=== PATIENT | female | born 1965 | race Caucasian/White ===

== ENCOUNTER 2020-03-01 20:52 | Emergency (ER) | payer MEDICAID, SELFPAY ==
[2020-03-01 21:13] VITALS: BP 167/78; PULSE 77; RESP 88; TEMP 37.2; O2SAT 99; BMI 42.0
--- NOTE | 2020-03-01 21:18 | XR_ITS ---
EXAMINATION: XR FOOT, RIGHT CLINICAL INFORMATION: Right foot and great toe pain. COMPARISON: Right foot radiographs dated 01/28/2017. TECHNIQUE: AP, lateral, and oblique views of the right foot. FINDINGS: No acute fracture or dislocation. Joint space narrowing with small marginal osteophytes at the 1st metatarsophalangeal joint and hallux sesamoids, unchanged. No osseous erosion. Small plantar and dorsal calcaneal enthesophytes, slightly increased in size when compared to the prior examination. XR/XR foot RT min 3V IMPRESSION: 1. Mild degenerative arthritis at the 1st metatarsophalangeal joint and hallux sesamoids, unchanged. 2. Small plantar and dorsal calcaneal spurs, slightly increased in size.
--- NOTE | 2020-03-01 21:19 | ED_ITS ---
HPI - Extremity Injury (Lower) General Chief Complaint: Extremity Injury, Lower Stated Complaint: toe pain Time Seen by Provider: 03/01/20 21:11 Source: patient Mode of arrival: ambulatory History of Present Illness HPI Narrative: 54-year-old female with a past medical history of diabetes, hypertension, asthma, arthritis presenting to ED complaining of right great toe pain x3 days. Denies injury/trauma. admits pain radiates up foot. Denies numbness, tingling, weakness, fever/chills MD complaint: foot injury Related Data Previous Rx's Medication Instructions Recorded acetaminophen [Tylenol Extra 500 mg PO Q6H PRN #20 tab 03/01/20 Strength] naproxen 500 mg PO BID PRN 10 Days #20 tab 03/01/20 Allergies Allergy/AdvReac Type Severity Reaction Status Date / Time No Known Allergies Allergy Verified 03/01/20 21:16 [No Known Allergies*] Review of Systems Review of Systems: Constitutional: No Weight loss, No Fever, No Chills Musculoskeletal: + joint pain, No Myalgias, No Joint Swelling Skin: No Skin Lesions, No rash Neuro: No Weakness, No Numbness, No Paresthesias [facility] Past Medical History Attestation statement: The following information was validated with the patient. Medical History (Updated 03/01/20 @ 22:10 by EBER Paula) Arthritis Asthma Diabetes HTN (hypertension) Social History Social History Advance Directives: No Advance Directives Information Provided: No Physical Exam Vital Signs: Vital Signs: Vital Signs Temp Pulse Resp BP Pulse Ox 03/01/20 21:13 98.9 F 77 88 H 167/78 H 99 Body Mass Index 42.0 Const: General: cooperative and healthy appearing Orientation/consciousness: patient oriented x3 Limitations: no limitations HENMT: Head: Yes normal to inspection Ears: hearing grossly normal bilaterally General nose exam: Normal external nose present Face and sinus: Yes normal facial exam Eyes: General: appearance normal, both eyes and all related structures EOM: EOMs intact bilaterally Neck: Neck: Yes normal visual inspection Resp: Effort & Inspection: normal respiratory effort Cardio: Rate: regular rate Peripheral pulses: dorsalis pedis present Skin: Rashes: no rashes Wounds: no wounds Neuro: General: patient oriented x3 Gait exam (Neuro): Normal gait present Extrem: General: Yes normal to inspection Right lower extremity: normal to inspection, normal capillary refill and foot Details: normal to inspection, tenderness Location: of the great toe, toes with normal ROM and motor-sensory exam Details: light-touch normal; no unusual warmth, no laceration, no ecchymosis, no crepitus and no puncture wound Course Course Course Narrative: - x-ray showing degenerative arthritis at the 1st metatarsalphalangeal joint, unchanged. Small plantar and dorsal calcaneal spurs slightly increased MDM - Extremity Injury (Lower) MDM Narrative Medical decision making narrative: Likely arthritis vs ? gout although toe not appreciably swollen and patient without history. lower concern for fracture or infection. Unlikely septic joint Discharge Plan Discharge Clinical Impression: Arthritis, Great toe pain Patient Disposition: Home, Self-Care Instructions: Arthritis (ED) Additional Instructions: your x-ray showed arthritis of your 1st toe as well as calcaneal spurs Follow up with her doctor Take Tylenol and Naproxen at home for pain. Naproxen as an anti-inflammatory / pain medication, take with food Ice and elevate her feet Rest Prescriptions: New naproxen 500 mg tablet 500 mg PO BID PRN (Reason: pain) 10 Days Qty: 20 RF: 0 acetaminophen [Tylenol Extra Strength] 500 mg tablet 500 mg PO Q6H PRN (Reason: pain or fever) Qty: 20 RF: 0 Referrals: Sonam Gardner NP [Primary Care Provider] - 5 days Print Language: Setswana
[2020-03-01] MEDS: Acetaminophen 325 MG TABLET 650 MG PO (21:46)
[2020-03-01] MEDS: Ketorolac Tromethamine 15 MG/ML VIAL IM (21:47)
== END 2020-03-01 22:51 | disposition home or self-care (01) ==
PROVIDERS: Emergency Provider Internal Medicine; PCP Nurse Practitioner Family
DX: M19.071 Primary osteoarthritis, right ankle and foot (principal); M79.674 Pain in right toe(s)
CPT/HCPCS: 73630; 96372; 99283; 99284; J1885

== ENCOUNTER 2020-08-12 19:01 | Emergency (ER) | payer MEDICAID, SELFPAY ==
--- NOTE | ~2020-08-12 | XR_ITS ---
EXAMINATION: XR SHOULDER, RIGHT CLINICAL INFORMATION: Right shoulder pain COMPARISON: Right shoulder 02/04/2016 TECHNIQUE: Three views of the right shoulder. FINDINGS: The bones and soft tissues are normal. No fracture. Glenohumeral and acromioclavicular alignment is anatomic with normal joint space. No abnormal soft tissue calcifications. XR/XR shoulder RT min 2V IMPRESSION: Normal right shoulder.
--- NOTE | ~2020-08-12 | XR_ITS ---
EXAMINATION: XR CERVICAL SPINE CLINICAL INFORMATION: Arthritis. COMPARISON: Cervical spine 07/27/2016 TECHNIQUE: 3 views of the cervical spine were obtained. FINDINGS: There is diffuse narrowing of the cervical disc heights from C3-C4 through C6-C7 disc levels. There are small endplate spurs of the vertebrae at each of these disc levels. The facet joints are normal. There is a normal atlantoaxial relationship. No prevertebral soft tissue swelling. Compared to the prior exam of 07/26/2016 there is been further progressive disc height narrowing most significant at C6-C7. XR/XR cervical spine 3V IMPRESSION: Degenerative spondylosis of cervical spine which is mildly progressed since prior study of 07/28/2016.
[2020-08-12 20:04] VITALS: BP 127/77; PULSE 85; RESP 18; TEMP 36.4; O2SAT 95; BMI 42.0
[2020-08-12 21:46] VITALS: BP 154/82; PULSE 86; RESP 14; TEMP 36.8; O2SAT 96
--- NOTE | 2020-08-12 22:16 | ED_ITS ---
HPI - Extremity Problem General Chief complaint: Extremity Injury, Upper Stated complaint: BACK PAIN Time Seen by Provider: 08/12/20 21:55 Source: patient Mode of arrival: ambulatory Limitations: no limitations History of Present Illness HPI Narrative: Patient presents to ED for right shoulder pain for the past 1 month and half that is worse on movement. Patient also stating accompanying neck pain. Patient denies hitting the head, fever, chills, neck stiffness, chest pain, shortness of breath. Patient denies any control use. Patient denies any chest pain on inspiration, control use, history of blood clots, recent surgery, or recent trauma. 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 Related Data Previous Rx's Medication Instructions Recorded acetaminophen [Tylenol Extra 500 mg PO Q6H PRN #20 tab 03/01/20 Strength] naproxen 500 mg PO BID PRN 10 Days #20 tab 03/01/20 cyclobenzaprine 10 mg PO TID PRN #15 tab 08/12/20 naproxen 500 mg PO BID PRN #20 tab 08/12/20 Allergies Allergy/AdvReac Type Severity Reaction Status Date / Time No Known Allergies Allergy Verified 08/12/20 20:04 [No Known Allergies*] Review of Systems Review of Systems: Yes all other systems are reviewed and are negative Constitutional: Constitutional: Reports as per HPI and Reports no additional constitutional complaints Eyes: Eyes: Reports as per HPI and Reports no additional eye complaints ENT: Reports system reviewed and no additional complaints, except as documented, Reports as per HPI and Reports neck pain Cardiovascular: Cardiovascular: Reports as per HPI and Reports no additional cardiovascular complaints Respiratory: Respiratory: Reports as per HPI and Reports no additional respiratory complaints Gastrointestinal: Gastrointestinal: Reports as per HPI and Reports no additional gastrointestinal complaints Genitourinary: Genitourinary: Reports no additional female genitourinary complaints and Reports as per HPI Musculoskeletal: Musculoskeletal: Reports no additional musculoskeletal complaints, Reports as per HPI and Reports neck pain Comments: Shoulder pain Neurologic: Reports system reviewed and no additional complaints, except as documented and Reports as per HPI Psychiatric: Psychiatric: Reports no additional psychiatric complaints and Reports as per HPI [facility] Past Medical History Medical History (Updated 08/12/20 @ 22:57 by EBER Bobby) Arthritis Asthma Diabetes HTN (hypertension) Social History Social History Advance Directives: No Advance Directives Information Provided: Yes Physical Exam Vital Signs: Vital Signs: Last Vital Signs Temp 98.3 F 08/12/20 21:46 Pulse 86 08/12/20 21:46 Resp 14 08/12/20 21:46 BP 154/82 H 08/12/20 21:46 Pulse Ox 96 08/12/20 21:46 Body Mass Index 42.0 Const: General: cooperative, healthy appearing, comfortable, no acute distress, well developed, alert and awake Orientation/consciousness: patient oriented x3 HENMT: Head: Yes normal to inspection, Yes No palpable skull fracture present, Yes normocephalic, Yes atraumatic and No abrasion Eyes: General: appearance normal, both eyes and all related structures Neck: Neck: Yes normal visual inspection, Yes full ROM, Yes no lymphadenopathy, Yes no meningeal signs, Yes trachea midline, Yes supple and Yes tender (Mild) Chest: Chest palpation & inspection: normal inspection of the chest and normal palpation of entire chest wall Resp: Effort & Inspection: normal respiratory effort and able to speak in complete sentences Auscultation: clear to auscultation bilaterally Cardio: Jugular venous distension: no JVD Heart sounds: S1 normal heart sound present and S2 normal heart sound present GI: Inspection: Yes normal to inspection and No abdominal wall ecchymosis Palpation (GI): Soft to palpation, not firm, nontender, no guarding and not rigid Skin: General skin exam: no rashes or lesions noted and elasticity normal Neuro: General: patient oriented x3, no meningeal signs and CN's II-XI intact bilaterally Cranial nerves: Yes CN's II-XII intact bilaterally Extrem: Other: Positive for right shoulder tenderness on palpation and movement. Right upper extremity negative for swelling, redness, bruising, bluish discolration mass, or cold sensation. Vascular/neuro exam of right upper extremities intact. Motor exam intact but with pain. General: Yes normal to inspection and Yes full ROM Psych: Appearance: grossly normal, well kempt and not disheveled Course Course Course Narrative: Patient to have shoulder x-ray and neck x-ray. Reevaluation(s) Reevaluation #1: Shoulder x-ray normal. Upper extremity negative any swelling or redness to indicate DVT. Patient has no risk factors for DVT. Vascular neuro exam is intact. Neck x-ray shows cervical radiculopathy which could contribute to neck pain radiating down shoulder radiating down to right hand. MDM - Extremity (Nontraumatic) MDM Narrative Medical decision making narrative: Cervical radiculopathy. Shoulder pain/shoulder strain Discharge Plan Discharge Clinical Impression: Cervical radiculopathy Patient Disposition: Home, Self-Care Instructions: Shoulder Sprain (ED), Cervical Radiculopathy (ED) Additional Instructions: Regrese al servicio de urgencias de inmediato si tiene dolor en el pecho, dificultad para respirar, hinchaz?n de la extremidad superior, enrojecimiento, fiebre, escalofr?os, rigidez severa del ga, dolor de stephani, par?lisis de la extremidad superior, dolor en el pecho al inspirar o cualquier otro s?ntoma preocupante. Prescriptions: New naproxen 500 mg tablet 500 mg PO BID PRN (Reason: pain) Qty: 20 RF: 0 cyclobenzaprine 10 mg tablet 10 mg PO TID PRN (Reason: pain) Qty: 15 RF: 0 No Action naproxen 500 mg tablet 500 mg PO BID PRN (Reason: pain) 10 Days Qty: 20 RF: 0 acetaminophen [Tylenol Extra Strength] 500 mg tablet 500 mg PO Q6H PRN (Reason: pain or fever) Qty: 20 RF: 0 Referrals: [facility] [Primary Care Provider] - 2 days (Cervical radiculopathy) Interventions: ED Discharge Assessment Last Done: 08/12/20 23:25 Discharge Date/Time: 08/12/20 23:30 Print Language: Portuguese
[2020-08-12] MEDS: Ketorolac Tromethamine 30 MG/ML VIAL IM (22:32)
== END 2020-08-12 23:30 | disposition home or self-care (01) ==
PROVIDERS: Emergency Provider Emergency Medicine
DX: M54.12 Radiculopathy, cervical region (principal); M25.511 Pain in right shoulder; E11.9 Type 2 diabetes mellitus without complications; I10 Essential (primary) hypertension; J45.909 Unspecified asthma, uncomplicated
CPT/HCPCS: 72040; 73030; 96372; 99283; 99284; J1885

== ENCOUNTER 2021-06-02 08:59 | Outpatient (REF) | payer MEDICAID, SELFPAY ==
--- NOTE | ~2021-06-02 | XR_ITS ---
EXAMINATION: CHEST, RIGHT SHOULDER AND BILATERAL KNEE CLINICAL INFORMATION: Moderate persistent asthma. Pain shoulder and knees. COMPARISON: Right shoulder 08/12/2020 and chest 08/09/2018. Bilateral AP knee standing and right knee 07/18/2015. TECHNIQUE: 2 views chest 4 views each knee and 4 views right shoulder. FINDINGS: Right shoulder: The glenohumeral joint space is maintained normal. The AC joint space is normal with mild superior periarticular spurring. No loose bodies, acute fracture or bony erosive changes. The soft tissues are normal. CHEST: The lungs are well-expanded and clear. The heart size and pulmonary vascularity is normal. There is mild spondylosis lower dorsal spine. No lytic process seen. Right knee: There is moderate loss of medial medial compartment and mild loss of vertebral compartment joint space with moderate superior and inferior peripatellar spurring. There is suprapatellar mild joint effusion. No loose body seen. Left knee: There is severe lateral compartment loss of joint space with moderate periarticular spurring in the patellofemoral and lateral compartments. There is moderate suprapatellar joint effusion. No loose bodies. No acute fracture. XR/XR knee LT 4V IMPRESSION: Mild degenerative arthritis right AC joint. Similar findings were seen on 08/12/2020. No acute fracture or dislocation. Unremarkable chest exam. Moderate left knee and mild right knee suprapatellar joint effusion. There are degenerative arthritic changes in the medial and peripheral compartments right knee and lateral and peripheral compartment left knee with periarticular spurring. No loose bodies or fracture seen in either knee.
--- NOTE | ~2021-06-02 | XR_ITS ---
EXAMINATION: CHEST, RIGHT SHOULDER AND BILATERAL KNEE CLINICAL INFORMATION: Moderate persistent asthma. Pain shoulder and knees. COMPARISON: Right shoulder 08/12/2020 and chest 08/09/2018. Bilateral AP knee standing and right knee 07/18/2015. TECHNIQUE: 2 views chest 4 views each knee and 4 views right shoulder. FINDINGS: Right shoulder: The glenohumeral joint space is maintained normal. The AC joint space is normal with mild superior periarticular spurring. No loose bodies, acute fracture or bony erosive changes. The soft tissues are normal. CHEST: The lungs are well-expanded and clear. The heart size and pulmonary vascularity is normal. There is mild spondylosis lower dorsal spine. No lytic process seen. Right knee: There is moderate loss of medial medial compartment and mild loss of vertebral compartment joint space with moderate superior and inferior peripatellar spurring. There is suprapatellar mild joint effusion. No loose body seen. Left knee: There is severe lateral compartment loss of joint space with moderate periarticular spurring in the patellofemoral and lateral compartments. There is moderate suprapatellar joint effusion. No loose bodies. No acute fracture. XR/XR chest 2V IMPRESSION: Mild degenerative arthritis right AC joint. Similar findings were seen on 08/12/2020. No acute fracture or dislocation. Unremarkable chest exam. Moderate left knee and mild right knee suprapatellar joint effusion. There are degenerative arthritic changes in the medial and peripheral compartments right knee and lateral and peripheral compartment left knee with periarticular spurring. No loose bodies or fracture seen in either knee.
--- NOTE | ~2021-06-02 | XR_ITS ---
EXAMINATION: CHEST, RIGHT SHOULDER AND BILATERAL KNEE CLINICAL INFORMATION: Moderate persistent asthma. Pain shoulder and knees. COMPARISON: Right shoulder 08/12/2020 and chest 08/09/2018. Bilateral AP knee standing and right knee 07/18/2015. TECHNIQUE: 2 views chest 4 views each knee and 4 views right shoulder. FINDINGS: Right shoulder: The glenohumeral joint space is maintained normal. The AC joint space is normal with mild superior periarticular spurring. No loose bodies, acute fracture or bony erosive changes. The soft tissues are normal. CHEST: The lungs are well-expanded and clear. The heart size and pulmonary vascularity is normal. There is mild spondylosis lower dorsal spine. No lytic process seen. Right knee: There is moderate loss of medial medial compartment and mild loss of vertebral compartment joint space with moderate superior and inferior peripatellar spurring. There is suprapatellar mild joint effusion. No loose body seen. Left knee: There is severe lateral compartment loss of joint space with moderate periarticular spurring in the patellofemoral and lateral compartments. There is moderate suprapatellar joint effusion. No loose bodies. No acute fracture. XR/XR shoulder RT min 2V IMPRESSION: Mild degenerative arthritis right AC joint. Similar findings were seen on 08/12/2020. No acute fracture or dislocation. Unremarkable chest exam. Moderate left knee and mild right knee suprapatellar joint effusion. There are degenerative arthritic changes in the medial and peripheral compartments right knee and lateral and peripheral compartment left knee with periarticular spurring. No loose bodies or fracture seen in either knee.
--- NOTE | ~2021-06-02 | XR_ITS ---
EXAMINATION: CHEST, RIGHT SHOULDER AND BILATERAL KNEE CLINICAL INFORMATION: Moderate persistent asthma. Pain shoulder and knees. COMPARISON: Right shoulder 08/12/2020 and chest 08/09/2018. Bilateral AP knee standing and right knee 07/18/2015. TECHNIQUE: 2 views chest 4 views each knee and 4 views right shoulder. FINDINGS: Right shoulder: The glenohumeral joint space is maintained normal. The AC joint space is normal with mild superior periarticular spurring. No loose bodies, acute fracture or bony erosive changes. The soft tissues are normal. CHEST: The lungs are well-expanded and clear. The heart size and pulmonary vascularity is normal. There is mild spondylosis lower dorsal spine. No lytic process seen. Right knee: There is moderate loss of medial medial compartment and mild loss of vertebral compartment joint space with moderate superior and inferior peripatellar spurring. There is suprapatellar mild joint effusion. No loose body seen. Left knee: There is severe lateral compartment loss of joint space with moderate periarticular spurring in the patellofemoral and lateral compartments. There is moderate suprapatellar joint effusion. No loose bodies. No acute fracture. XR/XR knee RT 4V IMPRESSION: Mild degenerative arthritis right AC joint. Similar findings were seen on 08/12/2020. No acute fracture or dislocation. Unremarkable chest exam. Moderate left knee and mild right knee suprapatellar joint effusion. There are degenerative arthritic changes in the medial and peripheral compartments right knee and lateral and peripheral compartment left knee with periarticular spurring. No loose bodies or fracture seen in either knee.
== END 2021-06-02 09:00 | disposition home or self-care (01) ==
LOC: HO.XRAY 08:59
PROVIDERS: Visit Provider Nurse Practitioner Family
DX: J45.40 Moderate persistent asthma, uncomplicated (principal); M25.511 Pain in right shoulder; M25.562 Pain in left knee; M25.561 Pain in right knee
CPT/HCPCS: 71046; 73030; 73564

== ENCOUNTER 2021-06-02 09:44 | Emergency (ER) | payer MEDICAID, SELFPAY ==
[2021-06-02 10:02] VITALS: BP 131/78; PULSE 85; RESP 18; TEMP 36.7; O2SAT 95; BMI 44.7
--- NOTE | 2021-06-02 10:51 | ED_ITS ---
HPI - Extremity Problem General Chief complaint: Extremity Problem Stated complaint: R KNEE PAIN Time Seen by Provider: 06/02/21 10:25 Source: patient Mode of arrival: ambulatory Limitations: other (Sri Lankan Speaking ) History of Present Illness HPI Narrative: 56-year-old female past medical history of osteoarthritis, asthma, diabetes and hypertension presenting to the ED with complaints of right shoulder pain and bilateral knee pain since January 2020. She reports that she had outpatient x- rays of her right shoulder, chest and bilateral knees schedule since January 2020 by her primary care provider at [facility] although she never was able to get the x-rays. Therefore today since she is having worsening pain she decided to get her x-rays and then come here to the emergency department to get pain medications. She denies any new injuries. She denies any dizziness, headaches, neck pain/stiffness, trouble swallowing or breathing, paresthesias, chest pain or shortness of breath, rashes, dyspnea exertion, orthopnea, palpitations, focal weakness, recent trauma or falls, back pain, neck pain, abdominal pain, lower extremity swelling or calf tenderness or any other symptoms complaints or concerns at this time. She reports she is taking Flexeril, Motrin and Tylenol and no symptomatic relief and she wants something stronger. MD Complaint: extremity pain Onset (ago): month(s) Pain Consistency: constant Location: left, right, upper extremity and lower extremity Severity scale (1-10): >10 Quality: aching and constant Radiation: none Relieving factors: nothing Exacerbating factors: range of motion, weight bearing, walking and palpation Associated symptoms: denies other symptoms Related Data Previous Rx's Medication Instructions Recorded acetaminophen 500 mg tablet 500 mg PO Q6H PRN #20 tab 03/01/20 (Tylenol Extra Strength) naproxen 500 mg tablet 500 mg PO BID PRN 10 Days #20 tab 03/01/20 cyclobenzaprine 10 mg tablet 10 mg PO TID PRN #15 tab 08/12/20 naproxen 500 mg tablet 500 mg PO BID PRN #20 tab 08/12/20 cyclobenzaprine 10 mg tablet 10 mg PO Q8H PRN #14 tab 06/02/21 ibuprofen 800 mg tablet 800 mg PO Q8H PRN #14 tab 06/02/21 lidocaine HCl 4 % topical cream 1 appl TOPICAL BID PRN #120 g 06/02/21 (Aspercreme (lidocaine HCl)) tramadol 50 mg tablet 50 mg PO Q8H PRN #14 tab 06/02/21 Allergies Allergy/AdvReac Type Severity Reaction Status Date / Time No Known Allergies Allergy Verified 08/12/20 20:04 [No Known Allergies*] Review of Systems Verdana 4l Review of Systems: Verdana 4d Verdana 4d Constitutional : No Weight loss, No Fever, No Chills, No Night Sweats, No Fatigue, No Malaise ENT/Mouth : No Hearing loss, No Ear Pain, No Nasal Congestion, No Sinus Pain, No Hoarseness, No sore throat, No Rhinorrhea, No Swallowing DifficultyDifficulty Eyes: No Eye Pain, No Swelling, No Redness, No Foreign Body, No Discharge, No Vision Changes Cardiovascular : No Chest Pain, No SOB, No Dyspnea on Exertion, No Orthopnea, No Edema, No Palpitations Respiratory : No Cough, No Sputum, No Wheezing, No Smoke Exposure, No Dyspnea Gastrointestinal : No Nausea, No Vomiting, No Diarrhea, No Constipation, No abdominal Pain, No Hematochezia, No Melena Genitourinary : no irregular bleeding, No Dysuria, No Urinary Frequency, No Hematuria, No Urinary Incontinence, No Urgency, No Flank Pain, No Urinary Flow Changes, No Hesitancy Musculoskeletal : + joint pain, No Myalgias, No Joint Swelling Skin : No Skin Lesions, No rash Neuro : No Weakness, No Numbness, No Paresthesias, No Loss of Consciousness, No Dizziness, No Headache Psych : No Anxiety/Panic, No Depression, No SI/HI/AH/VH, No Social Issues, Heme/Lymph: No Bruising, No Bleeding,No Lymphadenopathy Endocrine : No Polyuria, No Polydipsia, No Temperature Intolerance Yes all other systems are reviewed and are negative [facility] Past Medical History Attestation statement: The following information was validated with the patient. Medical History Arthritis Asthma Diabetes HTN (hypertension) Social History Social History Advance Directives: No Advance Directives Information Provided: No Patient : No Physical Exam Verdana 4l Vital Signs: Verdana 4d Verdana 4d Vital Signs: Verdana 4d Verdana 4Bd Last Vital Signs Verdana 4d [employer] New 4d [place] 4d Temp 98.0 F 06/02/21 10:02 4d Pulse 85 06/02/21 10:02 [employer] 4d Resp 18 06/02/21 10:02 BP 131/78 06/02/21 10:02 Pulse Ox 95 06/02/21 10:02 BMI result Body Mass Index 44.7 vital signs have been reviewed as normal and appeared to be correct. Blood pressure normal. Heart rate normal. Respiration rate normal. Temperature normal. Oxygen saturation normal. Appearance: Alert. Oriented X3. No acute distress. Head: Normal external exam. Normocephalic. Atraumatic. Eyes: PERRLA. EOMI. Conjunctiva and sclera normal. Eyelids normal. ENT: Pharynx normal. Uvula midline. Moist mucous membranes. Neck: Normal inspection. Neck supple. FROM. No adenopathy. Thyroid Normal. No meningeal signs. No neck mass noted. CVS: Normal heart rate and rhythm. Heart sound normal. Pulses normal throughout. No murmurs/rales/gallops. Respiratory: No respiratory distress. Painless inspiration. Breath sounds normal. No wheezes/rales/rhonchi noted. Chest nontender. No accessory muscle usage noted or decreased air movement noted. Back: Full range of motion noted. No rashes/lesion/induration/fluctuance or signs of infection noted. Skin: Skin warm and dry. Normal skin color. Normal skin turgor. No rashes/lesions/lacerations noted. Extremities: Patient mild tenderness palpation to bilateral knee joints. Mild joint effusion noted bilaterally. No erythema/drinking/induration/fluctuance noted to bilateral knees. No obvious ligamentous or tendon injury and patient has good range of motion. Patient mild tenderness to palpation to the right shoulder at the AC joint she does have full range of motion no obvious ligamentous or tendon injury noted. No signs of infection noted. No upper or lower extremity edema or bilateral calf tenderness noted. Otherwise all other extremities exhibit normal range of motion and nontender. Neuro: Oriented X 3. No motor deficit. No sensory deficit. Reflexes normal. Normal steady gait. No focal neuro deficits noted. Vascular: + radial pulses/+ 2 distal pedal pulses/+2 dorsalis pedis b/l. Normal cap refill. No cyanosis noted to upper extremity nails and lower extremity toes nails. Course Course Course Narrative: 56-year-old female past medical history of osteoarthritis, asthma, diabetes and hypertension presenting to the ED with complaints of right shoulder pain and bilateral knee pain since January 2020. She reports that she had outpatient x- rays of her right shoulder, chest and bilateral knees schedule since January 2020 by her primary care provider at [facility] although she never was able to get the x-rays. Therefore today since she is having worsening pain she decided to get her x-rays and then come here to the emergency department to get pain medications. She denies any new injuries. She denies any dizziness, headaches, neck pain/stiffness, trouble swallowing or breathing, paresthesias, chest pain or shortness of breath, rashes, dyspnea exertion, orthopnea, palpitations, focal weakness, recent trauma or falls, back pain, neck pain, abdominal pain, lower extremity swelling or calf tenderness or any other symptoms complaints or concerns at this time. She reports she is taking Flexeril, Motrin and Tylenol and no symptomatic relief and she wants something stronger. I was able to call radiology and they were able to read her outpatient x-rays which revealed chronic changes to the right shoulder and bilateral knees along with joint effusions to bilateral knees. Therefore I applied 2 Titus wraps or bilateral knees. I explained to her that she most likely has musculoskeletal pain to the right shoulder will not apply a sling to prevent frozen shoulder. We will also DC home with Motrin, Flexeril, Lidoderm cream and tramadol and instructions to follow-up with her primary care provider and to return if any new or worsening symptoms. Patient understands agrees with this plan. MDM - Extremity (Nontraumatic) Medical Records Attestation: I reviewed the patient's medical records. Imaging Data Chest, right shoulder and bilateral knee x-rays: Attestation: I personally reviewed and interpreted this imaging study as follows: Radiologist's impression: FINDINGS: Right shoulder: The glenohumeral joint space is maintained normal. The AC joint space is normal with mild superior periarticular spurring. No loose bodies, acute fracture or bony erosive changes. The soft tissues are normal. CHEST: The lungs are well-expanded and clear. The heart size and pulmonary vascularity is normal. There is mild spondylosis lower dorsal spine. No lytic process seen. Right knee: There is moderate loss of medial medial compartment and mild loss of vertebral compartment joint space with moderate superior and inferior peripatellar spurring. There is suprapatellar mild joint effusion. No loose body seen. Left knee: There is severe lateral compartment loss of joint space with moderate periarticular spurring in the patellofemoral and lateral compartments. There is moderate suprapatellar joint effusion. No loose bodies. No acute fracture. XR/XR chest 2V IMPRESSION: Mild degenerative arthritis right AC joint. Similar findings were seen on 08/12/2020. No acute fracture or dislocation. ? Unremarkable chest exam. ? Moderate left knee and mild right knee suprapatellar joint effusion. There are degenerative arthritic changes in the medial and peripheral compartments right knee and lateral and peripheral compartment left knee with periarticular spurring. No loose bodies or fracture seen in either knee. Discharge Plan Discharge Clinical Impression: Chronic pain in right shoulder, Osteoarthritis Joint effusion of knee Qualifiers: Laterality: bilateral Qualified Code(s): M25.461 - Effusion, right knee Patient Disposition: Home, Self-Care Instructions: Osteoarthritis (DC), Chronic Pain (ED), Swollen Knee Joint (ED) Prescriptions: New cyclobenzaprine 10 mg tablet 10 mg PO Q8H PRN (Reason: Muscle spasm) Qty: 14 0RF ibuprofen 800 mg tablet 800 mg PO Q8H PRN (Reason: pain) Qty: 14 0RF tramadol 50 mg tablet 50 mg PO Q8H PRN (Reason: pain) Qty: 14 0RF Rx Instructions: May partially fill upon patient request lidocaine HCl [Aspercreme (lidocaine HCl)] 4 % cream 1 appl topical BID PRN (Reason: pain) Qty: 120 0RF No Action naproxen 500 mg tablet 500 mg PO BID PRN (Reason: pain) Qty: 20 0RF cyclobenzaprine 10 mg tablet 10 mg PO TID PRN (Reason: pain) Qty: 15 0RF Rx Instructions: Side effect is drowsiness. Do not take at work or while driving naproxen 500 mg tablet 500 mg PO BID PRN (Reason: pain) 10 Days Qty: 20 0RF acetaminophen [Tylenol Extra Strength] 500 mg tablet 500 mg PO Q6H PRN (Reason: pain or fever) Qty: 20 0RF Referrals: Ashley,Marsha [Primary Care Provider] - 2 days Print Language: Sri Lankan
== END 2021-06-02 11:15 | disposition home or self-care (01) ==
PROVIDERS: Emergency Provider Emergency Medicine Emergency Medical Services; PCP Nurse Practitioner Family
DX: M25.462 Effusion, left knee (principal); M25.461 Effusion, right knee; G89.29 Other chronic pain; M25.511 Pain in right shoulder; M19.011 Primary osteoarthritis, right shoulder; E11.9 Type 2 diabetes mellitus without complications; I10 Essential (primary) hypertension
CPT/HCPCS: 99283

== ENCOUNTER 2022-01-09 08:21 | Emergency (ER) | payer MEDICAID, SELFPAY ==
[2022-01-09 08:24] VITALS: BP 145/85; PULSE 95; RESP 18; TEMP 36.6; O2SAT 95; BMI 44.7
--- NOTE | 2022-01-09 10:12 | ED.FEMALEGU ---
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 Patient states that her vagina has been burning and hurts when she urinates. Patient states that she knows she has arthritis but her left knee, right foot, and back all hurt. Patient denies any dizziness, lightheadedness, abdominal pain, nausea, vomiting, fever, chills, blurry vision, double vision, loss of vision, chest pain, difficulty breathing, shortness of breath, night sweats, blood in her urine or stool, syncope or a near syncopal episode, recent trauma or falls, bowel incontinence, bladder incontinence, bowel retention, bladder retention, or any other complaints at this time. MD elicited complaint: dysuria and back pain Pertinent past history: diabetes Onset (ago): day(s) Location of symptoms: external genitalia Severity: mild Female Urogenital Radiation: Non-Radiating Severity scale (1-10): 2 Quality of pain: burning Consistency: constant Vaginal discharge: none Vaginal bleeding: none Urinary symptoms: Dysuria Exacerbating factors: none Relieving factors: none Associated symptoms: back pain Related Data Previous Rx's Medication Instructions Recorded acetaminophen 500 mg tablet 500 mg PO Q6H PRN pain or fever 03/01/20 (Tylenol Extra Strength) #20 tabs naproxen 500 mg tablet 500 mg PO BID PRN pain 10 days #20 03/01/20 tabs cyclobenzaprine 10 mg tablet 10 mg PO TID PRN pain #15 tabs 08/12/20 naproxen 500 mg tablet 500 mg PO BID PRN pain #20 tabs 08/12/20 cyclobenzaprine 10 mg tablet 10 mg PO Q8H PRN Muscle spasm #14 06/02/21 tabs ibuprofen 800 mg tablet 800 mg PO Q8H PRN pain #14 tabs 06/02/21 lidocaine HCl 4 % topical cream 1 appl topical BID PRN pain #120 06/02/21 (Aspercreme (lidocaine HCl)) grams tramadol 50 mg tablet 50 mg PO Q8H PRN pain #14 tabs 06/02/21 cyclobenzaprine 5 mg tablet 5 mg PO TID PRN back pain 7 days 01/09/22 #21 tabs fluconazole 150 mg tablet 150 mg PO Q3D 2 doses #2 tabs 01/09/22 (Diflucan) Allergies Allergy/AdvReac Type Severity Reaction Status Date / Time No Known Allergies Allergy Verified 08/12/20 20:04 [No Known Allergies*] Review of Systems Constitutional: Constitutional: Reports no additional constitutional complaints, Denies chills, Denies fever(s) and Denies night sweats Eyes: Eyes: Reports no additional eye complaints, Denies blurry vision, Denies change in vision, Denies diplopia, Denies eye discharge, Denies loss of vision and Denies eye pain ENT: Denies dizziness Cardiovascular: Cardiovascular: Reports no additional cardiovascular complaints, Denies chest pain, Denies lightheadedness, Denies Loss of Consciousness and Denies dyspnea Respiratory: Respiratory: Reports no additional respiratory complaints and Denies dyspnea Gastrointestinal: Gastrointestinal: Reports no additional gastrointestinal complaints, Denies abdominal pain, Denies melena, Denies hematochezia, Denies change in bowel habits and Denies change in stool character Genitourinary: Genitourinary: Denies hematuria, Denies urinary frequency, Reports dysuria, Denies urinary incontinence, Denies urinary hesitancy and Denies urinary urgency Musculoskeletal: Musculoskeletal: Reports no additional musculoskeletal complaints, Reports back pain, Denies numbness and Denies tingling Neurologic: Denies dizziness, Denies loss of vision, Denies numbness and Denies tingling Psychiatric: Psychiatric: Reports no additional psychiatric complaints Endocrine: Endocrine: Reports no additional endocrine complaints Hematologic/Lymphatic: Hematologic/Lymphatic: Reports no additional hematologic/lymphatic complaints Allergic/Immunologic: Allergic/Immunologic: Reports no additional allergic/immunologic complaints [facility] Past Medical History Attestation statement: The following information was validated with the patient. Source: old records reviewed Medical History Arthritis Asthma Diabetes HTN (hypertension) Social History Social History Advance Directives: No Advance Directives Information Provided: Yes Physical Exam Vital Signs: Vital Signs: Last Vital Signs Temp 98 F 01/09/22 08:24 Pulse 95 01/09/22 08:24 Resp 18 01/09/22 08:24 BP 145/85 H 01/09/22 08:24 Pulse Ox 95 01/09/22 08:24 O2 Del Method 01/09/22 08:24 BMI result Body Mass Index 44.7 Const: General: cooperative, no acute distress, alert and awake Nutritional Appearance: well nourished Orientation/consciousness: patient oriented x3 Limitations: no limitations HEENT: Head: Yes normal to inspection and Yes atraumatic Ears: hearing grossly normal bilaterally and external ears normal General nose exam: Normal external nose present, no nasal discharge noted and no epistaxis Face and sinus: Yes normal facial exam, No abrasion and No laceration Mouth: Normal oral and palatal mucosa present, no drooling and no muffled voice Eyes: General: appearance normal, both eyes and all related structures Periorbital: periorbital findings normal Eyelids: Yes eyelids normal Conjunctivae: conjunctivae normal Pupils: Equal, round and reactive pupils present EOM: EOMs intact bilaterally Neck: Neck: Yes normal visual inspection, Yes full ROM and Yes no lymphadenopathy Chest: Chest palpation & inspection: normal inspection of the chest Resp: Effort & Inspection: normal respiratory effort and able to speak in complete sentences Auscultation: clear to auscultation bilaterally Cardio: Rate: regular rate Rhythm: regular rhythm GI: Inspection: Yes normal to inspection : General: Yes no CVA tenderness Back/Spine/Pelvis: Back: no CVA tenderness Cervical Spine: normal cervical lordosis and cervical ROM normal Thoracic/Lumbar Spine: thoracic and lumbar spine normal to inspection and thoraco-lumbar ROM normal Neuro: General: patient oriented x3 and moves all extremities Cranial nerves: Yes Equal, round and reactive pupils present Cognition (Neuro): normal cognition Motor exam (neuro): 5/5 motor strength present throughout Sensory Exam: Normal double simultaneous stimulation for sensation Coordination: [id number] test normal Extrem: General: Yes normal to inspection, Yes full ROM and Yes capillary refill normal Psych: Appearance: grossly normal Mental Status: mental status grossly normal Affect: normal affect Attitude: cooperative Thought process: Normal thought process present Thought content: Normal thought content present Insight: Good insight present (Psych) MDM - Female Genitourinary MDM Narrative Medical decision making narrative: Patient is a 56 year old female presenting to the emergency department today with left knee pain, right foot pain, back pain, and vaginal irritation. Patient's physical exam was unremarkable. Patient's urine showed no acute process but did show >1,000 glucose. Patient's back pain, knee pain, and foot pain are all consistent with her arthritis. Patient's vaginal irritation appears to be secondary to a yeast infection. I explained my physical exam findings as well as all test results to the patient. I answered all questions asked by the patient. Patient received PO Flexeril and IM Toradol which she stated helped her pains significantly. I stressed the importance of the patient taking her medication as prescribed. I stressed the importance of the patient following up with her primary care provider. I stressed the importance of the patient returning to the emergency department immediately if her symptoms were to worsen or if she were to develop any dizziness, shortness of breath, difficulty breathing, chest pain, blurry vision, loss of vision, nausea, vomiting, abdominal pain, fever, chills, back pain, or any other complaints. Patient verbalized agreement and understanding with this treatment plan and discharge. Medical Records Attestation: I reviewed the patient's medical records. Lab Data Attestation: I reviewed the patient's lab results. Labs: Lab Results 01/09/22 Range/Units 10:15 Urine Color Yellow Urine Appearance Clear Urine pH 5.5 (5.0-9.0) Ur Specific [place] >= 1.030 H (1.005-1.025) Urine Protein Negative (Neg-Trace) mg/dL Urine Glucose (UA) >=1000 H (Negative) mg/dL Urine Ketones Negative (Negative) mg/dL Urine Blood Negative (Negative) Urine Nitrite Negative (Negative) Ur Leukocyte Esterase Negative (Negative) Urine RBC 0-2 (0-2) /HPF Urine WBC 0-5 (0-5) /HPF Ur Squamous Epith Cells 0-2 (0-2) /HPF Urine Bacteria None Seen (None Seen) Hyaline Casts 3-5 (0-2) /LPF Discharge Plan Discharge Clinical Impression: Arthritis, Yeast infection Patient Disposition: Home, Self-Care Instructions: Osteoarthritis (ED), Yeast Infection (ED) Additional Instructions: Follow up with your primary care provider. Return to the emergency department immediately if your symptoms worsen or if you develop any dizziness, shortness of breath, difficulty breathing, chest pain, blurry vision, loss of vision, nausea, vomiting, abdominal pain, fever, chills, back pain, or any other complaints. Dieudonne un seguimiento con wilkinson proveedor de atenci?n primaria. Regrese al departamento de emergencias de inmediato si bailey s?ntomas empeoran o si presenta mareos, falta de aire, dificultad para respirar, dolor de pecho, visi?n borrosa, p?rdida de la visi?n, n?useas, v?mitos, dolor abdominal, fiebre, escalofr?os, dolor de espalda o cualquier otras quejas. Prescriptions: New fluconazole [Diflucan] 150 mg tablet 150 mg PO Q3D Qty: 2 0RF Rx Instructions: may repeat second dose 72 hrs after first dose if symptoms persist cyclobenzaprine 5 mg tablet 5 mg PO TID PRN (Reason: back pain) 7 Days Qty: 21 0RF No Action naproxen 500 mg tablet 500 mg PO BID PRN (Reason: pain) Qty: 20 0RF cyclobenzaprine 10 mg tablet 10 mg PO TID PRN (Reason: pain) Qty: 15 0RF Rx Instructions: Side effect is drowsiness. Do not take at work or while driving naproxen 500 mg tablet 500 mg PO BID PRN (Reason: pain) 10 Days Qty: 20 0RF acetaminophen [Tylenol Extra Strength] 500 mg tablet 500 mg PO Q6H PRN (Reason: pain or fever) Qty: 20 0RF cyclobenzaprine 10 mg tablet 10 mg PO Q8H PRN (Reason: Muscle spasm) Qty: 14 0RF ibuprofen 800 mg tablet 800 mg PO Q8H PRN (Reason: pain) Qty: 14 0RF tramadol 50 mg tablet 50 mg PO Q8H PRN (Reason: pain) Qty: 14 0RF Rx Instructions: May partially fill upon patient request lidocaine HCl [Aspercreme (lidocaine HCl)] 4 % cream 1 appl topical BID PRN (Reason: pain) Qty: 120 0RF Referrals: [facility] [Primary Care Provider] - Interventions: ED Discharge Assessment Last Done: 01/09/22 11:09 Discharge Date/Time: 01/09/22 11:11 Print Language: [place]an
[2022-01-09 10:30] LABS: Appearance Urine Clear; Color Urine Yellow; Glucose Urine UA >=1000 mg/dL (Negative); Leukocyte Esterase Urine Negative (Negative); Nitrite Urine Negative (Negative); PH 5.5 (5.0-9.0); Specific Gravity - Urine >= 1.030 (1.005-1.025); Urine Blood Negative (Negative); Urine Ketones Negative (Negative); Urine Protein Negative (Neg-Trace)
[2022-01-09 10:36] LABS: Bacteria Urine None Seen (None Seen); RBC Urine 0-2 /HPF (0-2); Squamous Epithelial Cell Urine 0-2 /HPF (0-2); WBC Urine 0-5 /HPF (0-5)
[2022-01-09] MEDS: Ketorolac Tromethamine 15 MG/ML VIAL IM (11:02)
== END 2022-01-09 11:11 | disposition home or self-care (01) ==
PROVIDERS: Emergency Provider Emergency Medicine
DX: B37.3 Candidiasis of vulva and vagina (principal); M17.12 Unilateral primary osteoarthritis, left knee; M19.071 Primary osteoarthritis, right ankle and foot; M47.9 Spondylosis, unspecified; E11.9 Type 2 diabetes mellitus without complications; I10 Essential (primary) hypertension
CPT/HCPCS: 81001; 96372; 99284; J1885

== ENCOUNTER 2022-02-12 13:47 | Outpatient (REF) | payer MEDICAID, SELFPAY | END 2022-02-12 13:48 | disposition home or self-care (01) | LOC: HO.LAB 13:47 | PROVIDERS: Visit Provider Surgery | DX: L02.411 Cutaneous abscess of right axilla (principal); N61.1 Abscess of the breast and nipple; L03.111 Cellulitis of right axilla; B95.62 Methicillin resistant Staphylococcus aureus infection as the cause of diseases classified elsewhere; Z79.899 Other long term (current) drug therapy | CPT/HCPCS: 10060; 10061; 87070; 87077; 87186; 87205; 99202 ==

== ENCOUNTER 2022-03-15 19:53 | Emergency (ER) | payer MEDICAID, SELFPAY ==
--- NOTE | 2022-03-15 20:24 | ED.GENADULT ---
HPI - General Adult General Chief complaint: General Medical Stated complaint: swollen tonsils/ throat issues Related Data Home Medications Medication Instructions Recorded Confirmed amlodipine 10 mg tablet 10 mg PO DAILY 02/12/22 02/12/22 clotrimazole 1 % vaginal cream 1 appful vaginal BEDTIME PRN 02/12/22 02/12/22 fluticasone propionate 230 2 puff inhalation 02/12/22 02/12/22 mcg-salmeterol 21 mcg/actuation HFA inhaler (Advair HFA) loratadine 10 mg tablet 10 mg PO DAILY 02/12/22 02/12/22 montelukast 10 mg tablet 10 mg PO BEDTIME 02/12/22 02/12/22 multivitamin 1 tab PO DAILY 02/12/22 02/12/22 omeprazole 20 mg capsule,delayed 20 mg PO QAM 02/12/22 02/12/22 release sennosides 8.6 mg tablet (senna) 8.6 - 17.2 mg PO BEDTIME 02/12/22 02/12/22 vitamin E (dl, acetate) 180 mg 180 mg PO DAILY 02/12/22 02/12/22 (400 unit) capsule Previous Rx's Medication Instructions Recorded acetaminophen 500 mg tablet 500 mg PO Q6H PRN pain or fever 03/01/20 (Tylenol Extra Strength) #20 tabs ibuprofen 800 mg tablet 800 mg PO Q8H PRN pain #14 tabs 06/02/21 lidocaine HCl 4 % topical cream 1 appl topical BID PRN pain #120 06/02/21 (Aspercreme (lidocaine HCl)) grams fluconazole 150 mg tablet 150 mg PO Q3D 2 doses #2 tabs 01/09/22 (Diflucan) chlorhexidine gluconate 4 % 1 appl topical .COMPLEX 2 doses 02/12/22 topical liquid (Hibiclens) #473 mL sulfamethoxazole 800 1 tab PO Q12H #20 tabs 02/19/22 mg-trimethoprim 160 mg tablet (Bactrim DS) Allergies Allergy/AdvReac Type Severity Reaction Status Date / Time No Known Allergies Allergy Verified 02/12/22 13:20 [No Known Allergies*] PMFSH Past Medical History Medical History Arthritis Asthma Diabetes HTN (hypertension) Surgical History History of 3 sections Family History Family History Brother Colon cancer Maternal Aunt Ovarian cancer Social History Social History Alcohol intake: never Patient Tobacco Use Status: Never used Tobacco Course Course Course Narrative: -traige OPHELIA: -c/o swollen uvula, can swallow w pain, today pt woke up -denies URI, fever -PE: normal respirations, normal heart rate, uvula erythematous and very mild swelling at the tip -pt denies taking lisinopril -Patient given po decadron, viscous lidocaine and benadryl Discharge Plan Discharge Prescriptions: No Action acetaminophen [Tylenol Extra Strength] 500 mg tablet 500 mg PO Q6H PRN (Reason: pain or fever) Qty: 20 0RF fluconazole [Diflucan] 150 mg tablet 150 mg PO Q3D Qty: 2 0RF Rx Instructions: may repeat second dose 72 hrs after first dose if symptoms persist ibuprofen 800 mg tablet 800 mg PO Q8H PRN (Reason: pain) Qty: 14 0RF lidocaine HCl [Aspercreme (lidocaine HCl)] 4 % cream 1 appl topical BID PRN (Reason: pain) Qty: 120 0RF vitamin E (dl, acetate) 180 mg (400 unit) capsule 180 mg PO DAILY Advair HFA 230-21 mcg/actuation HFA aerosol inhaler 2 puff inhalation loratadine 10 mg tablet 10 mg PO DAILY montelukast 10 mg tablet 10 mg PO BEDTIME omeprazole 20 mg capsule,delayed release(DR/EC) 20 mg PO QAM amlodipine 10 mg tablet 10 mg PO DAILY sennosides [senna] 8.6 mg tablet 8.6 - 17.2 mg PO BEDTIME multivitamin Tablet 1 tab PO DAILY clotrimazole 1 % cream 1 appful vaginal BEDTIME PRN chlorhexidine gluconate [Hibiclens] 4 % liquid 1 appl topical .COMPLEX Qty: 473 2RF Rx Instructions: 1 appl topically use in shower 3 times weekly. Lather on skin and leave on for 2 minutes, then rinse off in shower; sulfamethoxazole-trimethoprim [Bactrim DS] 800-160 mg tablet 1 tab PO Q12H Qty: 20 0RF
[2022-03-15 20:25] VITALS: BP 137/99; PULSE 90; RESP 18; TEMP 36.2; O2SAT 97; BMI 45.3
[2022-03-15] MEDS: Lidocaine HCl Viscous 2 % 15 ML SOLUTION MUCOUS MEM (20:38)
[2022-03-15] MEDS: dexAMETHasone sod phosphate 4 MG/ML VIAL 6 MG IVPUSH (20:41)
[2022-03-15] MEDS: diphenhydrAMINE HCL 25 MG CAPSULE PO (20:41)
[2022-03-15 20:46] LABS: Strep A Nucleic Acid Negative (Negative)
[2022-03-15 20:50] LABS: COVID-19 Test Negative (Negative); IDNOW Serial# 55D5AD1C
[2022-03-15] MEDS: Ibuprofen 800 MG TABLET PO (22:36)
[2022-03-15] MEDS: predniSONE 20 MG TABLET 40 MG PO (22:36)
--- NOTE | 2022-03-15 23:01 | ED.GENADULT ---
HPI - General Adult General Chief complaint: General Medical Stated complaint: swollen tonsils/ throat issues Time Seen by Provider: 03/15/22 21:37 Source: patient Mode of arrival: ambulatory Limitations: no limitations History of Present Illness HPI narrative: 56 yold female presents to the ED for sore throat for a couple of days. Patient denies any drooling, fever, chills, rash, change in voice, or inability to tolerate solid foods and liquids. patient denies sensation of throat closting. Related Data Home Medications Medication Instructions Recorded Confirmed amlodipine 10 mg tablet 10 mg PO DAILY 02/12/22 02/12/22 clotrimazole 1 % vaginal cream 1 appful vaginal BEDTIME PRN 02/12/22 02/12/22 fluticasone propionate 230 2 puff inhalation 02/12/22 02/12/22 mcg-salmeterol 21 mcg/actuation HFA inhaler (Advair HFA) loratadine 10 mg tablet 10 mg PO DAILY 02/12/22 02/12/22 montelukast 10 mg tablet 10 mg PO BEDTIME 02/12/22 02/12/22 multivitamin 1 tab PO DAILY 02/12/22 02/12/22 omeprazole 20 mg capsule,delayed 20 mg PO QAM 02/12/22 02/12/22 release sennosides 8.6 mg tablet (senna) 8.6 - 17.2 mg PO BEDTIME 02/12/22 02/12/22 vitamin E (dl, acetate) 180 mg 180 mg PO DAILY 02/12/22 02/12/22 (400 unit) capsule Previous Rx's Medication Instructions Recorded acetaminophen 500 mg tablet 500 mg PO Q6H PRN pain or fever 03/01/20 (Tylenol Extra Strength) #20 tabs ibuprofen 800 mg tablet 800 mg PO Q8H PRN pain #14 tabs 06/02/21 lidocaine HCl 4 % topical cream 1 appl topical BID PRN pain #120 06/02/21 (Aspercreme (lidocaine HCl)) grams fluconazole 150 mg tablet 150 mg PO Q3D 2 doses #2 tabs 01/09/22 (Diflucan) chlorhexidine gluconate 4 % 1 appl topical .COMPLEX 2 doses 02/12/22 topical liquid (Hibiclens) #473 mL sulfamethoxazole 800 1 tab PO Q12H #20 tabs 02/19/22 mg-trimethoprim 160 mg tablet (Bactrim DS) azithromycin 250 mg tablet See Rx Instructions PO .COMPLEX #6 03/15/22 tabs diphenhydramine HCl 25 mg capsule 25 mg PO TID PRN allergic reaction 03/15/22 (Benadryl) 7 days #21 caps famotidine 20 mg tablet (Pepcid) 20 mg PO BID 7 days #14 tabs 03/15/22 prednisone 20 mg tablet 40 mg PO DAILY 5 days #10 tabs 03/15/22 Allergies Allergy/AdvReac Type Severity Reaction Status Date / Time No Known Allergies Allergy Verified 02/12/22 13:20 [No Known Allergies*] Review of Systems Review of Systems: SOre throat Yes all other systems are reviewed and are negative [facility] Past Medical History Medical History Arthritis Asthma Diabetes HTN (hypertension) Surgical History History of 3 sections Family History Family History Brother Colon cancer Maternal Aunt Ovarian cancer Social History Social History Alcohol intake: never Patient Tobacco Use Status: Never used Tobacco Advance Directives: No Advance Directives Information Provided: No Physical Exam ED Vital Signs: Vital Signs - 24 hr 03/15/22 20:25 Temperature 97.2 F Pulse Rate 90 Respiratory Rate 18 Blood Pressure 137/99 H Pulse Oximetry 97 Oxygen Delivery Method Room Air BMI result Body Mass Index 45.3 Const General: cooperative, healthy appearing, comfortable, no acute distress, well developed, alert and awake Orientation/consciousness: oriented to time and patient oriented x3 HENMT Other: negative for lip swelling, facial swelling, or tongue swelling. Head: Yes normal to inspection, Yes No palpable skull fracture present, Yes normocephalic, Yes atraumatic and No abrasion Throat: Yes posterior oropharynx normal, Yes tonsils normal and Yes uvular edema (slight redness and slight swelling of uvula. ) Eyes General: appearance normal, both eyes and all related structures Neck Neck: Yes normal visual inspection, Yes full ROM, Yes no lymphadenopathy, Yes no meningeal signs, Yes trachea midline, Yes supple, No anterior neck swelling and No tender Chest Chest palpation & inspection: normal inspection of the chest and normal palpation of entire chest wall Resp Effort & Inspection: normal respiratory effort and able to speak in complete sentences Auscultation: clear to auscultation bilaterally Cardio Jugular venous distension: no JVD Heart sounds: S1 normal heart sound present and S2 normal heart sound present GI Inspection: Yes normal to inspection and No abdominal wall ecchymosis Palpation (GI): Soft to palpation, not firm, nontender, no guarding and not rigid General: No CVA tenderness and Yes no CVA tenderness Back/Spine/Pelvis Back: no CVA tenderness, No CVA tenderness and No back tenderness Skin General skin exam: no rashes or lesions noted and elasticity normal Neuro General: oriented to time, patient oriented x3, gait normal, tone normal and no meningeal signs Cranial nerves: Yes CN's II-XII intact bilaterally Extrem General: Yes normal to inspection and Yes full ROM Psych Appearance: grossly normal, well kempt and not disheveled Course Course Course Narrative: uvalitis Reevaluation(s) Reevaluation #1: Patient received lidocaine, dexmethasone, bendry, and prednisone. patient to discharged with prednisone, benadryl, pepcid, and zpack Medications Administered Discontinued Medications Generic Name Dose Route Start Last Admin Trade Name Stefania PRN Reason Stop Dose Admin Dexamethasone Sodium Phosphate 6 mg 03/15/22 20:31 03/15/22 20:41 Dexamethasone Sod Phosphate 4 Mg/Ml Vial IVPUSH 03/15/22 20:32 6 mg ONCE ONE Administration Diphenhydramine HCl 25 mg 03/15/22 20:31 03/15/22 20:41 Diphenhydramine Hcl 25 Mg Capsule PO 03/15/22 20:32 25 mg ONCE ONE Administration Ibuprofen 800 mg 03/15/22 22:33 03/15/22 22:36 Ibuprofen 800 Mg Tablet PO 03/15/22 22:34 800 mg ONCE ONE Administration Lidocaine HCl 15 ml 03/15/22 20:31 03/15/22 20:38 Lidocaine Hcl Viscous 2 % 15 Ml Solution MUCOUS MEM 03/15/22 20:32 15 ml ONCE ONE Administration Prednisone 40 mg 03/15/22 22:33 03/15/22 22:36 Prednisone 20 Mg Tablet PO 03/15/22 22:34 40 mg ONCE ONE Administration Medical Decision Making MDM Narrative Medical decision making narrative: uvilitis Lab Data Labs: Lab Results 03/15/22 03/15/22 Range/Units 20:32 20:32 COVID-19 (REJI) Negative (Negative) COVID-19 Clin Com See Note S. pyogenes GrpA MARCUS Negative (Negative) Discharge Plan Discharge Clinical Impression: Uvulitis Patient Disposition: Home, Self-Care Instructions: Uvulitis (ED) Additional Instructions: Tienes uvulitis. Regrese al servicio de urgencias por cualquier babeo, cambio de voz, dolor en el pecho, dificultad para respirar, hinchaz?n del ga, incapacidad para tolerar alimentos s?lidos/l?quidos, sarpullido, fiebre, escalofr?os o cualquier otro s?ntoma preocupante. Por favor, moris un seguimiento con PCP. Prescriptions: New prednisone 20 mg tablet 40 mg PO DAILY 5 Days Qty: 10 0RF diphenhydramine HCl [Benadryl] 25 mg capsule 25 mg PO TID PRN (Reason: allergic reaction) 7 Days Qty: 21 0RF famotidine [Pepcid] 20 mg tablet 20 mg PO BID 7 Days Qty: 14 0RF azithromycin 250 mg tablet See Rx Instructions .ROUTE .COMPLEX Qty: 6 0RF Rx Instructions: For 250 mg dose pack: take 500 mg today (day 1), then 250 mg for 4 days (days 2-5) No Action acetaminophen [Tylenol Extra Strength] 500 mg tablet 500 mg PO Q6H PRN (Reason: pain or fever) Qty: 20 0RF fluconazole [Diflucan] 150 mg tablet 150 mg PO Q3D Qty: 2 0RF Rx Instructions: may repeat second dose 72 hrs after first dose if symptoms persist ibuprofen 800 mg tablet 800 mg PO Q8H PRN (Reason: pain) Qty: 14 0RF lidocaine HCl [Aspercreme (lidocaine HCl)] 4 % cream 1 appl topical BID PRN (Reason: pain) Qty: 120 0RF vitamin E (dl, acetate) 180 mg (400 unit) capsule 180 mg PO DAILY Advair HFA 230-21 mcg/actuation HFA aerosol inhaler 2 puff inhalation loratadine 10 mg tablet 10 mg PO DAILY montelukast 10 mg tablet 10 mg PO BEDTIME omeprazole 20 mg capsule,delayed release(DR/EC) 20 mg PO QAM amlodipine 10 mg tablet 10 mg PO DAILY sennosides [senna] 8.6 mg tablet 8.6 - 17.2 mg PO BEDTIME multivitamin Tablet 1 tab PO DAILY clotrimazole 1 % cream 1 appful vaginal BEDTIME PRN chlorhexidine gluconate [Hibiclens] 4 % liquid 1 appl topical .COMPLEX Qty: 473 2RF Rx Instructions: 1 appl topically use in shower 3 times weekly. Lather on skin and leave on for 2 minutes, then rinse off in shower; sulfamethoxazole-trimethoprim [Bactrim DS] 800-160 mg tablet 1 tab PO Q12H Qty: 20 0RF Interventions: ED Discharge Assessment Last Done: 03/15/22 23:33 Discharge Date/Time: 03/15/22 23:34
== END 2022-03-15 23:34 | disposition home or self-care (01) ==
PROVIDERS: Emergency Medicine; Emergency Provider Internal Medicine
DX: K12.2 Cellulitis and abscess of mouth (principal); J02.9 Acute pharyngitis, unspecified; Z20.822 Contact with and (suspected) exposure to COVID-19; I10 Essential (primary) hypertension; E11.9 Type 2 diabetes mellitus without complications; Z79.899 Other long term (current) drug therapy
CPT/HCPCS: 87635; 87651; 99283; J1100

== ENCOUNTER 2022-07-19 15:22 | Emergency (ER) | payer MEDICAID, SELFPAY ==
--- NOTE | ~2022-07-19 | CT_ITS ---
EXAMINATION: CT ORBIT WITH CONTRAST CLINICAL INFORMATION: Right eye pain and swelling COMPARISON: None available. TECHNIQUE: Axial 3 mm thin and reformatted 1.5 mm thin sagittal coronal images of orbits were obtained following IV 85 mL Omnipaque 350. This CT examination was performed using dose optimization techniques as appropriate, variously including the following: *Automated exposure control *Adjustment of mA and/or kV according to patient size (this includes techniques or standardized protocols for targeted exams where dose is matched to indication/reason for exam; i.e. extremities or head) *Use of iterative reconstruction technique DLP: 194 mGy-cm FINDINGS: There is mild to moderate right orbit preseptal soft tissue swelling. No post septal soft tissue swelling seen. The optic globe, optic nerves and the intraconal an extraconal soft tissues are symmetrical and normal. No radiopaque foreign body seen in the orbits. The bony james of the orbits are normal. Visualized bilateral maxillary, ethmoid, frontal and sphenoid sinuses are clear. No bony abnormalities seen. No intracranial parenchymal opacity seen. CT/CT orbit BI w IV con IMPRESSION: Mild to moderate right preseptal soft tissue swelling. No post septal soft tissue swelling seen. Otherwise bilateral orbits are unremarkable.
[2022-07-19 15:38] VITALS: BP 152/93; PULSE 100; RESP 16; TEMP 36.9; O2SAT 97; BMI 44.9
--- NOTE | 2022-07-19 15:39 | ED.EYEPROB ---
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 Patient states that on Tuesday, she noticed some eye itchiness, crusting, pain and swelling to her right eye and eyelid. She reports that since this onset, her pain and swelling has become worse. She admits that she has eyeball pain with eye movement. Pt reports that she has had some blurry vision in her right eye. She wears reading glasses, denies contact lens use. She reports that one month ago, she had a right ear infection and sore throat which was treated at an urgent care facility with antibiotics. She reports that she has had a persistent headache and right ear pain over the last month and that the antibiotics did not help. Denies fevers or chills. <Sneha Ferrell NP - Last Filed: 07/20/22 16:55> chief complaint: eye pain <Sneha Ferrell NP - Last Filed: 07/20/22 16:55> Onset (ago): day(s) <Sneha Ferrell NP - Last Filed: 07/20/22 16:55> Onset description: gradual <Sneha Ferrell NP - Last Filed: 07/20/22 16:55> Duration: constant and progressively worsening <Sneha Ferrell NP - Last Filed: 07/20/22 16:55> Location: right eye <Sneha Ferrell NP - Last Filed: 07/20/22 16:55> Eye Symptoms: pain, itching, discharge, decreased vision and blurry vision <Sneha Ferrell NP - Last Filed: 07/20/22 16:55> Place: home <Sneha Ferrell NP - Last Filed: 07/20/22 16:55> Mechanism: none <Sneha Ferrell NP - Last Filed: 07/20/22 16:55> Severity: moderate <Sneha Ferrell NP - Last Filed: 07/20/22 16:55> If Pain, Quality: burning and aching <Sneha Ferrell NP - Last Filed: 07/20/22 16:55> Context: recent URI <Sneha Ferrell NP - Last Filed: 07/20/22 16:55> Associated symptoms: headache <Sneha Ferrell NP - Last Filed: 07/20/22 16:55> Treatments Prior to Arrival: none <Sneha Ferrell NP - Last Filed: 07/20/22 16:55> Related Data Home medications: Home Medications Medication Instructions Recorded Confirmed amlodipine 10 mg tablet 10 mg PO DAILY 02/12/22 02/12/22 clotrimazole 1 % vaginal cream 1 appful vaginal BEDTIME PRN 02/12/22 02/12/22 fluticasone propionate 230 2 puff inhalation 02/12/22 02/12/22 mcg-salmeterol 21 mcg/actuation HFA inhaler (Advair HFA) loratadine 10 mg tablet 10 mg PO DAILY 02/12/22 02/12/22 montelukast 10 mg tablet 10 mg PO BEDTIME 02/12/22 02/12/22 multivitamin 1 tab PO DAILY 02/12/22 02/12/22 omeprazole 20 mg capsule,delayed 20 mg PO QAM 02/12/22 02/12/22 release sennosides 8.6 mg tablet (senna) 8.6 - 17.2 mg PO BEDTIME 02/12/22 02/12/22 vitamin E (dl, acetate) 180 mg 180 mg PO DAILY 02/12/22 02/12/22 (400 unit) capsule Previous Rx's Medication Instructions Recorded acetaminophen 500 mg tablet 500 mg PO Q6H PRN pain or fever 03/01/20 (Tylenol Extra Strength) #20 tabs ibuprofen 800 mg tablet 800 mg PO Q8H PRN pain #14 tabs 06/02/21 lidocaine HCl 4 % topical cream 1 appl topical BID PRN pain #120 06/02/21 (Aspercreme (lidocaine HCl)) grams fluconazole 150 mg tablet 150 mg PO Q3D 2 doses #2 tabs 01/09/22 (Diflucan) chlorhexidine gluconate 4 % 1 appl topical .COMPLEX 2 doses 02/12/22 topical liquid (Hibiclens) #473 mL sulfamethoxazole 800 1 tab PO Q12H #20 tabs 02/19/22 mg-trimethoprim 160 mg tablet (Bactrim DS) azithromycin 250 mg tablet See Rx Instructions PO .COMPLEX #6 03/15/22 tabs diphenhydramine HCl 25 mg capsule 25 mg PO TID PRN allergic reaction 03/15/22 (Benadryl) 7 days #21 caps famotidine 20 mg tablet (Pepcid) 20 mg PO BID 7 days #14 tabs 03/15/22 prednisone 20 mg tablet 40 mg PO DAILY 5 days #10 tabs 03/15/22 amoxicillin 875 mg-potassium 1 tab PO BID #20 tabs 07/19/22 clavulanate 125 mg tablet <EBER Healy - Last Filed: 07/19/22 15:46> Allergies/adverse reactions: Allergies Allergy/AdvReac Type Severity Reaction Status Date / Time No Known Allergies Allergy Verified 02/12/22 13:20 [No Known Allergies*] <EBER Healy - Last Filed: 07/19/22 15:46> Review of Systems Review of Systems: Yes all other systems are reviewed and are negative <Sneha Ferrell NP - Last Filed: 07/20/22 16:55> Constitutional: Constitutional: Reports no additional constitutional complaints, Denies body ache(s), Denies chills, Denies fever(s), Reports headache(s) and Denies weakness <Sneha Ferrell WOOL PRESSER - Last Filed: 07/20/22 16:55> Eyes: Eyes: Reports change in vision, Reports eye discharge, Reports irritation, Reports itchy eyes, Reports eye pain and Denies requires corrective lenses <Sneha eFrrell WOOL PRESSER - Last Filed: 07/20/22 16:55> ENT: Reports system reviewed and no additional complaints, except as documented, Denies dizziness, Reports otalgia, Reports headache(s), Denies nasal congestion, Denies nasal discharge and Denies neck pain <Sneha Ferrell WOOL PRESSER - Last Filed: 07/20/22 16:55> Cardiovascular: Cardiovascular: Reports no additional cardiovascular complaints, Denies chest pain, Denies leg edema and Denies dyspnea <Sneha Ferrell WOOL PRESSER - Last Filed: 07/20/22 16:55> Respiratory: Respiratory: Reports no additional respiratory complaints, Denies cough and Denies dyspnea <Sneha Ferrell WOOL PRESSER - Last Filed: 07/20/22 16:55> Gastrointestinal: Gastrointestinal: Reports no additional gastrointestinal complaints, Denies abdominal pain, Denies diarrhea, Denies nausea and Denies vomiting <Sneha Ferrell WOOL PRESSER - Last Filed: 07/20/22 16:55> Genitourinary: Genitourinary: Reports no additional female genitourinary complaints and Denies urinary incontinence <Sneha Ferrell WOOL PRESSER - Last Filed: 07/20/22 16:55> Musculoskeletal: Musculoskeletal: Reports no additional musculoskeletal complaints, Denies back pain, Denies arthralgias, Denies joint swelling, Denies neck pain, Denies numbness and Denies tingling <Sneha Ferrell WOOL PRESSER - Last Filed: 07/20/22 16:55> Integumentary/Breasts: Skin/Breast: Reports system reviewed and no additional complaints, except as docu and Denies rash <Sneha Ferrell WOOL PRESSER - Last Filed: 07/20/22 16:55> Neurologic: Reports system reviewed and no additional complaints, except as documented, Denies Abnormal speech present, Denies dizziness, Reports headache(s), Denies numbness, Denies tingling and Denies weakness <Sneha Ferrell NP - Last Filed: 07/20/22 16:55> Allergic/Immunologic: Allergic/Immunologic: Reports itchy eyes <Sneha Ferrell NP - Last Filed: 07/20/22 16:55> [facility] Past Medical History Attestation statement: The following information was validated with the patient. <Sneha Ferrell NP - Last Filed: 07/20/22 16:55> Source: old records reviewed and nursing notes reviewed <Sneha Ferrell NP - Last Filed: 07/20/22 16:55> Medical History: Medical History Arthritis Asthma Diabetes HTN (hypertension) <EBER Healy - Last Filed: 07/19/22 15:46> Surgical History: Surgical History History of 3 sections <EBER Healy - Last Filed: 07/19/22 15:46> Family History Family History: Family History Brother Colon cancer Maternal Aunt Ovarian cancer <EBER Healy - Last Filed: 07/19/22 15:46> Social History Social History: Social History Alcohol intake: never Patient Tobacco Use Status: Never used Tobacco Advance Directives: No Advance Directives Information Provided: No <EBER Healy - Last Filed: 07/19/22 15:46> Physical Exam Vital Signs: Vital Signs: Last Vital Signs Temp 98.1 F 07/19/22 17:55 Pulse 87 07/19/22 17:55 Resp 16 07/19/22 17:55 BP 118/61 07/19/22 17:55 Pulse Ox 97 07/19/22 17:55 O2 Del Method 07/19/22 17:55 BMI result Body Mass Index 44.9 <EBER Healy - Last Filed: 07/19/22 15:46> Vital Signs: Last Vital Signs Temp 98.1 F 07/19/22 17:55 Pulse 87 07/19/22 17:55 Resp 16 07/19/22 17:55 BP 118/61 07/19/22 17:55 Pulse Ox 97 07/19/22 17:55 O2 Del Method 07/19/22 17:55 BMI result Body Mass Index 44.9 <Sneha Ferrell WOOL PRESSER - Last Filed: 07/20/22 16:55> Const: General: cooperative, healthy appearing, comfortable and no acute distress <Sneha Ferrell WOOL PRESSER - Last Filed: 07/20/22 16:55> Orientation/consciousness: patient oriented x3 <Sneha Ferrell WOOL PRESSER - Last Filed: 07/20/22 16:55> Limitations: no limitations <Sneha Ferrell WOOL PRESSER - Last Filed: 07/20/22 16:55> HEENT: Ears: hearing grossly normal bilaterally and TM's normal bilaterally <Sneha Ferrell WOOL PRESSER - Last Filed: 07/20/22 16:55> General nose exam: Normal external nose present <Sneha Ferrell WOOL PRESSER - Last Filed: 07/20/22 16:55> Mouth: Normal oral and palatal mucosa present <Sneha Ferrell WOOL PRESSER - Last Filed: 07/20/22 16:55> Throat: Yes posterior oropharynx normal, Yes tonsils normal and Yes uvula midline <Sneha Ferrell WOOL PRESSER - Last Filed: 07/20/22 16:55> Eyes: Other: Right upper and lower eyelid is edematous and mildly erythematous, and is TTP. Right conjunctiva is erythematous w/ injection and chemosis, pupillary reflex intact. Pain with lateral eye movement, peripheral and visual yip intact. NO opthalmoplegia. ? Left eye unremarkable. See visual acuity charted by ordnance engineering technician Right eye IOP 28 Left eye IOP 22 <Sneha Ferrell, WOOL PRESSER - Last Filed: 07/20/22 16:55> Pupils: Equal, round and reactive pupils present <Sneha Ferrell WOOL PRESSER - Last Filed: 07/20/22 16:55> EOM: EOMs intact bilaterally <Sneha Ferrell WOOL PRESSER - Last Filed: 07/20/22 16:55> Neck: Neck: Yes normal visual inspection, Yes full ROM, Yes no lymphadenopathy and Yes no meningeal signs <Sneha Ferrell WOOL PRESSER - Last Filed: 07/20/22 16:55> Chest: Chest palpation & inspection: normal inspection of the chest <Sneha Ferrell WOOL PRESSER - Last Filed: 07/20/22 16:55> Resp: Effort & Inspection: normal respiratory effort <Sneha Ferrell, WOOL PRESSER - Last Filed: 07/20/22 16:55> Auscultation: clear to auscultation bilaterally <Sneha Ferrell WOOL PRESSER - Last Filed: 07/20/22 16:55> Cardio: Rate: regular rate <Sneha Ferrell WOOL PRESSER - Last Filed: 07/20/22 16:55> Rhythm: regular rhythm <Sneha Ferrell WOOL PRESSER - Last Filed: 07/20/22 16:55> Peripheral pulses: Peripheral pulses 2+ throughout <Sneha Ferrell, WOOL PRESSER - Last Filed: 07/20/22 16:55> GI: Inspection: Yes normal to inspection <Sneha Ferrell WOOL PRESSER - Last Filed: 07/20/22 16:55> Palpation (GI): Soft to palpation and nontender <Sneha Ferrell, WOOL PRESSER - Last Filed: 07/20/22 16:55> Auscultation: normal bowel sounds <Sneha Ferrell WOOL PRESSER - Last Filed: 07/20/22 16:55> Back/Spine/Pelvis: Thoracic/Lumbar Spine: thoracic and lumbar spine normal to inspection <Sneha Ferrell WOOL PRESSER - Last Filed: 07/20/22 16:55> Skin: General skin exam: no rashes or lesions noted <Sneha Ferrell WOOL PRESSER - Last Filed: 07/20/22 16:55> Neuro: General: patient oriented x3, no meningeal signs, no focal motor deficits and normal sensation to monofilament <Sneha Ferrell WOOL PRESSER - Last Filed: 07/20/22 16:55> Cranial nerves: Yes Equal, round and reactive pupils present <Sneha MartinezZIA jauregui - Last Filed: 07/20/22 16:55> Cognition (Neuro): normal cognition <Sneha MichelleZIA jauregui - Last Filed: 07/20/22 16:55> Speech: No Abnormal speech present <Sneha MartinezZIA jauregui - Last Filed: 07/20/22 16:55> Gait exam (Neuro): Normal gait present <Sneha PercyZIA kapoor - Last Filed: 07/20/22 16:55> Motor exam (neuro): 5/5 motor strength present throughout <Sneha MartinezZIA jauregui - Last Filed: 07/20/22 16:55> Extrem: General: Yes normal to inspection <Sneha PercyZIA kapoor - Last Filed: 07/20/22 16:55> Course Course Course Narrative: This is an RME: Additional HPI, ROS, PE not included below will be deferred to primary provider. 57-year-old female history of hypertension, diabetes, asthma presenting with complaints of right-sided eye pain, swelling and painful vision for the past 3 days worsening. Patient has a history of MRSA based off chart review. Patient tells me this has been rapidly progressively worsening. Patient reports associated fevers and chills. Denies chest pain, shortness of breath, nausea, vomiting headache, vision changes, dizziness weakness. Physical exam significant for right periorbital area with erythema, warmth, patient reports painful eye movements. chemosis of right eye w/ injection Concerns for orbital cellulitis to painful eye movements CT of the orbit with IV contrast has been ordered. Basic labs. <EBER Healy - Last Filed: 07/19/22 15:46> Medications Administered Discontinued Medications Generic Name Dose Route Start Last Admin Trade Name Stefania PRN Reason Stop Dose Admin Ceftriaxone Sodium 2 gm/ 50 mls @ 100 mls/hr 07/19/22 16:44 07/19/22 18:08 Sodium Chloride IV 07/19/22 17:13 Infused ONCE ONE Infusion Iohexol 100 ml 07/19/22 17:21 07/19/22 17:21 Iohexol 350 Mg/Ml 100 Ml Infus..Btl IV 07/19/22 17:22 85 ml ONCE ONE Administration Ketorolac Tromethamine 15 mg 07/19/22 16:53 07/19/22 17:08 Ketorolac Tromethamine 15 Mg/Ml Vial IVPUSH 07/19/22 16:54 15 mg ONCE ONE Administration <EBER Healy - Last Filed: 07/19/22 15:46> Medications Administered Discontinued Medications Generic Name Dose Route Start Last Admin Trade Name Stefania PRN Reason Stop Dose Admin Ceftriaxone Sodium 2 gm/ 50 mls @ 100 mls/hr 07/19/22 16:44 07/19/22 18:08 Sodium Chloride IV 07/19/22 17:13 Infused ONCE ONE Infusion Iohexol 100 ml 07/19/22 17:21 07/19/22 17:21 Iohexol 350 Mg/Ml 100 Ml Infus..Btl IV 07/19/22 17:22 85 ml ONCE ONE Administration Ketorolac Tromethamine 15 mg 07/19/22 16:53 07/19/22 17:08 Ketorolac Tromethamine 15 Mg/Ml Vial IVPUSH 07/19/22 16:54 15 mg ONCE ONE Administration <Sneha Ferrell NP - Last Filed: 07/20/22 16:55> Medical Decision Making Medical Decision Making MDM Narrative: 1644 - 57 year old female, with a past medical history of diabetes, hypertension, asthma, and MRSA, who presents to the emergency department today with complaints of right eye and eyelid pain and swelling x 3 days. Vital signs stable. On examination, right eyelid is edematous and erythematous, and TTP. Right eye conjunctiva chemosis and erythema noted, with pain with ocular movements but no opthalmaplegia. PERRLA bilaterally. - Visual acuity testing, CT orbital w/ IV contrast, and labs ordered. Pt medicated with toradol 15mg IV for pain management, and Rocephin 2g IV for prophylactic coverage. <Sneha Ferrell NP - Last Filed: 07/20/22 16:55> Differential Diagnosis Differential Diagnoses: The differential diagnosis associated with the presentation includes <Sneha Ferrell NP - Last Filed: 07/20/22 16:55> orbital cellulitis, pre-septal cellulitis, hordeolum, chalazion <Sneha Ferrell NP - Last Filed: 07/20/22 16:55> Consult Healthcare Provider Management of the patient was discussed with: Customer Care Specialist <Sneha Ferrell NP - Last Filed: 07/20/22 16:55> I spoke to Dr Oakley at [address] of the orbits c/w with pre-septal cellulitis with clear sinuses seen on CT. PERRLA on exam with no ophthalmlplegia and visual acuity on right > left less likely orbital cellulitis IOP mildly elevated w/ recommendations from Dr Oakley to NOT give timolol and have IOP re-checked this week by eye doctor. He will see patient if she does not have one. We discussed strict return precautions which include declining vision, increasing swelling/redness, eye movement weakness. <Sneha Ferrell NP - Last Filed: 07/20/22 16:55> Lab Data MDM Lab Attestation statement: I reviewed the patient's lab results. <Sneha Ferrell NP - Last Filed: 07/20/22 16:55> Result Diagrams: 07/19/22 16:09 07/19/22 16:09 <EBER Healy - Last Filed: 07/19/22 15:46> Labs: Lab Results 07/19/22 07/19/22 07/19/22 Range/Units 16:09 16:09 16:09 WBC 12.3 H (4.8-10.8) X10*3/uL RBC 5.14 (4.20-5.50) X10*6/uL Hgb 13.8 (12.0-16.0) g/dl Hct 42.8 (37.0-47.0) % MCV 83.3 (80.0-98.0) fL MCH 26.8 L (27.0-33.0) pg MCHC 32.2 (31.0-35.0) g/dl RDW 13.7 (11.0-16.0) % Plt Count 282 (160-400) X10*3/uL MPV 10.7 (9.4-12.3) fL Immature Gran % (Auto) 0.4 (0.0-0.4) % Neut % (Auto) 64.1 (45-73) % Lymph % (Auto) 26.6 (20-40) % [place] % (Auto) 5.9 (2-11) % Eos % (Auto) 2.3 (0-4) % Baso % (Auto) 0.7 (0-2) % Lymph # (Auto) 3.3 (1.2-4.9) X10*3/uL [place] # (Auto) 0.7 (0.1-1.2) X10*3/uL Eos # (Auto) 0.3 (0.0-0.4) X10*3/uL Baso # (Auto) 0.1 (0.0-0.2) X10*3/uL Abs Immat Gran (auto) 0.05 H (0.00-0.03) X10*3/uL Absolute Neuts (auto) 7.9 (2.0-8.3) x10*3/uL Absolute Nucleated RBC 0.000 (0.0-0.012) X10*3/uL Nucleated RBC % (auto) 0.0 (0.0-0.2) /100WBC Sodium 140 (135-145) mmol/L Potassium 3.8 (3.3-5.1) mmol/L Chloride 99 (96-108) mmol/L Carbon Dioxide 30 H (22-29) mmol/L Anion Gap 15 (12-20) BUN 15 (9-16) mg/dL Creatinine 0.71 (0.5-1.4) mg/dL Estim Creat Clear Calc 100.2 Estimated GFR > 60 Random Glucose 116 H (60-115) mg/dL Lactic Acid 1.4 (0.5-2.0) mmol/L Calcium 9.9 (8.4-10.2) mg/dL Magnesium 2.0 (1.6-2.6) mg/dL Total Bilirubin 0.3 (0.0-1.0) mg/dL AST 16 (5-31) U/L ALT 16 (0-31) U/L Alkaline Phosphatase 98 (39-117) U/L Total Protein 7.4 (6.5-8.0) g/dL Albumin 4.2 (3.5-5.0) g/dL COVID-19 (REJI) (Negative) COVID-19 Clin Com 07/19/22 Range/Units 16:52 WBC (4.8-10.8) X10*3/uL RBC (4.20-5.50) X10*6/uL Hgb (12.0-16.0) g/dl Hct (37.0-47.0) % MCV (80.0-98.0) fL MCH (27.0-33.0) pg MCHC (31.0-35.0) g/dl RDW (11.0-16.0) % Plt Count (160-400) X10*3/uL MPV (9.4-12.3) fL Immature Gran % (Auto) (0.0-0.4) % Neut % (Auto) (45-73) % Lymph % (Auto) (20-40) % [place] % (Auto) (2-11) % Eos % (Auto) (0-4) % Baso % (Auto) (0-2) % Lymph # (Auto) (1.2-4.9) X10*3/uL [place] # (Auto) (0.1-1.2) X10*3/uL Eos # (Auto) (0.0-0.4) X10*3/uL Baso # (Auto) (0.0-0.2) X10*3/uL Abs Immat Gran (auto) (0.00-0.03) X10*3/uL Absolute Neuts (auto) (2.0-8.3) x10*3/uL Absolute Nucleated RBC (0.0-0.012) X10*3/uL Nucleated RBC % (auto) (0.0-0.2) /100WBC Sodium (135-145) mmol/L Potassium (3.3-5.1) mmol/L Chloride (96-108) mmol/L Carbon Dioxide (22-29) mmol/L Anion Gap (12-20) BUN (9-16) mg/dL Creatinine (0.5-1.4) mg/dL Estim Creat Clear Calc Estimated GFR Random Glucose (60-115) mg/dL Lactic Acid (0.5-2.0) mmol/L Calcium (8.4-10.2) mg/dL Magnesium (1.6-2.6) mg/dL Total Bilirubin (0.0-1.0) mg/dL AST (5-31) U/L ALT (0-31) U/L Alkaline Phosphatase (39-117) U/L Total Protein (6.5-8.0) g/dL Albumin (3.5-5.0) g/dL COVID-19 (REJI) Negative (Negative) COVID-19 Clin Com See Note <EBER Healy - Last Filed: 07/19/22 15:46> Lab Results 07/19/22 07/19/22 07/19/22 Range/Units 16:09 16:09 16:09 WBC 12.3 H (4.8-10.8) X10*3/uL RBC 5.14 (4.20-5.50) X10*6/uL Hgb 13.8 (12.0-16.0) g/dl Hct 42.8 (37.0-47.0) % MCV 83.3 (80.0-98.0) fL MCH 26.8 L (27.0-33.0) pg MCHC 32.2 (31.0-35.0) g/dl RDW 13.7 (11.0-16.0) % Plt Count 282 (160-400) X10*3/uL MPV 10.7 (9.4-12.3) fL Immature Gran % (Auto) 0.4 (0.0-0.4) % Neut % (Auto) 64.1 (45-73) % Lymph % (Auto) 26.6 (20-40) % [place] % (Auto) 5.9 (2-11) % Eos % (Auto) 2.3 (0-4) % Baso % (Auto) 0.7 (0-2) % Lymph # (Auto) 3.3 (1.2-4.9) X10*3/uL [place] # (Auto) 0.7 (0.1-1.2) X10*3/uL Eos # (Auto) 0.3 (0.0-0.4) X10*3/uL Baso # (Auto) 0.1 (0.0-0.2) X10*3/uL Abs Immat Gran (auto) 0.05 H (0.00-0.03) X10*3/uL Absolute Neuts (auto) 7.9 (2.0-8.3) x10*3/uL Absolute Nucleated RBC 0.000 (0.0-0.012) X10*3/uL Nucleated RBC % (auto) 0.0 (0.0-0.2) /100WBC Sodium 140 (135-145) mmol/L Potassium 3.8 (3.3-5.1) mmol/L Chloride 99 (96-108) mmol/L Carbon Dioxide 30 H (22-29) mmol/L Anion Gap 15 (12-20) BUN 15 (9-16) mg/dL Creatinine 0.71 (0.5-1.4) mg/dL Estim Creat Clear Calc 100.2 Estimated GFR > 60 Random Glucose 116 H (60-115) mg/dL Lactic Acid 1.4 (0.5-2.0) mmol/L Calcium 9.9 (8.4-10.2) mg/dL Magnesium 2.0 (1.6-2.6) mg/dL Total Bilirubin 0.3 (0.0-1.0) mg/dL AST 16 (5-31) U/L ALT 16 (0-31) U/L Alkaline Phosphatase 98 (39-117) U/L Total Protein 7.4 (6.5-8.0) g/dL Albumin 4.2 (3.5-5.0) g/dL COVID-19 (REJI) (Negative) COVID-19 Clin Com 07/19/22 Range/Units 16:52 WBC (4.8-10.8) X10*3/uL RBC (4.20-5.50) X10*6/uL Hgb (12.0-16.0) g/dl Hct (37.0-47.0) % MCV (80.0-98.0) fL MCH (27.0-33.0) pg MCHC (31.0-35.0) g/dl RDW (11.0-16.0) % Plt Count (160-400) X10*3/uL MPV (9.4-12.3) fL Immature Gran % (Auto) (0.0-0.4) % Neut % (Auto) (45-73) % Lymph % (Auto) (20-40) % [place] % (Auto) (2-11) % Eos % (Auto) (0-4) % Baso % (Auto) (0-2) % Lymph # (Auto) (1.2-4.9) X10*3/uL [place] # (Auto) (0.1-1.2) X10*3/uL Eos # (Auto) (0.0-0.4) X10*3/uL Baso # (Auto) (0.0-0.2) X10*3/uL Abs Immat Gran (auto) (0.00-0.03) X10*3/uL Absolute Neuts (auto) (2.0-8.3) x10*3/uL Absolute Nucleated RBC (0.0-0.012) X10*3/uL Nucleated RBC % (auto) (0.0-0.2) /100WBC Sodium (135-145) mmol/L Potassium (3.3-5.1) mmol/L Chloride (96-108) mmol/L Carbon Dioxide (22-29) mmol/L Anion Gap (12-20) BUN (9-16) mg/dL Creatinine (0.5-1.4) mg/dL Estim Creat Clear Calc Estimated GFR Random Glucose (60-115) mg/dL Lactic Acid (0.5-2.0) mmol/L Calcium (8.4-10.2) mg/dL Magnesium (1.6-2.6) mg/dL Total Bilirubin (0.0-1.0) mg/dL AST (5-31) U/L ALT (0-31) U/L Alkaline Phosphatase (39-117) U/L Total Protein (6.5-8.0) g/dL Albumin (3.5-5.0) g/dL COVID-19 (REJI) Negative (Negative) COVID-19 Clin Com See Note <Sneha Ferrell NP - Last Filed: 07/20/22 16:55> Independent Interpretation I performed an independent interpretation of an: CT Scan <ZIA Rebollar Last Filed: 07/20/22 16:55> Interpretation: I independently reviewed the CT scan and agree with the radiologist report <ZIA Rebollar Last Filed: 07/20/22 16:55> Radiology Impression Discussion of test interpretation with radiology: I have reviewed the radiologist's reading. <Sneha Ferrell NP - Last Filed: 07/20/22 16:55> Radiologist Impression: [address] [id number] [address] Scan Report Signed Patient: Milvia Feliz MR#: [id number] : 1965 Acct:[id number] Age/Sex: 57 / F ADM Date: 07/19/22 Loc: HO.ED Attending Dr: Ordering Physician: Balta Guzmán Date of Service: 07/19/22 Procedure(s): CT orbit BI w IV con Accession Number(s): [id number] cc: Balta Guzmán~ EXAMINATION: CT ORBIT WITH CONTRAST CLINICAL INFORMATION: Right eye pain and swelling? COMPARISON: None available.? ? TECHNIQUE: Axial 3 mm thin and reformatted 1.5 mm thin sagittal coronal images of orbits were obtained following IV 85 mL Omnipaque 350.? This CT examination was performed using dose optimization techniques as appropriate, variously including the following: *Automated exposure control *Adjustment of mA and/or kV according to patient size (this includes techniques or standardized protocols for targeted exams where dose is matched to indication/reason for exam; i.e. extremities or head) *Use of iterative reconstruction technique DLP: 194 mGy-cm FINDINGS: There is mild to moderate right orbit preseptal soft tissue swelling. No post septal soft tissue swelling seen. The optic globe, optic nerves and the intraconal an extraconal soft tissues are symmetrical and normal. No radiopaque foreign body seen in the orbits. The bony james of the orbits are normal. Visualized bilateral maxillary, ethmoid, frontal and sphenoid sinuses are clear. No bony abnormalities seen. No intracranial parenchymal opacity seen.? CT/CT orbit BI w IV con IMPRESSION: Mild to moderate right preseptal soft tissue swelling. No post septal soft tissue swelling seen. Otherwise bilateral orbits are unremarkable. ? <Sneha Ferrell NP - Last Filed: 07/20/22 16:55> Prescription Management I considered prescription management with: Pain Medication and Antibiotic <Sneha Ferrell NP - Last Filed: 07/20/22 16:55> Chronic Conditions Patient?s care impacted by: Diabetes and Hypertension <Sneha Ferrell NP - Last Filed: 07/20/22 16:55> Critical Care Time Critical Care Time Critical Care Time: Yes <Sneha Ferrell NP - Last Filed: 07/20/22 16:55> Total Critical Care Time: 60 <Sneha Ferrell NP - Last Filed: 07/20/22 16:55> Attestation: d/w with opthamology, re-evaluations of eye <Sneha Ferrell NP - Last Filed: 07/20/22 16:55> Discharge Plan Discharge Clinical Impression: Preseptal cellulitis of right eye <EBER Healy - Last Filed: 07/19/22 15:46> Patient Disposition: Home, Self-Care <EBER Healy Last Filed: 07/19/22 15:46> Instructions: Periorbital Cellulitis in Adults (ED) <EBER Healy Last Filed: 07/19/22 15:46> Additional Instructions: Tiene jayro infecci?n alrededor del [place] marline no en la ?rbita del az[place]. NO pique ni toque wilkinson az[place]. Compresas fr?as cuatro veces al d?a. Eleve la cabecera de wilkinson cama. Llame al oftalm?logo ma?arnoldo ya que necesita verlos esta semana. Comience wilkinson antibi?rashmi ma?arnoldo. Regresa por incapacidad para planting material remover el az[place], empeoramiento de la visi?n en el az[place] y fiebre >100,4. You have an infection surrounding your eye but not in the orbit of the eye. DO NOT itch or touch your eye. Cool compresses four times daily. Elevate the head of your bed. Call the eye doctor tomorrow as you need to see them this week. Start your antibiotic tomorrow. Return for inability to move the eye, worsening vision in the eye and fever >100.4. <EBER Healy Last Filed: 07/19/22 15:46> Prescriptions: New amoxicillin-pot clavulanate 875-125 mg tablet 1 tab PO BID Qty: 20 0RF No Action acetaminophen [Tylenol Extra Strength] 500 mg tablet 500 mg PO Q6H PRN (Reason: pain or fever) Qty: 20 0RF fluconazole [Diflucan] 150 mg tablet 150 mg PO Q3D Qty: 2 0RF Rx Instructions: may repeat second dose 72 hrs after first dose if symptoms persist ibuprofen 800 mg tablet 800 mg PO Q8H PRN (Reason: pain) Qty: 14 0RF lidocaine HCl [Aspercreme (lidocaine HCl)] 4 % cream 1 appl topical BID PRN (Reason: pain) Qty: 120 0RF prednisone 20 mg tablet 40 mg PO DAILY 5 Days Qty: 10 0RF diphenhydramine HCl [Benadryl] 25 mg capsule 25 mg PO TID PRN (Reason: allergic reaction) 7 Days Qty: 21 0RF famotidine [Pepcid] 20 mg tablet 20 mg PO BID 7 Days Qty: 14 0RF azithromycin 250 mg tablet See Rx Instructions .ROUTE .COMPLEX Qty: 6 0RF Rx Instructions: For 250 mg dose pack: take 500 mg today (day 1), then 250 mg for 4 days (days 2-5) vitamin E (dl, acetate) 180 mg (400 unit) capsule 180 mg PO DAILY Advair HFA 230-21 mcg/actuation HFA aerosol inhaler 2 puff inhalation loratadine 10 mg tablet 10 mg PO DAILY montelukast 10 mg tablet 10 mg PO BEDTIME omeprazole 20 mg capsule,delayed release(DR/EC) 20 mg PO QAM amlodipine 10 mg tablet 10 mg PO DAILY sennosides [senna] 8.6 mg tablet 8.6 - 17.2 mg PO BEDTIME multivitamin Tablet 1 tab PO DAILY clotrimazole 1 % cream 1 appful vaginal BEDTIME PRN chlorhexidine gluconate [Hibiclens] 4 % liquid 1 appl topical .COMPLEX Qty: 473 2RF Rx Instructions: 1 appl topically use in shower 3 times weekly. Lather on skin and leave on for 2 minutes, then rinse off in shower; sulfamethoxazole-trimethoprim [Bactrim DS] 800-160 mg tablet 1 tab PO Q12H Qty: 20 0RF <EBER Healy - Last Filed: 07/19/22 15:46> Referrals: Tien Rey [Physician] - 1 week <EBER Healy - Last Filed: 07/19/22 15:46> Interventions: ED Discharge Assessment Last Done: 07/19/22 19:20 <EBER Healy - Last Filed: 07/19/22 15:46> Discharge Date/Time: 07/19/22 19:21 <EBER Healy - Last Filed: 07/19/22 15:46> Print Language: Kyrgyz <EBER Healy - Last Filed: 07/19/22 15:46>
[2022-07-19 16:18] LABS: Basophils Absolute Auto 0.1 X10*3/uL (0.0-0.2); Basophils Percent Auto 0.7 % (0-2); Eosinophils Absolute Auto 0.3 X10*3/uL (0.0-0.4); Eosinophils Percent Auto 2.3 % (0-4); Hematocrit 42.8 % (37.0-47.0); Hemoglobin 13.8 g/dl (12.0-16.0); Imm Gran Abs Auto 0.05 X10*3/uL (0.00-0.03); Imm Gran Pct Auto 0.4 % (0.0-0.4); Lymphocytes Absolute Auto 3.3 X10*3/uL (1.2-4.9); Lymphocytes Percent Auto 26.6 % (20-40); MANUAL DIFF FLAG NO; Mean Corpuscular HGB Conc 32.2 g/dl (31.0-35.0); Mean Corpuscular Hemoglobin 26.8 pg (27.0-33.0); Mean Corpuscular Volume 83.3 fL (80.0-98.0); Mean Platelet Volume 10.7 fL (9.4-12.3); Monocytes Absolute Auto 0.7 X10*3/uL (0.1-1.2); Monocytes Percent Auto 5.9 % (2-11); Neutrophils Absolute Auto 7.9 x10*3/uL (2.0-8.3); Neutrophils Percent Auto 64.1 % (45-73); Platelet Count 282 X10*3/uL (160-400); Red Blood Count 5.14 X10*6/uL (4.20-5.50); Red Cell Distribution Width 13.7 % (11.0-16.0); White Blood Count 12.3 X10*3/uL (4.8-10.8)
[2022-07-19 16:35] LABS: Lactic Acid 1.4 mmol/L (0.5-2.0)
[2022-07-19 16:41] LABS: Alanine Aminotransferase 16 U/L (0-31); Albumin Level 4.2 g/dL (3.5-5.0); Alkaline Phosphatase 98 U/L (39-117); Anion Gap 15 (12-20); Aspartate Amino Transferase 16 U/L (5-31); Bilirubin Total 0.3 mg/dL (0.0-1.0); Blood Urea Nitrogen 15 mg/dL (9-16); Calcium 9.9 mg/dL (8.4-10.2); Carbon Dioxide 30 mmol/L (22-29); Chloride 99 mmol/L (96-108); Creatinine Clr Calc Pharmacy 100.2; Estimated Glomerular Filt Rate > 60; Glucose Random 116 mg/dL (60-115); Potassium 3.8 mmol/L (3.3-5.1); Sodium 140 mmol/L (135-145); Total Protein 7.4 g/dL (6.5-8.0)
[2022-07-19 16:51] VITALS: BP 146/83; PULSE 90; RESP 16; TEMP 36.6; O2SAT 98
[2022-07-19] MEDS: Ketorolac Tromethamine 15 MG/ML VIAL IVPUSH (17:08)
[2022-07-19] MEDS: cefTRIAXone sodium 2 GM in 0.9 % Sodium Chloride 50 ML IV (17:08)
[2022-07-19 17:11] LABS: IDNOW Serial# BCCEAD1C
[2022-07-19 17:12] LABS: COVID-19 Test Negative (Negative)
[2022-07-19] MEDS: iohexoL 350 MG/ML 100 ML INFUS..BTL IV (17:21)
[2022-07-19 17:55] VITALS: BP 118/61; PULSE 87; RESP 16; TEMP 36.7; O2SAT 97
== END 2022-07-19 19:21 | disposition home or self-care (01) ==
PROVIDERS: Nurse Practitioner Family; Physician Assistant; Emergency Provider Emergency Medicine
DX: H00.033 Abscess of eyelid right eye, unspecified eyelid (principal); H57.11 Ocular pain, right eye; I10 Essential (primary) hypertension; E11.9 Type 2 diabetes mellitus without complications; Z20.822 Contact with and (suspected) exposure to COVID-19
CPT/HCPCS: 36415; 70481; 80053; 83605; 83735; 85025; 87040; 87635; 96365; 96375; 99284; J0696; J1885; Q9967

== ENCOUNTER 2023-01-21 15:42 | Emergency (ER) | payer MEDICAID, SELFPAY ==
--- NOTE | ~2023-01-21 | XR_ITS ---
EXAMINATION: XR LUMBOSACRAL SPINE CLINICAL INFORMATION: Pain. COMPARISON: CT abdomen/pelvis 07/03/2018. TECHNIQUE: Three views of the lumbosacral spine. FINDINGS: Stable appearance of increased degenerative sclerosis of L5 and S1 with associated severe intervertebral disc height loss, vacuum disc phenomena, facet arthropathy and bilateral L5 pars defects leading to some degree of neural foraminal encroachment and central canal stenosis. No evidence of acute compression deformity or traumatic subluxation. Mild multilevel small anterior osteophytes. SI joints are symmetric. Right upper quadrant surgical clips. No significant paraspinal soft tissue abnormality. XR/XR lumbar spine 2-3V IMPRESSION: 1. No acute compression deformity or traumatic subluxation. 2. Stable appearance of severe degenerative changes at L5-S1 with bilateral L5 pars defects.
[2023-01-21 15:55] VITALS: BP 147/78; PULSE 90; RESP 18; TEMP 36.7; O2SAT 99; BMI 44.8
--- NOTE | 2023-01-21 15:56 | ED_ITS ---
HPI - General Adult General Chief complaint: Back Pain/Injury Stated complaint: Low Back Pain Time Seen by Provider: 01/21/23 19:25 Source: patient, RN notes reviewed, old records reviewed and diplomatic interpreter Mode of arrival: ambulatory Limitations: language barrier History of Present Illness HPI narrative: 57-year-old female presents for evaluation of back pain. Patient reports that she has had chronic low back pain but over the last 2 weeks her pain has been worse. The pain is mostly right-sided. Her pain radiates up her entire right mid back to her trapezius muscle region. She reports that she feels ?tight. ? Denies any trauma, falls. She does complain of ?burning with urination. ? Denies any fevers or chills She has no abdominal pain or chest pain Denies any numbness, tingling, weakness No bladder or bowel got it Related Data Home Medications Medication Instructions Recorded Confirmed amlodipine 10 mg tablet 10 mg PO DAILY 02/12/22 02/12/22 clotrimazole 1 % vaginal cream 1 appful vaginal BEDTIME PRN 02/12/22 02/12/22 fluticasone propionate 230 2 puff inhalation 02/12/22 02/12/22 mcg-salmeterol 21 mcg/actuation HFA inhaler (Advair HFA) loratadine 10 mg tablet 10 mg PO DAILY 02/12/22 02/12/22 montelukast 10 mg tablet 10 mg PO BEDTIME 02/12/22 02/12/22 multivitamin 1 tab PO DAILY 02/12/22 02/12/22 omeprazole 20 mg capsule,delayed 20 mg PO QAM 02/12/22 02/12/22 release sennosides 8.6 mg tablet (senna) 8.6 - 17.2 mg PO BEDTIME 02/12/22 02/12/22 vitamin E (dl, acetate) 180 mg 180 mg PO DAILY 02/12/22 02/12/22 (400 unit) capsule Previous Rx's Medication Instructions Recorded acetaminophen 500 mg tablet 500 mg PO Q6H PRN pain or fever 03/01/20 (Tylenol Extra Strength) #20 tabs ibuprofen 800 mg tablet 800 mg PO Q8H PRN pain #14 tabs 06/02/21 lidocaine HCl 4 % topical cream 1 appl topical BID PRN pain #120 02/01/22 (Aspercreme (lidocaine HCl)) grams fluconazole 150 mg tablet 150 mg PO Q3D 2 doses #2 tabs 01/09/22 (Diflucan) chlorhexidine gluconate 4 % 1 appl topical .COMPLEX 2 doses 02/12/22 topical liquid (Hibiclens) #473 mL sulfamethoxazole 800 1 tab PO Q12H #20 tabs 02/19/22 mg-trimethoprim 160 mg tablet (Bactrim DS) azithromycin 250 mg tablet See Rx Instructions PO .COMPLEX #6 03/15/22 tabs diphenhydramine HCl 25 mg capsule 25 mg PO TID PRN allergic reaction 03/15/22 (Benadryl) 7 days #21 caps famotidine 20 mg tablet (Pepcid) 20 mg PO BID 7 days #14 tabs 03/15/22 prednisone 20 mg tablet 40 mg (2 x 20 mg) PO DAILY 5 days 03/15/22 #10 tabs amoxicillin 875 mg-potassium 1 tab PO BID #20 tabs 07/19/22 clavulanate 125 mg tablet methocarbamol 500 mg tablet 500 mg PO TID PRN muscle spasm #15 01/21/23 tabs naproxen 500 mg tablet 500 mg PO BID #10 tabs 01/21/23 Allergies Allergy/AdvReac Type Severity Reaction Status Date / Time No Known Allergies Allergy Verified 02/12/22 13:20 [No Known Allergies*] Review of Systems Constitutional: Constitutional: Denies chills and Denies fever(s) Eyes: Eyes: Denies blurry vision Cardiovascular: Cardiovascular: Denies chest pain Gastrointestinal: Gastrointestinal: Denies abdominal pain, Denies nausea and Denies vomiting Genitourinary: Genitourinary: Reports difficulty voiding Musculoskeletal: Musculoskeletal: Reports back pain, Denies numbness, Reports stiffness and Denies tingling Integumentary/Breasts: Skin/Breast: Denies rash Neurologic: Denies numbness and Denies tingling PMFSH Past Medical History Medical History Arthritis Asthma Diabetes HTN (hypertension) Surgical History History of 3 sections Family History Family History Brother Colon cancer Maternal Aunt Ovarian cancer Social History Social History Alcohol intake: never Patient Tobacco Use Status: Never used Tobacco Advance Directives: No Advance Directives Information Provided: No Physical Exam ED Vital Signs: Vital Signs - 24 hr 01/21/23 15:55 Temperature 98.1 F Pulse Rate 90 Respiratory Rate 18 Blood Pressure 147/78 H Pulse Oximetry 99 Oxygen Delivery Method Room Air BMI result Body Mass Index 44.8 Const General: healthy appearing, comfortable, no acute distress, alert and awake Nutritional Appearance: well nourished Orientation/consciousness: patient oriented x3 HENMT Head: Yes normocephalic and Yes atraumatic Eyes Eyelids: Yes eyelids normal Conjunctivae: conjunctivae normal Sclerae: sclerae normal Corneas: corneas normal Pupils: Equal, round and reactive pupils present EOM: EOMs intact bilaterally Neck Neck: Yes full ROM Resp Effort & Inspection: normal respiratory effort, able to speak in complete sentences and not labored Cardio Rate: regular rate Rhythm: regular rhythm GI Inspection: No distended Palpation (GI): Soft to palpation, not firm, nontender, no guarding and not rigid Back/Spine/Pelvis Other: Patient has tenderness across the right mid to lower back. No focal vertebral tenderness. No CVA tenderness Skin General skin exam: elasticity normal Neuro General: patient oriented x3 Cranial nerves: Yes Equal, round and reactive pupils present and Yes Bilaterally intact EOM present Cognition (Neuro): normal cognition Extrem Other: Moving all extremities well without any obvious deformities Course Course Course Narrative: This is an RME: Additional HPI, ROS, PE not included below will be deferred to primary provider. 57 y o female PMH HTN, DM presenting for evaluation of b/l lower back pain x2 weeks, atraumatic with no red flag symptoms. Plan: [facility] Medications Administered Discontinued Medications Generic Name Dose Route Start Last Admin Trade Name Freq PRN Reason Stop Dose Admin Ketorolac Tromethamine 30 mg 01/21/23 19:41 01/21/23 19:50 Ketorolac Tromethamine 30 Mg/Ml Vial IM 01/21/23 19:42 30 mg ONCE ONE Administration Medical Decision Making Medical Decision Making MDM Narrative: 57-year-old female presents for evaluation of acute on chronic back pain. There was no trauma but she states that she has never had any imaging of her lower back. Will get an x-ray of the lumbar spine. She has no warning flags for cauda equina syndrome. She is able to ambulate without any difficulty. Will also get a UA as the patient reports some burning with urination. Differential Diagnosis Differential Diagnoses: The differential diagnosis associated with the presentation includes Acute on chronic back pain Sciatica Muscle strain Radiculopathy Pyelonephritis UTI Lab Data Labs: Lab Results 01/21/23 Range/Units 19:52 Urine Color Yellow Urine Appearance Clear Urine pH 5.5 (5.0-9.0) Ur Specific [place] >= 1.030 H (1.005-1.025) Urine Protein Trace (Neg-Trace) mg/dL Urine Glucose (UA) >=1000 H (Negative) mg/dL Urine Ketones Negative (Negative) mg/dL Urine Blood Negative (Negative) Urine Nitrite Negative (Negative) Ur Leukocyte Esterase Negative (Negative) Urine RBC 3-5 H (0-2) /HPF Urine WBC 0-5 (0-5) /HPF Ur Squamous Epith Cells 0-2 (0-2) /HPF Urine Bacteria None Seen (None Seen) Hyaline Casts 0-2 (0-2) /LPF Independent Interpretation I performed an independent interpretation of an: Plain X-Ray (Straightening of the lumbar spine consistent muscle spasms. No obvious fracture) Radiology Impression Discussion of test interpretation with radiology: I have reviewed the radiologist's reading. (No acute compression deformity or traumatic subluxation.) Discharge Plan Discharge Clinical Impression: Acute exacerbation of chronic low back pain Patient Disposition: Home, Self-Care Instructions: Chronic Pain (ED) Additional Instructions: Your x-ray did not show any obvious fractures It did show findings consistent with muscle spasms Your urine did not show any sign of infections Take naproxen as needed for pain. Use methocarbamol as needed for muscle spasms This may make you sleepy, did not drink alcohol or drive after taking You may also use warm compresses Prescriptions: New naproxen 500 mg tablet 500 mg PO BID Qty: 10 0RF methocarbamol 500 mg tablet 500 mg PO TID PRN (Reason: muscle spasm) Qty: 15 0RF No Action acetaminophen [Tylenol Extra Strength] 500 mg tablet 500 mg PO Q6H PRN (Reason: pain or fever) Qty: 20 0RF fluconazole [Diflucan] 150 mg tablet 150 mg PO Q3D Qty: 2 0RF Rx Instructions: may repeat second dose 72 hrs after first dose if symptoms persist amoxicillin-pot clavulanate 875-125 mg tablet 1 tab PO BID Qty: 20 0RF ibuprofen 800 mg tablet 800 mg PO Q8H PRN (Reason: pain) Qty: 14 0RF lidocaine HCl [Aspercreme (lidocaine HCl)] 4 % cream 1 appl topical BID PRN (Reason: pain) Qty: 120 0RF prednisone 20 mg tablet 40 mg PO DAILY 5 Days Qty: 10 0RF diphenhydramine HCl [Benadryl] 25 mg capsule 25 mg PO TID PRN (Reason: allergic reaction) 7 Days Qty: 21 0RF famotidine [Pepcid] 20 mg tablet 20 mg PO BID 7 Days Qty: 14 0RF azithromycin 250 mg tablet See Rx Instructions .ROUTE .COMPLEX Qty: 6 0RF Rx Instructions: For 250 mg dose pack: take 500 mg today (day 1), then 250 mg for 4 days (days 2-5) vitamin E (dl, acetate) 180 mg (400 unit) capsule 180 mg PO DAILY Advair HFA 230-21 mcg/actuation HFA aerosol inhaler 2 puff inhalation loratadine 10 mg tablet 10 mg PO DAILY montelukast 10 mg tablet 10 mg PO BEDTIME omeprazole 20 mg capsule,delayed release(DR/EC) 20 mg PO QAM amlodipine 10 mg tablet 10 mg PO DAILY sennosides [senna] 8.6 mg tablet 8.6 - 17.2 mg PO BEDTIME multivitamin Tablet 1 tab PO DAILY clotrimazole 1 % cream 1 appful vaginal BEDTIME PRN chlorhexidine gluconate [Hibiclens] 4 % liquid 1 appl topical .COMPLEX Qty: 473 2RF Rx Instructions: 1 appl topically use in shower 3 times weekly. Lather on skin and leave on for 2 minutes, then rinse off in shower; sulfamethoxazole-trimethoprim [Bactrim DS] 800-160 mg tablet 1 tab PO Q12H Qty: 20 0RF
[2023-01-21] MEDS: Ketorolac Tromethamine 30 MG/ML VIAL IM (19:50)
[2023-01-21 19:59] LABS: Appearance Urine Clear; Color Urine Yellow; Glucose Urine UA >=1000 mg/dL (Negative); Leukocyte Esterase Urine Negative (Negative); Nitrite Urine Negative (Negative); PH 5.5 (5.0-9.0); Specific Gravity - Urine >= 1.030 (1.005-1.025); UMIC TRIGGER UACC YES; Urine Blood Negative (Negative); Urine Ketones Negative (Negative); Urine Protein Trace mg/dL (Neg-Trace)
[2023-01-21 20:01] LABS: Bacteria Urine None Seen (None Seen); Hyaline Casts Urine 0-2 /LPF (0-2); Squamous Epithelial Cell Urine 0-2 /HPF (0-2); WBC Urine 0-5 /HPF (0-5)
[2023-01-21] MEDS: methocarbamoL 500 MG TABLET PO (21:15)
--- NOTE | 2023-01-21 21:19 | PC.NURSE ---
pt ambulates to and from bathroom with a steady gait
== END 2023-01-21 21:21 | disposition home or self-care (01) ==
PROVIDERS: Emergency Provider Emergency Medicine
DX: M54.50 Low back pain, unspecified (principal); R30.0 Dysuria; Z79.899 Other long term (current) drug therapy
CPT/HCPCS: 72100; 81001; 96372; 99284; J1885

== ENCOUNTER 2023-01-31 | Outpatient (REF) | payer MEDICAID, SELFPAY | END 2023-01-31 00:01 | disposition home or self-care (01) | LOC: HO.LNP | PROVIDERS: Visit Provider Emergency Medicine | DX: Z13.89 Encounter for screening for other disorder (principal) ==

== ENCOUNTER 2023-02-08 08:04 | Outpatient (AMB) | payer MEDICAID, SELFPAY ==
--- NOTE | 2023-02-08 08:23 | MHC.OFFVIS ---
Intake Vital Signs 02/08/23 08:34 Height 5 ft 1 in Weight 236 lb 2 oz BMI 44.6 BP 141/76 H Blood Pressure Location Rt brachial Position Sitting Pulse 86 Intake Visit Reasons: Abscess left inner thigh Intake Note: Patient is seen in office for evaluation and treatment of an abscess of the left inner thigh. Patient c/o:has multiple abscesses 2 in the abdomen and 2 in the inner thighs, left thigh is the worse, currently on antibiotics since Tuesday, admits to redness, discharge, itching and pain Supervisor Paper Testing Required: Yes Supervisor Paper Testing Language: Cell Room Supervisor Name: Jazmine MCKEON Information Interpreted: non-clinical & clinical Melter Helper: Melter Helper Present Accompanied by: Self / Same As Patient Allergies No Known Allergies [No Known Allergies*] Allergy (Verified 02/08/23 08:33) Medication List - Last Reconciled 02/08/23 by Charles Ching MD acetaminophen (Tylenol Extra Strength) 500 mg PO Q6H PRN amlodipine 10 mg PO DAILY chlorhexidine gluconate 4% (Hibiclens) 1 appl topically use in shower 3 times weekly. Lather on skin and leave on for 2 minutes, then rinse off in shower; 2 doses diphenhydramine HCl (Benadryl) 25 mg PO TID PRN 7 days famotidine (Pepcid) 20 mg PO BID 7 days fluticasone propion-salmeterol 230-21 mcg/actuation (Advair HFA) 2 puffs inhalation ibuprofen 800 mg PO Q8H PRN lidocaine HCl 4% (Aspercreme (lidocaine HCl)) 1 appl topical BID PRN loratadine 10 mg PO DAILY methocarbamol 500 mg PO TID PRN montelukast 10 mg PO BEDTIME multivitamin 1 tab PO DAILY mupirocin calcium 2% 1 appl topical BID naproxen 500 mg PO BID omeprazole 20 mg PO QAM sennosides (senna) 8.6 - 17.2 mg PO BEDTIME sulfamethoxazole-trimethoprim 800-160 mg (Bactrim DS) 1 tab PO Q12H vitamin E (dl, acetate) 180 mg PO DAILY HPI HPI Comments History of Present Illness Details 57-year-old female patient with a previous history of MRSA infection of the axilla now presenting with a similar infection located in her abdomen and bilateral upper inner thighs. Reports pain, swelling and bleeding from the site. The infection started on the right thigh but then extended to the left thigh because her skin was touching. She is now wearing shorts to protect the skin. She denies any fever or chills. She was started on doxycycline and Bactroban ointment but does not feel this has helped. Previous wound cultures of the axillary MRSA revealed resistance to tetracycline but sensitivity to vancomycin and Bactrim. [facility] Medical History HTN (hypertension) Diabetes Arthritis Asthma Surgical History History of 3 sections Family History Brother Colon cancer Maternal Aunt Ovarian cancer Social History Alcohol intake: never Patient Tobacco Use Status: Never used Tobacco Review of Systems Const All systems reviewed & are unremarkable except as noted in HPI and below Physical Exam Vital Signs: Last Vital Signs Pulse 86 02/08/23 08:34 BP 141/76 H 02/08/23 08:34 BMI result Body Mass Index 44.6 Const General: no acute distress Nutritional Appearance: obese Orientation/consciousness: patient oriented x3 Limitations: no limitations Resp Effort & Inspection: normal respiratory effort GI Other: Soft obese, area of erythema in the lower abdomen in the right lower quadrant measuring approximately 4-5 cm in diameter. No fluctuance is appreciated. Lesion has the typical MRSA appearance. Neuro General: patient oriented x3 Extrem Other: Bilateral upper inner thighs with typical MRSA skin infection with inflammation but no definite abscess collection. Site is tender to palpation especially the left upper inner thigh. There is an open wound which the patient is touching multiple times there bare hands. 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 No incision and drainage is recommended at this time as the findings are consistent with inflammatory changes from MRSA. I did recommend no touching of the wound and if touching the wound does occur wash her hands with soap and water. I recommended starting the Hibiclens scrub at least 3 times weekly lather ring in the shower from neck to toes and leaving the soap on the skin for at least 2 minutes prior to rinsing. As the previous MRSA was resistant to tetracycline I recommended switching to Bactrim ds for the next 4 weeks. She apparently lost her Bactroban prescription therefore I will represcribe the ointment today. I recommended she return in 2-3 weeks. Again reinforce the importance of hand hygiene as this infection will spread to other parts of the body easily. Medications: New sulfamethoxazole-trimethoprim 800-160 mg (Bactrim DS) 1 tab PO Q12H 48 tabs 0RF B95.62 - Methicillin resistant Staphylococcus aureus infection as the cause of diseases classified elsewhere, L08.9 - Local infection of the skin and subcutaneous tissue, unspecified mupirocin calcium 2% 1 appl topical BID 30 grams 0RF B95.62 - Methicillin resistant Staphylococcus aureus infection as the cause of diseases classified elsewhere, L08.9 - Local infection of the skin and subcutaneous tissue, unspecified Refilled chlorhexidine gluconate 4% (Hibiclens) 1 appl topically use in shower 3 times weekly. Lather on skin and leave on for 2 minutes, then rinse off in shower; 473 mL 2RF Coding Level of Care Code Est Pt Level 3 (25143) Diagnoses Infection of skin due to methicillin resistant Staphylococcus aureus (MRSA) L08.9; B95.62
[2023-02-08 08:34] VITALS: BP 141/76; PULSE 86; BMI 44.6
== END 2023-02-08 08:50 | disposition home or self-care (01) ==
PROVIDERS: PCP Internal Medicine Geriatric Medicine; Referring Provider Emergency Medicine; Visit Provider Surgery
DX: L08.9 Local infection of the skin and subcutaneous tissue, unspecified (principal); B95.62 Methicillin resistant Staphylococcus aureus infection as the cause of diseases classified elsewhere
CPT/HCPCS: 99214

== ENCOUNTER → 2023-02-08 08:04 | Outpatient (BNVA) | payer MEDICAID, SELFPAY | PROVIDERS: PCP Internal Medicine Geriatric Medicine; Referring Provider Emergency Medicine; Visit Provider Surgery | DX: L08.9 Local infection of the skin and subcutaneous tissue, unspecified (principal); B95.62 Methicillin resistant Staphylococcus aureus infection as the cause of diseases classified elsewhere | CPT/HCPCS: 99212 ==

== ENCOUNTER 2023-04-13 23:54 | Emergency (ER) | payer MEDICAID, SELFPAY ==
--- NOTE | 2023-04-13 | ECG_ITS ---
Test Reason : SOB Blood Pressure : / mmHG Vent. Rate : 090 BPM Atrial Rate : 090 BPM P-R Int : 172 ms QRS Dur : 084 ms QT Int : 362 ms P-R-T Axes : 020 054 066 degrees QTc Int : 442 ms Normal sinus rhythm Normal ECG When compared with ECG of 09-AUG-2018 16:26, No significant change was found Referred By: Generic ED Physician Electronically Signed By:Nick Blackmon
--- NOTE | ~2023-04-13 | XR_ITS ---
EXAMINATION: XR CHEST CLINICAL INFORMATION: Chest pain cough COMPARISON: 06/02/2021 TECHNIQUE: Frontal view of the chest was obtained. FINDINGS: No significant abnormality is noted involving the heart, lungs, mediastinum, bony thorax or soft tissues. XR/XR chest 1V IMPRESSION: Unremarkable examination.
[2023-04-13 23:58] VITALS: BP 142/64; PULSE 98; RESP 18; TEMP 36.6; O2SAT 97; BMI 45.0
[2023-04-14 00:34] LABS: MANUAL DIFF FLAG NO
[2023-04-14 00:34] LABS: IDNOW Serial# 08D9AD1C; Strep A Nucleic Acid Negative (Negative)
[2023-04-14 00:36] LABS: Basophils Absolute Auto 0.1 X10*3/uL (0.0-0.2); Basophils Percent Auto 0.7 % (0-2); Eosinophils Absolute Auto 0.1 X10*3/uL (0.0-0.4); Eosinophils Percent Auto 0.9 % (0-4); Hematocrit 41.3 % (37.0-47.0); Hemoglobin 13.5 g/dl (12.0-16.0); Imm Gran Abs Auto 0.02 X10*3/uL (0.00-0.03); Imm Gran Pct Auto 0.3 % (0.0-0.4); Lymphocytes Absolute Auto 2.2 X10*3/uL (1.2-4.9); Lymphocytes Percent Auto 31.3 % (20-40); Mean Corpuscular HGB Conc 32.7 g/dl (31.0-35.0); Mean Corpuscular Hemoglobin 27.3 pg (27.0-33.0); Mean Corpuscular Volume 83.4 fL (80.0-98.0); Mean Platelet Volume 10.6 fL (9.4-12.3); Monocytes Absolute Auto 0.7 X10*3/uL (0.1-1.2); Monocytes Percent Auto 9.5 % (2-11); Neutrophils Percent Auto 57.3 % (45-73); Platelet Count 289 X10*3/uL (160-400); Red Blood Count 4.95 X10*6/uL (4.20-5.50); Red Cell Distribution Width 13.3 % (11.0-16.0); White Blood Count 7.1 X10*3/uL (4.8-10.8)
[2023-04-14 00:51] LABS: Alanine Aminotransferase 19 U/L (0-31); Alkaline Phosphatase 89 U/L (39-117); Anion Gap 14 (12-20); Aspartate Amino Transferase 20 U/L (5-31); Bilirubin Total 0.2 mg/dL (0.0-1.0); Blood Urea Nitrogen 14 mg/dL (9-16); Calcium 9.3 mg/dL (8.4-10.2); Carbon Dioxide 27 mmol/L (22-29); Chloride 101 mmol/L (96-108); Estimated Glomerular Filt Rate > 60; Glucose Random 166 mg/dL (60-115); Potassium 3.6 mmol/L (3.3-5.1); Sodium 138 mmol/L (135-145); Total Protein 7.8 g/dL (6.5-8.0)
[2023-04-14 00:58] LABS: Troponin-I High Sensitivity < 2.7 ng/L (<3.5-17.0)
[2023-04-14 01:02] LABS: Influenza A PCR NEGATIVE (Negative); Influenza B PCR NEGATIVE (Negative); Resp Syncy Virus RNA Qual PCR NEGATIVE (Negative); SARS COV2 PCR INHOUSE POSITIVE (Negative)
--- NOTE | 2023-04-14 01:35 | ED.URI ---
HPI - URI/Sore Throat General Chief Complaint: Dyspnea Stated Complaint: SOB Time Seen by Provider: 04/14/23 01:34 Source: patient Mode of arrival: ambulatory Limitations: no limitations History of Present Illness HPI Narrative: Patient history of asthma been congested for last 3 days coughing no fever feels chest tight also complaining of pain in the right ear saturating 97% on room air on arrival no other family member sick Related Data Home Medications Medication Instructions Recorded Confirmed amlodipine 10 mg tablet 10 mg PO DAILY 02/12/22 02/08/23 fluticasone propionate 230 2 puff inhalation 02/12/22 02/08/23 mcg-salmeterol 21 mcg/actuation HFA inhaler (Advair HFA) loratadine 10 mg tablet 10 mg PO DAILY 02/12/22 02/08/23 montelukast 10 mg tablet 10 mg PO BEDTIME 02/12/22 02/08/23 multivitamin 1 tab PO DAILY 02/12/22 02/08/23 omeprazole 20 mg capsule,delayed 20 mg PO QAM 02/12/22 02/08/23 release sennosides 8.6 mg tablet (senna) 8.6 - 17.2 mg PO BEDTIME 02/12/22 02/08/23 vitamin E (dl, acetate) 180 mg 180 mg PO DAILY 02/12/22 02/08/23 (400 unit) capsule Previous Rx's Medication Instructions Recorded acetaminophen 500 mg tablet 500 mg PO Q6H PRN pain or fever 03/01/20 (Tylenol Extra Strength) #20 tabs ibuprofen 800 mg tablet 800 mg PO Q8H PRN pain #14 tabs 06/02/21 lidocaine HCl 4 % topical cream 1 appl topical BID PRN pain #120 06/02/21 (Aspercreme (lidocaine HCl)) grams diphenhydramine HCl 25 mg capsule 25 mg PO TID PRN allergic reaction 03/15/22 (Benadryl) 7 days #21 caps famotidine 20 mg tablet (Pepcid) 20 mg PO BID 7 days #14 tabs 03/15/22 methocarbamol 500 mg tablet 500 mg PO TID PRN muscle spasm #15 01/21/23 tabs naproxen 500 mg tablet 500 mg PO BID #10 tabs 01/21/23 chlorhexidine gluconate 4 % 1 appl topical .COMPLEX 2 doses 02/08/23 topical liquid (Hibiclens) #473 mL mupirocin calcium 2 % topical cream 1 appl topical BID #30 grams 02/08/23 sulfamethoxazole 800 1 tab PO Q12H #48 tabs 02/08/23 mg-trimethoprim 160 mg tablet (Bactrim DS) benzonatate 200 mg capsule 200 mg PO TID PRN cough #30 caps 04/14/23 prednisone 20 mg tablet 40 mg (2 x 20 mg) PO DAILY #10 tabs 04/14/23 Allergies Allergy/AdvReac Type Severity Reaction Status Date / Time No Known Allergies Allergy Verified 04/14/23 00:14 [No Known Allergies*] Review of Systems Review of Systems: Yes all other systems are reviewed and are negative [facility] Past Medical History Medical History HTN (hypertension) Diabetes Arthritis Asthma Surgical History History of 3 sections Family History Family History Brother Colon cancer Maternal Aunt Ovarian cancer Social History Social History Alcohol intake: never Patient Tobacco Use Status: Never used Tobacco Advance Directives: No Advance Directives Information Provided: No Physical Exam Vital Signs: Vital Signs: Last Vital Signs Temp 97.8 F 04/13/23 23:58 Pulse 98 04/13/23 23:58 Resp 18 04/13/23 23:58 BP 142/64 H 04/13/23 23:58 Pulse Ox 97 04/13/23 23:58 O2 Del Method Room Air 04/13/23 23:58 BMI result Body Mass Index 45.0 Appearance: Alert. Oriented X3. No acute distress. ENT: Pharynx normal. Oral Mucosa moist tympanic membrane intact no inflammation no fluid behind Neck: Normal inspection. Neck supple. CVS: Normal heart rate and rhythm. Pulses normal. Respiratory: No respiratory distress. Equal air entry bilateral, prolonged expiration Abdomen: Soft and nontender. Bowel sounds are present Skin: Skin warm and dry. Normal skin color. Normal skin turgor. Extremities: No lower extremity edema. No calf tenderness Neuro: Oriented X 3. Medical Decision Making Medical Decision Making [facility] Narrative: Patient uncomplicated COVID discharge patient home on prednisone as she has asthma and cough drops Lab Data [facility] Lab Attestation statement: I reviewed the patient's lab results. 04/14/23 00:27 04/14/23 00:26 Labs: Lab Results 04/14/23 04/14/23 04/14/23 Range/Units 00:16 00:26 00:27 WBC 7.1 (4.8-10.8) X10*3/uL RBC 4.95 (4.20-5.50) X10*6/uL Hgb 13.5 (12.0-16.0) g/dl Hct 41.3 (37.0-47.0) % MCV 83.4 (80.0-98.0) fL MCH 27.3 (27.0-33.0) pg MCHC 32.7 (31.0-35.0) g/dl RDW 13.3 (11.0-16.0) % Plt Count 289 (160-400) X10*3/uL MPV 10.6 (9.4-12.3) fL Immature Gran % (Auto) 0.3 (0.0-0.4) % Neut % (Auto) 57.3 (45-73) % Lymph % (Auto) 31.3 (20-40) % Meagher % (Auto) 9.5 (2-11) % Eos % (Auto) 0.9 (0-4) % Baso % (Auto) 0.7 (0-2) % Lymph # (Auto) 2.2 (1.2-4.9) X10*3/uL Meagher # (Auto) 0.7 (0.1-1.2) X10*3/uL Eos # (Auto) 0.1 (0.0-0.4) X10*3/uL Baso # (Auto) 0.1 (0.0-0.2) X10*3/uL Abs Immat Gran (auto) 0.02 (0.00-0.03) X10*3/uL Absolute Neuts (auto) 4.0 (2.0-8.3) x10*3/uL Absolute Nucleated RBC 0.000 (0.0-0.012) X10*3/uL Nucleated RBC % (auto) 0.0 (0.0-0.2) /100WBC Sodium 138 (135-145) mmol/L Potassium 3.6 (3.3-5.1) mmol/L Chloride 101 (96-108) mmol/L Carbon Dioxide 27 (22-29) mmol/L Anion Gap 14 (12-20) BUN 14 (9-16) mg/dL Creatinine 0.81 (0.5-1.4) mg/dL Estim Creat Clear Calc 88.0 Estimated GFR > 60 Random Glucose 166 H (60-115) mg/dL Calcium 9.3 D (8.4-10.2) mg/dL Total Bilirubin 0.2 (0.0-1.0) mg/dL AST 20 (5-31) U/L ALT 19 (0-31) U/L Alkaline Phosphatase 89 (39-117) U/L Troponin I High Sens < 2.7 (<3.5-17.0) ng/L Total Protein 7.8 (6.5-8.0) g/dL Albumin 4.0 (3.5-5.0) g/dL Influenza Type A (PCR) NEGATIVE (Negative) Influenza Type B (PCR) NEGATIVE (Negative) RSV RNA Qual (PCR) NEGATIVE (Negative) SARS-CoV-2 RNA (RT-PCR) POSITIVE A (Negative) S. pyogenes GrpA MARCUS Negative (Negative) Independent Interpretation I performed an independent interpretation of an: Plain X-Ray Radiology Impression Discussion of test interpretation with radiology: I have reviewed the radiologist's reading. Discharge Plan Discharge Clinical Impression: COVID-19 Patient Disposition: Home, Self-Care Instructions: COVID-19 (Coronavirus Disease 2019) (ED) Additional Instructions: Will use your inhaler/nebulizing treatment Prednisone as prescribed Cough drops as prescribed Drink plenty of fluids, social distancing is advised Prescriptions: New benzonatate 200 mg capsule 200 mg PO TID PRN (Reason: cough) Qty: 30 0RF prednisone 20 mg tablet 40 mg PO DAILY Qty: 10 0RF No Action acetaminophen [Tylenol Extra Strength] 500 mg tablet 500 mg PO Q6H PRN (Reason: pain or fever) Qty: 20 0RF ibuprofen 800 mg tablet 800 mg PO Q8H PRN (Reason: pain) Qty: 14 0RF lidocaine HCl [Aspercreme (lidocaine HCl)] 4 % cream 1 appl topical BID PRN (Reason: pain) Qty: 120 0RF diphenhydramine HCl [Benadryl] 25 mg capsule 25 mg PO TID PRN (Reason: allergic reaction) 7 Days Qty: 21 0RF famotidine [Pepcid] 20 mg tablet 20 mg PO BID 7 Days Qty: 14 0RF naproxen 500 mg tablet 500 mg PO BID Qty: 10 0RF methocarbamol 500 mg tablet 500 mg PO TID PRN (Reason: muscle spasm) Qty: 15 0RF vitamin E (dl, acetate) 180 mg (400 unit) capsule 180 mg PO DAILY Advair HFA 230-21 mcg/actuation HFA aerosol inhaler 2 puff inhalation loratadine 10 mg tablet 10 mg PO DAILY montelukast 10 mg tablet 10 mg PO BEDTIME omeprazole 20 mg capsule,delayed release(DR/EC) 20 mg PO QAM amlodipine 10 mg tablet 10 mg PO DAILY sennosides [senna] 8.6 mg tablet 8.6 - 17.2 mg PO BEDTIME multivitamin Tablet 1 tab PO DAILY sulfamethoxazole-trimethoprim [Bactrim DS] 800-160 mg tablet 1 tab PO Q12H Qty: 48 0RF mupirocin calcium 2 % cream 1 appl topical BID Qty: 30 0RF chlorhexidine gluconate [Hibiclens] 4 % liquid 1 appl topical .COMPLEX Qty: 473 2RF Rx Instructions: 1 appl topically use in shower 3 times weekly. Lather on skin and leave on for 2 minutes, then rinse off in shower;
[2023-04-14] MEDS: predniSONE 20 MG TABLET 60 MG PO (01:49)
[2023-04-14] MEDS: guaiFEN/Codeine SF 200/20/10ML 10 ML LIQUID PO (01:49)
[2023-04-14 01:57] VITALS: PULSE 88; RESP 18; O2SAT 98
== END 2023-04-14 01:57 | disposition home or self-care (01) ==
PROVIDERS: Emergency Provider Internal Medicine; PCP Student in an Organized Health Care Education/Training Program
DX: U07.1 COVID-19 (principal); R06.02 Shortness of breath; H92.01 Otalgia, right ear; R07.89 Other chest pain; Z79.899 Other long term (current) drug therapy
CPT/HCPCS: 0241U; 36415; 71045; 80053; 84484; 85025; 87651; 93005; 99283

== ENCOUNTER → 2023-04-13 | Outpatient (BNV) | payer MEDICAID, SELFPAY | PROVIDERS: Emergency Provider Internal Medicine; PCP Student in an Organized Health Care Education/Training Program; Visit Provider Internal Medicine Cardiovascular Disease | DX: R06.02 Shortness of breath (principal) | CPT/HCPCS: 93010 ==

== ENCOUNTER 2023-07-25 12:59 | Outpatient (AMB) | payer MEDICAID, SELFPAY ==
--- NOTE | 2023-07-25 13:03 | A.OFFVIS_ITS ---
Intake Vital Signs 07/25/23 13:05 Height 5 ft 1 in Weight 231 lb 7.766 oz BMI 43.7 BP 143/73 H Blood Pressure Location Lt brachial Position Sitting Pulse 92 Intake Visit Reasons: Colonoscopy screening Intake Note: Mago presents in the office as a new patient colonoscopy screening. CC: States that she has severe constipation. Last week she had a virus and had diarrhea for a day but she is back to constipation. Sourcing Coordinator Required: Yes Sourcing Coordinator Name: [id number] Jack Allergies No Known Allergies [No Known Allergies*] Allergy (Verified 07/25/23 13:07) Medication List - Last Reconciled 07/25/23 by Sonam Miller PA-C acetaminophen (Tylenol Extra Strength) 500 mg PO Q6H PRN albuterol sulfate 90 mcg/actuation (Ventolin HFA) 2 puffs inhalation Q6H PRN amlodipine 10 mg PO DAILY aspirin 81 mg PO QAM benzonatate 200 mg PO TID PRN chlorhexidine gluconate 4% (Hibiclens) 1 appl topically use in shower 3 times weekly. Lather on skin and leave on for 2 minutes, then rinse off in shower; 2 doses cholecalciferol (vitamin D3) (Vitamin D3) 50 mcg PO QAM diphenhydramine HCl (Benadryl) 25 mg PO TID PRN 7 days empagliflozin (Jardiance) 10 mg PO QAM famotidine (Pepcid) 20 mg PO BID 7 days fluticasone propion-salmeterol 230-21 mcg/actuation (Advair HFA) 2 puffs inhalation fluticasone propionate 50 mcg/actuation 1 spray intranasal QAM ibuprofen 800 mg PO Q8H PRN lidocaine HCl 4% (Aspercreme (lidocaine HCl)) 1 appl topical BID PRN loratadine 10 mg PO DAILY methocarbamol 500 mg PO TID PRN montelukast 10 mg PO BEDTIME multivitamin 1 tab PO DAILY mupirocin calcium 2% 1 appl topical BID naproxen 500 mg PO BID omeprazole 20 mg PO QAM sennosides (senna) 8.6 - 17.2 mg PO BEDTIME vitamin E (dl, acetate) 180 mg PO DAILY HPI HPI Comments History of Present Illness Details [id number]- A 58 y/o female family history of colon cancer, GAMBELL- referred for colonoscopy- She has a brother the colon cancer age is unknown, younger than her. She typically have constipation- she had diarrhea 1 day- resolved BM at least once daily- some days twice-she does have hemorrhoids that bleed once in awhile. She had taken stool softeners as well as MiraLax however not consistent Appetite is good-she has not had heartburn. She has a diabetic her sugars fluctuate-she admits she does not follow any specific diet She gets back pain-this is her biggest complaint She has no nausea, vomiting, abdominal pain, hematemesis, fever or chills [facility] Medical History (Updated 07/27/23 @ 09:43 by Sonam Miller PA-C) HTN (hypertension) Diabetes Arthritis Asthma Surgical History Hx of colonoscopy History of esophagogastroduodenoscopy (EGD) History of 3 sections Family History Brother Colon cancer Maternal Aunt Ovarian cancer Social History Alcohol intake: never Patient Tobacco Use Status: Never used Tobacco Review of Systems Const All systems reviewed & are unremarkable except as noted in HPI and below Card Denies chest pain and Denies dyspnea Resp Denies dyspnea GI Details: Hemorrhoid Reports constipation Musc Reports back pain, Reports myalgias and Reports arthralgias Psych Reports anxiety Physical Exam Vital Signs: Last Vital Signs Pulse 92 07/25/23 13:05 BP 143/73 H 07/25/23 13:05 BMI result Body Mass Index 43.7 Const General: cooperative, comfortable and no acute distress Nutritional Appearance: overweight Orientation/consciousness: patient oriented x3 Limitations: language barrier Eyes Sclerae: sclerae normal Resp Effort & Inspection: normal respiratory effort and able to speak in complete sentences Auscultation: clear to auscultation bilaterally, no rales, rhonchi and no wheezes Cardio Rate: regular rate (Jul) Rhythm: regular rhythm Heart sounds: S1 normal heart sound present and S2 normal heart sound present GI Inspection: Yes obesity Palpation (GI): Soft to palpation and nontender Auscultation: normal bowel sounds Skin General skin exam: no rashes or lesions noted Neuro General: patient oriented x3 Extrem General: Yes full ROM Psych Mental Status: mental status grossly normal Speech and movement: Clear speech present Affect: Labile affect present Attitude: cooperative Thought process: Normal thought process present Thought content: Normal thought content present Assessment & Plan Assessment & Plan (1) Chronic constipation: Code(s): K59.09 - Other constipation Plan: Consistent bowel regimen High-fiber diet (2) Hard of hearing: Comment: Multiple repetitions, Code(s): H91.90 - Unspecified hearing loss, unspecified ear (3) Family history of colon cancer: Comment: Younger brother Code(s): Z80.0 - Family history of malignant neoplasm of digestive organs Plan: Colonoscopy as Plan Colonoscopy MG prep- miralax QD x 7 days prior to procedure Jardiance- d/c x 3 days before Orders: Orders 2 Colonoscopy - GI Use Only 07/25/23 K59.09 - Other constipation, Z80.0 - Family history of malignant neoplasm of digestive organs Medications: New bisacodyl (Dulcolax (bisacodyl)) Day before procedure @ 12 noon Take 4 tablets by mouth followed by large glass of water 20 mg (4 x 5 mg) PO ONCE 1 day PRN 4 tabs 0RF colonoscopy prep Z12.11 - Encounter for screening for malignant neoplasm of colon polyethylene glycol 3350 (Miralax) Take as directed by mouth the day before your procedure. 238 grams PO ONCE 1 day PRN 238 grams 0RF laxative effect polyethylene glycol 3350 (Miralax) 17 grams PO DAILY 510 grams 6RF hydrocortisone 2.5% (Proctozone-HC) apply W[place] BID prn 1 appl W[place] BID PRN 30 grams 3RF hemorrhoids Patient Instructions: 58-year-old female family history of colon cancer due for Colonoscopy- MG prep- reviewed, literature given miralax QD x 7 days prior to procedure Jardiance- d/c x 3 days before Coding Level of Care Code New Pt Level 3 (68203) Diagnoses Chronic constipation K59.09 Hard of hearing H91.90 Family history of colon cancer Z80.0 Time Spent (min) 30 Comment Sourcing Coordinator device
[2023-07-25 13:05] VITALS: BP 143/73; PULSE 92; BMI 43.7
== END 2023-07-25 14:27 | disposition home or self-care (01) ==
PROVIDERS: PCP Student in an Organized Health Care Education/Training Program; Visit Provider Physician Assistant
DX: K59.09 Other constipation (principal); H91.90 Unspecified hearing loss, unspecified ear; Z80.0 Family history of malignant neoplasm of digestive organs
CPT/HCPCS: 99203

== ENCOUNTER → 2023-07-25 12:59 | Outpatient (BNVA) | payer MEDICAID, SELFPAY | PROVIDERS: PCP Student in an Organized Health Care Education/Training Program; Visit Provider Physician Assistant | DX: R19.7 Diarrhea, unspecified (principal); K59.09 Other constipation; Z80.0 Family history of malignant neoplasm of digestive organs | CPT/HCPCS: 99212 ==

== ENCOUNTER 2023-08-12 11:08 | Outpatient (REF) | payer MEDICAID, SELFPAY ==
[2023-08-12 12:21] LABS: Hematocrit 42.1 % (37.0-47.0); Hemoglobin 13.7 g/dl (12.0-16.0); Mean Corpuscular HGB Conc 32.5 g/dl (31.0-35.0); Mean Corpuscular Hemoglobin 26.8 pg (27.0-33.0); Mean Corpuscular Volume 82.2 fL (80.0-98.0); Mean Platelet Volume 10.7 fL (9.4-12.3); Platelet Count 296 X10*3/uL (160-400); Red Blood Count 5.12 X10*6/uL (4.20-5.50); Red Cell Distribution Width 13.7 % (11.0-16.0); White Blood Count 8.7 X10*3/uL (4.8-10.8)
[2023-08-12 13:23] LABS: Alanine Aminotransferase 24 U/L (0-31); Albumin Level 4.1 g/dL (3.5-5.0); Alkaline Phosphatase 89 U/L (39-117); Anion Gap 13 (12-20); Aspartate Amino Transferase 16 U/L (5-31); Bilirubin Total 0.3 mg/dL (0.0-1.0); Blood Urea Nitrogen 12 mg/dL (9-16); Calcium 9.8 mg/dL (8.4-10.2); Carbon Dioxide 31 mmol/L (22-29); Chloride 100 mmol/L (96-108); Cholesterol 181 mg/dL (<200); Estimated Glomerular Filt Rate > 60; Glucose Random 157 mg/dL (60-115); HDL Cholesterol 44 mg/dL (>40); LDL Cholesterol Calculated 59 mg/dL (<100); Potassium 3.3 mmol/L (3.3-5.1); Sodium 141 mmol/L (135-145); Total Protein 7.7 g/dL (6.5-8.0); Triglycerides 392 mg/dL (<150)
[2023-08-12 13:24] LABS: Folate 9.5 ng/mL (> or = 4.0); Vitamin B12 792 pg/mL (200-900)
[2023-08-12 13:25] LABS: TSH reflex Free T4 1.67 uIU/mL (0.32-4.0)
[2023-08-12 14:09] LABS: CT PCR NOT DETECTED (Not Detect.); NG PCR NOT DETECTED (Not Detect.)
[2023-08-12 14:57] LABS: Estimated Average Glucose 171 mg/dL; Hemoglobin A1c % 7.6 % (<6.0)
[2023-08-13 03:52] LABS: Syphilis Screen Nonreactive (Nonreactive)
[2023-08-13 04:25] LABS: HBS Num1 8.38 mIU/mL (0-7.99); HBc Num1 1.63 S/CO (0.00-0.79); HIV AB/AG Nonreactive (Nonreactive); HIV Num 1 0.05 S/CO (0.00-0.99); ~HepC Num1 14.74 S/CO (0.00-0.79); ~Hepatitis C Antibody Reactive (Nonreactive)
[2023-08-13 05:13] LABS: HBS Num2 8.36 mIU/mL (0-7.99); HBS Num3 8.48 mIU/mL (0-7.99); HBc Num2 1.62 S/CO; ~Hepatitis B Surface Antibody GRAYZONE (Nonreactive)
[2023-08-13 05:14] LABS: HBc Num3 1.59 S/CO; Hepatitis B Core Antibody Reactive (Nonreactive)
[2023-08-14 17:49] LABS: Hepatitis B Core Antibody IgM NON-REACTIVE (NON-REACTIVE)
[2023-08-18 14:18] LABS: HCV Log PCR <1.18 NOT DETECTED Log IU/mL (NOT DETECTED); HepC Viral Load <15 NOT DETECTED IU/mL (NOT DETECTED)
== END 2023-08-12 11:09 | disposition home or self-care (01) ==
LOC: HO.LAB 11:08
PROVIDERS: PCP Student in an Organized Health Care Education/Training Program; Visit Provider Student in an Organized Health Care Education/Training Program
DX: Z00.00 Encounter for general adult medical examination without abnormal findings (principal); Z11.4 Encounter for screening for human immunodeficiency virus [HIV]
CPT/HCPCS: 0353U; 36415; 80053; 80061; 82607; 82746; 83036; 84443; 85027; 86704; 86705; 86706; 86780; 86803; 87389; 87522

== ENCOUNTER 2023-08-29 10:57 | Outpatient (RCR) | payer MEDICAID, SELFPAY | END 2023-09-20 09:21 | disposition home or self-care (01) | LOC: HO.PT 10:57 | PROVIDERS: PCP Student in an Organized Health Care Education/Training Program; Visit Provider Student in an Organized Health Care Education/Training Program | DX: M54.50 Low back pain, unspecified (principal) | CPT/HCPCS: 97110; 97161 ==

== ENCOUNTER 2023-09-29 21:46 | Emergency (ER) | payer MEDICAID, SELFPAY ==
--- NOTE | ~2023-09-29 | CT_ITS ---
EXAMINATION: CT ABDOMEN AND PELVIS WITHOUT CONTRAST CLINICAL INFORMATION: Abdominal pain. COMPARISON: 07/03/2018 TECHNIQUE: Multidetector volumetric imaging was performed from the superior aspect of the liver through the pubic symphysis. Sagittal and coronal reformatted images were obtained on the technologist's workstation. This CT examination was performed using dose optimization techniques as appropriate, variously including the following: *Automated exposure control *Adjustment of mA and/or kV according to patient size (this includes techniques or standardized protocols for targeted exams where dose is matched to indication/reason for exam; i.e. extremities or head) *Use of iterative reconstruction technique DLP: 746 mGy-cm FINDINGS: Image quality is technically degraded by motion artifact. LUNG BASES: The visualized lung bases are unremarkable. LIVER, GALLBLADDER, AND BILIARY TREE: The noncontrast liver is decreased in attenuation. No biliary ductal dilatation is present. The gallbladder is surgically absent. PANCREAS: Unremarkable. SPLEEN: Unremarkable. ADRENAL GLANDS: Unremarkable. KIDNEYS AND URETERS: The kidneys are symmetric in size. No hydronephrosis, hydroureter, or calculi seen. No perinephric stranding. BLADDER: Unremarkable. GASTROINTESTINAL TRACT: Small and large bowel loops are of normal caliber. No small bowel obstruction. Appendix is within normal limits. ABDOMINAL WALL: No significant hernia is appreciated. LYMPH NODES: No bulky lymphadenopathy. VASCULAR: Normal caliber abdominal aorta. PELVIC VISCERA: Unremarkable. OSSEOUS STRUCTURES: L5-S1 spondylolysis and spondylolisthesis. CT/CT abdomen pelvis wo IV con IMPRESSION: No acute abnormality in the abdomen or pelvis. Hepatic steatosis.
[2023-09-29 22:23] VITALS: BP 138/80; PULSE 74; RESP 16; TEMP 36.3; O2SAT 96; BMI 44.8
[2023-09-29 22:46] LABS: Appearance Urine Clear; Color Urine Yellow; Glucose Urine UA >=1000 mg/dL (Negative); Leukocyte Esterase Urine Negative (Negative); Nitrite Urine Negative (Negative); Specific Gravity - Urine >= 1.030 (1.005-1.025); UMIC TRIGGER UACC YES; Urine Blood Negative (Negative); Urine Ketones Negative (Negative); Urine Protein Trace mg/dL (Neg-Trace)
[2023-09-29 23:01] LABS: Bacteria Urine Trace (None Seen); Hyaline Casts Urine 0-2 /LPF (0-2); RBC Urine 0-2 /HPF (0-2); Squamous Epithelial Cell Urine 0-2 /HPF (0-2); WBC Urine 0-5 /HPF (0-5)
[2023-09-30 03:59] VITALS: BP 137/76; PULSE 76; RESP 16; TEMP 36.8; O2SAT 97
[2023-09-30 05:58] VITALS: BP 135/68; PULSE 79; RESP 16; TEMP 36.1; O2SAT 97
--- NOTE | 2023-09-30 07:35 | ED_ITS ---
HPI - Female Genitourinary General Chief complaint: Urogenital-Female Stated complaint: lower back and abd pain Time Seen by Provider: 09/30/23 06:42 Source: patient Mode of arrival: ambulatory Limitations: other (poor historian ) History of Present Illness ED Provider: Gregory MATHEW HPI Narrative: 58-year-old female hx HTN, DM , asthma presents with complaints bilateral lower back pain, suprapubic discomfort, burning with urination vaginal discomfort all ongoing for the past 3 days. Patient reports back pain is worse with movement better at rest. No associated numbness, tingling, saddle anesthesias, weakness, urinary or bowel incontinence/retention. No history of kidney stones. No associated trauma. Patient does report subjective fevers and chills 3 days ago however they have resolved. No known sick contacts. Denies chest pain, shortness of breath, sore throat, cough, vaginal bleeding or discharge, diarrhea. Related Data Home Medications ?Medication ?Instructions ?Recorded ?Confirmed amlodipine 10 mg tablet 10 mg PO DAILY 02/12/22 07/25/23 fluticasone propionate 230 2 puff inhalation 02/12/22 07/25/23 mcg-salmeterol 21 mcg/actuation HFA inhaler (Advair HFA) loratadine 10 mg tablet 10 mg PO DAILY 02/12/22 07/25/23 montelukast 10 mg tablet 10 mg PO BEDTIME 02/12/22 07/25/23 multivitamin 1 tab PO DAILY 02/12/22 07/25/23 omeprazole 20 mg capsule,delayed 20 mg PO QAM 02/12/22 07/25/23 release sennosides 8.6 mg tablet (senna) 8.6 - 17.2 mg PO BEDTIME 02/12/22 07/25/23 vitamin E (dl, acetate) 180 mg 180 mg PO DAILY 02/12/22 07/25/23 (400 unit) capsule albuterol sulfate 90 mcg/actuation 2 puff inhalation Q6H PRN wheezing 07/25/23 07/25/23 aerosol inhaler (Ventolin HFA) aspirin 81 mg tablet,delayed 81 mg PO QAM 07/25/23 07/25/23 release cholecalciferol (vitamin D3) 50 50 mcg PO QAM 07/25/23 07/25/23 mcg (2,000 unit) capsule (Vitamin D3) empagliflozin 10 mg tablet 10 mg PO QAM 07/25/23 07/25/23 (Jardiance) fluticasone propionate 50 1 spray intranasal QAM 07/25/23 07/25/23 mcg/actuation nasal spray,suspension Previous Rx's ?Medication ?Instructions ?Recorded acetaminophen 500 mg tablet 500 mg PO Q6H PRN pain or fever 03/01/20 (Tylenol Extra Strength) #20 tabs ibuprofen 800 mg tablet 800 mg PO Q8H PRN pain #14 tabs 06/02/21 lidocaine HCl 4 % topical cream 1 appl topical BID PRN pain #120 06/02/21 (Aspercreme (lidocaine HCl)) grams diphenhydramine HCl 25 mg capsule 25 mg PO TID PRN allergic reaction 03/15/22 (Benadryl) 7 days #21 caps famotidine 20 mg tablet (Pepcid) 20 mg PO BID 7 days #14 tabs 03/15/22 methocarbamol 500 mg tablet 500 mg PO TID PRN muscle spasm #15 01/21/23 tabs naproxen 500 mg tablet 500 mg PO BID #10 tabs 01/21/23 chlorhexidine gluconate 4 % 1 appl topical .COMPLEX 2 doses 02/08/23 topical liquid (Hibiclens) #473 mL mupirocin calcium 2 % topical cream 1 appl topical BID #30 grams 02/08/23 benzonatate 200 mg capsule 200 mg PO TID PRN cough #30 caps 04/14/23 bisacodyl 5 mg tablet,delayed 20 mg (4 x 5 mg) PO ONCE PRN 07/25/23 release (Dulcolax (bisacodyl)) colonoscopy prep 1 day #4 tabs hydrocortisone 2.5 % topical cream 1 appl DC BID PRN hemorrhoids #30 07/25/23 with perineal applicator grams (Proctozone-HC) polyethylene glycol 3350 17 17 g PO DAILY #510 grams 07/25/23 gram/dose oral powder (Miralax) polyethylene glycol 3350 17 238 g PO ONCE PRN laxative effect 07/25/23 gram/dose oral powder (Miralax) 1 day #238 grams cefuroxime axetil 250 mg tablet 250 mg PO BID 7 days #14 tabs 09/30/23 ketorolac 10 mg tablet 10 mg PO TID PRN pain 5 days #15 09/30/23 tabs Allergies Allergy/AdvReac Type Severity Reaction Status Date / Time No Known Allergies Allergy Verified 09/29/23 22:27 [No Known Allergies*] Review of Systems 2 Review of Systems: Yes all other systems are reviewed and are negative FORMERLY [facility], [facility] Past Medical History Attestation statement: The following information was validated with the patient. Source: old records reviewed and nursing notes reviewed Medical History (Updated 09/30/23 @ 07:34 by EBER Healy) HTN (hypertension) Diabetes Arthritis Asthma Surgical History Hx of colonoscopy History of esophagogastroduodenoscopy (EGD) History of 3 sections Family History Family History Brother Colon cancer Maternal Aunt Ovarian cancer Social History Social History Alcohol intake: never Patient Tobacco Use Status: Never used Tobacco Smoked in Last 30 Days: No Use of substances other than those prescribed or required for medical reasons: No Advance Directives: No Advance Directives Information Provided: No Do you have a plan to hurt others: No Plan Physical Exam 2 Vital Signs: Vital Signs: Last Vital Signs Temp 97.0 F 09/30/23 05:58 Pulse 79 09/30/23 05:58 Resp 16 09/30/23 05:58 BP 135/68 09/30/23 05:58 Pulse Ox 97 09/30/23 05:58 O2 Del Method Room Air 09/30/23 05:58 BMI result Body Mass Index 44.8 vss Appearance: Alert.? Oriented X3.? No acute distress.? Head: Normocephalic, atraumatic, no step-offs or deformities Eyes: Pupils equal, round and reactive to light.? Neck: Normal inspection.? Neck supple.? CVS: Normal heart rate and rhythm.? Pulses normal.? Respiratory: No respiratory distress.? Breath sounds normal.? Abdomen: Soft and nontender.? Skin: Skin warm and dry.? Normal skin color.? Normal skin turgor.? Extremities: No lower extremity edema.? No calf ttp. 5/5 strength to bilateral upper and lower extremities Back: No midline tenderness, no C-spine tenderness, full range of motion, no CVA tenderness bilaterally + b/l lumbar paraspinous muscle ttp on exam. Neuro: Oriented X 3.? No motor deficit.? No sensory deficit. CN 2-12 intact Course Reevaluation(s) Reevaluation #1: UA with slightly elevated specific gravity likely secondary to poor p.o. intake, patient noted to have glucose in urine, labs obtained to further evaluate this. Patient noted to have trace bacteria and she is having urinary symptoms will treat for UTI. Labs and CT abdomen pending. Plan is for patient to be discharged home if all this is normal. Will send her on p.o. antibiotics. Time: 07:40 Reevaluation #2: CT abdomen and pelvis no acute abnormality in the abdomen or pelvic. Hepatic steatosis. Patient eating and drinking. Will have her follow-up with PCP. Educated patient on diagnosis and treatment plan, answered all question, patient verbalizes understanding. At this time patient will be discharged home, advised to return with new or worsening symptoms. Educated on worrisome signs and symptoms and when to return. At this time I feel comfortable discharge home. Time: 10:35 Medications Administered Discontinued Medications Generic Name Dose Route Start Last Admin Trade Name Stefania PRN Reason Stop Dose Admin Ketorolac Tromethamine 30 mg 09/30/23 07:32 09/30/23 07:49 Ketorolac Tromethamine 15 Mg/Ml Vial IM 09/30/23 07:33 30 mg ONCE ONE Administration Medical Decision Making Medical Decision Making [facility] Narrative: 729 58 yo f presents w/ b/l lower back pain, suprapubic discomfort and urinary sx X 3 days PE No midline tenderness, no C-spine tenderness, full range of motion, no CVA tenderness bilaterally + b/l lumbar paraspinous muscle ttp on exam. History and physical exam concerning for UTI versus cystitis versus kidney stone. Unlikely cauda equina, epidural abscess, acute abdomen, pyelonephritis, obstructing uropathy, systemic illness, electrolyte disturbances. Will rule out gonorrhea and chlamydia although less likely. Plan labs, imaging, urine Differential Diagnosis Differential Diagnoses: The differential diagnosis associated with the presentation includes History and physical exam concerning for UTI versus cystitis versus kidney stone. Unlikely cauda equina, epidural abscess, acute abdomen, pyelonephritis, obstructing uropathy, systemic illness, electrolyte disturbances. Will rule out gonorrhea and chlamydia although less likely. Admission/Observation Consideration of admission/observation: Escalation of care including admission/observation considered Unlikely Lab Data MDM Lab Attestation statement: I reviewed the patient's lab results. 09/30/23 07:48 09/30/23 07:48 Labs: Lab Results 09/29/23 09/30/23 Range/Units 22:39 07:48 WBC 7.6 (4.8-10.8) X10*3/uL RBC 4.90 (4.20-5.50) X10*6/uL Hgb 13.6 (12.0-16.0) g/dl Hct 41.1 (37.0-47.0) % MCV 83.9 (80.0-98.0) fL MCH 27.8 (27.0-33.0) pg MCHC 33.1 (31.0-35.0) g/dl RDW 13.7 (11.0-16.0) % Plt Count 264 (160-400) X10*3/uL MPV 10.9 (9.4-12.3) fL Immature Gran % (Auto) 0.1 (0.0-0.4) % Neut % (Auto) 47.7 (45-73) % Lymph % (Auto) 42.1 H (20-40) % [place] % (Auto) 7.7 (2-11) % Eos % (Auto) 1.7 (0-4) % Baso % (Auto) 0.7 (0-2) % Lymph # (Auto) 3.2 (1.2-4.9) X10*3/uL [place] # (Auto) 0.6 (0.1-1.2) X10*3/uL Eos # (Auto) 0.1 (0.0-0.4) X10*3/uL Baso # (Auto) 0.1 (0.0-0.2) X10*3/uL Abs Immat Gran (auto) 0.01 (0.00-0.03) X10*3/uL Absolute Neuts (auto) 3.6 (2.0-8.3) x10*3/uL Absolute Nucleated RBC 0.000 (0.0-0.012) X10*3/uL Nucleated RBC % (auto) 0.0 (0.0-0.2) /100WBC Sodium 140 (135-145) mmol/L Potassium 3.4 (3.3-5.1) mmol/L Chloride 101 (96-108) mmol/L Carbon Dioxide 31 H (22-29) mmol/L Anion Gap 11 L (12-20) BUN 11 (9-16) mg/dL Creatinine 0.67 (0.5-1.4) mg/dL Estim Creat Clear Calc 104.8 Estimated GFR > 60 Random Glucose 120 H (60-115) mg/dL Calcium 9.4 (8.4-10.2) mg/dL Total Bilirubin 0.3 (0.0-1.0) mg/dL AST 21 (5-31) U/L ALT 20 (0-31) U/L Alkaline Phosphatase 86 (39-117) U/L Total Protein 7.4 (6.5-8.0) g/dL Albumin 4.0 (3.5-5.0) g/dL Lipase 38 (8-78) U/L Urine Color Yellow Urine Appearance Clear Urine pH 6.0 (5.0-9.0) Ur Specific [place] >= 1.030 H (1.005-1.025) Urine Protein Trace (Neg-Trace) mg/dL Urine Glucose (UA) >=1000 H (Negative) mg/dL Urine Ketones Negative (Negative) mg/dL Urine Blood Negative (Negative) Urine Nitrite Negative (Negative) Ur Leukocyte Esterase Negative (Negative) Urine RBC 0-2 (0-2) /HPF Urine WBC 0-5 (0-5) /HPF Ur Squamous Epith Cells 0-2 (0-2) /HPF Urine Bacteria Trace (None Seen) Hyaline Casts 0-2 (0-2) /LPF Chlam trachomat DNA PCR NOT DETECTED (Not Detect.) N.gonorrhoeae DNA (PCR) NOT DETECTED (Not Detect.) Independent Interpretation I performed an independent interpretation of an: CT Scan ( CT/CT abdomen pelvis wo IV con IMPRESSION: No acute abnormality in the abdomen or pelvis. Hepatic steatosis.) Radiology Impression Discussion of test interpretation with radiology: I have reviewed the radiologist's reading. External Record Review External record reviewed: Inpatient record, Office record, Outpatient record, Prior outpatient labs, Prior outpatient radiology and Primary care record Prescription Management I considered prescription management with: Antibiotic (Ceftin ) Chronic Conditions Patient?s care impacted by: Diabetes, Hypertension and Other (obestiy, asthma ) Critical Care Time Critical Care Time Critical Care Time: Yes Total Critical Care Time: 35 Attestation: I attest to this time spent taking care of the patient, obtaining history, physical, reviewing labs, imaging, speaking to my attending, specialist or hospitalist. Discharge Plan Discharge Clinical Impression: Urinary tract infection, Lower back pain Patient Disposition: Home, Self-Care Instructions: Urinary Tract Infection in Women (ED), Back Pain (ED) Additional Instructions: Take your medications as prescribed. If you were prescribed antibiotics today, it is important that you take your medication to their entirety, do not skip any doses, do not finish them early. Follow-up with your primary care provider this week. Return to the emergency department with new or worsening symptoms. In case of emergency call 911 Toradol has been sent to your pharmacy, you tolerated this well in the department. Please take this as prescribed do not take this with ibuprofen, or other NSAIDs, do not mix this with alcohol. Side effects of this medication including increased risk for bleeding and possible kidney injury. Prescriptions: New cefuroxime axetil 250 mg tablet 250 mg PO BID 7 Days Qty: 14 0RF ketorolac 10 mg tablet 10 mg PO TID PRN (Reason: pain) 5 Days Qty: 15 0RF No Action acetaminophen [Tylenol Extra Strength] 500 mg tablet 500 mg PO Q6H PRN (Reason: pain or fever) Qty: 20 0RF ibuprofen 800 mg tablet 800 mg PO Q8H PRN (Reason: pain) Qty: 14 0RF lidocaine HCl [Aspercreme (lidocaine HCl)] 4 % cream 1 appl topical BID PRN (Reason: pain) Qty: 120 0RF diphenhydramine HCl [Benadryl] 25 mg capsule 25 mg PO TID PRN (Reason: allergic reaction) 7 Days Qty: 21 0RF famotidine [Pepcid] 20 mg tablet 20 mg PO BID 7 Days Qty: 14 0RF naproxen 500 mg tablet 500 mg PO BID Qty: 10 0RF methocarbamol 500 mg tablet 500 mg PO TID PRN (Reason: muscle spasm) Qty: 15 0RF benzonatate 200 mg capsule 200 mg PO TID PRN (Reason: cough) Qty: 30 0RF vitamin E (dl, acetate) 180 mg (400 unit) capsule 180 mg PO DAILY Advair HFA 230-21 mcg/actuation HFA aerosol inhaler 2 puff inhalation loratadine 10 mg tablet 10 mg PO DAILY montelukast 10 mg tablet 10 mg PO BEDTIME omeprazole 20 mg capsule,delayed release(DR/EC) 20 mg PO QAM amlodipine 10 mg tablet 10 mg PO DAILY sennosides [senna] 8.6 mg tablet 8.6 - 17.2 mg PO BEDTIME multivitamin Tablet 1 tab PO DAILY mupirocin calcium 2 % cream 1 appl topical BID Qty: 30 0RF chlorhexidine gluconate [Hibiclens] 4 % liquid 1 appl topical .COMPLEX Qty: 473 2RF Rx Instructions: 1 appl topically use in shower 3 times weekly. Lather on skin and leave on for 2 minutes, then rinse off in shower; albuterol sulfate [Ventolin HFA] 90 mcg/actuation HFA aerosol inhaler 2 puff inhalation Q6H PRN (Reason: wheezing) Jardiance 10 mg tablet 10 mg PO QAM fluticasone propionate 50 mcg/actuation spray,suspension 1 spray intranasal QAM cholecalciferol (vitamin D3) [Vitamin D3] 50 mcg (2,000 unit) capsule 50 mcg PO QAM aspirin 81 mg tablet,delayed release (DR/EC) 81 mg PO QAM bisacodyl [Dulcolax (bisacodyl)] 5 mg tablet,delayed release (DR/EC) 20 mg PO ONCE PRN (Reason: colonoscopy prep) 1 Days Qty: 4 0RF Rx Instructions: Day before procedure @ 12 noon Take 4 tablets by mouth followed by large glass of water polyethylene glycol 3350 [Miralax] 17 gram/dose powder 238 g PO ONCE PRN (Reason: laxative effect) 1 Days Qty: 238 0RF Rx Instructions: Take as directed by mouth the day before your procedure. polyethylene glycol 3350 [Miralax] 17 gram/dose powder 17 g PO DAILY Qty: 510 6RF hydrocortisone [Proctozone-HC] 2.5 % cream with perineal applicator 1 appl DC BID PRN (Reason: hemorrhoids) Qty: 30 3RF Rx Instructions: apply DC BID prn Referrals: Milvia Soto MD [Primary Care Provider] - 2 days Print Language: Persian
[2023-09-30] MEDS: Ketorolac Tromethamine 15 MG/ML VIAL 30 MG IM (07:49)
[2023-09-30 07:57] LABS: MANUAL DIFF FLAG NO
[2023-09-30 08:00] LABS: Basophils Absolute Auto 0.1 X10*3/uL (0.0-0.2); Basophils Percent Auto 0.7 % (0-2); Eosinophils Absolute Auto 0.1 X10*3/uL (0.0-0.4); Eosinophils Percent Auto 1.7 % (0-4); Hematocrit 41.1 % (37.0-47.0); Hemoglobin 13.6 g/dl (12.0-16.0); Imm Gran Abs Auto 0.01 X10*3/uL (0.00-0.03); Imm Gran Pct Auto 0.1 % (0.0-0.4); Lymphocytes Absolute Auto 3.2 X10*3/uL (1.2-4.9); Lymphocytes Percent Auto 42.1 % (20-40); Mean Corpuscular HGB Conc 33.1 g/dl (31.0-35.0); Mean Corpuscular Hemoglobin 27.8 pg (27.0-33.0); Mean Corpuscular Volume 83.9 fL (80.0-98.0); Mean Platelet Volume 10.9 fL (9.4-12.3); Monocytes Absolute Auto 0.6 X10*3/uL (0.1-1.2); Monocytes Percent Auto 7.7 % (2-11); Neutrophils Absolute Auto 3.6 x10*3/uL (2.0-8.3); Neutrophils Percent Auto 47.7 % (45-73); Platelet Count 264 X10*3/uL (160-400); Red Cell Distribution Width 13.7 % (11.0-16.0); White Blood Count 7.6 X10*3/uL (4.8-10.8)
[2023-09-30 08:14] LABS: Alanine Aminotransferase 20 U/L (0-31); Alkaline Phosphatase 86 U/L (39-117); Anion Gap 11 (12-20); Aspartate Amino Transferase 21 U/L (5-31); Bilirubin Total 0.3 mg/dL (0.0-1.0); Blood Urea Nitrogen 11 mg/dL (9-16); Calcium 9.4 mg/dL (8.4-10.2); Carbon Dioxide 31 mmol/L (22-29); Chloride 101 mmol/L (96-108); Creatinine Clr Calc Pharmacy 104.8; Estimated Glomerular Filt Rate > 60; Glucose Random 120 mg/dL (60-115); Lipase 38 U/L (8-78); Potassium 3.4 mmol/L (3.3-5.1); Sodium 140 mmol/L (135-145); Total Protein 7.4 g/dL (6.5-8.0)
[2023-09-30 09:29] LABS: CT PCR NOT DETECTED (Not Detect.); NG PCR NOT DETECTED (Not Detect.)
[2023-09-30 10:56] VITALS: BP 143/81; PULSE 75; RESP 18; TEMP 36.1; O2SAT 97
[2023-09-30 10:57] VITALS: BP 143/81; PULSE 75; RESP 18; TEMP 36.1; O2SAT 97
== END 2023-09-30 11:05 | disposition home or self-care (01) ==
PROVIDERS: Physician Assistant; Emergency Provider Emergency Medicine; PCP Student in an Organized Health Care Education/Training Program
DX: N39.0 Urinary tract infection, site not specified (principal); M54.50 Low back pain, unspecified; I10 Essential (primary) hypertension; E11.9 Type 2 diabetes mellitus without complications; J45.909 Unspecified asthma, uncomplicated
CPT/HCPCS: 0353U; 36415; 74176; 80053; 81001; 83690; 85025; 96372; 99284; J1885

== ENCOUNTER 2024-04-02 11:13 | Emergency (ER) | payer MEDICAID, SELFPAY ==
[2024-04-02 11:51] VITALS: BP 124/75; PULSE 84; RESP 16; TEMP 36.6; O2SAT 96; BMI 45.3
--- NOTE | 2024-04-02 11:58 | ED.FEMALEGU ---
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 endodontics dentist.) Mode of arrival: ambulatory Limitations: language barrier (all interactions with this patient were facilitated with an [facility] endodontics dentist.) History of Present Illness ED Provider: Roxanna Parra PA-C HPI Narrative: Patient is a 58 year old assigned female at with a history of HTN, chronic hepatitis C, chronic constipation, chronic pelvic pain, DM, and asthma presenting to the emergency department today with pelvic burning. Patient states that she has had a chronic burning sensation to her pelvic area for over a month. Patient states that it is present with and without urination. Patient denies any dizziness, lightheadedness, abdominal pain, nausea, vomiting, fever, chills, blurry vision, double vision, loss of vision, chest pain, difficulty breathing, shortness of breath, back pain, night sweats, increased urinary frequency, increased urinary urgency, blood in her urine or stool, syncope or a near syncopal episode, recent trauma or falls, bowel incontinence, bladder incontinence, or any other complaints at this time. Onset (ago): month(s) (1) Vaginal bleeding: none Exacerbating factors: none Relieving factors: none Associated symptoms: denies other symptoms Treatment prior to arrival: none Related Data Home Medications ?Medication ?Instructions ?Recorded ?Confirmed amlodipine 10 mg tablet 10 mg PO DAILY 02/12/22 07/25/23 fluticasone propionate 230 2 puff inhalation 02/12/22 07/25/23 mcg-salmeterol 21 mcg/actuation HFA inhaler (Advair HFA) loratadine 10 mg tablet 10 mg PO DAILY 02/12/22 07/25/23 montelukast 10 mg tablet 10 mg PO BEDTIME 02/12/22 07/25/23 multivitamin 1 tab PO DAILY 02/12/22 07/25/23 omeprazole 20 mg capsule,delayed 20 mg PO QAM 02/12/22 07/25/23 release sennosides 8.6 mg tablet (senna) 8.6 - 17.2 mg PO BEDTIME 02/12/22 07/25/23 vitamin E (dl, acetate) 180 mg 180 mg PO DAILY 02/12/22 07/25/23 (400 unit) capsule albuterol sulfate 90 mcg/actuation 2 puff inhalation Q6H PRN wheezing 07/25/23 07/25/23 aerosol inhaler (Ventolin HFA) aspirin 81 mg tablet,delayed 81 mg PO QAM 07/25/23 07/25/23 release cholecalciferol (vitamin D3) 50 50 mcg PO QAM 07/25/23 07/25/23 mcg (2,000 unit) capsule (Vitamin D3) empagliflozin 10 mg tablet 10 mg PO QAM 07/25/23 07/25/23 (Jardiance) fluticasone propionate 50 1 spray intranasal QAM 07/25/23 07/25/23 mcg/actuation nasal spray,suspension Previous Rx's ?Medication ?Instructions ?Recorded acetaminophen 500 mg tablet 500 mg PO Q6H PRN pain or fever 03/01/20 (Tylenol Extra Strength) #20 tabs ibuprofen 800 mg tablet 800 mg PO Q8H PRN pain #14 tabs 06/02/21 lidocaine HCl 4 % topical cream 1 appl topical BID PRN pain #120 06/02/21 (Aspercreme (lidocaine HCl)) grams diphenhydramine HCl 25 mg capsule 25 mg PO TID PRN allergic reaction 03/15/22 (Benadryl) 7 days #21 caps famotidine 20 mg tablet (Pepcid) 20 mg PO BID 7 days #14 tabs 03/15/22 methocarbamol 500 mg tablet 500 mg PO TID PRN muscle spasm #15 01/21/23 tabs naproxen 500 mg tablet 500 mg PO BID #10 tabs 01/21/23 chlorhexidine gluconate 4 % 1 appl topical .COMPLEX 2 doses 02/08/23 topical liquid (Hibiclens) #473 mL mupirocin calcium 2 % topical cream 1 appl topical BID #30 grams 02/08/23 benzonatate 200 mg capsule 200 mg PO TID PRN cough #30 caps 04/14/23 bisacodyl 5 mg tablet,delayed 20 mg (4 x 5 mg) PO ONCE PRN 07/25/23 release (Dulcolax (bisacodyl)) colonoscopy prep 1 day #4 tabs hydrocortisone 2.5 % topical cream 1 appl WA BID PRN hemorrhoids #30 07/25/23 with perineal applicator grams (Proctozone-HC) polyethylene glycol 3350 17 17 g PO DAILY #510 grams 07/25/23 gram/dose oral powder (Miralax) polyethylene glycol 3350 17 238 g PO ONCE PRN laxative effect 07/25/23 gram/dose oral powder (Miralax) 1 day #238 grams cefuroxime axetil 250 mg tablet 250 mg PO BID 7 days #14 tabs 09/30/23 ketorolac 10 mg tablet 10 mg PO TID PRN pain 5 days #15 09/30/23 tabs doxycycline hyclate 100 mg tablet 100 mg PO BID 7 days #14 tabs 04/02/24 fluconazole 150 mg tablet 150 mg PO Q3D 2 doses #2 tabs 04/02/24 Allergies Allergy/AdvReac Type Severity Reaction Status Date / Time No Known Allergies Allergy Verified 04/02/24 11:55 [No Known Allergies*] Review of Systems Constitutional: Constitutional: Reports no additional constitutional complaints, Denies chills, Denies fever(s) and Denies night sweats Eyes: Eyes: Reports no additional eye complaints, Denies blurry vision, Denies change in vision, Denies diplopia, Denies eye discharge, Denies loss of vision and Denies eye pain ENT: Denies dizziness Cardiovascular: Cardiovascular: Reports no additional cardiovascular complaints, Denies chest pain, Denies lightheadedness, Denies Loss of Consciousness and Denies dyspnea Respiratory: Respiratory: Reports no additional respiratory complaints and Denies dyspnea Gastrointestinal: Gastrointestinal: Reports no additional gastrointestinal complaints, Denies abdominal pain, Denies melena, Denies hematochezia, Denies change in bowel habits and Denies change in stool character Genitourinary: Genitourinary: Denies hematuria, Denies urinary frequency, Reports dysuria, Denies urinary incontinence, Denies urinary hesitancy and Denies urinary urgency Comments: burning pain in pelvis Musculoskeletal: Musculoskeletal: Reports no additional musculoskeletal complaints, Denies numbness and Denies tingling Neurologic: Denies dizziness, Denies loss of vision, Denies numbness and Denies tingling Psychiatric: Psychiatric: Reports no additional psychiatric complaints Endocrine: Endocrine: Reports no additional endocrine complaints Hematologic/Lymphatic: Hematologic/Lymphatic: Reports no additional hematologic/lymphatic complaints Allergic/Immunologic: Allergic/Immunologic: Reports no additional allergic/immunologic complaints PMFSH Past Medical History Attestation statement: The following information was validated with the patient. Source: old records reviewed and nursing notes reviewed Medical History COVID-19 Axillary abscess Family history of colon cancer Chronic hepatitis Osteoarthritis of both knees Fibroid, uterine Dysmenorrhea Chronic female pelvic pain Anxiety Anemia, iron deficiency HTN (hypertension) Diabetes Arthritis Surgical History Hx of colonoscopy History of esophagogastroduodenoscopy (EGD) History of 3 sections Family History Family History Brother Colon cancer Maternal Aunt Ovarian cancer Social History Social History Alcohol intake: never Patient Tobacco Use Status: Never used Tobacco Advance Directives: No Advance Directives Information Provided: Yes Physical Exam Vital Signs: Vital Signs: Last Vital Signs Temp 97.8 F 04/02/24 15:46 Pulse 83 04/02/24 15:46 Resp 16 04/02/24 15:46 BP 149/69 H 04/02/24 15:46 Pulse Ox 98 04/02/24 15:46 O2 Del Method Room Air 04/02/24 15:46 BMI result Body Mass Index 45.3 Const: General: cooperative, no acute distress, alert and awake Nutritional Appearance: well nourished Orientation/consciousness: patient oriented x3 Limitations: no limitations HEENT: Head: Yes normal to inspection and Yes atraumatic Ears: hearing grossly normal bilaterally and external ears normal General nose exam: Normal external nose present, no nasal discharge noted and no epistaxis Face and sinus: Yes normal facial exam, No abrasion and No laceration Mouth: Normal oral and palatal mucosa present, no drooling and no muffled voice Eyes: General: appearance normal, both eyes and all related structures Periorbital: periorbital findings normal Eyelids: Yes eyelids normal Conjunctivae: conjunctivae normal Pupils: Equal, round and reactive pupils present EOM: EOMs intact bilaterally Neck: Neck: Yes normal visual inspection, Yes full ROM and Yes no lymphadenopathy Chest: Chest palpation & inspection: normal inspection of the chest Resp: Effort & Inspection: normal respiratory effort and able to speak in complete sentences GI: Inspection: Yes normal to inspection : External Female Exam: erythema and external swelling Speculum Exam - Vagina: vagina atrophic and No vaginal bleeding OB/external & speculum: No vaginal bleeding Neuro: General: patient oriented x3 and moves all extremities Cranial nerves: Yes Equal, round and reactive pupils present Cognition (Neuro): normal cognition Extrem: General: Yes normal to inspection, Yes full ROM and Yes capillary refill normal Psych: Appearance: grossly normal Mental Status: mental status grossly normal Affect: normal affect Attitude: cooperative Thought process: Normal thought process present Thought content: Normal thought content present Insight: Good insight present (Psych) Course Course Course Narrative: RME: 58 year female presents to ED for burning on urination and lower pelvic burning for the past month. Patient denies any abdominal pain, flank pain, fever, chills, nausea, vomiting. UA ordered. Medical Decision Making Medical Decision Making [facility] Narrative: Patient is a 58 year old assigned female at with a history of HTN, chronic hepatitis C, chronic constipation, chronic pelvic pain, DM, and asthma presenting to the emergency department today with pelvic burning. Patient's physical exam was as noted in the physical exam portion of this note. Patient explicitly requested a pelvic examination be performed despite me offering the patient to perform self swabs . Patient's pelvic exam was performed with BG Warren at bedside as a physician asst. Unfortunately, the patient could not tolerate the speculum for an extended period of time so the cervix was not entirely visualized. It was evident on physical exam that the patient has a probable yeast infection and atrophic vaginal tissue which both may be attributing to her burning sensation there. Patient's urine showed no acute process. I explained my physical exam findings as well as all test results to the patient. I answered all questions asked by the patient. I stressed the importance of the patient taking her medication as directed (either prescribed or as the over the counter packaging recommends). I stressed the importance of the patient following up with her primary care provider and an OBGYN. I stressed the importance of the patient returning to the emergency department immediately if her symptoms were to worsen or if she were to develop any dizziness, shortness of breath, difficulty breathing, chest pain, blurry vision, loss of vision, nausea, vomiting, abdominal pain, fever, chills, back pain, or any other complaints. Patient verbalized agreement and understanding with this treatment plan and discharge. Differential Diagnosis Differential Diagnoses: The differential diagnosis associated with the presentation includes Atrophic vaginal tissue Vaginal yeast infection Cystitis Admission/Observation Consideration of admission/observation: Escalation of care including admission/observation considered Patient would have been admitted to the hospital had her work up had any findings where hospital admission was appropriate and her clinical presentation warranted hospital admission. Lab Data [facility] Lab Attestation statement: I reviewed the patient's lab results. My interpretation of these results are in the [facility] Rationale portion of this note. Labs: Lab Results 04/02/24 Range/Units 12:02 Urine Color Yellow Urine Appearance Clear Urine pH 5.5 (5.0-9.0) Ur Specific [place] >= 1.030 H (1.005-1.025) Urine Protein Negative (Neg-Trace) mg/dL Urine Glucose (UA) >=1000 H (Negative) mg/dL Urine Ketones Negative (Negative) mg/dL Urine Blood Negative (Negative) Urine Nitrite Negative (Negative) Ur Leukocyte Esterase Negative (Negative) Urine RBC 0-2 (0-2) /HPF Urine WBC 0-5 (0-5) /HPF Ur Squamous Epith Cells 0-2 (0-2) /HPF Urine Bacteria None Seen (None Seen) Hyaline Casts 3-5 (0-2) /LPF Prescription Management I considered prescription management with: Antibiotic (patient prescribed an antibiotic for possible cystitis) Chronic Conditions Patient?s care impacted by: Diabetes and Hypertension Discharge Plan Discharge Clinical Impression: Yeast infection, Dysuria Patient Disposition: Home, Self-Care Instructions: Yeast Infection (ED) Additional Instructions: Your symptoms and examination are consistent with a vaginal yeast infection. Given your symptoms and examination, we are also going to treat you for a bladder infection. Follow up with your primary care provider and an OBGYN. Return to the emergency department immediately if your symptoms worsen or if you develop any dizziness, shortness of breath, difficulty breathing, chest pain, blurry vision, loss of vision, nausea, vomiting, abdominal pain, fever, chills, back pain, or any other complaints. Melanie s?ntomas y wilkinson exploraci?n son compatibles con jayro infecci?n vaginal por hongos. Dados melanie s?ntomas y wilkinson exploraci?n, tambi?n vamos a tratarla por jayro infecci?n de vejiga. Dieudonne un seguimiento con wilkinson m?dico de cabecera y un ginec?logo obstetra. Vuelva inmediatamente al servicio de urgencias si melanie s?ntomas empeoran o si presenta mareos, falta de aliento, dificultad para respirar, dolor tor?cico, visi?n borrosa, p?rdida de visi?n, n?useas, v?mitos, dolor abdominal, fiebre, escalofr?os, dolor de espalda o cualquier otra molestia. Prescriptions: New fluconazole 150 mg tablet 150 mg PO Q3D Qty: 2 0RF doxycycline hyclate 100 mg tablet 100 mg PO BID 7 Days Qty: 14 0RF No Action acetaminophen [Tylenol Extra Strength] 500 mg tablet 500 mg PO Q6H PRN (Reason: pain or fever) Qty: 20 0RF ibuprofen 800 mg tablet 800 mg PO Q8H PRN (Reason: pain) Qty: 14 0RF lidocaine HCl [Aspercreme (lidocaine HCl)] 4 % cream 1 appl topical BID PRN (Reason: pain) Qty: 120 0RF diphenhydramine HCl [Benadryl] 25 mg capsule 25 mg PO TID PRN (Reason: allergic reaction) 7 Days Qty: 21 0RF famotidine [Pepcid] 20 mg tablet 20 mg PO BID 7 Days Qty: 14 0RF naproxen 500 mg tablet 500 mg PO BID Qty: 10 0RF methocarbamol 500 mg tablet 500 mg PO TID PRN (Reason: muscle spasm) Qty: 15 0RF benzonatate 200 mg capsule 200 mg PO TID PRN (Reason: cough) Qty: 30 0RF cefuroxime axetil 250 mg tablet 250 mg PO BID 7 Days Qty: 14 0RF ketorolac 10 mg tablet 10 mg PO TID PRN (Reason: pain) 5 Days Qty: 15 0RF vitamin E (dl, acetate) 180 mg (400 unit) capsule 180 mg PO DAILY Advair HFA 230-21 mcg/actuation HFA aerosol inhaler 2 puff inhalation loratadine 10 mg tablet 10 mg PO DAILY montelukast 10 mg tablet 10 mg PO BEDTIME omeprazole 20 mg capsule,delayed release(DR/EC) 20 mg PO QAM amlodipine 10 mg tablet 10 mg PO DAILY sennosides [senna] 8.6 mg tablet 8.6 - 17.2 mg PO BEDTIME multivitamin Tablet 1 tab PO DAILY mupirocin calcium 2 % cream 1 appl topical BID Qty: 30 0RF chlorhexidine gluconate [Hibiclens] 4 % liquid 1 appl topical .COMPLEX Qty: 473 2RF Rx Instructions: 1 appl topically use in shower 3 times weekly. Lather on skin and leave on for 2 minutes, then rinse off in shower; albuterol sulfate [Ventolin HFA] 90 mcg/actuation HFA aerosol inhaler 2 puff inhalation Q6H PRN (Reason: wheezing) Jardiance 10 mg tablet 10 mg PO QAM fluticasone propionate 50 mcg/actuation spray,suspension 1 spray intranasal QAM cholecalciferol (vitamin D3) [Vitamin D3] 50 mcg (2,000 unit) capsule 50 mcg PO QAM aspirin 81 mg tablet,delayed release (DR/EC) 81 mg PO QAM bisacodyl [Dulcolax (bisacodyl)] 5 mg tablet,delayed release (DR/EC) 20 mg PO ONCE PRN (Reason: colonoscopy prep) 1 Days Qty: 4 0RF Rx Instructions: Day before procedure @ 12 noon Take 4 tablets by mouth followed by large glass of water polyethylene glycol 3350 [Miralax] 17 gram/dose powder 238 g PO ONCE PRN (Reason: laxative effect) 1 Days Qty: 238 0RF Rx Instructions: Take as directed by mouth the day before your procedure. polyethylene glycol 3350 [Miralax] 17 gram/dose powder 17 g PO DAILY Qty: 510 6RF hydrocortisone [Proctozone-HC] 2.5 % cream with perineal applicator 1 appl WA BID PRN (Reason: hemorrhoids) Qty: 30 3RF Rx Instructions: apply WA BID prn Referrals: Milvia Soto MD [Primary Care Provider] - Khalif Blanco MD [Physician] - (Call to establish and follow up with an OBGYN. [place] para establecer y hacer un seguimiento con un ginec?logo obstetra. ) Print Language: Syriac
[2024-04-02 12:12] LABS: Appearance Urine Clear; Color Urine Yellow; Glucose Urine UA >=1000 mg/dL (Negative); Leukocyte Esterase Urine Negative (Negative); Nitrite Urine Negative (Negative); PH 5.5 (5.0-9.0); Specific Gravity - Urine >= 1.030 (1.005-1.025); UMIC TRIGGER UACC YES; Urine Blood Negative (Negative); Urine Ketones Negative (Negative); Urine Protein Negative (Neg-Trace)
[2024-04-02 12:17] LABS: Bacteria Urine None Seen (None Seen); RBC Urine 0-2 /HPF (0-2); Squamous Epithelial Cell Urine 0-2 /HPF (0-2); WBC Urine 0-5 /HPF (0-5)
--- OUTSIDE RECORDS SUMMARY | 2024-04-02 14:29 | XMS_ITS | Continuity of Care Document ---
Author Organization [facility] griggsBeijing [employer] Address [address] [place] [address], [address] [place] [address]- Care Team Providers Care Professor Of Finance Name Role Phone Jj HYDRO MECHANIC, Sonam Leonardo [facility] Care Physician [id number] Date(s): 05/18/22 - 06/17/22 [facility] Teresakimmy LuiBe[employer] [facility] [address], [address] [place], [place] [address] Allergies, Adverse Reactions, Alerts No Known Allergies Medications Advair Diskus 100 mcg-50 mcg inhalation powder 1 puffs, Inhalation, 2 times a day, 0 Refills, Maintenance, 10/17/14 9:02:29 Start Date: 10/17/14 Status: Ordered Albuterol sulfate 2.5 mg/3 mL (0.083%) inhale 1 Vial by Inhalation route 4 times every day. Albuterol sulfate 2.5 mg/3 mL (0.083%) inhale 1 Vial by Inhalation route 4 times every day., Refills 0, Maintenance, 06/16/16 12:06:01, Compound Start Date: 06/16/16 Status: Ordered amLODIPine 5 mg oral tablet 5 mg, 1, tablet, By Mouth, Daily, # 30 tablet, Refills 0, Maintenance, 06/16/16 12:09:37 Start Date: 06/16/16 Status: Ordered Aspirin = 81 mg, By Mouth, Daily, 0 Refills, Maintenance, 04/02/14 13:27:44 Start Date: 04/02/14 Status: Ordered Claritin Tablet 10 mg, By Mouth, Daily, Maintenance, 04/02/14 13:28:07 Start Date: 04/02/14 Status: Ordered clonazePAM 1 mg oral tablet 1 tablet = 1 mg, By Mouth, Daily, PRN Panic Attack, 0 Refills, Maintenance, 06/16/16 12:04:00 Start Date: 06/16/16 Status: Ordered Estrace Vaginal Cream 0.1 mg/g See Instructions, 1 Gm Vaginally Daily at bedtime for two weeks, then every three nights., # 42 Gm,6 Refills, Maintenance, 12/07/18 13:53:54 EDT, Please write Rx in Lithuanian if possible Start Date: 12/07/18 Status: Ordered ferrous sulfate 325 mg oral enteric coated tablet 1 tablet = 325 mg, By Mouth, Daily, # 30 tablet, 0 Refills, Maintenance, 03/01/14 6:42:11, EC Tablet Start Date: 03/01/14 Status: Ordered Multivitamin By Mouth, Daily, 0 Refills, Maintenance, 03/07/14 3:26:20 Start Date: 03/07/14 Status: Ordered Oxybutynin Chloride Oxybutynin Chloride, 10 mg, By Mouth, Daily, Refills 0, Maintenance, 06/16/16 11:41:05, Compound Start Date: 06/16/16 Status: Ordered Prilosec OTC See Instructions, unknown dose, 0 Refills, Maintenance, 03/07/14 3:27:03 Start Date: 03/07/14 Status: Ordered ProAir HFA 90 mcg/inh inhalation aerosol with adapter 2 puffs, Inhalation, 4 times a day, 0 Refills, Maintenance, 10/17/14 9:03:15 Start Date: 10/17/14 Status: Ordered Senna = 8.6 mg, By Mouth, 0 Refills, Maintenance, 03/07/14 3:28:01 Start Date: 03/07/14 Status: Ordered Singulair Tablet By Mouth, Daily before dinner, Maintenance, 04/02/14 13:27:54 Start Date: 04/02/14 Status: Ordered Vitamin E = 400 International_Units, By Mouth, Daily, 0 Refills, Maintenance, 06/16/16 12:03:20 Start Date: 06/16/16 Status: Ordered Problem List Condition Confirmation Course Effective Dates Status H ealth Status Informant Anxiety Confirmed Active Asthma Confirmed Active Chest pain Confirmed Active Chronic hepatitis C Confirmed Active Chronic female pelvic pain Confirmed Active Diabetes mellitus without complication Confirmed Active Dysmenorrhea Confirmed Active Hypertension Confirmed Active Anemia, iron deficiency Confirmed Active Obesity Confirmed Active Osteoarthritis of both knees Confirmed Active Fibroid, uterine Confirmed Active Social History Social History Type Response Smoking Status Former smoker; Tobac co user in household: No; Type: Cigarettes; Other: uit 2 years ago; entered on: 01/20/17 Sex Patient Care team information Care Team Personnel Name: Sonam Gardner NP, V Position: [facility] Outreach Member Role: PCP Address: Address: [address] [place] [address], [place] [address]- Care Team Related Persons Name: TAE RADFORD Address: [place] [address] Name: SUSAN LORENZO Address: [place] [address] Name: LUNA MARROQUIN Address: [place] [address]
--- OUTSIDE RECORDS SUMMARY | 2024-04-02 14:29 | XMS_ITS | Continuity of Care Document ---
Author Organization [facility] Teresa boswell [facility] Address [address], [address] [place] [address]- Care Team Providers Care Parts Facilitator Name Role Phone Jj LIZARRAGA, Sonam Leonardo Primary Care Physician [phone] [id number] Date(s): 12/13/19 - 01/12/20 [facility] [employer] [facility] [address] [place] [address]- [facility] Attending Physician: Lui Garza Admitting Physician: AdmtrLui Referring Physician: Admtr, [employer] Allergies, Adverse Reactions, Alerts Substance Reaction Severity Status NKA Active Medications Advair Diskus 100 mcg-50 mcg inhalation [...] 12/07/18 13:53:54 EDT, Please write Rx in Burmese if possible Start Date: 12/07/18 Status: Ordered [...] Date: 06/16/16 Status: Ordered Problem List Condition Effective Dates Status Health Status Inform ant Anxiety(Confirmed) Active Asthma(Confirmed) Active Chest pain(Confirmed) Active Chronic hepatitis C(Confirmed) Active Chronic female pelvic pain(Confirmed) Active Diabetes mellitus without complication(Confirmed) Active Dysmenorrhea(Confirmed) Active Hypertension(Confirmed) Active Anemia, iron deficiency(Confirmed) Active Obesity(Confirmed) Active Osteoarthritis of both knees(Confirmed) Active Fibroid, uterine(Confirmed) Active Social History Social History Type Response Smoking Status Former smoker; Tobac co user in household: No; Type: Cigarettes; Other: uit 2 years ago; entered on: 01/20/17 Sex
--- OUTSIDE RECORDS SUMMARY | 2024-04-02 14:29 | XMS_ITS | Continuity of Care Document ---
Author Organization [facility] Teresa griggsGreekdropkaroline [facility] Address [address] [place] [address], [address] [place] [address]- Care Team Providers Care Farm Rancher Name Role Phone Sonam Gardner NP, V Primary Care Physician [id number] Date(s): 10/17/19 - 12/12/19 [facility] [place] LuiGreek[employer] [facility] [address] [facility] [address] [facility] [place] [address]- [facility] Attending Physician: Not on Staff, Attending MD Referring Physician: Sonam Gardner NP, V Allergies, Adverse Reactions, Alerts Substance Reaction Severity [...] 12/07/18 13:53:54 EDT, Please write Rx in Welsh if possible Start Date: 12/07/18 Status: Ordered [...]
--- OUTSIDE RECORDS SUMMARY | 2024-04-02 14:29 | XMS_ITS | Continuity of Care Document ---
Author Organization [facility] Madalyn griggsCequence [facility] Address [address] [place] [address], [address] [place] [address]- Care Team Providers Care Natural Gas Trader Name Role Phone Jj LIZARRAGA, Sonam Leonardo Primary Care Physician [id number] Date(s): 02/17/22 - 06/12/22 [facility] Teresakimmy LuiCequence [facility] [address] [facility], [address] [place] [address]- Attending Physician: Naa GAYLE, Abdulkadir Vogt Referring Physician: Sonam Gardner NP, V Allergies, Adverse Reactions, Alerts No Known Allergies [...] 12/07/18 13:53:54 EDT, Please write Rx in Algerian if possible Start Date: 12/07/18 Status: Ordered [...] Personnel Name: Sonam Gardner NP, V Position: S Outreach Member Role: PCP Address: Address: [address] [place] [address] [address] [place] [address], [place] [address]- Care Team Related Persons Name: TAE RADFORD Address: [place] [address] Name: SUSAN LORENZO Address: [place] [address] Name: LUNA MARROQUIN Address: [place] [address]
--- OUTSIDE RECORDS SUMMARY | 2024-04-02 14:29 | XMS_ITS | Continuity of Care Document ---
Author Organization [facility] Teresa griggsPopskaroline [facility] Address [address] [facility], [address]t [place] [address]- Care Team Providers Care Retail Leasing Agent Name Role Phone Jj LIZARRAGA, Sonam Leonardo Primary Care Physician Encounter [facility] Date(s): 10/17/19 - 12/14/19 [facility] Iberiakimmy LuiPopss [facility] [address] [facility], [address] [place] [address]- [facility] Attending Physician: Prashanth Serna MD Referring Physician: Sonam Gardner NP, V [...] 12/07/18 13:53:54 EDT, Please write Rx in Nigerian if possible Start Date: 12/07/18 Status: Ordered [...]
--- OUTSIDE RECORDS SUMMARY | 2024-04-02 14:29 | XMS_ITS | Continuity of Care Document ---
Author Organization [facility] Address [address] [place] [address], [address] [place] [address]- Care Team Providers Care Peoplesoft Fscm Developer Name Role Phone Jj LIZARRAGA, Sonam Leonardo Primary Care Physician [phone] [facility] [id number] Date(s): 05/13/22 - 06/12/22 [facility] [employer] [address] [facility], [address]th [place], [place] [address] Attending Physician: Lui Garza Admitting Physician: Lui Garza Referring Physician: AdmLui orozco Allergies, Adverse Reactions, Alerts No Known Allergies [...] 12/07/18 13:53:54 EDT, Please write Rx in Prydeinig if possible Start Date: 12/07/18 Status: Ordered [...] 2 years ago; entered on: 01/20/17 Sex Note * Naa GAYLE , Abdulkadir Vogt: REVIEW Event Display: Non Lab Results Authored Date: Patient Care team information Care Team Personnel Name: Sonam Gardner NP, V Position: [facility] Outreach Member Role: PCP Address: Address: [address] [place], [place] [address] [address]- Care Team Related Persons Name: TAE RADFORD Address: [place] [address] Name: SUSAN LORENZO Address: [place] [address] Name: LUNA MARROQUIN Address: [place] [address]
--- OUTSIDE RECORDS SUMMARY | 2024-04-02 14:29 | XMS_ITS | Continuity of Care Document ---
Author Organization [facility] Teresa griggsLipperheykaroline [facility] Address [address] [facility], [address]t [place] [address]- Care Team Providers Care Beam Sealer Name Role Phone Jj LIZARRAGA, Sonam Leonardo Primary Care Physician [phone] [facility] [id number] Date(s): 01/31/23 - 03/02/23 [facility] Teresa LuiLipperheys [facility] [address] [facility], [address] [place], [place] [address] Attending Physician: Lui Garza Admitting Physician: Lui Garza Referring Physician: AdmtrLui Allergies, Adverse Reactions, Alerts No Known Allergies Medications acetaminophen 650 mg oral tablet, extended release 1 tablet = 650 mg, By Mouth, Every 8 hours, PRN as needed for pain, # 100 tablet, 0 Refills, Maintenance, 07/22/22 3:54:00 EDT, ER Tablet, Partial fill upon patient request if the prescription is fora schedule II opioid drug. Start Date: 07/22/22 Status: Ordered Advair HFA 230 mcg / 21 mcg 2 puffs, Inhalation, 2 times a day, # 180 each, 0 Refills, Maintenance, 07/22/22 3:54:00 EDT, Aerosol, Partial fill upon patient request if the prescription is for a schedule II opioid drug. Start Date: 07/22/22 Status: Ordered amLODIPine 10 mg oral tablet 1 tablet = 10 mg, By Mouth, Daily, # 30 tablet, 0 Refills, Maintenance, 07/22/22 3:54:00 EDT, Tablet, Partial fill upon patient request if the prescription is for a schedule II opioid drug. Start Date: 07/22/22 Status: Ordered Aspirin Low Dose 81 mg oral delayed release tablet 1 tablet = 81 mg, By Mouth, Daily, # 30 tablet, 0 Refills, Maintenance, 07/22/22 3:54:00 EDT, EC Tablet, Partial fill upon patient request if the prescription is for a schedule II opioid drug. Start Date: 07/22/22 Status: Ordered atorvastatin 10 mg oral tablet 1 tablet = 10 mg, By Mouth, Daily, # 30 tablet, 0 Refills, Maintenance, 07/22/22 3:54:00 EDT, Partial fill upon patient request if the prescription is for a schedule II opioid drug. Start Date: 07/22/22 Status: Ordered clonazePAM 1 mg oral tablet 1 tablet = 1 mg, By Mouth, Daily, PRN Anxiety, 0 Refills, Maintenance, 07/22/22 3:54:00 EDT, Partial fill upon patient request if the prescription is for a schedule II opioid drug. Start Date: 07/22/22 Status: Ordered Jardiance 10 mg oral tablet 1 tablet = 10 mg, By Mouth, Daily in AM, # 30 tablet, 0 Refills, Maintenance, 07/22/22 3:54:00 EDT,Tablet, Partial fill upon patient request if the prescription is for a schedule II opioid drug. Start Date: 07/22/22 Status: Ordered loratadine 10 mg oral tablet 10 mg, 1, tablet, By Mouth, Daily, # 30 tablet, Refills 0, Maintenance, 07/22/22 3:54:00 EDT, Partial fill upon patient request if the prescription is for a schedule II opioid drug. Start Date: 07/22/22 Status: Ordered montelukast 10 mg oral tablet 10 mg, 1, tablet, By Mouth, Daily in PM, # 30 tablet, Refills 0, Maintenance, 07/22/22 3:54:00 EDT,Partial fill upon patient request if the prescription is for a schedule II opioid drug. Start Date: 07/22/22 Status: Ordered ofloxacin 0.3% ophthalmic solution 1 drops, Eye, Right, 4 times a day, # 10 mL, 0 Refills, Maintenance, 07/24/22 12:07:00 EDT, Ophth Solution, [facility] [place] [facility], Partial fill upon patient request if the prescription is for a schedule II opioid drug., 1 drops Eye, Right 4 times a... Start Date: 07/24/22 Status: Ordered omeprazole 20 mg oral enteric coated capsule 1 capsule = 20 mg, By Mouth, Daily, # 30 capsule, 0 Refills, Maintenance, 07/22/22 3:54:00 EDT, EC Capsule, Partial fill upon patient request if the prescription is for a schedule II opioid drug. Start Date: 07/22/22 Status: Ordered Problem List Condition Confirmation Course Effective Dates Status H ealth Status Informant Anxiety Confirmed Active Asthma Confirmed Active Chest pain Confirmed Active Chronic hepatitis C Confirmed Active Chronic female pelvic pain Confirmed Active Diabetes mellitus without complication Confirmed Active Dysmenorrhea Confirmed Active Hypertension Confirmed Active Anemia, iron deficiency Confirmed Active Obesity Confirmed Active Osteoarthritis of both knees Confirmed Active Severe obesity (BMI 35.0-39.9) with comorbidity Confirmed Active Fibroid, uterine Confirmed Active Social History Social History Type Response Smoking Status Former smoker; Tobac co user in household: No; Type: Cigarettes; Other: uit 2 years ago; entered on: 01/20/17 Sex Laboratory * Naa GAYLE , Abdulkadir Vogt: REVIEW Event Display: Non Lab Results Authored Date: Patient Care team information Care Team Personnel Name: Sonam Gardner NP, V Position: [facility] Outreach Member Role: PCP Address: Address: [address] [place] [address], [address] Name: Carmen Bell RN Position: S RN Member Role: Primary Care Nurse Name: Rupa Glass RN Position: S RN Member Role: Primary Care Nurse Name: Rosalina Chan RN Position: S RN Member Role: Primary Care Nurse Name: Belen Velazquez RN Position: S RN Member Role: Primary Care Nurse Care Team Related Persons Name: TAE RADFORD Address: home PT [place], [place] Name: SUSAN LORENZO Address: home PT DOESNT KNOW [place], [place] Name: ENID MARROQUIN Name: LUNA MARROQUIN Address: home [place], [place]
--- OUTSIDE RECORDS SUMMARY | 2024-04-02 14:29 | XMS_ITS | Continuity of Care Document ---
Author Organization [facility] Teresa griggsLiberator Medical Supplykaroline [facility] Address [address] [place] [address], [address] [place] [address]- Care Team Providers Care Putty Mixer And Applier Name Role Phone Jj LIZARRAGA, Sonam Leonardo Primary Care Physician Encounter [facility] Date(s): 09/14/19 - 01/12/20 [facility] Teresakimmy LuiLiberator Medical Supplys [facility] [address] [facility], [address] [place] [address]- [facility] Attending Physician: Naa GAYLE, Abdulkadir Vogt Allergies, Adverse Reactions, Alerts Substance Reaction Severity [...] 12/07/18 13:53:54 EDT, Please write Rx in Bulgarian if possible Start Date: 12/07/18 Status: Ordered [...]
--- OUTSIDE RECORDS SUMMARY | 2024-04-02 14:29 | XMS_ITS | Continuity of Care Document ---
Author Organization [facility] ter Address [address] [place] [address]- Care Team Providers Care Sorting Livestock Worker Name Role Phone Wilian Regalado MD, Catherine Carl Primary Care Derrick crumyazan Encounter [facility] Date(s): 10/13/23 - 10/14/[address] [address]- Encounter Diagnosis Vaginal irritation(Final) - 10/14/23 Discharge Disposition: A-D/C Home Attending Physician: Ranulfo Jin MD Admitting Physician: Ranulfo Jin MD Referring Physician: Not on Staff, Referring MD Allergies, Adverse Reactions, Alerts No Known Allergies [...] opioid drug. Start Date: 07/22/22 Status: Ordered conjugated estrogens topical 0.625 mg/gm cream with applicator = 1 Gm, Vaginally, Daily before dinner, # 30 Gm, 0 Refills, Maintenance, 10/14/23 1:46:00 EDT, [facility], Partial fill upon patient request if the prescription is for a schedule II opioid drug., 1 Gm Vaginally Daily before dinner,... Start Date: 10/14/23 Status: Ordered Jardiance 10 mg oral tablet [...] Refills, Maintenance, 07/24/22 12:07:00 EDT, Ophth Solution, [facility], Partial fill upon patient request if [...] of both knees Confirmed Active Severe obesity Confirmed Active Fibroid, uterine Confirmed Active Vital Signs Most recent to oldest [Reference Range]: 1 2 Height 156 cm (10/13/23 10:38 PM) 156 cm (10/13/23 10:31 PM) Weight 108 kg (10/13/23 10:38 PM) 108 kg (10/13/23 10:31 PM) Oxygen Saturation [94-100 %] 99 % (10/13/23 10:31 PM) Pulse Rate [55-90 bpm] 80 bpm (10/13/23 10:31 PM) Body Mass Index [18.5-24.99 kg/m2] 44.38 kg/m2 *>HHI* (10/13/23 10:31 PM) Blood Pressure [90-138/55-84 mm Hg] 148/ 79mm Hg *H* (10/13/23 10:31 PM) Respiratory Rate [16-30 br/min] 18 br/mi n (10/13/23 10:31 PM) Temperature [96.8-100.4 DegF] 97.4 DegF (10/13/23 10:31 PM) Mode of Delivery (Oxygen) Room air (10/13/23 10:31 PM) Blood pressure sites Arm, left (10/13/23 10:31 PM) Temperature Route Oral (10/13/23 10:31 PM) Dry Weight 108 kg (10/13/23 10:38 PM) 108 kg (10/13/23 10:31 PM) Weight Obtained Via Standing scale (10/13/23 10:31 PM) Dry Weight Obtained Via Standing scale (10/13/23 10:31 PM) Social History Social History Type Response Smoking Status Former smoker; Tobac co user in household: No; Type: Cigarettes; Other: uit 2 years ago; entered on: 01/20/17 Sex Note * Gee Kennedy DO: PERFORM Event Display: Patient Education Leaflets Authored Date: [id number] Atrophic Vaginitis ?? [id number] Vaginitis Atr??fica?? [Vaginitis, Atrophic] La vaginitis atr??fica consiste en la p??rdida de espesor de las bhat de la vagina, y ocurre cuando el organismo produce jayro cantidad insuficiente de estr??kyle (un tipo de hormona). En la mayor??a de los casos, la menopausia, as?? moises la extirpaci??n quir??rgica de los ovarios, causan jayro reducci??n del nivel de estr??kyle. El amamantamiento tambi??n puede producir jayro reducci??n del nivel de esta hormona. Entre los s??ntomas de la vaginitis atr??fica se encuentran: resecamiento, irritaci??n, escozor o comez??n en la vagina, as?? moises secreci??n vaginal. Puede alfonzo molestias e incluso dolor marni las relaciones sexuales. Despu??s del coito, puede alfonzo sangrado de la pared vaginal. En algunos casos tambi??n puede alfonzo escozor o dolor al orinar. Tratamientos La vaginitis atr??fica se trata con yomi o m??s de los siguientes m??todos: ??? Cremas, lociones y lubricantes vaginales. Estos productos ayudan a aliviar la sequedad vaginal y pueden adquirirse sin receta en la secci??n de higiene personal de la mayor??a de las farmacias. Las cremas y lociones se usan diariamente para ayudar a mantener humedecida la vagina. Los lubricantes ayudan a reducir la sequedad y el dolor marni las relaciones sexuales. Use lubricantes acuosos. No use vaselina, aceites minerales u otros tipos de aceite, ya que aumentan la probabilidad de infecci??n. ??? Terapia hormonal. La terapia hormonal aumenta el nivel de estr??kyle en el cuerpo, lo cual puede ayudar a controlar o aliviar los s??ntomas. La terapia hormonal puede administrarse en pastillas o sam en forma de loci??n, crema, anillo en la vagina o parche en la piel. Los riesgos y ventajas de la terapia hormonal natali??an de jayro tien a otra. Consulte esto con wilkinson m??dico, ya que no todas las mujeres pueden recibir terapia hormonal. No es necesario que se abstenga de tener relaciones sexuales; de hecho, el sexo ayuda a mantener sanos los tejidos vaginales. Para evitar las molestias marni las relaciones sexuales, use lubricantes acuosos. Prevenci??n De Infecciones La vaginitis atr??fica aumenta la probabilidad de infecciones vaginales y de las v??as urinarias. Para ayudar a reducir mickey riesgo: ??? Mantenga limpia la bel genital. Al ba??arse, lave la parte exterior de la vagina con jab??n suave y agua. Limpie suavemente los pliegues de la vagina. ??? Despu??s de defecar, l??mpiese de adelante hacia atr??s. ??? No use duchas vaginales a menos que el m??dico se lo indique. ??? No use papelhigi??merlyn perfumado, esprays vaginales perfumados o tampones perfumados. ??? No use ropa demasiadoajustada en la bel genital, moises pantimedias o cualquier tipo de pantal??n ajustado. Use ropa interior de algod??n y c??mbiela todos los d??as. Dieudonne jayro VISITA DE CONTROL seg??n le indique el m??dico o el personal del centro. Obtenga Atenci??n M??dica Inmediata en cualquiera de los siguientes casos: ??? Fiebre de 100.4??F (38??C) o superior, o seg??n le indique wilkinson proveedor de atenci??n m??dica ??? Los s??ntomas no desaparecen (o empeoran) despu??s del tratamiento ??? Hinchaz??n o dolor en la bel vaginal ??? Sangrado (no menstrual) o secreci??n maloliente en la bel vaginal ??? Dolor, escozor o dificultad para orinar ??? Aparici??n de lesiones abiertasalrededor de la vagina Last Reviewed Date: 2016 ?? [id number] [employer]. Todos los derechos reservados. Esta informaci??n no pretende sustituir la atenci??n m??dica profesional. S??lo wilkinson m??dico puede diagnosticar y tratar un problema de faheem. ?? Patient Care team information Care Team Personnel Name: Ray PEDERSON, Carmen Position: [facility] RN Member Role: Primary Care Nurse Name: Wilian Regalado MD, Catherine Carl Position: [facility] Outreach Member Role: PCP Address: Address: [address] [place] [address]- Name: Rupa Glass RN Position: S RN Member Role: Primary Care Nurse Name: Rosalina Chan RN Position: S RN Member Role: Primary Care Nurse Name: Belen Velazquez RN Position: S RN Member Role: Primary Care Nurse Care Team Related Persons Name: TAE RADFORD Address: [place] [address] Name: SUSAN LORENZO Address: [place] [address] Name: ENID MARROQUIN Name: LUNA MARROQUIN Address: [place] [address]
--- OUTSIDE RECORDS SUMMARY | 2024-04-02 14:29 | XMS_ITS | Continuity of Care Document ---
Author Organization [facility] Teresa griggsCHARGED.fmkaroline [facility] Address [address] [facility], [address] [place] [address]- Care Team Providers Care Camouflage Assembler Name Role Phone Jj LIZARRAGA, Sonam Leonardo Primary Care Physician [id number] Date[facility] 11/[facility]22 - 03/02/23 [facility] Teresakimmy LuiCHARGED.fms [facility] [address] [facility], [address] [place], [place] [address] Attending Physician: Not on Staff, Attending MD Referring Physician: Not on Staff, Referring [...] Refills, Maintenance, 07/24/22 12:07:00 EDT, Ophth Solution, [facility] 3, Partial fill upon patient request if [...] Personnel Name: Sonam Gardner NP, V Position: [facility] Outreach Member Role: PCP Address: Address: [address] [place] [address], [place], [place] [address] Name: Carmen Bell RN Position: S RN Member Role: Primary Care Nurse Name: Rupa Glass RN Position: S RN Member Role: Primary Care Nurse Name: Rosalina Chan RN Position: S RN Member Role: Primary Care Nurse Name: Belen Velazquez RN Position: S RN Member Role: Primary Care Nurse Care Team Related Persons Name: TAE RADFORD Address: [place] [address] Name: SUSAN LORENZO Address: home PT [place]ES[place] KNOW [place], [place] Name: ENID MARROQUIN Name: LUNA MARROQUIN Address: home [place], [place]
--- OUTSIDE RECORDS SUMMARY | 2024-04-02 14:29 | XMS_ITS | Continuity of Care Document ---
Author Organization [facility] ter Address [address] [place] [id number] Care Team Providers Care Cleat Feeder Name Role Phone Not on Staff, PCP Primary Care Physician Unavail able [place] [facility] [place]): 07/22/22 - 07/24/[address] [id number] Discharge Disposition: A-D/C Home Attending Physician: Luis Carlos GAYLE, Kemar Kennedy Admitting Physician: Ester Robbins MD Referring Physician: Not on Staff, Referring [...] opioid drug. Start Date: 07/22/22 Status: Ordered Augmentin 875 mg-125 mg oral tablet 1 tablet, By Mouth, Every 12 hours, for 7 days, # 14 tablet, 0 Refills, Acute 07/31/22 12:08:00 EDT, 07/24/22 12:08:00 EDT, Tablet, [facility], Partial fill upon patient request if the prescription is for a schedule II opioid drug., 155,... Start Date: 07/24/22 Stop Date: 07/31/22 Status: Ordered clonazePAM 1 mg oral tablet [...] Refills, Maintenance, 07/24/22 12:07:00 EDT, Ophth Solution, [facility], Partial fill upon patient [...] opioid drug. Start Date: 07/22/22 Status: Ordered prednisolone ophthalmic acetate 1% suspension 1 drops, Eye, Right, 4 times a day, for 7 days, # 10 mL, 0 Refills, Acute 07/31/22 12:06:00 EDT, 07/24/22 12:06:00 EDT, Ophth Suspension, [facility], Partial fill upon patient request if the prescription is for a schedule II opioid drug.... Start Date: 07/24/22 Stop Date: 07/31/22 Status: Ordered sulfamethoxazole-trimethoprim 800 mg-160 mg oral tablet 1 tablet, By Mouth, 2 times a day, for 7 days, # 14 tablet, 0 Refills, Acute 07/31/22 12:06:00 EDT,07/24/22 12:06:00 EDT, Tablet, [facility], Partial fill upon patient request if the prescription is for a schedule II opioid drug., 1 tab... Start Date: 07/24/22 Stop Date: 07/31/22 Status: Ordered Problem List Condition Confirmation Course [...] comorbidity Confirmed Active Fibroid, uterine Confirmed Active Results Orders for Microbiology Reports Name Date Blood Culture 07/22/22 Blood Culture #2 07/22/22 Microbiology Reports TEST:Blood Culture STATUS:Unauthenticated BODY SITE: SOURCE:Blood COLLECTED DATE/TIME:07/22/22 2:32 AM Blood Culture SPECIMEN DESCRIPTION : BLOOD RAC SPECIAL REQUESTS : NONE CULTURE : NO GROWTH AFTER 48 HOURS REPORT STATUS : PRELIMINARY REPORT TEST:Blood Culture, Second Order STATUS:Unauthenticated BODY SITE: SOURCE:Blood COLLECTED DATE/TIME:07/22/22 1:35 AM Blood Culture, Second Order SPECIMEN DESCRIPTION : BLOOD NO SITE SPECIAL REQUESTS : NONE CULTURE : NO GROWTH AFTER 48 HOURS REPORT STATUS : PRELIMINARY REPORT Radiology Reports * Exam Date Time Procedure Performing Provider Status 07/22/22 2:[address] Orbits W/ Contrast Lisa Senior; Auth (Verified) Notes: (CT Orbits W/ Contrast) Reason For Exam: Cellulitis RESULT: CT Orbits W/ Contrast CT Orbits W/ Contrast Hx of Present Illness: Stratus used fo assessment, c o R eye pressure which started sat and has worsened in intensity. Reports she just woke up like that, no trauma to site. Site is painful, itching,burning. Also R ear pain and sore throat. +chills, cough evidenced; Reason: Cellulitis; Clinical Question(s): Orbital Cellulitis; Order Comment: COMPARISON: None. TECHNIQUE: Spiral CT with contrast formatted in 3 planes. 100 mL of Omnipaque 300 was administered intravenously. Automatic tube modulation was used to optimize exposure parameters. CTDIvol Head: 25.80 mGy, DLP Head: 372 mGy*cm. FINDINGS: Orbital soft tissues: Severe soft tissue thickening and fat stranding in the lateral aspect of the right orbit with lateral intraconal extension (series 205:27). There is edema of the lateral rectus muscle. A wall enhancing fluid collection containing air foci at the lateral aspect of the right globe measures 1.7 x 0.6 x 1.7 cm (series 202:20, series 205:19). No evidence of intraocular extension of infection or disruption of the sclera. The left orbit is normal. Orbital bones: Intact. No fractures or destructive changes. Paranasal Sinuses: Mild mucosal thickening of the anterior ethmoid air cells. Lower intracranial contents: No abnormalities are seen involving the portions of brain and extra-axial spaces included on the exam. Cranium and other bones: Intact. IMPRESSION: Findings consistent with right orbital cellulitis. A 1.7 cm abscess lateral to and abutting the right globe is noted. Results were conveyed via telephone by Dr. Breezy Clarke to Dr. Jose Enrique Amaral on 07/22/2022 at 2:33 AM. I have personally reviewed the images and I agree with this report. WSN: [id number] Ordering Physician: Mino Holm Dictated By: Breezy Clarke MD Dictated Date/Time: 07/22/22 7:14 am Reviewed By: Sky Gardner MD Signed By: Sky Gardner MD Signed Date/Time: 07/22/22 7:19 am Transcribed By: MARTELL Transcribed Date/Time: 07/22/22 2:33 am Vital Signs Most recent to oldest [Reference Range]: 1 2 3 Height 155 cm (07/24/22 3:45 PM) 155 cm (07/24/22 8:25 AM) 155 cm (07/24/22 4:24 AM) Weight 94 kg (07/22/22 1:00 PM) Oxygen Saturation [94-100 %] 100 % (07/24/22 3:45 PM) 98 % (07/24/22 11:59 AM) 97 % (07/24/22 8:25 AM) Pulse Rate [55-90 bpm] 70 bpm (07/24/22 3:45 PM) 78 bpm (07/24/22 11:59 AM) 79 bpm (07/24/22 8:25 AM) Body Mass Index [18.5-24.99 kg/m2] 39.13 kg/m2 *>HHI* (07/22/22 1:00 PM) Blood Pressure [90-138/55-84 mm Hg] 148/63mm Hg *H* (07/24/22 3:45 PM) 119/58mm Hg (07/24/22 11:59 AM) 131/80mm Hg (07/24/22 8:25 AM) Respiratory Rate [16-30 br/min] 18 br/min (07/24/22 3:45 PM) 18 br/min (07/24/22 11:59 AM) 18 br/min (07/24/22 8:25 AM) Temperature [96.8-100.4 DegF] 98.3 DegF (07/24/22 3:45 PM) 97.8 DegF (07/24/22 11:59 AM) 97.7 DegF (07/24/22 8:25 AM) Mode of Delivery (Oxygen) Room air (07/24/22 3:45 PM) Room air (07/24/22 11:59 AM) Room air (07/24/22 8:25 AM) Blood pressure sites Arm, right (07/24/22 3:45 PM) Arm, left (07/24/22 11:59 AM) Arm, left (07/24/22 8:25 AM) Temperature Route Oral (07/24/22 3:45 PM) Oral (07/24/22 11:59 AM) Oral (07/24/22 8:25 AM) Dry Weight 94 kg (07/22/22 1:00 PM) Social History Social History Type Response Smoking Status Former smoker; Tobac co user in household: No; Type: Cigarettes; Other: uit 2 years ago; entered on: 01/20/17 Sex Consult note * Erasmo GAYLE, Anuel Burkett: PERFORM Event Display: Consult Authored Date: HPI: 57 year old with R orbital cellulitis and concern for fluid collection/abscess. Much improved after single dose IV abx. PMH: unremarkable POH: unremarkable Studies Reviewed: CT head showing fluid collection RUL and orbit in proximity of lac gland Exam: Vision OD 20/30 OS 20/;30 Pupils ERRL EOM nearly full Penlight exam: normal unless described below Lids -- moderate lid edema, somewhat tender. Conjunctiva -- serous fluid collection under RUL Cornea AC iris lens Fundus: deferred Impression and Plan: ##Orbital cellulitis on R --much improved after IV abx. I think she could get another set of doses and then be discharged on PO abx covering sinus and skin bacteria. This abscess should resolve on continued antibiotics. It is possible that this represents dacryoadenitis, but is more likely related to chalazion rutptured then cellulitis. --I added topical abx and steroid. I would continue these for several days after discharge. Rickey Zimmerman MD [phone] cell Admission evaluation note * Kal GAYLE, Herbert: MODIFY, MODIFY, MODIFY, MODIFY, PERFORM Event Display: Admission Note Authored Date: [id number] Patient: ??CATHERINE MARROQUIN ? Age:??57 Years?Sex:??Female?:??1965?? History of Present Illness 57-year-old female with history of type 2 diabetes mellitus, asthma, hypertension, GERD, hyperlipidemia, anxiety presenting to the emergency department with complaints of right-sided eye pain associated with swelling and redness since past Tuesday. ?? Patient reports that she has been having progressively worsening swelling, redness and pain in the right eye since Tuesday.?? She reports that on Tuesday morning she woke up with swelling and pain in the right eye, denies any insect bite or any other trauma to the eye.?? She reports that yesterday she developed pain in her right jaw and behind the right ear which prompted her to come to the emergency department for further evaluation management.?? She reports having subjective fevers at home,denies any chills, no headaches, she does report slight blurred vision in the right eye, no chest pain or shortness of breath, no nausea or vomiting, no abdominal pain, diarrhea, constipation or dysuria ?? Per ED provider left eye vision 20 x 30, right eye vision 20 x 50, CT orbits revealed orbital cellulitis with a 1.3 cm abscess abutting the right globe?? but no actual involvement of the cornea.?? EDprovider spoke with Dr. Zimmerman of ophthalmology, ophthalmology do not recommend any emergent intervention at this time given no evidence of proptosis or tautness of the right upper eyelid, and recommended to treat underlying orbital cellulitis with IV antibiotics. ?? Patient is afebrile in the emergency department, no leukocytosis, lactate within normal limits, received ceftriaxone and vancomycin in the emergency department.?? Vitals are essentially stable. Review of Systems All systems are reviewed??and are negative except as noted above in the HPI. Objective Vital Signs?? Temperature: 98 DegF (07/22/22 04:22:00) Temperature Route: Oral (07/22/22 04:22:00) Pulse Rate:??92 bpm??High (07/22/22 04:22:00) Respiratory Rate: 18 br/min (07/22/22 04:22:00) Systolic Blood Pressure:??140 mm Hg??High (07/22/22 04:22:00) Diastolic Blood Pressure: 78 mm Hg (07/22/22 04:22:00) Blood pressure sites: Arm, right (07/22/22 04:22:00) Mean Arterial Pressure: 100 mm Hg (07/21/22 20:17:00) Pulse Pressure: 51 mm Hg (07/21/22 20:17:00) Oxygen Saturation: 98 % (07/22/22 04:22:00) Mode of Delivery (Oxygen): Room air (07/22/22 04:22:00) Early Warning Score: 0 (07/22/22 04:26:58) ? Physical Exam General: Alert and oriented x3, no acute distress HEENT: Atraumatic, normocephalic, significant erythema and swelling of the right upper eyelid, there is some pain noted with extraocular movement of the right eye, pupils are equal and reactive, extraocular movements are intact however as noted above has slight pain with right eye extraocular movement.?? Also noted to have conjunctival injection.?? Per ED right intraocular pressure is 35, left int raocular pressure is 25. Neck: Supple, trachea midline Respiratory: CTA B, no wheezes, crackles or rhonchi CVS: S1, S2.?? RRR, no MRG, no JVD Abdomen: Soft, nontender, nondistended, positive bowel sounds Neuro: Alert and oriented x3, cranial nerves II to XII intact, no facial asymmetry Psych: Appropriate mood and affect, cooperative Assessment/Plan ?? 57-year-old female with history of type 2 diabetes mellitus, asthma, hypertension, GERD, hyperlipidemia, anxiety presenting to the emergency department with complaints of right-sided eye pain associated with swelling and redness since past Tuesday. ?? Right orbital cellulitis with 1.3 cm abscess abutting the right globe: ?? -Vitals are stable with no signs of infection, no leukocytosis, no fevers.?? No reported insect bite or trauma to the right eye.?? CT orbit revealed orbital cellulitis with a 1.3 cm abscess abutting the right globe, but with no actual involvement of the cornea -ED has consulted ophthalmology already -Per ophthalmology (Dr. Zimmerman), do not recommend any emergent intervention at this time given no evidence of proptosis or tautness of the right upper eyelid, recommend to treat underlying orbital cellulitis with IV antibiotics -Patient has been started on vancomycin and ceftriaxone which we will continue for now -Continue to monitor hemodynamics closely, serial eye exams -Please follow-up with ophthalmology in a.m., will keep the patient n.p.o. for now for any possibleintervention pending ophthalmology eval. ?? CAD: Continue with atorvastatin, holding aspirin for now in case patient undergoes surgical intervention ?? T2DM: pt is npo for now, c/w SSI q6h, Gluc POC q6hr ?? Hypertension: Continue with amlodipine ?? Anxiety: Continue with clonazepam as needed ?? Asthma: Continue with montelukast, albuterol inhaler as needed, Breo Ellipta ?? GERD: Continue with PPI ?? DVT prophylaxis: Pneumatic compression boots ?? CODE STATUS: Full code. Histories Allergies Allergies ?(Active and Proposed Allergies Only) NKA? (Severity: Unknown severity, Onset: Unknown) ? Past Medical History/Problem List ?? Anemia, iron deficiency Anxiety Asthma Chest pain Chronic female pelvic pain Chronic hepatitis C Diabetes mellitus without complication Dysmenorrhea Fibroid, uterine Hypertension Obesity Osteoarthritis of both knees ? Past Surgical History section x3 Laparoscopic cholecystectomy Hysteroscopy with endometrial ablation ? Social History Alcohol Details:??Use: Past. Substance Abuse Details:??Use: Past. ??Type: Cocaine. ??Other: quit 2 years ago. Tobacco Details:??Former smoker, Tobacco user in household: No. ??Other: uit 2 years ago. ??Type: Cigarettes. ? Family History No??hx of??CAD ?? Medications Home Medications Acetaminophen (acetaminophen 650 mg oral tablet, extended release)?1?tab(s)?650?Milligram?By Mouth?Every 8 hours?as needed?as needed for pain Amlodipine (amLODIPine 10 mg oral tablet)?1?tab(s)?10?Milligram?By Mouth?Daily Amoxicillin-Clavulanate (Augmentin 875 mg-125 mg oral tablet)?1?tab(s)?By Mouth?Every 12 hours?for 10?Days Aspirin (Aspirin Low Dose 81 mg oral delayed release tablet)?1?tab(s)?81?Milligram?By Mouth?Daily Atorvastatin (atorvastatin 10 mg oral tablet)?1?tab(s)?10?Milligram?By Mouth?Daily Clonazepam (clonazePAM 1 mg oral tablet)?1?tab(s)?1?Milligram?By Mouth?Daily?as needed?Anxiety empagliflozin (Jardiance 10 mg oral tablet)?1?tab(s)?10?Milligram?By Mouth?Daily in AM Fluticasone-Salmeterol (Advair HFA 230 mcg / 21 mcg)?2?puff(s)?Inhalation?2 times a day Loratadine (loratadine 10 mg oral tablet)?10?Milligram?1?tablet?By Mouth?Daily Montelukast (montelukast 10 mg oral tablet)?10?Milligram?1?tablet?By Mouth?Daily in PM Omeprazole (omeprazole 20 mg oral enteric coated capsule)?1?capsule?20?Milligram?By Mouth?Daily ? Results Recent Labs BLOOD COUNT & DIFF WBC 9.9 k/mm3 ()?? 07/22/2022 01:39 RBC 4.91 m/mm3 ()?? 07/22/2022 01:39 Hgb 13.1 Gm/dL ()?? 07/22/2022 01:39 Hct 41.1 % ()?? 07/22/2022 01:39 MCV 83.7 femtoliters ()?? 07/22/2022 01:39 MCH 26.7 pg (Low)?? 07/22/2022 01:39 MCHC 31.9 g/dL (Low)?? 07/22/2022 01:39 Platelet Count 285 k/mm3 ()?? 07/22/2022 01:39 RDW-SD 42.0 femtoliters ()?? 07/22/2022 01:39 MPV 10.7 femtoliters ()?? 07/22/2022 01:39 Nucleated RBC (Automated) 0.0 #/100 WBC'S ()?? 07/22/2022 01:39 Abs. NRBC 0.0 k/mm3 ()?? 07/22/2022 01:39 Abs. Neut 5.9 k/mm3 ()?? 07/22/2022 01:39 Abs. Lymph 3.0 k/mm3 ()?? 07/22/2022 01:39 Abs. Delta 0.7 k/mm3 ()?? 07/22/2022 01:39 Abs. Eo 0.2 k/mm3 ()?? 07/22/2022 01:39 Abs. Baso 0.1 k/mm3 ()?? 07/22/2022 01:39 Neut % 59.6 % ()?? 07/22/2022 01:39 Lymph % 30.5 % ()?? 07/22/2022 01:39 Delta % 6.9 % ()?? 07/22/2022 01:39 Eos % 2.1 % ()?? 07/22/2022 01:39 Baso % 0.5 % ()?? 07/22/2022 01:39 Imm Gran 0.4 % ()?? 07/22/2022 01:39 Abs. Imm Gran 0.0 k/mm3 ()?? 07/22/2022 01:39 ?? CHEM GENERAL Sodium 139 mmol/L ()?? 07/22/2022 01:33 Potassium 3.7 mmol/L ()?? 07/22/2022 01:33 Chloride 100 mmol/L ()?? 07/22/2022 01:33 Bicarbonate Level 33 mmol/L (High)?? 07/22/2022 01:33 Anion Gap 6 ()?? 07/22/2022 01:33 Glucose Level 115 mg/dL (High)?? 07/22/2022 01:33 BUN 13 mg/dL ()?? 07/22/2022 01:33 Creatinine-Blood 0.5 mg/dL ()?? 07/22/2022 01:33 Estimated GFR Creatinine 109 ML/MIN/1.73 M2 ()?? 07/22/2022 01:33 Calcium 9.9 mg/dL ()?? 07/22/2022 01:33 Lactate 0.9 mmol/L ()?? 07/22/2022 01:33 ?? VIROLOGY COVID-19 POC Result NEGATIVE ()?? 07/21/2022 20:39 ? Hospital Progress note * Carmen Bell RN: SIGN, PERFORM, MODIFY, MODIFY, VERIFY, SIGN, MODIFY Event Display: Progress Note Hospital Authored Date: [id number] Patient: CATHERINE MARROQUIN Age: 57 years Sex: Female : 1965 Associated Diagnoses: None Author: Carmen Bell RN Findings Problem Related to Alteration in Integumentary : Alteration in Integumentary/new 07/24/2022 5:00 EDT Alteration in Integumentary Related to Cellulitis Goals & Outcomes, Integumentary Nutritional intake is adequate for metabolic needs, Pt will maintain adequate fluid & nutritional balance Interventions, Integumentary Encourage & assist pt to change position frequently, Encourage & assist with range of motion exercises, Increase turning frequency if red or blanched areas appear, Keep skin clean & dry, Record extent of impaired skin integrity, Teach Pt/caregiver s/s of infection BH Goals/Interventions, Integumentary Yes Integumentary, Problem Start 07/23/2022 0:00 Reviewed plan with, Integumentary Patient Patient Progression, Integumentary Pt progressing according to plan . Nursing Data Cardiac Data. : Cardiac Data. 07/23/2022 19:00 EDT Cardiovascular Symptoms None Nail Bed Color, Fingers Altheimer Skin Temperature Upper Extremities Warm Skin Temperature Lower Extremities Warm Heart Sounds S1, S2 Heart Rhythm Regular Cardiovascular Comment pt offers no c/o chest pain, +cms and pps to all extremities Capillary Refill < 3 seconds Dorsalis Pedis Pulse, Left Normal Dorsalis Pedis Pulse, Right Normal Edema None Cardiovascular WNL except . Evaluation P: per nursing care plan I: r/t nursing care plan E: Assumed care of patient at 1830, pt resting in bed, a/ox4, following commands appropriately, denies pain, afebrile, VS wnl. No acute events overnight to this am. All meds admin per order. Right eye reddened and periorbital area edema noted, reddness improving, all eye gtt admin per order. Pt ambulating with steady gait to BR, denies dysuria. Educated patient on plan of care and call lawson use, fall risk precautions in place, call lawson within reach, hourly rounding maintained. See CIS for fullassessment data and flow sheets, will continue monitoring as needed. . . * Ray PEDERSON, Carmen: PERFORM Event Display: Progress Note Hospital Authored Date: Report given to on-coming RN, nursing to continue monitoring as needed. * Mert GAYLE, Cummings: PERFORM Event Display: Progress Note Hospital Authored Date: [id number] Patient: ??CATHERINE MARROQUIN ? Age:??57 Years?Sex:??Female?:??1965?? Subjective CC: right-sided eye pain associated with swelling and redness ?? Still left eye redness and pain Swelling on the right side of the face Patient told me that her symptom has improved ?? Review of Systems Denies chest pain, fever, chills,??orthopnea, palpitations, shortness of breath, cough, nausea, vomiting. ??No numbness or tingling Objective Vital Signs?? Temperature: 98.2 DegF (07/23/22 11:19:00) Temperature Route: Oral (07/23/22 11:19:00) Pulse Rate: 89 bpm (07/23/22 11:19:00) Respiratory Rate: 18 br/min (07/23/22 11:19:00) Systolic Blood Pressure: 121 mm Hg (07/23/22 11:19:00) Diastolic Blood Pressure: 66 mm Hg (07/23/22 11:19:00) Blood pressure sites: Arm, left (07/23/22 11:19:00) Mean Arterial Pressure: 85 mm Hg (07/23/22 03:52:00) Pulse Pressure: 53 mm Hg (07/23/22 03:52:00) Oxygen Saturation: 97 % (07/23/22 11:19:00) Mode of Delivery (Oxygen): Room air (07/23/22 11:19:00) Early Warning Score: 0 (07/23/22 12:29:49) ? Physical Exam STATISTICAL CLERK: AA0 3, no focal motor or sensory deficit, cranial nerves II to XII intact CVS: RRR, S1, S2, No gallop, murmur or rub Resp: b/l good air entry, no wheezing or rhales, CTA b/l GI: Soft, NT, ND, BS +ve EXT: no pedal edema Skin: no rash Neck: supple, Eyes: Swelling and erythema??of??right eyelid, pupils are equal and reactive.?? Mild??pain??on extraocular movement Head: atraumatic, normocephalic ENMT: moist mucus membranes, nares patent with no discharge Musculoskeletal: no joint tenderness, swelling or limitation of movement ?? _ Inpatient Medications Medications (17) Active SCHEDULED: (13) Amlodipine 10 mg Tablet (amLODIPine 10 mg oral tablet) ??10 mg, By Mouth, Daily Amoxicillin 875 mg/Clavulanate 125 mg Tablet (Augmentin 875 Tablet) ??1 tablet, By Mouth, 2 times aday Aspirin 81 mg Chew Tablet (aspirin 81 mg oral tablet, chewable) ??81 mg, By Mouth, Daily Atorvastatin 10 mg Tablet (atorvastatin 10 mg oral tablet) ??10 mg, By Mouth, Daily Breo Ellipta 100 mcg / 25 mcg Inhaler (Breo Ellipta 100 mcg-25 mcg Inhaler) ??1 puffs, Inhalation, Daily Insulin Lispro 100 units/mL Inj (3mL) (Insulin LISPRO Sliding Scale) ??2-10 units, Subcutaneous Injection, 3 times a day before meals and bedtime Loratadine 10 mg Tablet (loratadine 10 mg oral tablet) ??10 mg, By Mouth, Daily Montelukast 10 mg Tablet (montelukast 10 mg oral tablet) ??10 mg, By Mouth, Daily at bedtime NaCl 0.9% Flush 3ml (NaCL 0.9% Flush) ??3 mL, IV Push, Every 8 hours Ofloxacin 0.3% Ophthalmic Solution (Ofloxacin 0.3% Ophth) ??1 drops, Eye, Right, 4 times a day Pantoprazole 20 mg EC Tablet (pantoprazole 20 mg oral delayed release tablet) ??20 mg, By Mouth, Daily PrednisoLONE Acetate 1% Ophthalmic Suspension (Pred Forte 1% Ophth (Pred Acetate)) ??1 drops, Eye, Right, 4 times a day Sulfamethoxazole 800 mg/Trimethoprim 160 mg Tablet (Bactrim DS Tablet) ??1 tablet, By Mouth, 2 times a day CONTINUOUS: (0) PRN: (4) Acetaminophen 325 mg Tablet (acetaminophen 325 mg oral tablet) ??650 mg, By Mouth, Every 6 hours Albuterol 90mcg/Inhalation Inhaler HFA (albuterol CFC free 90 mcg/inh inhalation aerosol) ??180 mcg2 puffs, Inhalation, Every 4 hours Clonazepam 1 mg Tablet (clonazePAM 1 mg oral tablet) ??1 mg, By Mouth, Daily Ibuprofen 400 mg Tablet (Motrin Tablet) ??400 mg, By Mouth, 3 times a day ? Results Recent Labs BLOOD COUNT & DIFF WBC 9.5 k/mm3 ()?? 07/22/2022 06:13 RBC 4.70 m/mm3 ()?? 07/22/2022 06:13 Hgb 12.5 Gm/dL ()?? 07/22/2022 06:13 Hct 40.0 % ()?? 07/22/2022 06:13 MCV 85.1 femtoliters ()?? 07/22/2022 06:13 MCH 26.6 pg (Low)?? 07/22/2022 06:13 MCHC 31.3 g/dL (Low)?? 07/22/2022 06:13 Platelet Count 259 k/mm3 ()?? 07/22/2022 06:13 RDW-SD 43.3 femtoliters ()?? 07/22/2022 06:13 MPV 10.7 femtoliters ()?? 07/22/2022 06:13 Nucleated RBC (Automated) 0.0 #/100 WBC'S ()?? 07/22/2022 06:13 Abs. NRBC 0.0 k/mm3 ()?? 07/22/2022 06:13 Abs. Neut 5.9 k/mm3 ()?? 07/22/2022 06:13 Abs. Lymph 2.6 k/mm3 ()?? 07/22/2022 06:13 Abs. Delta 0.7 k/mm3 ()?? 07/22/2022 06:13 Abs. Eo 0.2 k/mm3 ()?? 07/22/2022 06:13 Abs. Baso 0.1 k/mm3 ()?? 07/22/2022 06:13 Neut % 62.5 % ()?? 07/22/2022 06:13 Lymph % 26.8 % ()?? 07/22/2022 06:13 Delta % 7.8 % ()?? 07/22/2022 06:13 Eos % 2.0 % ()?? 07/22/2022 06:13 Baso % 0.5 % ()?? 07/22/2022 06:13 Imm Gran 0.4 % ()?? 07/22/2022 06:13 Abs. Imm Gran 0.0 k/mm3 ()?? 07/22/2022 06:13 ?? CHEM GENERAL Sodium 140 mmol/L ()?? 07/22/2022 06:13 Potassium 3.8 mmol/L ()?? 07/22/2022 06:13 Chloride 102 mmol/L ()?? 07/22/2022 06:13 Bicarbonate Level 26 mmol/L ()?? 07/22/2022 06:13 Anion Gap 12 ()?? 07/22/2022 06:13 Glucose Level 199 mg/dL (High)?? 07/22/2022 06:13 Glucose, POC 152 mg/dL (High)?? 07/23/2022 12:21 BUN 11 mg/dL ()?? 07/22/2022 06:13 Creatinine-Blood 0.6 mg/dL ()?? 07/22/2022 06:13 Estimated GFR Creatinine 105 ML/MIN/1.73 M2 ()?? 07/22/2022 06:13 Calcium 9.3 mg/dL ()?? 07/22/2022 06:13 Calcium, Ionized pH Corrected ACTUAL MEASURED IONIZED CALCIUM IS 1.07 MMOL/L mmol/L ()?? 07/22/2022 06:13 Lactate 0.9 mmol/L ()?? 07/22/2022 01:33 ?? COAG APTT 26.6 seconds ()?? 07/22/2022 06:13 ?? VIROLOGY Influenza A PCR NEGATIVE ()?? 07/22/2022 03:36 Influenza B PCR NEGATIVE ()?? 07/22/2022 03:36 RSV PCR NEGATIVE ()?? 07/22/2022 03:36 COVID-19 PCR Specimen Source NASAL ()?? 07/22/2022 03:36 COVID-19 PCR Result NEGATIVE ()?? 07/22/2022 03:36 ? Assessment/Plan ??57-year-old female with history of type 2 diabetes mellitus, asthma, hypertension, GERD, hyperlipidemia, anxiety presenting to the emergency department with complaints of right-sided eye pain associated with swelling and redness since past Tuesday. ?? Right orbital cellulitis with 1.3 cm abscess abutting the right globe: Came with right pain and swelling/redness CT as below Findings consistent with right orbital cellulitis. ??A 1.7 cm abscess lateral to and abutting the right globe is noted. ?? Ophthalmology consulted--recommended to change??IV antibiotics??after giving 1 more dose (yesterday)??to p.o. antibiotics Changing to Bactrim and Augmentin Monitor closely We will contact ophthalmology??if no improvement Follow blood culture ?? CAD: Continue with atorvastatin??and aspirin ? T2DM:??c/w SSI q6h, Gluc POC q6hr ?? Hypertension: Continue with amlodipine ?? Anxiety: Continue with clonazepam as needed ?? Asthma: Continue with montelukast, albuterol inhaler as needed, Breo Ellipta ?? GERD: Continue with PPI ?? DVT prophylaxis: Pneumatic compression boots. SQ hepairn ? CODE STATUS: Full code. * Ray PEDERSON, Carmen: PERFORM, MODIFY, MODIFY, MODIFY, MODIFY, MODIFY, MODIFY, SIGN, VERIFY Event Display: Progress Note Hospital Authored Date: Patient: CATHERINE MARROQUIN Age: 57 years Sex: Female : 1965 Associated Diagnoses: None Author: Carmen Bell RN Findings Problem Related to Alteration in Integumentary : Alteration in Integumentary/new 07/23/2022 0:00 EDT Alteration in Integumentary Related to Cellulitis Goals & Outcomes, Integumentary Nutritional intake is adequate for metabolic needs, Pt will maintain adequate fluid & nutritional balance Interventions, Integumentary Increase turning frequency if red or blanched areas appear, Interdisciplinary consults as appropriate, Keep skin clean & dry, Minimize friction, shear and moisture, Relieve pressure off bony areas, Use pressure dispersing devices as appropriate BH Goals/Interventions, Integumentary Yes Integumentary, Problem Start 07/23/2022 0:00 Reviewed plan with, Integumentary Patient Patient Progression, Integumentary Plan Initiation . Nursing Data Cardiac Data. : Cardiac Data. 07/22/2022 21:00 EDT Cardiovascular Symptoms None Nail Bed Color, Fingers Altheimer Skin Temperature Upper Extremities Warm Skin Temperature Lower Extremities Warm Heart Sounds S1, S2 Heart Rhythm Regular Capillary Refill < 3 seconds Dorsalis Pedis Pulse, Left Normal Dorsalis Pedis Pulse, Right Normal Cardiovascular WNL except . Integumentary Data. : Integumentary Data. 07/22/2022 21:00 EDT Integumentary Comment right eye reddness and inflammation noted, admitted fro orbital cellulitits, eye gtt admin per order. Skin Color Normal for ethnicity Skin Description Dry Skin Temperature Warm Skin Integrity Intact Skin Turgor Elastic Activity Walks occasionally Mobility Slightly limited . Respiratory/Pulmonary Data. : Respiratory/Pulmonary Data. 07/22/2022 21:00 EDT Respiratory Symptoms None Respiratory effort Unlabored Respiratory Assessment Comment denies sob Cough No cough Respiratory pattern Regular Left Upper Lobe Breath Sounds Clear Right Upper Lobe Breath Sounds Clear Right Middle Lobe Breath Sounds Diminished Left Lower Lobe Breath Sounds Diminished Right Lower Lobe Breath Sounds Diminished Respiratory Treatment(s) Cough and deep breathe Respiratory WNL except . Vital Signs : VITAL SIGNS SECTION 07/23/2022 3:52 EDT Temperature 97.6 DegF Temperature Route Oral Pulse Rate 90 bpm Respiratory Rate 18 br/min Systolic Blood Pressure 120 mm Hg Diastolic Blood Pressure 67 mm Hg Blood pressure sites Arm, left Mean Arterial Pressure 85 mm Hg Pulse Pressure 53 mm Hg Oxygen Saturation 98 % Mode of Delivery (Oxygen) Room air 07/23/2022 2:08 EDT Early Warning Score 2.00 07/22/2022 23:13 EDT Early Warning Score 2.00 07/22/2022 23:13 EDT Temperature 97.7 DegF Temperature Route Oral Pulse Rate 78 bpm Respiratory Rate 18 br/min Systolic Blood Pressure 139 mm Hg H Diastolic Blood Pressure 82 mm Hg Blood pressure sites Arm, right Mean Arterial Pressure 101 mm Hg Pulse Pressure 57 mm Hg Oxygen Saturation 97 % Mode of Delivery (Oxygen) Room air 07/22/2022 22:00 EDT Respiratory Rate 16 br/min 07/22/2022 21:24 EDT Early Warning Score 0.00 07/22/2022 19:17 EDT Early Warning Score 0.00 07/22/2022 19:16 EDT Temperature 98.4 DegF Temperature Route Oral Pulse Rate 82 bpm Respiratory Rate 18 br/min Systolic Blood Pressure 131 mm Hg Diastolic Blood Pressure 77 mm Hg Blood pressure sites Arm, right Mean Arterial Pressure 95 mm Hg Pulse Pressure 54 mm Hg Oxygen Saturation 96 % Mode of Delivery (Oxygen) Room air . Evaluation P: per nursing care plan I: r/t nursing care plan E: Assumed care of patient at 1830, pt resting in bed, a/ox4, following commands appropriately, denies pain, afebrile, VS wnl. No acute events overnight to this am. All meds admin per order. Right eye reddened and periorbital area edema noted, eye gtt admin per order. Pt ambulating with steady gaitto BR, denies dysuria. Educated patient on plan of care and call lawson use, fall risk precautions inplace, call lawson within reach, hourly rounding maintained. See CIS for full assessment data and flow sheets, will continue monitoring as needed. . Note * Quan PEDERSON, Rupa: PERFORM Event Display: Discharge/Transfer Note Hospital Authored Date: [id number] Nursing Discharge Note Entered On: 07/24/2022 15:30 EDT Performed On: 07/24/2022 15:30 EDT by Rupa Glass RN Nursing Discharge Note 2 Discharge Time : 07/24/2022 15:30 EDT Discharge Level of Care at Discharge : Home/Detention/Foster Care Patient Left Unit Via : Wheelchair Patient Accompanied Off Unit with : Responsible adult DC Instructions Provided & Signed by Pt : Yes Patient Understands D/C Instructions : Yes Patient Instructions Discharge Signed : Yes Did Pt have Specialty Bed or Wound Vac : No Rupa Glass RN - 07/24/2022 15:30 EDT * Luis Carlos GAYLE, Kemar Kennedy: PERFORM Event Display: Discharge/Transfer Note Hospital Authored Date: Patient: ??CATHERINE MARROQUIN ? Age:??57 Years?Sex:??Female?:??1965?? Patient Information Discharge Location: [facility] Primary Care Physician: Not on Staff, PCP Admit Date/Time: 07/22/22 03:48 Discharge Disposition Discharge Disposition: ?? Discharge Diagnosis ??Right orbital celluitis ?? _ Discharge Medications Acetaminophen (acetaminophen 650 mg oral tablet, extended release)?1?tab(s)?650?Milligram?By Mouth?Every 8 hours?as needed?as needed for pain Amlodipine (amLODIPine 10 mg oral tablet)?1?tab(s)?10?Milligram?By Mouth?Daily Amoxicillin-Clavulanate (Augmentin 875 mg-125 mg oral tablet)?1?tab(s)?By Mouth?Every 12 hours?for 7?Days Aspirin (Aspirin Low Dose 81 mg oral delayed release tablet)?1?tab(s)?81?Milligram?By Mouth?Daily Atorvastatin (atorvastatin 10 mg oral tablet)?1?tab(s)?10?Milligram?By Mouth?Daily Clonazepam (clonazePAM 1 mg oral tablet)?1?tab(s)?1?Milligram?By Mouth?Daily?as needed?Anxiety empagliflozin (Jardiance 10 mg oral tablet)?1?tab(s)?10?Milligram?By Mouth?Daily in AM Fluticasone-Salmeterol (Advair HFA 230 mcg / 21 mcg)?2?puff(s)?Inhalation?2 times a day Loratadine (loratadine 10 mg oral tablet)?10?Milligram?1?tablet?By Mouth?Daily Montelukast (montelukast 10 mg oral tablet)?10?Milligram?1?tablet?By Mouth?Daily in PM Ofloxacin Ophthalmic (ofloxacin 0.3% ophthalmic solution)?1?Drops?Eye, Right?4 times a day Omeprazole (omeprazole 20 mg oral enteric coated capsule)?1?capsule?20?Milligram?By Mouth?Daily PrednisoLONE Ophthalmic (prednisolone ophthalmic acetate 1% suspension)?1?Drops?Eye, Right?4 times a day?for 7?Days Sulfamethoxazole/Trimethoprim (sulfamethoxazole-trimethoprim 800 mg-160 mg oral tablet)?1?tab(s)?By Mouth?2 times a day?for 7?Days ? Medications Started Bactrim, augmentin, ofloxacin eye drops, prednisone eye drops ?? Allergies Allergies ?(Active and Proposed Allergies Only) NKA? (Severity: Unknown severity, Onset: Unknown) ? Hospital Course 57 y/o??female with history of type 2 diabetes mellitus, asthma, hypertension, GERD, hyperlipidemia, anxiety presenting to the emergency department with complaints of right-sided eye pain associated with swelling and redness since past Tuesday. ?? Right orbital cellulitis with 1.3 cm abscess abutting the right globe: ??Came with right pain and swelling/redness ??CT as below Findings consistent with right orbital cellulitis. ?A 1.7 cm abscess lateral to and abutting the right globe is noted. ?? Ophthalmology consulted--recommended to change IV antibiotics after giving 1 more dose (yesterday) to p.o. antibiotics Now she is on po antibiotic Improved significantly ?? She is being discharged home??in stable and improved condition ?? Plan: Will continue??Bactrim and Augmentin Will continue prednisone and ofloxacin eye drops f/up with ophthalmology ?CAD: Continue with atorvastatin and aspirin ?T2DM: c/w SSI q6h, Gluc POC q6hr ?? Hypertension: Continue with amlodipine ?? Anxiety: Continue with clonazepam as needed ?? Asthma: Continue with montelukast, albuterol inhaler as needed, Breo Ellipta ?? GERD: Continue with PPI ?CODE STATUS: Full code. ?? Objective Assessment and Plan Discharge Planning:? Vital Signs?? Temperature: 97.8 DegF (07/24/22 11:59:00) Temperature Route: Oral (07/24/22 11:59:00) Pulse Rate: 78 bpm (07/24/22 11:59:00) Respiratory Rate: 18 br/min (07/24/22 11:59:00) Systolic Blood Pressure: 119 mm Hg (07/24/22 11:59:00) Diastolic Blood Pressure: 58 mm Hg (07/24/22 11:59:00) Blood pressure sites: Arm, left (07/24/22 11:59:00) Mean Arterial Pressure: 97 mm Hg (07/24/22 08:25:00) Pulse Pressure: 51 mm Hg (07/24/22 08:25:00) Oxygen Saturation: 98 % (07/24/22 11:59:00) Mode of Delivery (Oxygen): Room air (07/24/22 11:59:00) Early Warning Score: 2 (07/24/22 11:59:59) ? . Physical Exam Awake, alert, oriented Eyes: Eyes: Swelling and erythema??of??right eyelid improved, pupils are equal and reactive.?? Mild??pain??on extraocular movement Lungs: Clear to auscultation bilateral, no wheezing no rales Heart: Regular rate and rhythm, no murmur, no rub or gallop Abdomen: Soft, nontender, nondistended; Bowel sounds present Extremity: No edema cyanosis clubbing Neurological: No focal deficit Psychiatric: Normal mood and affect Pending Results Basic Metabolic Panel ordered on 07/22/2022 Blood Culture ordered on 07/22/2022 Blood Culture #2 ordered on 07/22/2022 CBC w/ Differential ordered on 07/22/2022 Hold Lavender Tube (BB) ordered on 07/22/2022 Follow-Up Appointments Added Follow Up ?Time Frame ?Comments Erasmo GAYLE, Anuel Burkett?1 week Home Health Face to Face ^HomeHealth[facility] Results Discharge Labs BLOOD COUNT & DIFF WBC 7.6 k/mm3 ()?? 07/24/2022 02:18 RBC 4.70 m/mm3 ()?? 07/24/2022 02:18 Hgb 12.6 Gm/dL ()?? 07/24/2022 02:18 Hct 39.5 % ()?? 07/24/2022 02:18 MCV 84.0 femtoliters ()?? 07/24/2022 02:18 MCH 26.8 pg (Low)?? 07/24/2022 02:18 MCHC 31.9 g/dL (Low)?? 07/24/2022 02:18 Platelet Count 291 k/mm3 ()?? 07/24/2022 02:18 RDW-SD 41.3 femtoliters ()?? 07/24/2022 02:18 MPV 10.6 femtoliters ()?? 07/24/2022 02:18 Nucleated RBC (Automated) 0.0 #/100 WBC'S ()?? 07/24/2022 02:18 Abs. NRBC 0.0 k/mm3 ()?? 07/24/2022 02:18 Abs. Neut 4.2 k/mm3 ()?? 07/24/2022 02:18 Abs. Lymph 2.6 k/mm3 ()?? 07/24/2022 02:18 Abs. Delta 0.5 k/mm3 ()?? 07/24/2022 02:18 Abs. Eo 0.3 k/mm3 ()?? 07/24/2022 02:18 Abs. Baso 0.1 k/mm3 ()?? 07/24/2022 02:18 Neut % 54.8 % ()?? 07/24/2022 02:18 Lymph % 33.6 % ()?? 07/24/2022 02:18 Delta % 7.1 % ()?? 07/24/2022 02:18 Eos % 3.4 % ()?? 07/24/2022 02:18 Baso % 0.7 % ()?? 07/24/2022 02:18 Imm Gran 0.4 % ()?? 07/24/2022 02:18 Abs. Imm Gran 0.0 k/mm3 ()?? 07/24/2022 02:18 ?? CHEM GENERAL Sodium 140 mmol/L ()?? 07/24/2022 02:19 Potassium 3.9 mmol/L ()?? 07/24/2022 02:19 Chloride 103 mmol/L ()?? 07/24/2022 02:19 Bicarbonate Level 29 mmol/L ()?? 07/24/2022 02:19 Anion Gap 8 ()?? 07/24/2022 02:19 Glucose Level 130 mg/dL (High)?? 07/24/2022 02:19 Glucose, POC 146 mg/dL (High)?? 07/24/2022 09:18 BUN 11 mg/dL ()?? 07/24/2022 02:19 Creatinine-Blood 0.5 mg/dL ()?? 07/24/2022 02:19 Estimated GFR Creatinine 109 ML/MIN/1.73 M2 ()?? 07/24/2022 02:19 Calcium 9.3 mg/dL ()?? 07/24/2022 02:19 Calcium, Ionized pH Corrected ACTUAL MEASURED IONIZED CALCIUM IS 1.07 MMOL/L mmol/L ()?? 07/22/2022 06:13 Lactate 0.9 mmol/L ()?? 07/22/2022 01:33 ? COAG APTT 26.6 seconds ()?? 07/22/2022 06:13 ? VIROLOGY Influenza A PCR NEGATIVE ()?? 07/22/2022 03:36 Influenza B PCR NEGATIVE ()?? 07/22/2022 03:36 RSV PCR NEGATIVE ()?? 07/22/2022 03:36 COVID-19 PCR Specimen Source NASAL ()?? 07/22/2022 03:36 COVID-19 PCR Result NEGATIVE ()?? 07/22/2022 03:36 COVID-19 POC Result NEGATIVE ()?? 07/21/2022 20:39 ? Microbiology ?? COVID-19, RSV, and Flu A/B, Rapid PCR?? Completed?? Source: Nasal Body Site: Nose Collected Dt/Tm: 07/22/2022 01:44 Last Updated Dt/Tm: 07/22/2022 05:10 ? 35 minutes spent on discharge * Candice Dickson RN: PERFORM Event Display: Patient Education/Instruction Authored Date: [id number] Inpatient Adult Discharge Instructions [address] [id number] Name: CATHERINE MARROQUIN : 1965 Visit: 07/22/2022 03:48:00 Current Date: 07/24/2022 12:34 Account: [id number] Inpatient Adult Discharge Instructions We would like to thank you for allowing us to assist you with your healthcare needs. The following includes patient education materials and information regarding your injury/illness. Our entire staffstrives to provide an excellent experience for our patients and their families. PLEASE ENSURE YOU FOLLOW-UP PER THE INSTRUCTIONS BELOW! ?? YOUR OPINION IS IMPORTANT TO US! Please complete the survey you may receive by mail or email. Your feedback will be used to make improvements to the healthcare experiences of our patients and their families. Surveys are administered by [employer] ?? If further treatment with your primary care physician or another doctor is recommended, it is important for you to keep the appointment. Call your primary care physician or return to the Emergency Department immediately if your condition worsens, fails to improve, or new symptoms develop. If you need to find a doctor, you can call [facility] [employer] for a referral at [phone] or toll free at [phone]) or log in to [email or web address].. ?? You can view and manage your care through the patient portal or by using a health care walker of your choosing. [employer] is a website that allows you to securely view your medical information including your hospital discharge summary, office visit summaries, medications and follow-up visits. You can also request appointments, renew medications, and request access to your medical information using a health care walker of your choosing, or just ask a question. You can enroll at [email or web address] or register during your next office visit. You have been discharged from [facility], Patient Care Unit: D3B. If you have any questions regarding these instructions after you leave, please call us and we will be happy to assist you. [facility] Your Care Team Attending Physician Luis Carlos GAYLE, Kemar Kennedy Consulting Providers Anuel Zimmerman MD Discharging Providers Luis Carlos GAYLE, Kemar Kennedy Reason for Admission Eye pain, General medical Your Diagnosis orbital cellulitis Tests Performed Below is a partial list of the tests performed during your hospitalization. You may have had other tests and procedures not included in this list. Please discuss all test results with your provider. Basic Metabolic Panel Calcium Ionized CBC w/ Differential COVID-19 RNA POC COVID-19, RSV, and Flu A/B, Rapid PCR GLUCOSE POC Lactic Acid Level PTT CT Orbits W/ IV Contrast Primary Care Provider Not on Staff, PCP Advance Directive Health Care Proxy on File No Patient refuses to discuss Discharge Vitals Temperature: 97.8 DegF Height: 155 cm Pulse Rate: 78 bpm Weight: 94 kg Respiratory Rate: 18 br/min Body Mass Index:??39.13 kg/m2??Critical Systolic Blood Pressure: 119 mm Hg Body surface area: 2.01 Diastolic Blood Pressure: 58 mm Hg ?? Oxygen Saturation: 98 % ?? Studies Pending All tests and labs ordered during this hospital stay have been completed unless listed below. Please discuss all pending results with your provider listed above in these instructions. ?? Basic Metabolic Panel Blood Culture Blood Culture #2 CBC w/ Differential Hold Lavender Tube (BB) What to do next Instructions From Your Doctor Discharge Orders You Need to Schedule the Following Appointments Follow Up with??Erasmo GAYLE, Anuel Burkett When??Within 1 week Where: Discharge Medications CATHERINE MARROQUIN :1965 Visit Date:07/22/2022 Medications: Please continue your medications until treatment is completed or stopped by your provider. Medications not listed below should be discontinued. Discuss any questions related to medications with your provider. What How Much When Instructions Next Dose New Ofloxacin Ophthalmic (ofloxacin 0.3% ophthalmic solution) 1 Drops Right eye 4 times a day Pickup at [place] [address] Take as directed New PrednisoLONE Ophthalmic (prednisolone ophthalmic acetate 1% suspension) 1 Drops Right eye 4 times a day Duration: 7 Days Pickup at [place] [address] take as directed New Sulfamethoxazole/ Trimethoprim (sulfamethoxazole-trimethoprim 800 mg-160 mg oral tablet) 1 tab(s) Oral Twice a day Duration: 7 Days Pickup at [place] [address] Take on tonight Changed Amlodipine (amLODIPine 10 mg oral tablet) 1 tab(s) Oral Daily Take on tomorrow Changed Amoxicillin-Clavulanate (Augmentin 875 mg-125 mg oral tablet) 1 tab(s) Oral Every 12 hours Duration: 7 Days Pickup at [place] [address] Take as directed Changed Aspirin (Aspirin Low Dose 81 mg oral delayed release tablet) 1 tab(s) Oral Daily Take on tomorrow Changed Clonazepam (clonazePAM 1 mg oral tablet) 1 tab(s) Oral Daily as needed for Anxiety Take as directed Changed Fluticasone-Salmeterol (Advair HFA 230 mcg / 21 mcg) 2 puff(s) Inhalation Twice a day Take on tonight Changed Loratadine (loratadine 10 mg oral tablet) 1 tab(s) Oral Daily Take on tomorrow Changed Montelukast (montelukast 10 mg oral tablet) 1 tab(s) Oral Daily in PM Take on tonight Changed Omeprazole (omeprazole 20 mg oral enteric coated capsule) 1 capsule Oral Daily Take on tomorrow Unchanged Acetaminophen (acetaminophen 650 mg oral tablet, extended release) 1 tab(s) Oral Every 8 hours as needed for as needed for pain Take as directed Unchanged Atorvastatin (atorvastatin 10 mg oral tablet) 1 tab(s) Oral Daily Take on tomorrow Unchanged empagliflozin (Jardiance 10 mg oral tablet) 1 tab(s) Oral Daily in the morning Take on tomorrow Pharm[facility] Information [facility]: [address], [place] [id number] [phone] ?? What How Much When Comments Stop Taking Albuterol (ProAir HFA 90 mcg/ inh inhalation aerosol with adapter) 2 puff(s) Inhalation 4 times a day Stop Taking Estradiol Topical (Estrace Vaginal Cream 0.1 mg/ g) See instructions 1 Gm Vaginally Daily at bedtime for two weeks, then every three nights. ?? Stop Taking Ferrous Sulfate (ferrous sulfate 325 mg oral enteric coated tablet) 1 tab(s) Oral Daily Stop Taking Miscellaneous Rx (Albuterol sulfate 2.5 mg/ 3 mL (0.083%) inhale 1 Vial by Inhalation route 4 times every day.) Stop Taking Miscellaneous Rx (Oxybutynin Chloride) 10 Milligram Oral Daily Stop Taking Multivitamin Oral Daily Stop Taking Senna 8.6 Milligram Oral Stop Taking Senna (Senna 8.6 mg oral tablet) 2 tab(s) Oral Daily at Bedtime as needed for for constipation Stop Taking Vitamin E 400 International Unit Oral Daily Test Results Below is a partial list of the most recent Laboratory test results done prior to this discharge. You may have had other tests and procedures not included in this list. Please discuss all test resultswith your provider. Basic Metabolic Panel (07/24/2022) ???Sodium - 140 mmol/L???Potassium - 3.9 mmol/L???Chloride - 103 mmol/L???Bicarbonate Level - 29 mmol/L???Anion Gap - 8???Glucose Level - 130 mg/dL???BUN - 11 mg/dL???Creatinine-Blood - 0.5 mg/dL???Estimated GFR Creatinine - 109 ML/MIN/1.73 M2???Calcium - 9.3 mg/dL Calcium Ionized (07/22/2022) ???Calcium, Ionized pH Corrected - ACTUAL MEASURED IONIZED CALCIUM IS 1.07 MMOL/L CBC w/ Differential (07/24/2022) ???WBC - 7.6 k/mm3???RBC - 4.70 m/mm3???Hgb - 12.6 Gm/dL???Hct - 39.5 %???MCV - 84.0 femtoliters???MCH - 26.8 pg???MCHC - 31.9 g/dL???Platelet Count - 291 k/mm3???RDW-SD - 41.3 femtoliters???MPV - 10.6 femtoliters???Nucleated RBC (Automated) - 0.0 #/100 WBC'S???Abs. NRBC - 0.0 k/mm3???Abs. Neut - 4.2 k/mm3???Abs. Lymph - 2.6 k/mm3???Abs. Delta - 0.5 k/mm3???Abs. Eo - 0.3 k/mm3???Abs. Baso - 0.1 k/mm3???Neut % - 54.8 %???Lymph % - 33.6 %???Delta % - 7.1 %???Eos % - 3.4 %???Baso % - 0.7 %???Imm Gran - 0.4 %???Abs. Imm Gran - 0.0 k/mm3 COVID-19 RNA POC (07/21/2022) ???COVID-19 POC Result - NEGATIVE COVID-19, RSV, and Flu A/B, Rapid PCR (07/22/2022) ???Influenza A PCR - NEGATIVE???Influenza B PCR - NEGATIVE???RSV PCR - NEGATIVE???COVID-19 PCR Specimen Source - NASAL???COVID-19 PCR Result - NEGATIVE GLUCOSE POC (07/24/2022) ???Glucose, POC - 146 mg/dL Lactic Acid Level (07/22/2022) ???Lactate - 0.9 mmol/L PTT (07/22/2022) ???APTT - 26.6 seconds Allergies (NKA means No Known Allergies) NKA Problems Active Problems??(13) Anemia, iron deficiency?? Anxiety?? Asthma?? Chest pain?? Chronic female pelvic pain?? Chronic hepatitis C?? Diabetes mellitus without complication?? Dysmenorrhea?? Fibroid, uterine?? Hypertension?? Obesity?? Osteoarthritis of both knees?? Severe obesity (BMI 35.0-39.9) with comorbidity?? Education Materials Below is the list of Educational Leaflet Providered with your Discharge Instructions. Valuables and Belongings I fully understand and agree that [facility] accepts no responsibility for all my personal property including clothing, toilet articles, radios, jewelry, dentures, hearing aids, rings, money, or any other property that is in my possession or is brought to me after admission. I understand certain valuables may be placed in a hospital safe for a short period of time. I understand that the hospital is not liable for loss or damage due to accident, fire, or other natural occurrence while said property is in the safe. I accept full responsibility for any personal property that I keep with me, and will not hold the hospital responsible in case of loss or disappearance. I acknowledge that i have been encouraged to send valuables and belongings home. ?? No Valuables/Belongings: No valuables/belongings present Review of Valuable and Belonging List: With patient Date for Pt to Sign Valuables/Belongings: 07/22/22 04:21:00 ?? Other Discharge Information ? Pulmonary Rehab Status?? Pulmonary Rehab Discharge Status?? Respiratory Rate: 18 br/min ? Common Emergency Awareness Tips IS IT A STROKE? Act FAST and Check for these signs: FACE Does the face look uneven? ARM Does one arm drift down? SPEECH Does their speech sound strange? TIME Call at any sign of stroke ?? Heart Attack Signs Chest discomfort: Most heart attacks involve discomfort in the center of the chest and lasts more than a few minutes, or goes away and comes back. It can feel like uncomfortable pressure, squeezing, fullness or pain. Discomfort in upper body: Symptoms can include pain or discomfort in one or both arms, back, neck, jaw or stomach. Shortness of breath: With or without discomfort. Other signs: Breaking out in a cold sweat, nausea, or lightheaded. Remember, MINUTES DO MATTER. If you experience any of these heart attack warning signs, call to get immediate medical attention! ?? Smoking can increase your chances of developing chronic health problems and can cause harmful effects to other family members in your house. If you smoke, you are strongly encouraged to quit. Please call [facility] [employer] at [phone] or [phone] or log in to [email or web address] for referrals to smoking cessation programs. ?? The National Suicide Prevention Hotline is available 22/11 if you or someone you know needs to find a reason to keep living. By calling 9-165-804-TagMii (4380) you'll be connected to a skilled, trained counselor at a crisis center in your area. INPATIENT DISCHARGE INSTRUCTIONS SIGNATURE CATHERINE DURANT Location:[facility] Registration Date and Time:07/22/2022 03:48 EDT Primary Care Physician: Not on Staff, PCP CATHERINE MARVIN, have received the above patient education materials/instructions and have verbalized understanding. If ambulance or transport services are being used I further acknowledge being given a choice of service. ?? If you need to contact me, please call me at this number: . Patient/Unhairing Inspector Name: Patient/Unhairing Inspector Signature: Relationship to Patient: Witness Name/Signature: Date: CT Orbit W contrast IV * BH[facility]erscribe , CIS S: TRANSCRIBE Sky Gardner MD B: VERIFY Vince GAYLE, Breezy: SIGN Event Display: Result: Authored Date: [id number] CT Orbits W/ Contrast Hx of Present Illness: Stratus used fo assessment, c o R eye pressure which started sat and has worsened in intensity. Reports she just woke up like that, no trauma to site. Site is painful, itching,burning. Also R ear pain and sore throat. +chills, cough evidenced; Reason: Cellulitis; Clinical Question(s): Orbital Cellulitis; Order Comment: COMPARISON: None. TECHNIQUE: Spiral CT with contrast formatted in 3 planes. 100 mL of Omnipaque 300 was administered intravenously. Automatic tube modulation was used to optimize exposure parameters. CTDIvol Head: 25.80 mGy, DLP Head: 372 mGy*cm. FINDINGS: Orbital soft tissues: Severe soft tissue thickening and fat stranding in the lateral aspect of the right orbit with lateral intraconal extension (series 205:27). There is edema of the lateral rectus muscle. A wall enhancing fluid collection containing air foci at the lateral aspect of the right globe measures 1.7 x 0.6 x 1.7 cm (series 202:20, series 205:19). No evidence of intraocular extension of infection or disruption of the sclera. The left orbit is normal. Orbital bones: Intact. No fractures or destructive changes. Paranasal Sinuses: Mild mucosal thickening of the anterior ethmoid air cells. Lower intracranial contents: No abnormalities are seen involving the portions of brain and extra-axial spaces included on the exam. Cranium and other bones: Intact. IMPRESSION: Findings consistent with right orbital cellulitis. A 1.7 cm abscess lateral to and abutting the right globe is noted. Results were conveyed via telephone by Dr. Breezy Clarke to Dr. Jose Enrique Amaral on 07/22/2022 at 2:33 AM. I have personally reviewed the images and I agree with this report. WSN: [id number] Ordering Physician: Mino Holm Dictated By: Breezy Clarke MD Dictated Date/Time: 07/22/22 7:14 am Reviewed By: Sky Gardner MD Signed By: Sky Gardner MD Signed Date/Time: 07/22/22 7:19 am Transcribed By: MARTELL Transcribed Date/Time: 07/22/22 2:33 am Patient Care team information Care Team Personnel Name: Not on Staff, PCP Position: [facility] Physician (General Medicine) Member Role: PCP Name: Carmen Bell RN Position: [facility] RN Member Role: Primary Care Nurse Name: Rupa Glass RN Position: [facility] RN Member Role: Primary Care Nurse Name: Rosalina Chan RN Position: [facility] RN Member Role: Primary Care Nurse Name: Belen Velazquez RN Position: [facility] RN Member Role: Primary Care Nurse Name: Umesh FAGAN Attending Position: [facility] ED Medicine Name: Swetha Arguello Position: [facility] ED TA [facility] Member Role: Patient Care Provider Name: Delphien Araiza Position: [facility] ED RN W/OE and Tasks Member Role: Patient Care Provider Care Team Related Persons Name: TAE RADFORD Address: [place] [address] Name: SUSAN LORENZO Address: [place] [address] Name: LUNA MARROQUIN Address: [place], [place]
[2024-04-02 15:46] VITALS: BP 149/69; PULSE 83; RESP 16; TEMP 36.6; O2SAT 98
[2024-04-02 16:19] VITALS: BP 149/69; PULSE 83; RESP 16; TEMP 36.6; O2SAT 98
[2024-04-02 17:46] LABS: Bacterial Vaginosis PCR NEGATIVE (Negative); Candida Group PCR NOT DETECTED (Not Detect); Candida glab krusei PCR DETECTED (Not Detect); Trichomonas vaginalis PCR NOT DETECTED (Not Detect)
[2024-04-03 05:38] LABS: CT PCR NOT DETECTED (Not Detect.); NG PCR NOT DETECTED (Not Detect.)
== END 2024-04-02 16:20 | disposition home or self-care (01) ==
PROVIDERS: Physician Assistant Medical; Emergency Provider Emergency Medicine; PCP Student in an Organized Health Care Education/Training Program
DX: B37.49 Other urogenital candidiasis (principal); R30.0 Dysuria; R10.2 Pelvic and perineal pain; E11.9 Type 2 diabetes mellitus without complications; I10 Essential (primary) hypertension; J45.909 Unspecified asthma, uncomplicated; Z79.82 Long term (current) use of aspirin; Z79.899 Other long term (current) drug therapy
CPT/HCPCS: 0352U; 81001; 87491; 87591; 99283

== ENCOUNTER 2024-11-08 11:56 | Outpatient (REF) | payer MEDICAID, SELFPAY ==
--- OUTSIDE RECORDS SUMMARY | 2024-11-08 12:25 | XMS_ITS | Encounter Summary ---
Author Organization [employer] Address [address] [place] [address] Care Team Providers Care Social Media Manager Name Role Phone Milvia Soto MD Primary Care Pro vider Ryan Romo RN Unavailable [phone] Fawn Ceron Unavailable Reason for Visit * Reason Onset Date Comments rs missed visit 06/08/2024 Encounter Details Date Type Department Care Team (Late st Contact Info) Description 06/08/2024 Telephone [facility] [address] [place], [place] [phone] Preet Salazar DDS [address] [place], [place] [phone] rs missed visit Social History Tobacco Use Types Packs/Day Years Used Date Smoking Tobacco: Never Passive Smoke Exposure: Never Smokeless Tobacco: Never Comments:Started smoking tob acco 16 y of age and stopped 46 y of age ,smoked 3 cig a day for 30 years ---stopped 11 years ago , PQT year calc 4.5 Alcohol Use Standard Drinks/Week Comments Never 0 (1 standard drink = 0.6 oz pure alcohol) hx of alcohol use not using for years Depression Answer Date Recorded Patient Health Questionnaire-9 Score 5 03/16/2023 Patient Health Questionnaire-9 Score 5 03/16/2023 Last PHQ-9: Questionnaire Data Not on file 1 05/16/2022 Housing Stability Answer Date Recorded What is your housing situation today? I have clarke lozoya 02/08/[address] you li ve. Do you have problems with any of the following? Pests such as bugs, ants, or mice 02/08/2023 Food Insecurity Answer Date Recorded Within the past 12 months, y ou worried that your food would run out before you got money to buy more: Never True 02/18/2023 Within the past 12 months,th e food you bought just didn't last and you didn't have enough money to get more: Never True Transportation Answer Date Recorded In the past 12 months, has l ack of transportation kept you from medical appts, meetings, work or from getting things needed for daily living? Yes, it has kept me from medical appointments or getting medications. 02/08/2023 Utilities Answer Date Recorded In the past 12 months, has t he electric, gas, oil or water company threatened to shut off services in your home? No 02/18/2023 Depression Answer Date Recorded Patient Health Questionnaire-2 Score 1 03/16/2023 Comments Unknown Sex and Gender Information Value Date Recorded Sex Assigned at Female 03/01/2022 10:14 AM EDT Legal Sex Female 10:14 AM EDT Gender Identity Female 03/01/2022 10:14 AM EDT Sexual Orientation Straight 03/01/2022 10 :14 AM EDT documented as of this encounter Miscellaneous Notes * Telephone Encounter - Eula Ray - 06/08/2024 8:53 AM EST Patient called in half hour prior to appt. Considered no show. Patient informed there is a waiting period prior to rs a no show appt and office will reach out when it is her turn to come in again documented in this encounter Plan of Treatment Upcoming Encounters Date Type Department Care Team (Late st Contact Info) Description 11/15/2024 2:00 PM EDT Office Visit [facility] [address] [place] [address] Erna Lan OD [address] [place] [address] 11/23/2024 1:30 PM EDT Office Visit [facility] [address] [place] [address] Milvia Soto MD [address] [place] [address] documented as of this encounter Visit Diagnoses Not on filedocumented in this encounter Additional Health Concerns Assessment Noted Time PHQ-9 Depression Total Score: 5 03/16/20 2:41 PM EST documented as of this encounter Care Teams Social Media Manager Relationship Specialty Start Date End Date Milvia Soto MD [address] [place] [address] PCP - General Internal Medicine 03/17/23 Ryan Romo RN [address] [place] [address] Registered Nurse Family Medicine 10/02/24 Fawn Ceron 10/02/24 documented as of this encounter
--- OUTSIDE RECORDS SUMMARY | 2024-11-08 12:25 | XMS_ITS | Clinical Summary ---
Author Organization [facility] Address [address] [place] [address] Phone Care Team Providers Care Manager Leasing Name Role Phone Physician, Pcp Unknown Primary Care Provider Dilia vailable Social History Tobacco Use Types Packs/Day Years Used Date Smoking Tobacco: Never Assessed Comments Unknown Sex and Gender Information Value Date Recorded Sex Assigned at Not on file Legal Sex Female 9:03 AM EDT Gender Identity Not on file Sexual Orientation Not on file Plan of Treatment Upcoming Encounters Date Type Department Care Team ([facility] Contact Info) Description 12/26/2024 1:45 PM EDT Consult Orthopedic Surgery - [place] [address] [phone] Jayro Reyes, DPM [address] [address] Health Maintenance Due Date Last Done Comments Breast Cancer Screening 1966 Diabetes: Annual GFR (Glomer ular Filtration Rate) 1966 Diabetes: Annual Foot Exam 1976 Diabetes: Annual Retina Eye Exam 1976 DTaP,Tdap,and Td Vaccines (1 - Tdap) 1985 Hepatitis B Vaccines (1 of 3 - 19+ 3-dose series) 1985 Pneumococcal Vaccine: 50+ Ye ars (1 of 2 - PCV) 1985 Cervical Cancer Screening: P ap Smear 1987 Zoster Vaccines (1 of 2) 2016 COVID-19 Vaccine ( - 2023-2 5 season) 2024 Cholesterol Screening (Lipid Panel) 09/28/2024 Colorectal Cancer Screening: Colonoscopy 09/28/2024 Depression Screening 09/28/2024 Diabetes: Annual Urine Albumin-Creatinine Ratio (uACR) 09/28/2024 Diabetes: Blood Sugar Contro l Test (HGBA1C) 09/28/2024 HIV Screening 09/28/2024 Hepatitis C Screening 09/28/2024 Social Influencers of Health Screening 09/28/2024 Influenza Vaccine (#1) 2024 HIB Vaccines Aged Out No longer eligi ble based on patient's age to complete this topic HPV Vaccines Aged Out No longer eligi ble based on patient's age to complete this topic Hepatitis A Vaccines Aged Out No long er eligible based on patient's age to complete this topic IPV Vaccines Aged Out No longer eligi ble based on patient's age to complete this topic MMR Vaccines Aged Out No longer eligi ble based on patient's age to complete this topic Meningococcal ACWY Vaccine Aged Out N o longer eligible based on patient's age to complete this topic Meningococcal B Vaccine Aged Out No l onger eligible based on patient's age to complete this topic RSV Immunization Patients Un compa 20 months Aged Out No longer eligible b ased on patient's age to complete this topic Varicella Vaccines Aged Out No longer eligible based on patient's age to complete this topic Insurance [address] [place] [id number] MEDICAID - [place] Care Teams Manager Leasing Relationship Specialty Start Date End Date Physician, Pcp Unknown PCP - General 09/28/24
== END 2024-11-08 11:57 | disposition home or self-care (01) ==
LOC: HO.MAMMO 11:56
PROVIDERS: PCP Student in an Organized Health Care Education/Training Program; Visit Provider Student in an Organized Health Care Education/Training Program
DX: Z13.89 Encounter for screening for other disorder (principal)

== ENCOUNTER 2025-02-19 12:57 | Outpatient (REF) | payer MEDICAID, SELFPAY ==
--- NOTE | ~2025-02-19 | MM_ITS ---
EXAMINATION(S): MM DIAGNOSTIC DIGITAL BREAST TOMOSYNTHESIS, BILATERAL CLINICAL INFORMATION: -Requisition describes bilateral pain. However, the patient says that she is not feeling any pain today. -Last left diagnostic mammogram on November 21, 2018 described and asymmetry in the medial breast posterior depth, for which a 6 month follow-up was recommended. COMPARISON: Comparison made to multiple prior, most recent left diagnostic mammogram on November 21, 2018, and most remote April 15, 2015. TECHNIQUE: Digital breast tomosynthesis is performed in both the mediolateral oblique and craniocaudal views along with computer-aided detection (CAD). Synthesized 2D images are generated from the tomosynthesis. FINDINGS: BREAST COMPOSITION: There are scattered areas of fibroglandular density. RIGHT BREAST: No significant masses, suspicious calcifications or other abnormalities are seen. LEFT BREAST: No significant masses, suspicious calcifications or other abnormalities are seen. In particular, no suspicious mammographic findings at the location of the asymmetry in the medial breast posterior depth described in 2019. MM/MM tomosynthesis diagnostic BI IMPRESSION: BILATERAL BREASTS: Negative, no mammographic evidence of malignancy. Normal interval follow-up is recommended in 12 months. ASSESSMENT: BI-RADS: Category 1: Negative RECOMMENDATION: 1 year F/U Results were provided to the patient at time of visit by the technologist. This patient's information was entered into a reminder system with a target due date for their next mammogram. Electronically signed by: Shant Chua MD 02/19/2025 04:09 PM EDT
--- OUTSIDE RECORDS SUMMARY | 2025-02-19 16:34 | XMS_ITS | Encounter Summary ---
Author Organization [employer] Address [address] [facility] 7t [place] [address] Care Team Providers Care Ornamental Iron Worker Helper Name Role Phone Milvia Soto MD Primary Care Pro vider Ryan Romo RN Unavailable [phone] Fawn Ceron Unavailable Reason for Visit * Reason Onset Date Comments rs missed visit 06/08/2024 Encounter Details Date Type Department Care Team (Late st Contact Info) Description 06/08/2024 Telephone [facility] [address] [place], [place] [phone] Preet Salazar DDS [address] [place], [place] [phone] rs missed visit Social History Tobacco Use [...] is her turn to come in again DR documented in this encounter Plan of Treatment Upcoming Encounters Date Type Department Care Team (Late st Contact Info) Description 04/18/2025 10:00 AM EST Office Visit [facility] [address] [place] [address] Erna Lan OD [address] [place] [address] documented as of this encounter Visit Diagnoses Not on filedocumented in this encounter Additional Health Concerns Assessment Noted Time PHQ-9 Depression Total Score: 5 03/16/20 23 2:41 PM EST documented as of this encounter Care Teams Ornamental Iron Worker Helper Relationship Specialty Start Date End Date Milvia Soto MD [address] [place] [address] PCP - General Internal Medicine 03/17/23 Ryan Romo RN [address] [place] [address] Registered Nurse Family Medicine 10/02/24 Fawn Ceron 10/02/24 documented as of this encounter
--- OUTSIDE RECORDS SUMMARY | 2025-02-19 16:34 | XMS_ITS | Encounter Summary ---
Author Organization [employer] Address [address] [facility] 7t [place] [address] Care Team Providers Care Canal Structure Operator Name Role Phone Milvia Soto MD Primary Care Pro vider Ryan Romo RN Unavailable [phone] Fawn Ceron Unavailable Reason for Visit * Reason Onset Date Comments Appointment Request 01/11/2023 Needs new PC P Encounter Details Date Type Department Care Team (Late st Contact Info) Description 01/11/2023 Telephone [facility] [address] [place], [place] [phone] Heike Delarosa FNP Appointment Request (Needs new PCP ) Social History Tobacco Use Types Packs/Day Years Used Date Smoking Tobacco: Never Smokeless Tobacco: Never Alcohol Use Standard Drinks/Week Comments Never 0 (1 standard drink = 0.6 oz pur e alcohol) Depression Answer Date Recorded Patient Health Questionnaire-9 Score 8 08/20/2022 Depression Answer Date Recorded Patient Health Questionnaire-2 Score 3 08/20/2022 Comments Unknown Sex and Gender Information Value Date Recorded Sex Assigned at Female 03/01/2022 10:14 AM EDT Legal Sex Female 10:14 AM EDT Gender Identity Female 03/01/2022 10:14 AM EDT Sexual Orientation Straight 03/01/2022 10 :14 AM EDT documented as of this encounter Miscellaneous Notes * Telephone Encounter - Ursula Joyce - 01/11/2023 3:14 PM EDT Tc from patient requesting a appt. Patient was last seen on 09/15/[address] Paez and has Dr. Delarosa assigned on [employer] but no one on [employer]. documented in this encounter Plan of Treatment Upcoming Encounters Date Type Department Care Team (Late st Contact Info) Description 04/18/2025 10:00 AM EST Office Visit [facility] [address] [place], [place] [phone] Erna Lan, OD [address] [place] [address] documented as of this encounter Visit Diagnoses Not on filedocumented in this encounter Additional Health Concerns Assessment Noted Time PHQ-9 Depression Total Score: 8 08/21/19 11:05 AM EDT documented as of this encounter Care Teams Canal Structure Operator Relationship Specialty Start Date End Date Milvia Soto MD [address] [place] [address] PCP - General Internal Medicine 03/17/23 Ryan Romo, BG [address] [place] [address] Registered Nurse Family Medicine 10/02/24 Fawn Ceron 10/02/24 documented as of this encounter
--- OUTSIDE RECORDS SUMMARY | 2025-02-19 16:34 | XMS_ITS ---
Author Organization [employer] Address [address] [facility] 7t [place] [address] Care Team Providers Care Vegetable Preparer Name Role Phone Milvia Soto MD Primary Care Pro vider Ryan Romo RN Unavailable [phone] Fawn Ceron Unavailable CM Complex Status:Outreach In Progress (Enrolling) Start date:10/02/2024 Enrollment reason:Referred by provider Overview Provider Referral- pt with issues w memory neds help w apts Case Team Name Relationship Phone Ryan Romo RN(Responsible Staff) Registered Nurse [phone] Continued Care and Services Coordination
--- OUTSIDE RECORDS SUMMARY | 2025-02-19 16:34 | XMS_ITS | Encounter Summary ---
Author Organization [employer] Address [address] [facility] 7t [place] [address] Care Team Providers Care Director Informatics Name Role Phone Heike Delarosa [address] Primary Care Provider Dilia Milvia Davis MD Primary Care Pro vider Ryan Romo RN Unavailable [phone] Fawn Ceron Unavailable Encounter Details Date Type Department Care Team ([facility] Contact Info) Description 07/30/2022 Orders Only [facility] [address] [place], [place] [phone] Mariposa Albarado LPN Social History Tobacco Use Types Packs/Day Years Used Date Smoking Tobacco: Never Assessed Comments Unknown Sex and Gender Information Value Date Recorded Sex Assigned at Female 03/01/2022 10:14 AM EDT Legal Sex Female 10:14 AM EDT Gender Identity Female 03/01/2022 10:14 AM EDT Sexual Orientation Straight 03/01/2022 10 :14 AM EDT COVID-19 Exposure Response Date Recorded In the last 10 days, have yo u been in contact with someone who was confirmed or suspected to have Coronavirus/COVID-19? No / Unsure 07/19/2022 1:39 PM EDT documented as of this encounter Plan of Treatment Upcoming Encounters Date Type Department Care Team ([facility] Contact Info) Description 04/18/2025 10:00 AM EST Office Visit [facility] [address] [place], [place] [phone] Erna Lan, OD [address] [place] [address] documented as of this encounter Visit Diagnoses Not on filedocumented in this encounter Care Teams Director Informatics Relationship Specialty Start Date End Date Heike Delarosa FNP PCP - General Family Medicine 12/28/21 10/21/22 Milvia Soto MD [address] [place] [address] PCP - General Internal Medicine 03/17/23 Ryan Romo RN [address] [place] [address] Registered Nurse Family Medicine 10/02/24 Fawn Ceron 10/02/24 documented as of this encounter
--- OUTSIDE RECORDS SUMMARY | 2025-02-19 16:34 | XMS_ITS | Encounter Summary ---
Author Organization [employer] Address [address] [facility] 7t [place] [address] Care Team Providers Care Tax Accounting Manager Name Role Phone Milvia Soto MD Primary Care Pro vider Ryan Romo RN Unavailable [phone] Fawn Ceron Unavailable Reason for Visit * Reason Comments Med Refill Encounter Details Date Type Department Care Team (Late st Contact Info) Description 07/21/2023 Refill [facility] MED[facility] [address] [place], [place] [phone] Mlivia Soto MD [address] [place], [place] [phone] Social History Tobacco Use Types Packs/Day Years Used Date Smoking Tobacco: Never Smokeless Tobacco: Never Comments:Started smoking tob [...] AM EDT documented as of this encounter Plan of Treatment Upcoming Encounters Date Type Department Care Team (Late st Contact Info) Description 04/18/2025 10:00 AM EST Office Visit [facility] OPTOM[facility] [address] [place] [address] Erna Lan OD [address] [place] [address] documented as of this encounter Visit Diagnoses Not on filedocumented in this encounter Additional Health Concerns Assessment Noted Time PHQ-9 Depression Total Score: 5 03/16/20 23 2:41 PM EST documented as of this encounter Care Teams Tax Accounting Manager Relationship Specialty Start Date End Date Milvia Soto MD [address] [place] [address] PCP - General Internal Medicine 03/17/23 Ryan Romo, BG [address] [place] [address] Registered Nurse Family Medicine 10/02/24 Fawn Ceron 10/02/24 documented as of this encounter
--- OUTSIDE RECORDS SUMMARY | 2025-02-19 16:34 | XMS_ITS | Clinical Summary ---
Author Organization [employer] Address [address] [facility] [address] [place] [address] Care Team Providers Care Packing And Shipping Clerk Name Role Phone Milvia Soto MD Primary Care Pro vider Ryan Romo RN Unavailable [phone] Fawn Ceron Unavailable Allergies No known active allergies Medications prednisoLONE acetate (Pred-Forte) 1 % ophthalmic suspension INSTILL 1 DROP IN RIGHT EYE FOUR TIMES A DAY FOR 7 DAYS 07/25/19 23 Active senna (Senokot) 8.6 MG tablet TAKE 1 OR 2 TABLETS BY MOUTH AT BEDTIME 180 tablet 3 09/04/19 25 Active montelukast (Singulair) 10 MG tablet Take 1 tablet (10 mg) by mouth at bedtime. 90 tablet 1 09/27/19 25 Active albuterol 108 (90 Base) MCG/ACT inhaler Inhale 2 puffs every 6 (six) hours if needed for wheezing. 18 g 11 09/27/19 25 026 Active Advair HFA 230-21 MCG/ACT inhaler INHALE 2 PUFFS BY MOUTH TWICE DAILY IN THE MORNING AND IN THE EVENING. ADMINISTER WITH SPACER. RINSE MOUTH AFTER USING. 12 g 2 09/27/19 25 Active amLODIPine (Norvasc) 10 MG tabletIndication s:Primary hypertension Take 1 tablet (10 mg) by mouth Once per day. 90 tablet 1 09/27/19 25 Active Aspirin Low Dose 81 MG EC tablet Take 1 tablet (81 mg) by mouth in the morning. 90 tablet 1 09/27/19 25 Active Alcohol Swabs (Alcohol Pads) 70 % pads Use as directed on skin check twice a day 100 each 09/27/19 25 Active Blood Glucose Monitoring Suppl (FreeStyle [place] Lite) w/Device kit check twice a day 1 kit 09/27/19 25 Active FreeStyle lancets 1 each by Other route at noon and 1 each in the evening. Use bid, dx type 2 diabetes. 60 each 11 09/27/19 25 Active glucose blood (FREESTYLE LITE) test strip check twice a day 60 each 11 09/27/19 25 Active metFORMIN (Glucophage) 500 MG tablet Take 1 tablet (500 mg) by mouth with breakfast and with evening meal. 60 tablet 2 10/09/19 25 026 Active Dulaglutide (Trulicity) 0.75 MG/0.5ML solution auto-injector Inject 0.75 mg under the skin 1 (one) time per week. 0.5 mL 2 10/09/19 25 Active Multiple Vitamin (Multivitamin) tablet TAKE 1 TABLET BY MOUTH EVERY DAY 90 tablet 3 10/31/19 25 Active vitamin E 180 MG (400 UNIT) capsule TAKE 1 CAPSULE BY MOUTH EVERY MORNING 90 capsule 3 10/31/19 25 Active Jardiance 25 MG TAKE 1 TABLET BY MOUTH EVERY DAY IN THE MORNING 30 tablet 2 12/27/19 25 Active albuterol (2.5 MG/3ML) 0.083% nebulizer solution INHALE 1 AMPULE USING A NEBULIZER FOUR TIMES DAILY NEEDED 90 mL 1 01/05/20 25 Active atorvastatin (Lipitor) 10 MG tablet TAKE 1 TABLET BY MOUTH EVERY DAY AT BEDTIME 90 tablet 01/19/20 25 Active loratadine (Claritin) 10 MG tablet TAKE 1 TABLET BY MOUTH EVERY DAY IN THE MORNING 90 tablet 01/19/20 25 Active omeprazole (PriLOSEC) [address] capsuleInddayna ns:Gastroesophag eal reflux disease without esophagitis TAKE 1 CAPSULE BY MOUTH EVERY DAY BEFORE BREAKFAST 90 capsule 01/19/20 25 Active D3 Super Strength 50 MCG (2000 UT) capsule TAKE 1 CAPSULE BY MOUTH EVERY DAY IN THE MORNING 90 capsule 1 01/23/20 25 Active D3 Super Strength 50 MCG (2000 UT) capsule TAKE 1 CAPSULE BY MOUTH EVERY DAY IN THE MORNING 90 capsule 1 05/22/19 25 025 Discontinued Active Problems Problem Noted Date Diagnosed Date Health care maintenance 03/17/2023 Hx of hepatitis C 03/17/2023 Morbid obesity (CMS/HCC) 03/17/2023 Anxiety 03/17/2023 GERD (gastroesophageal reflux disease) History of tobacco use 03/17/2023 Neck pain 03/17/2023 Poor memory 03/17/2023 Tinnitus of right ear 03/17/2023 Hidradenitis suppurativa 03/17/2023 Hyperlipidemia 09/15/2020 Hepatitis B core antibody positive 10/04/2018 Overactive bladder 06/06/2015 Moderate asthma 03/13/2015 Bilateral hearing loss 03/13/2015 Type 2 diabetes mellitus 03/13/2015 Assessment & Plan (08/20/2022 11:53 AM EDT): Controled, A1C is at goal. No change in medications today and needs to fu with new PCP I will send information to schedule an appointment Hypertension 03/13/2015 Low back pain without sciatica 03/13/2015 Primary osteoarthritis of both knees 03/13/2015 Assessment & Plan (08/20/2022 11:54 AM EDT): Declines to use the cane or be referred to PT at this time counseled regarding weight reduction take tylenol prn and FU with PCP Resolved Problems Problem Noted Date Diagnosed Date Resolved Date Toe laceration 06/29/2023 09/26/2024 Encounters Date Type Department Care Team Description 02/07/2025 Telephone [facility] [address] [place] [address] Milvia Soto MD No Show 02/06/2025 Telephone [facility] [address] [place] [address] Milvia Soto MD chart prep 01/28/2025 Telephone [facility] [address] [place] [address] Milvia Soto MD Lab Orders 01/21/2025 Refill [facility] [address] [place] [address] Connie Murray MD 01/17/2025 Refill [facility] [address] [place] [address] Milvia Soto MD Gastroesophageal reflux disease without esophagitis 01/17/2025 Refill [facility] [address] [place] [address] Milvia Soto MD Gastroesophageal reflux disease without esophagitis 01/04/2025 Refill [facility] [address] [place] [address] Connie Murray MD 12/26/2024 Refill [facility] [address] [place] [address] Milvia Soto MD 12/07/2024 Orders Only [facility] [address] [place] [address] Milvia Soto MD Mastalgia (Primary Dx) 12/06/2024 Telephone [facility] [address] [place] [address] Milvia Soto MD 11/22/2024 Telephone [facility] [address] [place] [address] Milvia Soto MD chartprep from Last 3 Months Immunizations Immunization Administration Dates Next Due Influenza Injectable Quadriv alant Preservative Free IIV4 MDCK 02/21/2020 Influenza injectable quadriv alent IIV4 with preservative 01/27/2017,02/11/2015 Influenza injectable quadriv alent preservative free 02/26/2021,02/27/2019,04/03/2018,02/23 Influenza, IIV3, injectable 04/04/2014, 1,02/28/2007 Influenza, Split (incl. kelsea fied surface antigen) 01/19/2013,01/17/2012 Pneumococcal Conjugate PCV 20 08/20/2022 Pneumococcal Polysaccharide PPSV23 03/02/2010 TD (adult), 2 Lf tetanus tox oid, preservative free, adsorbed 04/12/2004,06/30/1989 Tdap 03/16/2023,01/19/2013 Zoster, Recombinant 09/06/2022 Family History Medical History Relation Name Comments Colon cancer Brother Heart attack Father Stroke Mother Uterine cancer Mother's Sister Relation Name Status Comments Brother Father Mother Mother's Sister Social History Tobacco Use Types Packs/Day Years Used Date Smoking Tobacco: Never Passive Smoke Exposure: Never Smokeless Tobacco: Never Tobacco Cessation:Counseling Given: Not Answered Comments:Started smoking tobacco 16 y of age and stopped 46 y of age ,smoked 3 cig a day for 30 years ---stopped 12 years ago , PQT year calc 4.5 [...] housing situation today? I have clarke lozoya 09/26/[address] you li ve. Do you have problems with any of the following? None of the above 09/26/2024 Food Insecurity Answer Date Recorded Within the past 12 months, y ou worried that your food would run out before you got money to buy more: Never True 09/26/2024 Within the past 12 months,th e food you bought just didn't last and you didn't have enough money to get more: Never True Transportation Answer Date Recorded In the past 12 months, has l ack of transportation kept you from medical appts, meetings, work or from getting things needed for daily living? No 09/26/2024 Utilities Answer Date Recorded In the past 12 months, has t he electric, gas, oil or water company threatened to shut off services in your home? No 09/26/2024 Depression Answer Date Recorded Patient Health Questionnaire-2 Score 1 03/16/2023 Internet Access Answer Date Recorded Internet Access Q1 Yes 09/26/2024 Internet Access Q2 Not on file 09/26/2024 Comments Unknown Sex and Gender Information Value Date Recorded Sex Assigned at Female 03/01/2022 10:14 AM EDT Legal Sex Female 10:14 AM EDT Gender Identity Female 03/01/2022 10:14 AM EDT Sexual Orientation Straight 03/01/2022 10 :14 AM EDT Last Filed Vital Signs Vital Sign Reading Time Taken Comments Blood Pressure 108/76 09/26/2024 2:22 PM EDT Pulse 98 09/26/2024 2:22 PM EDT Temperature 36.2 C (97.1 F) 09/26/2024 2:22 PM EDT Respiratory Rate 16 09/26/2024 2:22 PM EDT Oxygen Saturation 97% 01/13/2024 2:27 PM EDT Inhaled Oxygen Concentration - - Weight 110 kg (241 lb 9.6 oz) 09/26/2024 2:22 PM EDT Height 154.9 cm (5' 1 ) 09/26/2024 2:22 PM EDT Body Mass Index 45.65 09/26/2024 2:22 PM EDT Plan of Treatment Upcoming Encounters Date Type Department Care Team (Late st Contact Info) Description 04/18/2025 10:00 AM EST Office Visit [facility] [address] [place], [place] [phone] Erna Lan, OD [address] [place] [address] Health Maintenance Due Date Last Done Comments CT Colonography 1965 Colonoscopy 1965 Colorectal Cancer Screening 1965 FIT DNA/Cologuard 1966 FIT 1966 FOBT 1965 Sigmoidoscopy 1966 Diabetes: Foot Exam 1976 Hepatitis A Vaccines (1 of 2 - Risk 2-dose series) 1985 Hepatitis B Vaccines (1 of 3 - 19+ 3-dose series) 1985 Dental Prophylaxis 11/21/2019 05/22/2019, 0 11/16/2018, 2018, Additional history exists Diabetes: Urine Protein Screening 09/12/2021 09/12/2020 Zoster Vaccines (2 of 2) 11/01/2022 09/06/2022 Depression Screening 03/16/2024 03/16/2023, 03/16/20 23 Lipid Panel 08/11/2024 08/12/2023, 01/31, 09/12/2020 Eye Exam 08/12/2024 08/12/2022, 07/31, 08/12/2022, Additional history exists Dental Oral Exam 08/15/2024 02/14/2024, , 09/28/2017, Additional history exists Diabetes: Hemoglobin A1C 12/27/2024 025, 01/13/2024, 08/12/2023, Additional history exists COVID-19 Vaccine ( season) 2024 10/21/2020 Influenza Vaccine (#1) 2024 , 02/21/2020, 02/27/2019, Additional history exists Pap Smear 01/26/2025 01/26/2022 Dental X-Ray: Bitewings 02/14/2025 02/14/20 24, 11/16/2018, 09/28/2017, Additional history exists Alcohol/Substance Use Screening 09/26/2025 09/26/2024 Disability Screening 09/26/2025 09/26/2024 SDOH Screening 09/26/2025 09/26/2024 Tobacco Screening 09/26/2025 09/26/2024 Cervical Cancer Screening 01/26/2027 HPV/Cotest 01/26/2027 01/26/2022 Dental X-Ray: Full Mouth 02/14/2027 02/14/2024 Mammogram 02/19/2027 02/19/2025, 10/31, 05/17/2018, Additional history exists DTaP/Tdap/Td Vaccines (3 - Td or Tdap) 03/16/2033 03/16/2023, 01/19/2013, 04/12/2004, Additional history exists RSV Patients and Patients Aged 60 years or older (1 - 1-dose 75+ series) 2041 Pneumococcal Vaccine: 50+ Years Completed 08/20/2022, 03/02/2010 HIV Screening Completed 08/12/2023 HIB Vaccines Aged Out No longer eligi [...] patient's age to complete this topic Meningococcal Vaccine Aged Out No weston keara eligible based on patient's age to complete this topic RSV under 20 months Aged Out No longe r eligible based on patient's age to complete this topic Rotavirus Vaccines Aged Out No longer eligible based on patient's age to complete this topic Procedures Procedure Name Priority Date/Time Associated Diagnosis Comments BI MAMMOGRAM DIAGNOSTIC TOMOSYNTHESIS BILATERAL Routine 02/19/2025 1:47 PM EDT POCT GLYCOSYLATED HEMOGLOBIN (HGB A1C) Routine 09/26/2024 2:22 PM EDT Type 2 diabetes mellitus with other specified complication, unspecified whether terminal system operator insulin use ([facility]) INTRAORAL - COMPLETE SERIES OF RADIOGRAPHIC IMAGES Routine 02/14/2024 1:30 PM EDT Encounter for dental examination Dental caries Bruxism Teeth missing PERIODIC ORAL EVALUATION - ESTABLISHED PATIENT Routine 02/14/2024 1:30 PM EDT Encounter for dental examination Dental caries Bruxism Teeth missing HIV 1/2 ANTIGEN/ANTIBODY, FOURTH GENERATION W/RFL Routine 08/12/2023 11:23 AM EDT Physical exam, annual LIPID PANEL, STANDARD Routine 08/12/2023 11:23 AM EDT Physical exam, annual THINPREP IMAGING PAP AND HPV MRNA E6/E7, WITH CT/NG, TRICHOMONAS Routine 01/26/2022 7:48 PM EDT ALBUMIN, RANDOM URINE W/CREATININE Routine 09/12/2020 3:35 PM EDT PROPHYLAXIS - ADULT Routine 05/22/2019 1 2:00 AM EST from Last 3 Months or Most Recently Relevant to Health Maintenance Results * BI Mammogram Diagnostic Tomosynthesis Bilateral (02/19/2025 1:47 PM EDT) Anatomical Region Laterality Modality Breast Bilateral Mammography 02/19/2025 1:47 PM EDT Narrative 02/19/2025 4:12 PM EDT [facility] [address] [place] [address] Mammography Report Signed Patient: Milvia Feliz MR#: [id number] 07 : 1965 Acct:[id number] Age/Sex: 59 / F ADM Date: 02/19/25 Loc: [facility] Attending Dr: Milvia Regalado MD Ordering Physician: Milvia Soto MD Re sults: 1Negative Date of Service: 02/19/25 Follow Up: 1 Year From Orig inal Mammogram Procedure(s): MM tomosynthesis diagnostic BI Accession Number(s): [id number] cc: Milvia Soto MD Reason For Exam: bilateral mastalgia EXAMINATION(S): MM DIAGNOSTIC DIGITAL BREAST TOMOSYNTHESIS, BILATERAL CLINICAL INFORMATION: -Requisition describes bilateral pain. However, the patient says that she is not feeling any pain today. -Last left diagnostic mammogram on November 21, 2018 described and asymmetry in the medial breast posterior depth, for which a 6 month follow-up was recommended. COMPARISON: Comparison made to multiple prior, most recent left diagnostic mammogram on November 21, 2018, and most remote April 15, 2015. TECHNIQUE: Digital breast tomosynthesis is performed in both the mediolateral oblique and craniocaudal views along with computer-aided detection (CAD). Synthesized 2D images are generated from the tomosynthesis. FINDINGS: BREAST COMPOSITION: There are scattered areas of fibroglandular density. RIGHT BREAST: No significant masses, suspicious calcifications or other abnormalities are seen. LEFT BREAST: No significant masses, suspicious calcifications or other abnormalities are seen. In particular, no suspicious mammographic findings at the location of the asymmetry in the medial breast posterior depth described in 2019. MM/MM tomosynthesis diagnostic BI IMPRESSION: BILATERAL BREASTS: Negative, no mammographic evidence of malignancy. Normal interval follow-up is recommended in 12 months. ASSESSMENT: BI-RADS: Category 1: Negative RECOMMENDATION: 1 year F/U Results were provided to the patient at time of visit by the technologist. This patient's information was entered into a reminder system with a target due date for their next mammogram. Electronically signed by: Shant Chua MD 02/19/2025 04:09 PM EDT Dictated By: Shant Chua MD Signed By: <Electronically signed by Shant Chua MD in OV> 02/19/25 1600 DD/ 1347 TD/TT: 02/19/25 1350 Credit Negotiator: Procedure Note Donotuseinterpreter, Image - 02/19/[address] [facility] [address] [place] [place] [address] Mammography Report Signed Patient: Milvia Feliz CMR#: [id number] 07 : 1965Acct:[id number] Age/Sex: 59 / FADM Date: 02/19/25 Loc: HO.MAMMO Attending Dr: Milvia Regalado MD Ordering Physician: Milvia Soto sults: 1Negative Date of Service: 02/19/25Follow Up: 1 Year From Orig inal Mammogram Procedure(s): MM tomosynthesis diagnostic BI Accession Number(s): [id number] cc: Milvia Soto MD Reason For Exam: bilateral mastalgia EXAMINATION(S): MM DIAGNOSTIC DIGITAL BREAST TOMOSYNTHESIS, BILATERAL CLINICAL INFORMATION: -Requisition describes bilateral pain. However, the patient says that she is not feeling any pain today. -Last left diagnostic mammogram on November 21, 2018 described and asymmetry in the medial breast posterior depth, for which a 6 month follow-up was recommended. COMPARISON: Comparison made to multiple prior, most recent left diagnostic mammogram on November 21, 2018, and most remote April 15, 2015. TECHNIQUE: Digital breast tomosynthesis is performed in both the mediolateral oblique and craniocaudal views along with computer-aided detection (CAD). Synthesized 2D images are generated from the tomosynthesis. FINDINGS: BREAST COMPOSITION: There are scattered areas of fibroglandular density. RIGHT BREAST: No significant masses, suspicious calcifications or other abnormalities are seen. LEFT BREAST: No significant masses, suspicious calcifications or other abnormalities are seen. In particular, no suspicious mammographic findings at the location of the asymmetry in the medial breast posterior depth described in 2019. MM/MM tomosynthesis diagnostic BI IMPRESSION: BILATERAL BREASTS: Negative, no mammographic evidence of malignancy. Normal interval follow-up is recommended in 12 months. ASSESSMENT: BI-RADS: Category 1: Negative RECOMMENDATION: 1 year F/U Results were provided to the patient at time of visit by the technologist. This patient's information was entered into a reminder system with a target due date for their next mammogram. Electronically signed by: Shant Chua MD 02/19/2025 04:09 PM EDT RP Dictated By: Shant Chua MD Signed By: <Electronically signed by Shant Chua MD in OV> 02/19/25 1609 DD/ 1347 TD/TT: 02/19/25 1350 Credit Negotiator: Milvia Regalado MD IMG BI PROCEDURES Final Result * (ABNORMAL) POCT glycosylated hemoglobin (Hgb A1c) (09/26/2024 2:22 PM EDT) Hemoglobin A1C 9.3(A) 4.0 - 6.0 % QC Media Lot # [id number] Lot# Expiration Date [id number] Blood Capillary blood specimen / Unknown 09/26/2024 2:22 PM EDT Milvia Regalado MD POINT OF CARE MIGUEL T ENTER/EDIT ORDERABLES Final Result * HIV-1/2 Antigen and Antibodies, Fourth Generation, with Reflexes (08/12/2023 11:23 AM EDT) Pathologist [facility] HIV AB/AG Nonreactive Nonreactive [facility] Comment:HIV-1 p24 Ag and/or HIV-1/HIV-2 Ab not detected.A test result that is nonreactive does not exclude thepossibility of exposure to or infection with HIV-1 and/orHIV-2. Nonreactive results in this assay for individualswith prior exposure to HIV-1 and/or HIV-2 may be due toantigen and antibody levels that are below the limit ofdetection of this assay.The [facility] HIV Ag/Ab Combo assay result andsupplemental assay results should be interpreted inconjunction with the patient's clinical presentation,history and other laboratory results. If the results areinconsistent with clinical evidence, additional testing issuggested to confirm the result. Blood Venous blood specimen / Unknown 08/12/2023 11:23 AM EDT 08/12/2023 11:31 AM EDT us Milvia Regalado MD LAB BLOOD ORDERAB LES Final Result Performing Organization Address [facility]/ZIP Co de Phone Number [facility] [address] [place] [phone] * (ABNORMAL) Lipid Panel, Standard (08/12/2023 11:23 AM EDT) Triglycerides 392(H) <150 mg/dL [facility] Comment:Desirable Triglyceri de: less than 150 mg/dLBorderline High Triglyceride 150-199 mg/dLHigh Triglyceride: 200-499 mg/dLVery High Triglyceride: greater than or equal to 5OO mg/dL Cholesterol 181 <200 mg/dL [facility] Comment:Desirable Cholestero l: less than 200 mg/dLBorderline High Cholesterol: 200-239 mg/dLHigh Cholesterol: greater than 239 mg/dL LDL Cholesterol Calculated 59 <100 mg/dL [facility] Comment:Desirable LDL: less than 100 mg/dLNear Optimal/Above Optimal LDL: 110- 129 mg/dLBorderline High LDL: 130-159 mg/dLHigh LDL: 160-189 mg/dLVery High LDL: greater than or equal to 190 mg/dL HDL Cholesterol 44 >40 mg/dL [facility] Comment:Desirable HDL: great er than 40 mg/dL Note: This HDL assay may give artificially low results in patients with liver disease. Blood Venous blood specimen / Unknown 08/12/2023 11:23 AM EDT 08/12/2023 11:31 AM EDT us Milvia Regalado MD LAB BLOOD ORDERAB LES Final Result Performing Organization Address [facility]/ZIP Co de Phone Number [facility] [address] [place] [phone] * THINPREP TIS PAP AND HPV mRNA E6/E7, CT/NG, TRICH (01/26/2022 7:48 PM EDT) Chlamydia trachomatis RNA, TMA, Urogenital NOT DETECTED NOT DETECTED [facility] Clinical Information: None given [facility] COMMENT SEE COMMENT CONVERTE D [facility] Comment: The analytical performance characteristics of this assay, when used to test SurePath(TM) specimens have been determined by [employer]. The modifications have not been cleared or approved by the FDA. This assay has been validated pursuant to the CLIA regulations and is used for clinical purposes. For additional information, please refer to [email or web address]/faq/VCK079 (This link is being provided for information/ educational purposes only.) COMMENT SEE COMMENT [facility] Comment: EXPLANATORY NOTE: The Pap is a screening test for cervical cancer. It is not a diagnostic test and is subject to false negative and false positive results. It is most reliable when a satisfactory sample, regularly obtained, is submitted with relevant clinical findings and history, and when the Pap result is evaluated along with historic and current clinical information. COMMENT: This Pap test has been evaluated with computer assisted technology. CONVERTED [employer] Etcher: SEE COMMENT [facility] Comment: ED, CT(ASCP) CT screening location: [place] [address] HPV nRNA E6/E7 Not Detected Not Detected CONVERT[facility] [employer] Comment: Methodology: Manager Garden-Mediated Amplification This assay detects E6/E7 viral messenger RNA (mRNA) from 14 high-risk HPV types (16,18,31,33,35,39,45,51,52,56,58,59,66,68). Cervical sources are required for HPV testing. If a vaginal source from a patient who has had a total hysterectomy with removal of cervix was submitted, please contact the testing laboratory for alternative testing options. For additional information, please refer to [email or web address]/faq/WFC230n8 (This link if provided for information/ educational purposes only.) Interpretation/Re sult: Negative for intraepithelial lesion or malignancy. [facility] LMP: NONE GIVEN [facility] Neisseria gonorrhoeae RNA, TMA, Urogenital NOT DETECTED NOT DETECTED [facility] Prev. BX: NONE GIVEN [facility] Prev. PAP: NONE GIVEN [facility] SOURCE: None given [facility] Statement Of Adequacy: SEE COMMENT [facility] Comment: Satisfactory for evaluation. Endocervical/transformation zone component absent. Age and/or menstrual status not provided Trichomonas vaginalis, QL, TMA, PAP Vial NOT DETECTED NOT DETECTED [facility] Comment: The analytical performance characteristics of this assay have been determined by [employer]. The modifications have not been cleared or approved by the FDA. This assay has been validated pursuant to the CLIA regulations and is used for clinical purposes. For additional information, please refer to [email or web address]/ faq/Trichomonastma (This link is being provided for information/ educational purposes only.) 01/26/2022 7:48 PM EDT Connie Murray MD LAB PATHOLOGY ORDERABLES F inal Result Performing Organization Address [facility] de Phone Number [facility] * (ABNORMAL) ALBUMIN, RANDOM URINE W/CREATININE (09/12/2020 3:35 PM EDT) Microalbumin Urine 24.8 See Note: mg/dL [facility] Comment: Reference Range: Reference Range Not established Microalb/Creat Ratio 66(H) <30 mcg/mg creat [facility] Comment: The ADA defines abnormalities in albumin excretion as follows: Category Result (mcg/mg creatinine) Normal <30 Microalbuminuria 30-299 Clinical albuminuria > OR = 300 The ADA recommends that at least two of three specimens collected within a 3-6 month period be abnormal before considering a patient to be within a diagnostic category. Creatinine, Urine 376(H) 20 - 275 mg/dL [facility] Comment: Verified by repeat analysis. 09/12/2020 3:35 PM EDT Marsha BRIAN LAB URINE ORDERABLES Final Res ult Performing Organization Address [facility] Co de Phone Number [facility] [phone] from Last 3 Months or Most Recently Relevant to Health Maintenance Insurance Care Teams Packing And Shipping Clerk Relationship Specialty Start Date End Date Milvia Soto MD [address] [place] [id number] PCP - General Internal Medicine 03/17/23 Ryan Romo RN [address] [place] [address] Registered Nurse Family Medicine 10/02/24 Fawn Ceron 10/02/24
--- OUTSIDE RECORDS SUMMARY | 2025-02-19 16:34 | XMS_ITS ---
Author Organization [employer] Address 75 [facility] 7t [place] [address] Care Team Providers Care Die Operator Name Role Phone Milvia Soto MD Primary Care Pro vider Ryan Romo RN Unavailable [phone] Fawn Ceron Unavailable CHW Complex Status:Outreach In Progress (Enrolling) Start date:10/02/2024 Enrollment reason:ADT Feed Overview Provider Referral- pt with issues w memory neds help w apts Please outreach for enrollment. Case Team Name Relationship Phone Fawn Ceron(Responsible Staff) [phone] Continued Care and Services Coordination
--- OUTSIDE RECORDS SUMMARY | 2025-02-19 16:34 | XMS_ITS | Encounter Summary ---
Author Organization [employer] Address 75 [facility] 7t [place] [address] Care Team Providers Care Sales Management Trainee Name Role Phone Milvia Soto MD Primary Care Pro vider Ryan Romo RN Unavailable [phone] Fawn Ceron Unavailable Reason for Visit * Reason Onset Date Comments Appointment Request 06/06/2023 Encounter Details Date Type Department Care Team ([facility] st Contact Info) Description 06/06/2023 Telephone [facility] MEDICINE [address] [place], [place] [phone] Milvia Soto MD [address] [place], [place] [phone] Appointment Request Social History Tobacco Use Types Packs/Day Years [...] encounter Miscellaneous Notes * Telephone Encounter - Thomas Adamson - 06/06/2023 2:32 PM EST Tc from patient calling to reschedule appt for 06/02 however there is no availability at the moment documented in this encounter Plan of Treatment Upcoming Encounters Date Type Department Care Team (Late st Contact Info) Description 04/18/2025 10:00 AM EST Office Visit [facility] OPTOMETRY [address] [place], [place] [phone] Erna Lan OD [address] [place], [place] [phone] documented as of this encounter Visit Diagnoses Not on filedocumented in this encounter Additional Health Concerns Assessment Noted Time PHQ-9 Depression Total Score: 5 03/16/20 23 2:41 PM EST documented as of this encounter Care Teams Sales Management Trainee Relationship Specialty Start Date End Date Milvia Soto MD [address] [place], [place] [phone] PCP - General Internal Medicine 03/17/23 Ryan Romo, BG [address] [place] [address] [place] [address] Registered Nurse Family Medicine 10/02/24 Fawn Ceron 10/02/24 documented as of this encounter
--- OUTSIDE RECORDS SUMMARY | 2025-02-19 16:34 | XMS_ITS | Encounter Summary ---
Author Organization [facility] [employer] Address 75 [facility] 7t [place] [address] Care Team Providers Care Terminal Press Operator Name Role Phone Milvia Soto MD Primary Care Pro vider Ryan Romo RN Unavailable [phone] Fawn Ceron Unavailable Encounter Details Date Type Department Care Team ([facility] st Contact Info) Description 12/06/2024 Telephone [facility] MEDICINE [address] [place], [place] [phone] Milvia Soto MD [address] [place], [place] [phone] Social History Tobacco Use Types Packs/Day Years [...] encounter Miscellaneous Notes * Telephone Encounter - Promise Bowen RN - 12/07/2024 1:42 PM EDT Telephone call returned to patient in regards to below message. Patient stated needs new order because she is in pain. Patient verbalized understanding and denied having any further questions or concerns at this time. Patient to follow up as needed. Telephone call to [facility]. Spoke with mammogram tech, who stated patient would need a new order. Patient would need Diagnostic mammogram with diagnosis of pain (patient stated she had pain on both breasts all over). And order a bilateral limited ultrasound with it. * Telephone Encounter - Tamara Gustafson - 12/06/2024 3:14 PM EDT Tc from pt requesting a new order for mammogram. Pt stated she was advised to request a different one that would address her concerns not just a routine mammogram. Contact pt at [phone] (liberian) documented in this encounter Plan of Treatment Upcoming Encounters Date Type Department Care Team (Late st Contact Info) Description 04/18/2025 10:00 AM EST Office Visit [facility] OPTOMETRY [address] [place] [address] Erna Lan, OD [address] [place] [address] documented as of this encounter Visit Diagnoses Not on filedocumented in this encounter Additional Health Concerns Assessment Noted Time PHQ-9 Depression Total Score: 5 03/16/20 23 2:41 PM EST documented as of this encounter Care Teams Terminal Press Operator Relationship Specialty Start Date End Date Milvia Soto MD [address] [place] [address] PCP - General Internal Medicine 03/17/23 Ryan Romo RN [address] [place] [address] Registered Nurse Family Medicine 10/02/24 Fawn Ceron 10/02/24 documented as of this encounter
--- OUTSIDE RECORDS SUMMARY | 2025-02-19 16:34 | XMS_ITS | Encounter Summary ---
Author Organization [employer] Address [address] [place] [address] 7t [place] [address] Care Team Providers Care Blender / Cook Name Role Phone Heike Delarosa FIRST OFFICER Primary Care Provider Dilia Milvia Davis MD Primary Care Pro vider Ryan Romo RN Unavailable [phone] Fawn Ceron Unavailable Encounter Details Date Type Department Care Team (Latest Contact Info) Description 2018 Abstract [facility] CONVERSIONS Dental, Provider, DDS Social History Tobacco Use Types Packs/Day Years [...] 04/18/2025 10:00 AM EST Office Visit [facility] OPTOMETRY [address] [place], [place] [phone] Erna Lan OD [address] [place], [place] [phone] documented as of this encounter Visit Diagnoses Not on filedocumented in this encounter Care Teams Blender / Cook Relationship Specialty Start Date End Date Heike Delarosa FNP PCP - General Family Medicine 12/28/21 10/21/22 Milvia Soto MD [address] [place], [place] [phone] PCP - General Internal Medicine 03/17/23 Ryan Romo RN [address] [place] [address] [place] [address] Registered Nurse Family Medicine 10/02/24 Fawn Ceron 10/02/24 documented as of this encounter
== END 2025-02-19 12:58 | disposition home or self-care (01) ==
LOC: HO.MAMMO 12:57
PROVIDERS: PCP Student in an Organized Health Care Education/Training Program; Visit Provider Student in an Organized Health Care Education/Training Program
DX: N64.4 Mastodynia (principal)
CPT/HCPCS: 77062; 77066

== ENCOUNTER → 2025-02-19 13:02 | Outpatient (BNV) | payer MEDICAID, SELFPAY | PROVIDERS: PCP Student in an Organized Health Care Education/Training Program; Visit Provider Radiology Body Imaging | DX: N64.4 Mastodynia (principal) | CPT/HCPCS: 77062; 77066 ==

== ENCOUNTER 2025-02-22 10:13 | Outpatient (AMB) | payer MEDICAID, SELFPAY ==
[2025-02-22 10:17] VITALS: BP 132/61; PULSE 84; BMI 45.0
--- NOTE | 2025-02-22 10:17 | MHC.OFFVIS ---
Vital Signs 02/22/25 10:17 Height 5 ft 1 in Weight 238 lb 1.588 oz BMI 45.0 BP 132/61 Blood Pressure Location Lt brachial Position Sitting Pulse 84 Intake Visit Reasons: JM pt GERD/pre colonsocopy Intake Note: Patien Allergies No Known Allergies (No Known Allergies*) Allergy (Verified 02/22/25 10:30) HPI HPI JM pt GERD/pre colonsocopy: Details: Patient is a 59-year-old Turkish-speaking female with PMH of anxiety, asthma, diabetes, hypertension, history of hepatitis-C. Referred by PCP for further evaluation of GERD. She reports a long-standing history of constipation with bowel movements typically twice daily and intermittent episodes of hard stools, sometimes requiring use of senna. She experiences rare episodes of diarrhea. Management includes senna, which she takes at night, and it reliably improves constipation. She sometimes doubles her dose if unsure of prior intake. She describes symptoms of abdominal tightness and the sensation of a blockage while defecating, but denies regular abdominal pain. She reports symptomatic hemorrhoids, intermittently flaring, with a remote episode of rectal bleeding attributed to this. She improvises with homemade aloe suppositories for symptomatic management. She also has history of episodic burning upper abdominal sensation and nausea, particularly in the morning after breakfast and following senna use; omeprazole provides some relief. She denies typical heartburn or regurgitation, but notes burning and nausea instead. No significant weight fluctuation recently, but has gained weight relative to historical baseline. Relevant non-GI comorbidities include type 2 DM (managed with Jardiance, unsure about Trulicity dosing) and a history of hepatitis C, reportedly resolved. Prior colonoscopies were unremarkable except for a remote history of non-cancerous polyp. No prior upper endoscopy. Patient denies: fever/chills, n/v, appetite changes, pyrosis, regurgitation,dysphasia, unintentional wt loss, ab pain. Social hx: -denies ETOH use -Remote cocaine use, none current, denies curennt recreational drug use -former social smoker, denies nicotine dependence - family hx as below -denies personal hx of CA -denies significant cardiopulmonary history -tolerated anesthesia in the past without difficulty. [facility] Medical History (Updated 02/22/25 @ 11:42 by Marietta Avalos CNP) Hemorrhoids Acid reflux Colon cancer screening COVID-19 Axillary abscess Family history of colon cancer Chronic hepatitis Osteoarthritis of both knees Fibroid, uterine Dysmenorrhea Chronic female pelvic pain Anxiety Anemia, iron deficiency HTN (hypertension) Diabetes Arthritis Surgical History (Updated 02/22/25 @ 11:41 by Marietta Avalos CNP) History of cholecystectomy Hx of colonoscopy History of esophagogastroduodenoscopy (EGD) History of 3 sections Family History Brother Colon cancer Maternal Aunt Ovarian cancer Social History Alcohol intake: never Patient Tobacco Use Status: Never used Tobacco Review of Systems Const Reports as per HPI ENT Reports as per HPI Card Reports as per HPI Resp Reports as per HPI GI Reports as per HPI Reports as per HPI Physical Exam Vital Signs: Last Vital Signs Pulse 84 02/22/25 10:17 BP 132/61 02/22/25 10:17 BMI result Body Mass Index 45.0 Const General: healthy appearing, no acute distress and well developed Nutritional Appearance: obese Orientation/consciousness: patient oriented x3 HEENT Head: Yes normal to inspection, Yes normocephalic and Yes atraumatic Face and sinus: Yes normal facial exam Eyes General: appearance normal, both eyes and all related structures Neck Neck: Yes normal visual inspection Resp Effort & Inspection: normal respiratory effort, able to speak in complete sentences, no tracheal deviation and symmetric chest movement Cardio Jugular venous distension: no JVD GI Inspection: Yes normal to inspection, No distended and Yes obesity Palpation (GI): not firm, nontender and No hepatosplenomegaly present Auscultation: normal bowel sounds Neuro General: patient oriented x3 Gait exam (Neuro): Normal gait present Psych Appearance: grossly normal Mental Status: mental status grossly normal Speech and movement: Normal speech and movement present Affect: normal affect Attitude: cooperative Thought process: Normal thought process present Thought content: Normal thought content present Insight: Good insight present (Psych) Judgement: Good judgement present (Psych) Assessment & Plan Assessment & Plan (1) Colon cancer screening: Comment: 02/01/2017 colonoscopy ( Dr. Rboerts) complete with adequate prep-normal findings. Recommendations for repeat in 5 years. Code(s): Z12.11 - Encounter for screening for malignant neoplasm of colon Category: Medical Plan: Due for surveillance. Family hx of colon CA and large polyps Medications: -prescriptions for laxative tablets and MiraLax sent to pharmacy; instructions for Gatorade purchase and clear liquid diet given. Understands diabetes medications will need to be held days prior to procedure. Nurse to review med holds per protocol. Patient educated on scheduling process, procedure preparation, including avoiding certain foods and ensuring clear liquid intake Advised on necessity for ride post-procedure due to sedation. (2) Acid reflux: Code(s): K21.9 - Gastro-esophageal reflux disease without esophagitis Category: Medical Qualifiers: Esophagitis presence: esophagitis presence not specified Qualified Code(s): K21.9 - Gastro-esophageal reflux disease without esophagitis Plan: Episodic burning, nausea tied to meals/laxative use, omeprazole for years, risk factors include chronicity, age, obesity. s/p cholecystectomy Additional Testing: - EGD (scheduled during colonoscopy) to evaluate for esophagitis, Canales?s, peptic ulcer, or other pathology. Medication Management: - Continue omeprazole until EGD; reassess after result. Lifestyle Recommendations: - Continue to avoid known triggers/spicy food. - Small, frequent meals if tolerated. Follow-Up: - Review EGD findings; adjust PPI, as needed. (3) Chronic constipation: Code(s): K59.09 - Other constipation Category: Medical Plan: Long-standing symptoms, requires regular stimulant laxative, stool consistency and frequency fluctuate. Additional Testing: - None prior to colonoscopy; colonoscopy to rule out secondary causes. Medication Management: - Continue senna as prescribed, reinforce regular, not excessive use. Lifestyle Recommendations: - Increase dietary fiber (fruits, vegetables, beans, nuts, seeds) and hydration. - Clear liquid diet per colonoscopy protocol. Follow-Up: - Post-procedure to reassess constipation and review findings. (4) Hemorrhoids: Code(s): K64.9 - Unspecified hemorrhoids Category: Medical Qualifiers: Hemorrhoid type: unspecified Qualified Code(s): K64.9 - Unspecified hemorrhoids Plan: Episodic discomfort, rare rectal bleeding; history of hemorrhoids, self-management with aloe. Additional Testing: - Direct visualization during colonoscopy. Medication Management: - Continue topical management as tolerated. - No aluminum products inserted rectally. Lifestyle Recommendations: - High-fiber diet. - Adequate water intake. - Avoid straining. Follow-Up: - As needed per symptom recurrence or new findings at colonoscop (5) Diabetes: Code(s): E11.9 - Type 2 diabetes mellitus without complications Category: Medical Qualifiers: Diabetes mellitus type: type 2 Diabetes mellitus nursing home insulin use: without buttermaker helper use Diabetes mellitus complication status: with hyperglycemia Qualified Code(s): E11.65 - Type 2 diabetes mellitus with hyperglycemia Plan: Ongoing DM managed by PCP or endocrinology; on appropriate medications but needs education on Trulicity usage. Additional Testing: - Pending labs for diabetes (CBC, chem panel, A1c as per PCP) Medication Management: - Continue Jardiance. - Instruct patient to review Trulicity dosing with prescribing provider/pharmacy (Turkish instructions preferred). Lifestyle Recommendations: - Monitor glucose closely, sabra. around prep/clear liquids; adjust DM meds per instructions prior to procedure. Follow-Up: - Coordinate DM med adjustments with pre-op nurse/PCP prior to procedure. Plan Follow-up after endoscopy or sooner as needed Time: I spent a total of 45 minutes on the date of encounter which includes: Preparing to see the patient (reviewed previous documentation, test results and medical history) Performing a medically appropriate exam and/or evaluation Ordering medications, tests, and procedures Documenting clinical information in the health record Orders: Referrals GI Procedure Notification K21.9 - Gastro-esophageal reflux disease without esophagitis, Z12.11 - Encounter for screening for malignant neoplasm of colon, Z80.0 - Family history of malignant neoplasm of digestive organs Medications: New polyethylene glycol 3350 (Miralax) per colonoscopy prep instructions 238 grams PO ONCE 238 grams 0RF bisacodyl Take per colonoscopy instructions 20 mg (4 x 5 mg) PO ONCE 4 tabs 0RF Coding Level of Care Code New Pt New Pt Level 4 (29173) Patient Type New Diagnoses Colon cancer screening Z12.11 Gastroesophageal reflux disease, unspecified whether esophagitis present K21.9 Esophagitis presence: esophagitis presence not specified Chronic constipation K59.09 Hemorrhoids, unspecified hemorrhoid type K64.9 Hemorrhoid type: unspecified Type 2 diabetes mellitus with hyperglycemia, without long-term current use of insulin E11.65 Diabetes mellitus type: type 2 Diabetes mellitus nursing home insulin use: without nursing home use Diabetes mellitus complication status: with hyperglycemia
--- OUTSIDE RECORDS SUMMARY | 2025-02-22 11:41 | XMS_ITS ---
Author Organization [employer] Address 75 [facility] 7t [place] [address] Care Team Providers Care Sales And Events Coordinator Name Role Phone Milvia Soto MD Primary Care Pro vider Ryan Romo RN Unavailable [phone] Fawn Ceron Unavailable CM Complex Status:Outreach In Progress (Enrolling) Start date:10/02/2024 Enrollment reason:Referred by provider Overview Provider Referral- pt with issues w memory neds help w apts Case Team Name Relationship Phone Ryan Romo RN(Responsible Staff) Registered Nurse [phone] Continued Care and Services Coordination
--- OUTSIDE RECORDS SUMMARY | 2025-02-22 11:41 | XMS_ITS | Encounter Summary ---
Author Organization [employer] Address 75 [facility] 7t [place] [address] Care Team Providers Care Dinkey Skinner Name Role Phone Milvia Soto MD Primary Care Pro vider Ryan Romo RN Unavailable [phone] Fawn Ceron Unavailable Reason for Visit * Reason Onset Date Comments rs missed visit 06/08/2024 Encounter Details Date Type Department Care Team (Late st Contact Info) Description 06/08/2024 Telephone [facility] ADULT DENTAL [address] [place], [place] [phone] Preet Salazar DDS [address] [place], [place] [phone] rs missed visit Social History Tobacco Use [...] Description 04/18/2025 10:00 AM EST Office Visit [facility] OPTOMETRY [address] [place] [address] Erna Lan OD [address] [place] [address] documented as of this encounter Visit Diagnoses Not on filedocumented in this encounter Additional Health Concerns Assessment Noted Time PHQ-9 Depression Total Score: 5 03/16/20 23 2:41 PM EST documented as of this encounter Care Teams Dinkey Skinner Relationship Specialty Start Date End Date Milvia Soto MD [address] [place] [address] PCP - General Internal Medicine 03/17/23 Ryan Romo RN [address] [place] [address] Registered Nurse Family Medicine 10/02/24 Fawn Ceron 10/02/24 documented as of this encounter
--- OUTSIDE RECORDS SUMMARY | 2025-02-22 11:41 | XMS_ITS | Encounter Summary ---
Author Organization [employer] Address 75 [facility] 7t [place] [address] Care Team Providers Care Cable Dispatcher Name Role Phone Milvia Soto MD Primary Care Pro vider Ryan Romo RN Unavailable Fawn Ceron Unavailable Reason for Visit * Reason Onset Date Comments Appointment Request 01/11/2023 Needs new PC P Encounter Details Date Type Department Care Team (Late st Contact Info) Description 01/11/2023 Telephone [facility] MEDICINE [address] [place], [place] [phone] Heike Delarosa FNP Appointment Request (Needs new [...] Paez and has Dr. Delarosa assigned on Drive but no one on [employer]. documented in this encounter Plan of Treatment Upcoming Encounters Date Type Department Care Team (Late st Contact Info) Description 04/18/2025 10:00 AM EST Office Visit [facility] OPTOMETRY [address] [place], [place] [phone] Erna Lan, OD [address] [place] [address] documented as of this encounter Visit Diagnoses Not on filedocumented in this encounter Additional Health Concerns Assessment Noted Time PHQ-9 Depression Total Score: 8 08/21/19 11:05 AM EDT documented as of this encounter Care Teams Cable Dispatcher Relationship Specialty Start Date End Date Milvia Soto MD [address] [place] [address] PCP - General Internal Medicine 03/17/23 Ryan Romo, BG [address] [place] [address] Registered Nurse Family Medicine 10/02/24 Fawn Ceron 10/02/24 documented as of this encounter
--- OUTSIDE RECORDS SUMMARY | 2025-02-22 11:41 | XMS_ITS ---
Author Organization [employer] Address 75 [facility] 7t [place] [address] Care Team Providers Care Environmental Engineering Professor Name Role Phone Milvia Soto MD Primary Care Pro vider Ryan Romo RN Unavailable [phone] Fawn Ceron Unavailable CHW Complex Status:Outreach In Progress (Enrolling) Start date:10/02/2024 Enrollment reason:ADT Feed Overview Provider Referral- pt with issues w memory neds help w apts Please outreach for enrollment. Case Team Name Relationship Phone Fawn Ceron(Responsible Staff) [phone] Continued Care and Services Coordination
--- OUTSIDE RECORDS SUMMARY | 2025-02-22 11:41 | XMS_ITS | Encounter Summary ---
Author Organization [employer] Address 75 [facility] 7t [place] [address] Care Team Providers Care Supervisor [employer] Name Role Phone Heike Delarosa ANIMAL SKINNER Primary Care Provider Dilia Milvia Davis MD Primary Care Pro vider Ryan Romo RN Unavailable Fawn Ceron Unavailable Encounter Details Date Type Department Care Team ([facility] Contact Info) Description 07/30/2022 Orders Only [facility] MED & PEDS [address] [place], [place] [phone] Mariposa Albarado LPN Social History Tobacco Use [...] Upcoming Encounters Date Type Department Care Team ([facility] Contact Info) Description 04/18/2025 10:00 AM EST Office Visit [facility] OPTOMETRY [address] [place], [place] [phone] Erna Lan, OD [address] [place] [address] documented as of this encounter Visit Diagnoses Not on filedocumented in this encounter Care Teams Supervisor Water Treatment [employer] Relationship Specialty Start Date End Date Heike Delarosa FNP PCP - General Family Medicine 12/28/21 10/21/22 Milvia Soto MD [address] [place] [address] PCP - General Internal Medicine 03/17/23 Ryan Romo RN [address] [place] [address] Registered Nurse Family Medicine 10/02/24 Fawn Ceron 10/02/24 documented as of this encounter
--- OUTSIDE RECORDS SUMMARY | 2025-02-22 11:41 | XMS_ITS | Encounter Summary ---
Author Organization [employer] Address 75 [facility] 7t [place] [address] Care Team Providers Care Sulfur Burner Name Role Phone Milvia Soto MD Primary Care Pro vider Ryan Romo RN Unavailable [phone] Fawn Ceron Unavailable Reason for Visit * Reason Onset Date Comments Appointment Request 06/06/2023 Encounter Details Date Type Department Care Team ([facility] st Contact Info) Description 06/06/[address] [facility] MEDICINE [address] [place], [place] [phone] Milvia Soto MD [address] [place], [place] [phone] Appointment Request Social History Tobacco Use Types [...] Description 04/18/2025 10:00 AM EST Office Visit [facility] OPTOMETRY [address] [place], [place] [phone] Erna Lan OD [address] [place], [place] [phone] documented as of this encounter Visit Diagnoses Not on filedocumented in this encounter Additional Health Concerns Assessment Noted Time PHQ-9 Depression Total Score: 5 03/16/20 23 2:41 PM EST documented as of this encounter Care Teams Sulfur Burner Relationship Specialty Start Date End Date Milvia Soto MD [address] [place], [place] [phone] PCP - General Internal Medicine 03/17/23 Ryan Romo, BG [address] [place] [address] [place] [address] Registered Nurse Family Medicine 10/02/24 Fawn Ceron 10/02/24 documented as of this encounter
--- OUTSIDE RECORDS SUMMARY | 2025-02-22 11:41 | XMS_ITS | Encounter Summary ---
Author Organization [employer] Address 75 [facility] 7t [place] [address] Care Team Providers Care Quality Assurance Technician Name Role Phone Milvia Soto MD Primary Care Pro vider Ryan Romo RN Unavailable [phone] Fawn Ceron Unavailable Encounter Details Date Type Department Care Team (Latest Contact Info) Description 02/20/2025 Results Follow-Up [facility] MEDICINE [address] [place] [address] Milvia Soto MD [address] [place], [place] [phone] BI Mammogram Diagnostic Tomosynthesis Bilateral Social History Tobacco Use Types Packs/Day Years [...] as of this encounter Miscellaneous Notes * Result Encounter Note - Milvia Regalaod MD - 02/20/2025 9:35 PM EDT Please inform pt of normal mammogram report Thanks documented in this encounter Plan of Treatment Upcoming Encounters Date Type Department Care Team (Late st Contact Info) Description 04/18/2025 10:00 AM EST Office Visit [facility] OPTOMETRY [address] [place] [address] Erna Lan, OD [address] [place] [address] documented as of this encounter Visit Diagnoses Not on filedocumented in this encounter Additional Health Concerns Assessment Noted Time PHQ-9 Depression Total Score: 5 03/16/20 23 2:41 PM EST documented as of this encounter Care Teams Quality Assurance Technician Relationship Specialty Start Date End Date Milvia Soto MD [address] [place] [address] PCP - General Internal Medicine 03/17/23 Ryan Romo RN [address] [place] [phone] Registered Nurse Family Medicine 10/02/24 Fawn Ceron 10/02/24 documented as of this encounter
--- OUTSIDE RECORDS SUMMARY | 2025-02-22 11:41 | XMS_ITS | Clinical Summary ---
Author Organization [employer] Address 75 [facility] 7t [place] [address] Care Team Providers Care Restaurant Hospitality Manager Name Role Phone Milvia Soto MD Primary Care Pro vider Ryan Romo RN Unavailable [phone] Fawn Ceron Unavailable Allergies No known active allergies Medications prednisoLONE acetate (Pred-Forte) 1 % ophthalmic suspension INSTILL 1 DROP IN RIGHT EYE FOUR TIMES A DAY FOR 7 DAYS 3 Active senna (Senokot) 8.6 MG tablet TAKE 1 OR 2 TABLETS BY MOUTH AT BEDTIME 180 tablet 3 5 Active montelukast (Singulair) 10 MG tablet Take 1 tablet (10 mg) by mouth at bedtime. 90 tablet 1 5 Active albuterol 108 (90 Base) MCG/ACT inhaler Inhale 2 puffs every 6 (six) hours if needed for wheezing. 18 g 11 5 09/27/19 26 Active Advair HFA 230-21 MCG/ACT inhaler INHALE 2 PUFFS BY MOUTH TWICE DAILY IN THE MORNING AND IN THE EVENING. ADMINISTER WITH SPACER. RINSE MOUTH AFTER USING. 12 g 2 5 Active amLODIPine (Norvasc) 10 MG tabletIndications :Primary hypertension Take 1 tablet (10 mg) by mouth Once per day. 90 tablet 1 5 Active Aspirin Low Dose 81 MG EC tablet Take 1 tablet (81 mg) by mouth in the morning. 90 tablet 1 5 Active Alcohol Swabs (Alcohol Pads) 70 % pads Use as directed on skin check twice a day 100 each 5 Active Blood Glucose Monitoring Suppl (FreeStyle Aulander Lite) w/Device kit check twice a day 1 kit 5 Active FreeStyle lancets 1 each by Other route at noon and 1 each in the evening. Use bid, dx type 2 diabetes. 60 each 11 5 Active glucose blood (FREESTYLE LITE) test strip check twice a day 60 each 11 5 Active metFORMIN (Glucophage) 500 MG tablet Take 1 tablet (500 mg) by mouth with breakfast and with evening meal. 60 tablet 2 5 10/09/19 26 Active Dulaglutide (Trulicity) 0.75 MG/0.5ML solution auto-injector Inject 0.75 mg under the skin 1 (one) time per week. 0.5 mL 2 5 Active Multiple Vitamin (Multivitamin) tablet TAKE 1 TABLET BY MOUTH EVERY DAY 90 tablet 3 5 Active vitamin E 180 MG (400 UNIT) capsule TAKE 1 CAPSULE BY MOUTH EVERY MORNING 90 capsule 3 5 Active Jardiance 25 MG TAKE 1 TABLET BY MOUTH EVERY DAY IN THE MORNING 30 tablet 2 5 Active albuterol (2.5 MG/3ML) 0.083% nebulizer solution INHALE 1 AMPULE USING A NEBULIZER FOUR TIMES DAILY NEEDED 90 mL 1 5 Active atorvastatin (Lipitor) 10 MG tablet TAKE 1 TABLET BY MOUTH EVERY DAY AT BEDTIME 90 tablet 5 Active loratadine (Claritin) 10 MG tablet TAKE 1 TABLET BY MOUTH EVERY DAY IN THE MORNING 90 tablet 5 Active omeprazole (PriLOSEC) [address] capsuleIndication s:Gastroesophagea l reflux disease without esophagitis TAKE 1 CAPSULE BY MOUTH EVERY DAY BEFORE BREAKFAST 90 capsule 5 Active D3 Super Strength 50 MCG (2000 UT) capsule TAKE 1 CAPSULE BY MOUTH EVERY DAY IN THE MORNING 90 capsule 1 5 Active Active Problems Problem Noted Date Diagnosed Date Health care maintenance 03/17/2023 Hx of hepatitis C 03/17/2023 Morbid obesity (CMS/HCC) 03/17/2023 Anxiety 03/17/2023 GERD (gastroesophageal reflux disease) 3 History of tobacco use 03/17/2023 Neck pain [...] Encounters Date Type Department Care Team Description 02/20/2025 Results Follow-Up [facility] MEDICINE [address] [place] [address] Milvia Soto MD BI Mammogram Diagnostic Tomosynthesis Bilateral 02/07/2025 Telephone [facility] MEDICINE [address] [place] [address] Milvia Soto MD No Show 02/06/2025 Telephone [facility] MEDICINE [address] [place] [address] Milvia Soto MD chart prep 01/28/2025 Telephone [facility] MEDICINE [address] [place] [address] Milvia Soto MD Lab Orders 01/21/2025 Refill [facility] CHC MED & PEDS [address] [place] [address] Conine Murray MD 01/17/2025 Refill [facility] MEDICINE [address] [place] [address] Milvia Soto MD Gastroesophageal reflux disease without esophagitis 01/17/2025 Refill [facility] MEDICINE [address] [place] [address] Milvia Soto MD Gastroesophageal reflux disease without esophagitis 01/04/2025 Refill [facility] PEDS [address] [place] [address] Connie Murray MD 12/26/2024 Refill [facility] MEDICINE [address] [place] [address] Milvia Soto MD 12/07/2024 Orders Only [facility] MEDICINE [address] [place] [address] Milvia Soto MD Mastalgia (Primary Dx) 12/06/2024 Telephone [facility] MEDICINE [address] [place] [address] Milvia Soto MD 11/22/2024 Telephone [facility] MEDICINE [address] [place] [address] Milvia Soto MD chartprep from Last 3 [...] Description 04/18/2025 10:00 AM EST Office Visit [facility] OPTOMETRY [address] [place], [place] [phone] Erna Lan, OD [address] [place] [address] Health Maintenance Due Date Last Done Comments [...] 08/12/2023, 01/31, 09/12/2020 Eye Exam 08/12/2024 08/12/2022, 0406/2022, 08/12/2022, Additional history exists Dental Oral Exam [...] mellitus with other specified complication, unspecified whether joint terminal attack controller insulin use ([facility]) INTRAORAL - COMPLETE SERIES OF RADIOGRAPHIC IMAGES [...] Narrative 02/19/2025 4:12 PM EDT [facility] [address] [place], [place] [address] Mammography Report Signed Patient: Milvia Feliz MR#: [id number] 07 : 1965 Acct:[id number] Age/Sex: 59 / F ADM Date: 02/19/25 Loc: HO.MAMMO Attending Dr: Milvia Regalado MD Ordering Physician: Milvia Soto MD Re sults: 1Negative Date of Service: 02/19/25 Follow Up: 1 Year From Orig inal Mammogram Procedure(s): MM tomosynthesis diagnostic BI Accession Number(s): [id number] cc: Milvia Soto MD Reason For Exam: [...] 02/19/25 1600 DD/ 1347 TD/TT: 02/19/25 1350 Cooling Room Attendant: Procedure Note Donotuseinterpreter, Image - 02/19/2025 [facility] [address] [place] [address] Mammography Report Signed Patient: Milvia Feliz CMR#: [id number] 07 : 1965Acct:[id number] Age/Sex: 59 / FADM Date: 02/19/25 Loc: HO.MAMMO Attending Dr: Milvia Regalado MD Ordering Physician: Milvia Soto sults: 1Negative Date of Service: 02/19/25Follow Up: 1 Year From Orig inal Mammogram Procedure(s): MM tomosynthesis diagnostic BI Accession Number(s): [id number] cc: Milvia Soto MD Reason For Exam: [...] 02/19/25 1609 DD/ 1347 TD/TT: 02/19/25 1350 Cooling Room Attendant: Milvia Regalado MD IMG BI PROCEDURES Final Result * (ABNORMAL) POCT glycosylated hemoglobin (Hgb A1c) (09/26/2024 2:22 PM EDT) Pathologist [facility] Hemoglobin A1C 9.3(A) 4.0 - 6.0 % QC Media Lot # [id number] Lot# Expiration Date [id number] Blood Capillary blood specimen / Unknown 09/26/2024 2:22 PM EDT Milvia Regalado MD POINT OF CARE MIGUEL T ENTER/EDIT ORDERABLES Final Result * HIV-1/2 Antigen and Antibodies, Fourth Generation, with Reflexes (08/12/2023 11:23 AM EDT) Pathologist [facility] HIV AB/AG Nonreactive Nonreactive [facility] Comment:HIV-1 p24 Ag and/or HIV-1/HIV-2 Ab not detected.A test result that is nonreactive does not exclude thepossibility of exposure to or infection with HIV-1 and/orHIV-2. Nonreactive results in this assay for individualswith prior exposure to HIV-1 and/or HIV-2 may be due toantigen and antibody levels that are below the limit ofdetection of this assay.The [employer] HIV Ag/Ab Combo assay result andsupplemental assay results should be interpreted inconjunction with the patient's clinical presentation,history and other laboratory results. If the results areinconsistent with clinical evidence, additional testing issuggested to confirm the result. Blood Venous blood specimen / Unknown 08/12/2023 11:23 AM EDT 08/12/2023 11:31 AM EDT us Milvia Regalado MD LAB BLOOD ORDERAB LES Final Result Performing Organization Address [facility] Co de Phone Number [facility] [address] [place] [address] [phone] * (ABNORMAL) Lipid Panel, Standard (08/12/2023 11:23 AM EDT) Triglycerides 392(H) <150 mg/dL [facility] Comment:Desirable Triglyceri de: less than 150 mg/dLBorderline High Triglyceride 150-199 mg/dLHigh Triglyceride: 200-499 mg/dLVery High Triglyceride: greater than or equal to 5OO mg/dL Cholesterol 181 <200 mg/dL [facility] Comment:Desirable Cholestero l: less than 200 mg/dLBorderline High Cholesterol: 200-239 mg/dLHigh Cholesterol: greater than 239 mg/dL LDL Cholesterol Calculated 59 <100 mg/dL [facility] Comment:Desirable LDL: less than 100 mg/dLNear Optimal/Above Optimal LDL: 110- 129 mg/dLBorderline High LDL: 130-159 mg/dLHigh LDL: 160-189 mg/dLVery High LDL: greater than or equal to 190 mg/dL HDL Cholesterol 44 >40 mg/dL [facility] Comment:Desirable HDL: great er than 40 mg/dL Note: This HDL assay may give artificially low results in patients with liver disease. Blood Venous blood specimen / Unknown 08/12/2023 11:23 AM EDT 08/12/2023 11:31 AM EDT us Milvia Regalado MD LAB BLOOD ORDERAB LES Final Result Performing Organization Address City/[facility]/ZIP Co de Phone Number [facility] [address] [place] [address] [phone] * THINPREP TIS PAP AND HPV mRNA E6/E7, CT/NG, TRICH (01/26/2022 7:48 PM EDT) Chlamydia trachomatis RNA, TMA, Urogenital NOT DETECTED NOT DETECTED [facility] Clinical Information: None given [facility] COMMENT SEE COMMENT [facility] Comment: The analytical performance characteristics of this assay, when used to test SurePath(TM) specimens have been determined by [facility]. The modifications have not been cleared or approved by the FDA. This assay has been validated pursuant to the CLIA regulations and is used for clinical purposes. For additional information, please refer to https://education.[employer]/faq/WGG482 (This link is being provided for information/ educational purposes only.) COMMENT SEE COMMENT [facility] Comment: EXPLANATORY NOTE: The Pap is a [...] been evaluated with computer assisted technology. [facility]ED [facility] Concrete Mixing Plant Superintendent: SEE COMMENT [facility] Comment: ED, CT(ASCP) CT screening location: [place] [address] HPV nRNA E6/E7 Not Detected Not Detected CONVERTED [facility] Comment: Methodology: Histology Manager-Mediated Amplification This assay detects E6/E7 viral messenger RNA (mRNA) from 14 high-risk HPV types (16,18,31,33,35,39,45,51,52,56,58,59,66,68). Cervical sources are required for HPV testing. If a vaginal source from a patient who has had a total hysterectomy with removal of cervix was submitted, please contact the testing laboratory for alternative testing options. For additional information, please refer to http://[employer]/faq/FZI633h5 (This link if provided for information/ educational [...] of this assay have been determined by [facility]. The modifications have not been cleared or approved by the FDA. This assay has been validated pursuant to the CLIA regulations and is used for clinical purposes. For additional information, please refer to http://education.[employer]/ faq/Trichomonastma (This link is being provided for information/ educational purposes only.) 01/26/2022 7:48 PM EDT Connie Murray MD LAB PATHOLOGY ORDERABLES F inal Result Performing Organization Address [facility] de Phone Number [facility] [...] ORDERABLES Final Res ult Performing Organization Address [facility] Co de Phone Number [facility] [address] [place] [address], from Last 3 Months or Most Recently Relevant to Health Maintenance Insurance [employer] [address] [place] [id number] Care Teams Restaurant Hospitality Manager Relationship Specialty Start Date End Date Milvia Soto MD [address] [place] [address] PCP - General Internal Medicine 03/17/23 Ryan Romo, RN [address] [place] [address] [place] [address] Registered Nurse Family Medicine 10/02/24 Fawn Ceron 10/02/24
--- OUTSIDE RECORDS SUMMARY | 2025-02-22 11:41 | XMS_ITS | Encounter Summary ---
Author Organization [employer] Address 75 [facility] 7t [place] [address] Care Team Providers Care Hardware Manager Name Role Phone Milvia Soto MD Primary Care Pro vider Ryan Romo RN Unavailable [phone] Fawn Ceron Unavailable Encounter Details Date Type Department Care Team ([facility] st Contact Info) Description 12/06/2024 Telephone [facility] MEDICINE [address] [place], [place] [phone] Milvia Soto MD [address] [place], [place] [phone] Social History Tobacco Use Types Packs/Day Years [...] follow up as needed. Telephone call to [facility]. Spoke with mammogram tech, who [...] just a routine mammogram. Contact pt at [phone] (latvian) documented in this encounter Plan of Treatment Upcoming Encounters Date Type Department Care Team (Late st Contact Info) Description 04/18/2025 10:00 AM EST Office Visit [facility] OPTOMETRY [address] [place] [address] Erna Lan, OD [address] [place] [address] documented as of this encounter Visit Diagnoses Not on filedocumented in this encounter Additional Health Concerns Assessment Noted Time PHQ-9 Depression Total Score: 5 03/16/20 23 2:41 PM EST documented as of this encounter Care Teams Hardware Manager Relationship Specialty Start Date End Date Milvia Soto MD [address] [place] [address] PCP - General Internal Medicine 03/17/23 Ryan Romo RN [address] [place] [address] Registered Nurse Family Medicine 10/02/24 Fawn Ceron 10/02/24 documented as of this encounter
--- OUTSIDE RECORDS SUMMARY | 2025-02-22 11:41 | XMS_ITS | Encounter Summary ---
Author Organization [employer] Address [address] [place] [address] 7t [place] [address] Care Team Providers Care Plug Cutter Name Role Phone Heike Delarosa SAMPLE TESTER GRINDER Primary Care Provider Dilia Milvia Davis MD Primary Care Pro vider Ryan Romo RN Unavailable [phone] Fawn Ceron Unavailable Encounter Details Date Type Department Care Team (Latest Contact Info) Description 2018 Abstract [facility] CONVERSIONS Dental, Provider, DDS Social History Tobacco [...] Description 04/18/2025 10:00 AM EST Office Visit [facility] OPTOMETRY [address] [place], [place] [phone] Erna Lan OD [address] [place], [place] [phone] documented as of this encounter Visit Diagnoses Not on filedocumented in this encounter Care Teams Plug Cutter Relationship Specialty Start Date End Date Heike Delarosa FNP PCP - General Family Medicine 12/28/21 10/21/22 Milvia Soto MD [address] [place], [place] [phone] PCP - General Internal Medicine 03/17/23 Ryan Romo RN [address] [place] [address] [place] [address] Registered Nurse Family Medicine 10/02/24 Fawn Ceron 10/02/24 documented as of this encounter
--- OUTSIDE RECORDS SUMMARY | 2025-02-22 11:41 | XMS_ITS | Encounter Summary ---
Author Organization [employer] Address 75 [facility] 7t [place] [address] Care Team Providers Care Ballistics Laboratory Gunsmith Name Role Phone Milvia Soto MD Primary Care Pro vider Ryan Romo RN Unavailable [phone] Fawn Ceron Unavailable Reason for Visit * Reason Comments Med Refill Encounter Details Date Type Department Care Team (Late st Contact Info) Description 07/21/2023 Refill [facility] MEDICINE [address] [place], [place] [phone] Milvia Soto MD [address] [place], [place] [phone] Social History Tobacco Use Types Packs/Day Years [...] Description 04/18/2025 10:00 AM EST Office Visit [facility] OPTOMETRY [address] [place] [address] Erna Lan OD [address] [place] [address] documented as of this encounter Visit Diagnoses Not on filedocumented in this encounter Additional Health Concerns Assessment Noted Time PHQ-9 Depression Total Score: 5 03/16/20 23 2:41 PM EST documented as of this encounter Care Teams Ballistics Laboratory Gunsmith Relationship Specialty Start Date End Date Milvia Soto MD [address] [place] [address] PCP - General Internal Medicine 03/17/23 Ryan Romo, BG [address] [place] [address] Registered Nurse Family Medicine 10/02/24 Fawn Ceron 10/02/24 documented as of this encounter
== END 2025-02-22 11:29 | disposition home or self-care (01) ==
LOC: HO.HGI 10:14
PROVIDERS: PCP Student in an Organized Health Care Education/Training Program; Visit Provider Nurse Practitioner Family
DX: Z01.818 Encounter for other preprocedural examination (principal); Z12.11 Encounter for screening for malignant neoplasm of colon; K21.9 Gastro-esophageal reflux disease without esophagitis; K59.09 Other constipation; K64.9 Unspecified hemorrhoids; E11.65 Type 2 diabetes mellitus with hyperglycemia
CPT/HCPCS: 99204

== ENCOUNTER → 2025-02-22 10:13 | Outpatient (BNVA) | payer MEDICAID, SELFPAY | PROVIDERS: PCP Student in an Organized Health Care Education/Training Program; Visit Provider Nurse Practitioner Family | DX: Z01.818 Encounter for other preprocedural examination (principal); K21.9 Gastro-esophageal reflux disease without esophagitis; K59.09 Other constipation; K64.9 Unspecified hemorrhoids; E11.65 Type 2 diabetes mellitus with hyperglycemia; Z80.0 Family history of malignant neoplasm of digestive organs | CPT/HCPCS: 99212 ==

== ENCOUNTER 2025-04-04 10:58 | Outpatient (REF) | payer MEDICAID, SELFPAY ==
--- NOTE | ~2025-04-04 | XR_ITS ---
EXAMINATION: XR LUMBOSACRAL SPINE CLINICAL INFORMATION: pt with ongoing lower back pain acurte on chronic COMPARISON: January 21, 2023. TECHNIQUE: AP and lateral views. FINDINGS: Multilevel marginal osteophyte formation and endplate sclerosis throughout the axial skeleton pronounced at L5-S1. Decreased intervertebral disc height at L5-S1. Facet joint hypertrophy at L5-S1. No lytic or blastic lesions. Grade 1 anterolisthesis at L5-S1 secondary to spondylolysis pars interarticularis. XR/XR lumbar spine 2-3V IMPRESSION: Multilevel thoracolumbar spondylosis pronounced at L5-S1. 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 Electronically signed by: Dean Chin MD 04/04/2025 11:43 AM [facility]
[2025-04-04 11:26] LABS: Hematocrit 41.0 % (37.0-47.0); Hemoglobin 13.6 g/dl (12.0-16.0); Mean Corpuscular HGB Conc 33.2 g/dl (31.0-35.0); Mean Corpuscular Hemoglobin 27.7 pg (27.0-33.0); Mean Corpuscular Volume 83.5 fL (80.0-98.0); NRBC Abs Auto 0.000 X10*3/uL (0.0-0.012); NRBC Pct Auto 0.0 /100WBC (0.0-0.2); Platelet Count 246 X10*3/uL (160-400); Red Blood Count 4.91 X10*6/uL (4.20-5.50); White Blood Count 8.7 X10*3/uL (4.8-10.8)
[2025-04-04 12:18] LABS: Alanine Aminotransferase 19 U/L (0-31); Albumin Level 4.3 g/dL (3.5-5.0); Alkaline Phosphatase 83 U/L (39-117); Anion Gap 12 (12-20); Aspartate Amino Transferase 23 U/L (5-31); Blood Urea Nitrogen 11 mg/dL (9-16); Calcium 9.6 mg/dL (8.4-10.2); Carbon Dioxide 28 mmol/L (22-29); Chloride 104 mmol/L (96-108); Cholesterol 130 mg/dL (<200); Estimated Glomerular Filt Rate > 60; HDL Cholesterol 41 mg/dL (>40); Potassium 3.3 mmol/L (3.3-5.1); Sodium 141 mmol/L (135-145); Total Protein 7.3 g/dL (6.5-8.0); Triglycerides 183 mg/dL (<150)
[2025-04-04 12:20] LABS: Microalbum/Creatinine Ratio Ur 64.0 ug/mg cr (<30)
[2025-04-04 12:44] LABS: Folate 10.5 ng/mL (> or = 4.0); Vitamin B12 697 pg/mL (200-900)
[2025-04-05 05:04] LABS: HBS Num1 6.50 mIU/mL (0-7.99); HBc Num1 1.83 S/CO (0.00-0.79); HBsAGNum1 0.31 S/CO (0.00-0.99); HIV Num 1 0.07 S/CO (0.00-0.99); Hepatitis B Surface Antigen Negative (Negative); ~HepC Num1 15.10 S/CO (0.00-0.79); ~Hepatitis B Surface Antibody NONREACTIVE (Nonreactive); ~Hepatitis C Antibody Reactive (Nonreactive)
[2025-04-05 06:00] LABS: Syphilis Screen Nonreactive (Nonreactive)
[2025-04-05 06:02] LABS: HBc Num2 1.80 S/CO
[2025-04-05 06:03] LABS: HBc Num3 1.84 S/CO
[2025-04-06 07:04] LABS: Hepatitis B Core Antibody IgM NON-REACTIVE (NON-REACTIVE)
[2025-04-10 19:54] LABS: HCV Log PCR <1.18 NOT DETECTED Log IU/mL (NOT DETECTED); HepC Viral Load <15 NOT DETECTED IU/mL (NOT DETECTED)
== END 2025-04-04 10:59 | disposition home or self-care (01) ==
LOC: HO.XRAY 10:58
PROVIDERS: PCP Student in an Organized Health Care Education/Training Program; Visit Provider Student in an Organized Health Care Education/Training Program
DX: Z00.00 Encounter for general adult medical examination without abnormal findings (principal); M54.50 Low back pain, unspecified; G89.29 Other chronic pain; Z11.4 Encounter for screening for human immunodeficiency virus [HIV]; Z11.59 Encounter for screening for other viral diseases
CPT/HCPCS: 36415; 72100; 80053; 80061; 82043; 82306; 82570; 82607; 82746; 83036; 84443; 85027; 86704; 86705; 86706; 86780; 86803; 87340; 87389; 87522

== ENCOUNTER → 2025-04-04 11:21 | Outpatient (BNV) | payer MEDICAID, SELFPAY | PROVIDERS: PCP Student in an Organized Health Care Education/Training Program; Visit Provider Radiology Diagnostic Radiology | DX: M47.815 Spondylosis without myelopathy or radiculopathy, thoracolumbar region (principal) | CPT/HCPCS: 72100 ==

== ENCOUNTER 2025-04-18 18:16 | Outpatient (REF) | payer MEDICAID, SELFPAY ==
--- OUTSIDE RECORDS SUMMARY | 2025-04-18 10:00 | XMS_ITS | Encounter Summary ---
Author Organization [employer] Address [address] [facility] 7[address] [place] [address] Care Team Providers Care C.O.D. 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 female. Chief Complaint Diabetic Eye Exam HPI 59 yo female presents for diabetic eye exam with complaint of blurred vision since breaking her spectacles. She has Type 2 diabetes with last A1c 8.1 on 04/04/2025. At her last exam here in 2022 she had preseptal cellulitis in the right eye and was referred to the ER and then to [facility] for treatment and management. All symptoms have resolved with treatment. She denies all other ocular complaints. Last edited by Erna Lan, OD on 04/18/2025 10:40 AM. Current Medications[1] Medical History[2] Surgical History[3] Family History[4] Social History Socioeconomic History Marital status: Unknown Spouse name: Not on file Number of children: Not on file Years of education: Not on file Highest education level: Not on file Occupational History Not on file Tobacco Use Smoking status: Never Passive exposure: Never Smokeless tobacco: Never Tobacco comments: Started smoking tobacco 16 y of age and stopped 46 y of age ,smoked 3 cig a day for 30 years ---stopped 12 years ago , PQT year calc 4.5 Substance and Sexual Activity Alcohol use: Never Comment: hx of alcohol use not using for years Drug use: Yes Types: Cocaine, Marijuana Comment: stopped drugs 12 y ago Sexual activity: Not Currently Other Topics Concern Not on file Social History Narrative Not on file Social Drivers of Health Food Insecurity: Low Risk (09/26/2024) Food Insecurity Within the past 12 months, you worried that your food would run out before you got money to buy more:: Never True Within the past 12 months,the food you bought just didn't last and you didn't have enough money to get more: : Never True Transportation Needs: Low Risk (09/26/2024) Transportation In the past 12 months, has lack of transportation kept you from medical appts, meetings, work or from getting things needed for daily living? : No Intimate Partner Violence: Not on file Housing Stability: Low Risk (09/26/2024) Housing Stability What is your housing situation today?: I have housing Think about the place you live. Do you have problems with any of the following? : None of the above Allergies[5] ROS Positive for: Endocrine (Type 2 diabetes), Cardiovascular (hypertension, hyperlipidemia), Respiratory (asthma) Negative for: Constitutional, Gastrointestinal, Neurological, Skin, Genitourinary, Musculoskeletal,HENT, Eyes, Psychiatric, Allergic/Imm, Heme/Lymph Last edited by Erna Lan OD on 04/18/2025 10:37 AM. Base Eye Exam Visual Acuity (Snellen - Linear) Right Left Dist cc 20/25 +1 20/20 -1 Tonometry (iCare , 10:32 AM) Right Left Pressure 17 17 Pupils Pupils APD Right PERRL None Left PERRL None Visual Patel (Counting fingers) Left Right Full Full Extraocular Movement Right Left Full, Ortho Full, Ortho Neuro/Psych Oriented x3: Yes Mood/Affect: Normal Dilation Both eyes: 1.0% Mydriacyl @ 10:32 AM Slit Lamp and Fundus Exam External Exam Right Left External Normal Normal Slit Lamp Exam Right Left Lids/Lashes Normal Normal Conjunctiva/Sclera 1+ Injection 1+ Injection Cornea Clear Clear Anterior Chamber Deep and quiet Deep and quiet Iris No NVI No NVI Lens Clear peripheral posteror cortical changes Fundus Exam Right Left Vitreous Normal Normal Disc No NVD No NVD C/D Ratio Vertical 0.55 0.6 C/D Ratio Horizontal 0.55 0.6 Macula No CSME No CSME Vessels No NVE No NVE Periphery No holes, breaks, tears 360 No holes, breaks, tears 360 Refraction Wearing Rx Sphere Cylinder Valentines Add Right +1.25 -0.75 170 +2.25 Left +1.25 -0.75 010 +2.25 Type: DVO/NVO Manifest Refraction Sphere Cylinder Valentines Dist VA Add Near VA Right +1.25 -0.75 170 20/25+ +2.25 20/20 Left +1.25 -0.75 010 20/20- +2.25 20/20 Final Rx Sphere Cylinder Valentines Dist VA Add Near VA Right +1.25 -0.75 170 20/25+ +2.25 20/20 Left +1.25 -0.75 010 20/20- +2.25 20/20 Expiration Date: 04/18/2026 Assessment/plan: Diagnoses and all orders for this visit: Type 2 diabetes mellitus without ophthalmic manifestations (HCC) Type 2 diabetes without diabetic retinopathy or diabetic macular edema. Patient education regardingimportance of annual eye exam as well as maintaining good control of blood glucose and other co-morbidities. Recommend follow up with PCP as indicated. Monitor at annual eye examination or sooner if any changes in vision occur. 2. Hyperopia of both eyes with astigmatism and presbyopia Hyperopia with astigmatism and Presbyopia in a patient with complaint of blurred vision. Patient education regarding stable refraction and visual status. Copy of updated spectacle Rx given, monitor at annual exam or sooner if any changes in vision occur. Erna Lan, OD 04/18/2025, 10:53 AM Waste Elimination Source: ___ None __x_ Bilingual Staff ___ Qualified Staff Analyst Programmer ___ Telephone Waste Elimination; ID# ___ Waste Elimination brought by patient (family member, friend, BEVERAGE STEWARD, etc) ___ In person furniture sales consultant ___ Ipad Waste Elimination; ID#: Language Spoken During Exam: spanish [1] Current Outpatient Medications Medication Sig Dispense Refill Advair HFA 230-21 MCG/ACT inhaler INHALE 2 PUFFS BY MOUTH TWICE DAILY IN THE MORNING AND IN THE EVENING. ADMINISTER WITH SPACER. RINSE MOUTH AFTER USING. 12 g 2 albuterol (2.5 MG/3ML) 0.083% nebulizer solution INHALE 1 AMPULE USING A NEBULIZER FOUR TIMES DAILYAS NEEDED 90 mL 1 albuterol 108 (90 Base) MCG/ACT inhaler Inhale 2 puffs every 6 (six) hours if needed for wheezing. 18 g 11 Alcohol Swabs (Alcohol Pads) 70 % pads Use as directed on skin check twice a day 100 each 11 amLODIPine (Norvasc) 10 MG tablet Take 1 tablet (10 mg) by mouth Once per day. 90 tablet 1 Aspirin Low Dose 81 MG EC tablet Take 1 tablet (81 mg) by mouth in the morning. 90 tablet 1 atorvastatin (Lipitor) 10 MG tablet TAKE 1 TABLET BY MOUTH EVERY DAY AT BEDTIME 90 tablet 0 Blood Glucose Monitoring Suppl (FreeStyle Dougherty Lite) w/Device kit check twice a day 1 kit 0 D3 Super Strength 50 MCG (2000 UT) capsule TAKE 1 CAPSULE BY MOUTH EVERY DAY IN THE MORNING 90 capsule 1 Dulaglutide (Trulicity) 0.75 MG/0.5ML solution auto-injector Inject 0.75 mg under the skin 1 (one) time per week. 0.5 mL 2 FreeStyle lancets 1 each by Other route at noon and 1 each in the evening. Use bid, dx type 2 diabetes. 60 each 11 glucose blood (FREESTYLE LITE) test strip check twice a day 60 each 11 Jardiance 25 MG TAKE 1 TABLET BY MOUTH EVERY DAY IN THE MORNING 30 tablet 2 loratadine (Claritin) 10 MG tablet TAKE 1 TABLET BY MOUTH EVERY DAY IN THE MORNING 90 tablet 0 metFORMIN (Glucophage) 500 MG tablet Take 1 tablet (500 mg) by mouth with breakfast and with evening meal. 60 tablet 2 montelukast (Singulair) 10 MG tablet Take 1 tablet (10 mg) by mouth at bedtime. 90 tablet 1 Multiple Vitamin (Multivitamin) tablet TAKE 1 TABLET BY MOUTH EVERY DAY 90 tablet 3 omeprazole (PriLOSEC) [address] capsule TAKE 1 CAPSULE BY MOUTH EVERY DAY BEFORE BREAKFAST 90 capsule 0 prednisoLONE acetate (Pred-Forte) 1 % ophthalmic suspension INSTILL 1 DROP IN RIGHT EYE FOUR TIMES A DAY FOR 7 DAYS senna (Senokot) 8.6 MG tablet TAKE 1 OR 2 TABLETS BY MOUTH AT BEDTIME 180 tablet 3 vitamin E 180 MG (400 UNIT) capsule TAKE 1 CAPSULE BY MOUTH EVERY MORNING 90 capsule 3 No current facility-administered medications for this visit. [2] Past Medical History: Diagnosis Date Anxiety 03/17/2023 GERD (gastroesophageal reflux disease) 03/17/2023 Hidradenitis suppurativa 03/17/2023 Hyperlipidemia 09/15/2020 Hypertension 03/13/2015 Preseptal cellulitis of right eye Type 2 diabetes mellitus (HCC) 03/13/2015 [3] Past Surgical History: Procedure Laterality Date SECTION, UNSPECIFIED x3 CHOLECYSTECTOMY [4] Family History Problem Relation Name Age of Onset Stroke Mother Heart attack Father Colon cancer Brother Uterine cancer Mother's Sister [5] No Known Allergies documented in this encounter Plan of Treatment Upcoming Encounters Date Type Department Care Team (Late st Contact Info) Description 04/22/2025 1:30 PM EST Clinical Support [address] [address] 06/07/2025 1:30 PM EST Office Visit [facility] ADULT DENTAL [address] [place] [phone] Preet Salazar DDS [address] [place] [id number] 07/19/2025 9:45 AM EDT Office Visit [facility] MEDICINE [address] [place] [id number] Milvia Soto MD [address] [place] [address] 07/31/2025 1:30 PM EDT Office Visit [facility] ADULT DENTAL [address] [place] [phone] Tamara Sevilla [address] [place] [address] documented as of this encounter Goals Goal Patient Goal Type Associated Problems Recent Progress Patient-Stated? Author Help patients manage their type 2 diabetes Care Plan Help patients manage their type 2 diabetes No Milvia Soto MD Weekly blood pressure task Care Plan Weekly blood pressure task No Milvia Soto MD Help patients manage their type 2 diabetes Care Plan Help patients manage their type 2 diabetes No Milvia Soto MD Patient has chronic kidney disease Care Plan Patient has chronic kidney disease No Milvia Soto MD Weekly blood pressure task Care Plan Weekly blood pressure task No Milvia Soto MD Patient has chronic kidney disease Care Plan Patient has chronic kidney disease No Milvia Soto MD Weekly blood pressure task Care Plan Weekly blood pressure task No Monique Mukherjee MA Weekly blood pressure task Care Plan Weekly blood pressure task No AustellMonique bearden MA Patient has chronic kidney disease Care Plan Patient has chronic kidney disease No Monique Mukherjee MA Patient has chronic kidney disease Care Plan Patient has chronic kidney disease No Monique Mukherjee MA Weekly blood pressure task Care Plan Weekly blood pressure task No Fawn Ceron Weekly blood pressure task Care Plan Weekly blood pressure task No Fawn Ceron Patient has chronic kidney disease Care Plan Patient has chronic kidney disease No Fawn Ceron Patient has chronic kidney disease Care Plan Patient has chronic kidney disease No Fawn Ceron Weekly blood pressure task Care Plan Weekly blood pressure task No Reshma Ceron Weekly blood pressure task Care Plan Weekly blood pressure task No Reshma Ceron Patient has chronic kidney disease Care Plan Patient has chronic kidney disease No Reshma Ceron Patient has chronic kidney disease Care Plan Patient has chronic kidney disease No Reshma Ceron Weekly blood pressure task Care Plan Weekly blood pressure task No Erna Lan OD Weekly blood pressure task Care Plan Weekly blood pressure task No Erna Lan OD Patient has chronic kidney disease Care Plan Patient has chronic kidney disease No Erna Lan OD Patient has chronic kidney disease Care Plan Patient has chronic kidney disease No Erna Lan OD Weekly blood pressure task Care Plan Weekly blood pressure task No Alyson Crockett CNM Weekly blood pressure task Care Plan Weekly blood pressure task No Alyson Crockett CNM Patient has chronic kidney disease Care Plan Patient has chronic kidney disease No Alyson Crockett CNM Patient has chronic kidney disease Care Plan Patient has chronic kidney disease No Alyson Crockett, CNM documented as of this encounter Visit Diagnoses Diagnosis Type 2 diabetes mellitus without ophthalmic manifestations (HCC)- Primary Hyperopia of both eyes with astigmatism and presbyopia documented in this encounter Additional Health Concerns Active Problems Noted Date Diagnosed Date Help patients manage their type 2 diabetes 04/04 Weekly blood pressure task 04/04/2025 Help patients manage their type 2 diabetes 04/04 Patient has chronic kidney disease 04/04/2025 Weekly blood pressure task 04/04/2025 Patient has chronic kidney disease 04/04/2025 Weekly blood pressure task 04/04/2025 Weekly blood pressure task 04/04/2025 Patient has chronic kidney disease 04/04/2025 Patient has chronic kidney disease 04/04/2025 Weekly blood pressure task 04/08/2025 Weekly blood pressure task 04/08/2025 Patient has chronic kidney disease 04/08/2025 Patient has chronic kidney disease 04/08/2025 Weekly blood pressure task 04/09/2025 Weekly blood pressure task 04/09/2025 Patient has chronic kidney disease 04/09/2025 Patient has chronic kidney disease 04/09/2025 Weekly blood pressure task 04/18/2025 Weekly blood pressure task 04/18/2025 Patient has chronic kidney disease 04/18/2025 Patient has chronic kidney disease 04/18/2025 Weekly blood pressure task 04/18/2025 Weekly blood pressure task 04/18/2025 Patient has chronic kidney disease 04/18/2025 Patient has chronic kidney disease 04/18/2025 Assessment Noted Time PHQ-9 Depression Total Score: 5 03/16/20 23 2:41 PM EST documented as of this encounter Care Teams C.O.D. Clerk Relationship Specialty Start Date End Date Milvia Soto MD [address] [place] [id number] PCP - General Internal Medicine 03/17/23 documented as of this encounter
--- OUTSIDE RECORDS SUMMARY | 2025-04-18 13:15 | XMS_ITS | Encounter Summary ---
Author Organization [employer] Address [address] [facility] [address] [place] [address] Care Team Providers Care Television Agent Name Role Phone Milvia Soto MD Primary Care Pro vider Reason for Visit * Reason Comments uti symtoms Encounter Details Date Type Department Care Team ([facility] Contact Info) Description 04/18/2025 1:15 PM EST Office Visit [facility] MEDICINE [address] [place] [address] Alyson Crockett CN [address] [place] [address] Urinary symptom or sign (Primary Dx); Vanessa vaginitis Social History Tobacco Use Types Packs/Day Years [...] AM EDT documented as of this encounter Last Filed Vital Signs Vital Sign Reading Time Taken Comments Blood Pressure 150/80 04/18/2025 1:39 PM EST Pulse 90 04/18/2025 1:39 PM EST Temperature 37.1 C (98.7 F) 04/18/2025 1:39 PM EST Respiratory Rate 16 04/18/2025 1:39 PM EST Oxygen Saturation 95% 04/18/2025 1:39 PM EST Inhaled Oxygen Concentration - - Weight 107 kg (235 lb 12.8 oz) 04/18/2025 1:39 P M EST Height - - Body Mass Index 44.55 09/26/2024 2:22 PM EDT documented in this encounter Progress Notes * Alyson Crockett CNM - 04/18/2025 1:15 PM EST Subjective Patient ID: Milvia Feliz is a 59 y.o. female who presents for UTI symptoms Notes suprapubic discomfort, burning with urination for past month. Denies discharge, but maybe some vaginal irritation. Postmenopausal, no bleeding. Not sexually active in years. Would like provider collected vaginal swabs. Reports that she needs refills on all her meds. Reviewed that request is in process and she will becontacted when medication available. Review of Systems Constitutional: Negative for chills and fever. Genitourinary: Positive for dysuria, pelvic pain and urgency. Negative for vaginal bleeding, vaginal discharge and vaginal pain. Objective BP (!) 150/80 (BP Location: Left arm, Patient Position: Sitting, BP Cuff Size: Adult long) Pulse 90 Temp 98.7 ??F (37.1 ??C) (Oral) Resp 16 Wt 235 lb 12.8 oz (107 kg) SpO2 95% BMI 44.55 kg/m?? Physical Exam Constitutional: Appearance: Normal appearance. Abdominal: Tenderness: There is no right CVA tenderness or left CVA tenderness. Genitourinary: General: Normal vulva. Labia: Right: No rash, tenderness, lesion or injury. Left: No rash, tenderness, lesion or injury. Comments: Left labia minora larger than right Blind swab collection Neurological: Mental Status: She is alert. Psychiatric: Mood and Affect: Mood normal. Behavior: Behavior normal. Assessment/Plan Diagnoses and all orders for this visit: Urinary symptom or sign - POCT urinalysis dipstick manually resulted (CPT 96738) - Culture, Urine, Routine UA not consistent with UTI, but pos glucose. Urged good glucose control, stay hydrated. Will send C&S and treat positive results. Vanessa vaginitis - Bacterial Vaginosis Panel - POCT fern test, vaginal fluid manually resulted For terconazole as prescribed. Avoid irritants. Urged good glucose control. Report worsening or persistent symptoms. Other orders - terconazole (Terazol 7) 0.4 % vaginal cream; Insert 1 applicator into the vagina at bedtime for 7days. If symptoms persist after treatment, and all testing negative, consider trial of vaginal estrogen. documented in this encounter Plan of Treatment Upcoming Encounters Date Type Department Care Team (Late st Contact Info) Description 04/22/2025 1:30 PM EST Clinical Support [facility] MEDICINE [address] [place] [address] 06/07/2025 1:30 PM EST Office Visit [facility] ADULT DENTAL [address] [place] [address] Preet Salazar DDS [address] [place] [address] 07/19/2025 9:45 AM EDT Office Visit [facility] MEDICINE [address] [place] [address] Milvia Soto MD [address] [place] [address] 07/31/2025 1:30 PM EDT Office Visit [facility] ADULT DENTAL [address] [place] [address] Roel Tamara [address] [place] [address] Scheduled Orders Name Type Priority Associated Diagnoses Orde r Schedule Culture, Urine, Routine Microbiology Routine Urinary symptom or sign Ordered: 04/18/2025 Bacterial Vaginosis Panel Microbiology Routine Vanessa vaginitis Ordered: 04/18/2025 documented as of this encounter Goals Goal [...] blood pressure task No Monique Mukherjee MA Patient has chronic [...] Care Plan Weekly blood pressure task No Osmany Salinasnasima Weekly blood pressure task Care Plan Weekly blood pressure task No Osmany Salinasnasima Patient has chronic kidney disease Care Plan Patient has chronic kidney disease No Osmany Salinasnasima Patient has chronic kidney disease Care Plan Patient has chronic kidney disease No Reshma Ceron Weekly blood pressure task Care Plan Weekly blood pressure task No Tolls Erna, OD Weekly blood pressure task Care Plan Weekly blood pressure task No Tolls Erna, OD Patient has chronic kidney disease Care Plan Patient has chronic kidney disease No Tolls Erna, OD Patient has chronic kidney disease Care Plan Patient has chronic kidney disease No Edyta Erna, OD Weekly blood pressure task Care Plan Weekly blood pressure task No Alyson Crockett CNM Weekly blood pressure task Care Plan Weekly blood pressure task No Alyson Crockett CNM Patient has chronic kidney disease Care Plan Patient has chronic kidney disease No Alyson Crockett CNM Patient has chronic kidney disease Care Plan Patient has chronic kidney disease No Alyson Crockett CNM documented as of this encounter Procedures Procedure Name Priority Date/Time Associated Diagnosis Comments POCT WET MOUNT/NELLY Routine 04/18/2025 2: 37 PM EST Vanessa vaginitis POCT URINALYSIS DIPSTICK Routine 04/18/2025 1:49 PM EST Urinary symptom or sign documented in this encounter Results * POCT fern test, vaginal fluid manually resulted (04/18/2025 2:37 PM EST) NELLY Prep Positive Comment:pH 4.5, neg whiff, n eg clue, neg trich, pos yeast, neg wbc Vaginal Fluid Vaginal structure / Unknown 04/18/2025 2:37 PM EST Alyson Crockett CNM POINT OF CARE TEST ENTER/ EDIT ORDERABLES Final Result * POCT urinalysis dipstick manually resulted (CPT 55400) (04/18/2025 1:49 PM EST) Color, UA Yellow Clarity, UA Clear Glucose, UA 3+ 500+++ Bilirubin, UA Negative Ketones, UA Negative Spec Grav, UA 1.010 Blood, UA Negative Negative, None Detected pH, UA 5.5 Protein, UA Negative Urobilinogen, UA 0.2 Leukocytes, UA Negative Negative, Rare, Trace, 1+ (17), 2+ (35), 3+ (70), Trace (15) Nitrite, UA Negative Negative, None Detected Appearance, UA clear QC Media Lot # [id number] Lot# Expiration Date [id number] Urine (Urine, Random) 04/18/2025 1:49 PM EST Alyson Crockett CNM POINT OF CARE TEST ENTER/ EDIT ORDERABLES Final Result documented in this encounter Visit Diagnoses Diagnosis Urinary symptom or sign- Primary Vanessa vaginitis Candidiasis of vulva and vagina documented in this encounter Additional Health Concerns [...] documented as of this encounter Care Teams Television Agent Relationship Specialty Start Date End Date Milvia Soto MD [address] [place] [id number] PCP - General Internal Medicine 03/17/23 documented as of this encounter
--- OUTSIDE RECORDS SUMMARY | 2025-04-18 19:56 | XMS_ITS | Encounter Summary ---
Author Organization [employer] Address [address] [facility] [address] [place] [address] Care Team Providers Care Html Web Developer Name Role Phone Milvia Soto MD Primary Care Pro vider Ryan Romo RN Unavailable [phone] Fawn Ceron Unavailable Encounter Details Date Type Department Care Team ([facility] st Contact Info) Description 12/06/2024 Telephone [facility] MEDICINE [address] [place], [place] [phone] Milvia Soto MD [address] [place], [place] [phone] Social History Tobacco Use Types Packs/Day Years [...] follow up as needed. Telephone call to [facility]. Spoke with mammogram tech, [...] just a routine mammogram. Contact pt at [phone] (belarusian) documented in this encounter Plan of Treatment Upcoming Encounters Date Type Department Care Team (Late st Contact Info) Description 04/22/2025 1:30 PM EST Clinical Support [facility] MEDICINE [address] [place] [address] 06/07/2025 1:30 PM EST Office Visit [facility] ADULT DENTAL [address] [place] [address] Preet Salazar DDS [address] [place] [address] 07/19/2025 9:45 AM EDT Office Visit [facility] MEDICINE [address] [place] [address] Milvia Soto MD [address] [place] [address] 07/31/2025 1:30 PM EDT Office Visit [facility] ADULT DENTAL [address] [place] [address] Tamara Sevilla [address] [place] [address] documented as of this encounter Visit Diagnoses Not on filedocumented in this encounter Additional Health Concerns Assessment Noted Time PHQ-9 Depression Total Score: 5 03/16/20 23 2:41 PM EST documented as of this encounter Care Teams Html Web Developer Relationship Specialty Start Date End Date Milvia Soto MD [address] [place] [address] PCP - General Internal Medicine 03/17/23 Ryan Romo RN [address] [place] [address] [place] [address] Registered Nurse Family Medicine 10/02/24 04/08/25 Fawn Ceron 10/02/24 04/08/25 documented as of this encounter
--- OUTSIDE RECORDS SUMMARY | 2025-04-18 19:56 | XMS_ITS | Encounter Summary ---
Author Organization [employer] Address [address] [facility] 7t [place] [address] Care Team Providers Care Sawing And Assembly Supervisor Name Role Phone Milvia Soto MD Primary Care Pro vider Ryan Romo RN Unavailable [phone] Fawn Ceron Unavailable Reason for Visit * Reason Onset Date Comments Appointment Request 06/06/2023 Encounter Details Date Type Department Care Team ([facility] st Contact Info) Description 06/06/2023 Telephone [facility] MEDICINE [address] [place], [place] [phone] Milvia Soto MD [address] [place], [place] [phone] Appointment Request Social History Tobacco Use Types [...] Description 04/22/2025 1:30 PM EST Clinical Support [address] [address] 06/07/2025 1:30 PM EST Office Visit [facility] ADULT DENTAL [address] [place] [address] Preet Salazar DDS [address] [place] [phone] 07/19/2025 9:45 AM EDT Office Visit [address] [address] Milvia Soto MD [address] [place] [address] 07/31/2025 1:30 PM EDT Office Visit [facility] ADULT DENTAL [address] [place], [place] [phone] Tamara Sevilla [address] [place] [address] documented as of this encounter Visit Diagnoses Not on filedocumented in this encounter Additional Health Concerns Assessment Noted Time PHQ-9 Depression Total Score: 5 03/16/20 23 2:41 PM EST documented as of this encounter Care Teams Sawing And Assembly Supervisor Relationship Specialty Start Date End Date Milvia Soto MD [address] [place], [place] [phone] PCP - General Internal Medicine 03/17/23 Ryan Romo RN [address] [place] [address] Registered Nurse Family Medicine 10/02/24 04/08/25 Fawn Ceron 10/02/24 04/08/25 documented as of this encounter
--- OUTSIDE RECORDS SUMMARY | 2025-04-18 19:56 | XMS_ITS | Encounter Summary ---
Author Organization [employer] Address 75 [facility] 7t [place] [address] Care Team Providers Care Earth Science Teacher Name Role Phone Heike Delarosa GROUNDHAND Primary Care Provider Dilia Milvia Davis MD Primary Care Pro vider Ryan Romo RN Unavailable [phone] Fawn Ceron Unavailable Encounter Details Date Type Department Care Team (Late Contact Info) Description 07/30/2022 Orders Only [facility] MED [facility] PEDS [address] [place] [address] Mariposa Albarado LPN Social History Tobacco Use [...] Encounters Date Type Department Care Team (Late Contact Info) Description 04/22/2025 1:30 PM EST Clinical Support [facility] MEDICINE [address] [place], [place] [phone] 06/07/2025 1:30 PM EST Office Visit [facility] ADULT DENTAL [address] [place], [place] [phone] Preet Salazar DDS [address] [place] [address] 07/19/2025 9:45 AM EDT Office Visit [facility] MEDICINE [address] [place] [address] Milvia Soto MD [address] [place] [address] 07/31/2025 1:30 PM EDT Office Visit [facility] ADULT DENTAL [address] [place] [address] Roel, Tamara [address] [place] [address] documented as of this encounter Visit Diagnoses Not on filedocumented in this encounter Care Teams Earth Science Teacher Relationship Specialty Start Date End Date Heike Delarosa FNP PCP - General Family Medicine 12/28/21 10/21/22 Milvia Soto MD [address] [place] [address] PCP - General Internal Medicine 03/17/23 Ryan Romo, BG [address] [place] [address] Registered Nurse Family Medicine 10/02/24 04/08/25 Fawn Ceron 10/02/24 04/08/25 documented as of this encounter
--- OUTSIDE RECORDS SUMMARY | 2025-04-18 19:56 | XMS_ITS | Encounter Summary ---
Author Organization [employer] Address 75 [facility] 7t [place] [address] Care Team Providers Care Hospice Community Liaison Name Role Phone Milvia Soto MD Primary Care Pro vider Reason for Visit * Reason Comments Med Refill Encounter Details Date Type Department Care Team ([facility] st Contact Info) Description 04/18/2025 Refill [facility] MEDICINE [address] [place], [place] [phone] Milvia Soto MD [address] [place] [address] Primary hypertension; Gastroesophageal reflux disease without esophagitis Social History Tobacco Use Types Packs/Day Years [...] Description 04/22/2025 1:30 PM EST Clinical Support [address] [address] 06/07/2025 1:30 PM EST Office Visit [facility] ADULT DENTAL [address] [place] [address] Preet Salazar DDS [address] [place] [address] 07/19/2025 9:45 AM EDT Office Visit [facility] MEDICINE [address] [place] [address] Milvia Soto MD [address] [place] [address] 07/31/2025 1:30 PM EDT Office Visit [facility] ADULT DENTAL [address] [place] [address] Tamara Sevilla [address] [place] [address] documented as of this encounter Goals Goal [...] Care Plan Patient has chronic kidney disease Alyson Palacios CNM documented as of this encounter Visit Diagnoses Diagnosis Primary hypertension Unspecified essential hypertension Gastroesophageal reflux disease without esophagitis Esophageal reflux documented in this encounter Additional Health Concerns [...] documented as of this encounter Care Teams Hospice Community Liaison Relationship Specialty Start Date End Date Milvia Soto MD [address] [place] [phone] PCP - General Internal Medicine 03/17/23 documented as of this encounter
--- OUTSIDE RECORDS SUMMARY | 2025-04-18 19:56 | XMS_ITS | Encounter Summary ---
Author Organization [employer] Address 75 [facility] 7t [place] [address] Care Team Providers Care Capacity Planner Name Role Phone Milvia Soto MD Primary Care Pro vider Ryan Romo RN Unavailable [phone] Fawn Ceron Unavailable Reason for Visit * Reason Comments Med Refill Encounter Details Date Type Department Care Team (Late st Contact Info) Description 07/21/2023 Refill [facility] MEDICINE [address] [place], [place] [phone] Milvia Soto MD [address] [place], [place] [phone] Social History Tobacco Use Types Packs/Day Years [...] the past 12 months, has t he [employer], gas, oil or water company threatened to [...] Description 04/22/2025 1:30 PM EST Clinical Support [address] [address] 06/07/2025 1:30 PM EST Office Visit [facility] ADULT DENTAL [address] [place] [address] Preet Salazar DDS [address] [place] [address] 07/19/2025 9:45 AM EDT Office Visit [facility] MEDICINE [address] [place] [address] Milvia Soto MD [address] [place] [address] 07/31/2025 1:30 PM EDT Office Visit [facility] ADULT DENTAL [address] [place] [address] Tamara Sevilla [address] [place] [address] documented as of this encounter Visit Diagnoses Not on filedocumented in this encounter Additional Health Concerns Assessment Noted Time PHQ-9 Depression Total Score: 5 03/16/20 2:41 PM EST documented as of this encounter Care Teams Capacity Planner Relationship Specialty Start Date End Date Milvia Soto MD [address] [place] [phone] PCP - General Internal Medicine 03/17/23 Ryan Romo RN [address] [place] [address] Registered Nurse Family Medicine 10/02/24 04/08/25 Fawn Ceron 10/02/24 04/08/25 documented as of this encounter
--- OUTSIDE RECORDS SUMMARY | 2025-04-18 19:56 | XMS_ITS | Encounter Summary ---
Author Organization [employer] Address [address] [facility] 7t [place] [address] Care Team Providers Care Agricultural Economics Teacher Name Role Phone Milvia Soto MD Primary Care Pro vider Encounter Details Date Type Department Care Team (Latest Contact Info) Description 04/18/2025 Travel Social History Tobacco Use Types Packs/Day Years [...] your housing situation today? I have clarke devora 09/26/[address] you li [...] Description 04/22/2025 1:30 PM EST Clinical Support [address] [address] 06/07/2025 1:30 PM EST Office Visit [facility] ADULT DENTAL [address] [place] [address] Preet Salazar DDS [address] [place] [address] 07/19/2025 9:45 AM EDT Office Visit [facility] MED[facility] [address] [place] [address] Milvia Soto MD [address] [place] [address] 07/31/2025 1:30 PM EDT Office Visit [facility] ADULT DENT[facility] [address] [place] [address] Tamara Sevilla [address] [place] [address] documented as of this encounter Goals Goal Patient Goal Type Associated Problems Recent Progress Patient-Stated? Author Help patients manage their type 2 diabetes Care Plan Help patients manage their type 2 diabetes Milvia Whitehead MD Weekly blood pressure task Care Plan Weekly blood pressure task No Milvia Soto MD Help patients manage their type 2 diabetes Care Plan Help patients manage their type 2 diabetes Milvia Whitehead MD Patient has chronic kidney disease Care [...] Crockett CNM documented as of this encounter Visit Diagnoses Not on filedocumented in this encounter Additional Health Concerns Active [...] documented as of this encounter Care Teams Agricultural Economics Teacher Relationship Specialty Start Date End Date Milvia Soto MD [address] [place] [address] PCP - General Internal Medicine 03/17/23 documented as of this encounter
--- OUTSIDE RECORDS SUMMARY | 2025-04-18 19:56 | XMS_ITS | Clinical Summary ---
Author Organization [employer] Address [address] [facility] [address] [place] [address] Care Team Providers Care Head Of It Name Role Phone Milvia Soto MD Primary Care Pro vider Allergies No known active allergies Medications prednisoLONE [...] check twice a day 100 each 11 5 Active Blood Glucose Monitoring Suppl (FreeStyle [place] Lite) w/Device kit check twice a day 1 kit 5 Active FreeStyle lancets 1 each by Other route at noon and 1 each in the evening. Use bid, dx type 2 diabetes. 60 each 5 Active glucose blood (FREESTYLE LITE) test strip check twice a day 60 each 5 Active metFORMIN (Glucophage) 500 MG tablet [...] DAY IN THE MORNING 30 tablet 2 03/20/2025 8:50 AM EST 5 Active albuterol (2.5 MG/3ML) 0.083% nebulizer [...] THE MORNING 90 capsule 1 5 Active terconazole (Terazol 7) 0.4 % vaginal cream Insert 1 applicator into the vagina at bedtime for 7 days. 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); Hyperopia of both eyes with astigmatism and presbyopia 04/18/2025 Refill [facility] [address] [place], [place] [phone] Milvia Soto MD Primary hypertension; Gastroesophageal reflux disease without esophagitis 04/18/2025 Travel 04/09/2025 Telephone [facility] [address] [place], [place] [phone] Milvia Soto MD Results 04/08/2025 Patient Outreach [facility] [address] [facility] [place] [address] Milvia Soto MD Care Coordination (CM/CHW outreach) 04/04/2025 Orders Only [facility] [address] [facility] [place] [address] Milvia Soto MD 04/04/2025 Telephone [facility] [address] [place] [address] Milvia Soto MD Follow up 04/04/2025 Results Follow-Up [facility] [address] [facility] [place] [address] Milvia Soto MD Albumin, Random Urine W/Creatinine, CBC, Comprehensive Metabolic Panel, Additional followed-up results: 6 02/20/2025 Results Follow-Up [address] [address] Milvia Soto MD BI Mammogram Diagnostic Tomosynthesis Bilateral 02/07/2025 Telephone [facility] [address] [facility] [place] [address] Milvia Soto MD No Show 02/06/2025 Telephone [facility] [address] [place] [address] Milvia Soto MD chart prep 01/28/[address] [address] Milvia Soto MD Lab Orders 01/21/2025 Refill [facility] [address] [place] [address] Connie Murray MD 01/17/2025 Refill [facility] [address] [place] [address] Milvia Soto MD Gastroesophageal reflux disease without esophagitis 01/17/2025 Refill [facility] [address] [place] [address] Milvia Soto MD Gastroesophageal reflux disease without esophagitis from Last 3 Months Immunizations Immunization Administration [...] oz) 04/18/2025 1:39 P M EST Height 154.9 cm (5' 1 ) 09/26/2024 2:22 PM EDT Body Mass Index 44.55 09/26/2024 2:22 PM EDT Plan of Treatment Upcoming Encounters Date Type Department Care Team (Late st Contact Info) Description 04/22/2025 1:30 PM EST Clinical Support [facility] [address] [place] [address] 06/07/2025 1:30 PM EST Office Visit [facility] [address] [place] [address] Preet Salazar DDS [address] [place] [address] 07/19/2025 9:45 AM EDT Office Visit [facility] [address] [place] [address] [place] [address] Milvia Soto MD [address] [place], [place] [phone] 07/31/2025 1:30 PM EDT Office Visit [facility] [address] [place], [place] [phone] Tamara Sevilla [address] [place] [address] Health Maintenance Due Date Last Done Comments CT Colonography 1966 Colonoscopy 1966 Colorectal Cancer Screening 1966 FIT DNA/Cologuard 1966 FIT 1966 FOBT 1966 Sigmoidoscopy 1966 Diabetes: Foot Exam 1976 Hepatitis A Vaccines (1 of 2 - Risk 2-dose series) 1985 Hepatitis B Vaccines (1 of 3 - 19+ 3-dose series) 1985 RSV Patients and Patients Aged 60 years or older (1 - Risk 50-74 years 1-dose series) 2016 Dental Prophylaxis 11/21/2019 05/22/2019, 0 11/16/2018, 2018, Additional history exists Zoster Vaccines (2 of 2) 11/01/2022 09/06/2022 Depression Screening 03/16/2024 03/16/2023, 03/16/20 23 Dental Oral Exam 08/15/2024 02/14/2024, , 09/28/2017, Additional history exists COVID-19 Vaccine (2 - season) 2024 10/21/2020 Influenza Vaccine (#1) 2024 , 02/21/2020, 02/27/2019, Additional history exists Dental X-Ray: Bitewings 02/14/2025 02/14/20 24, 11/16/2018, 09/28/2017, Additional history exists Diabetes: Hemoglobin A1C 07/03/2025 12/2 025, 09/26/2024, 01/13/2024, Additional history exists Alcohol/Substance Use Screening 09/26/2025 09/26/2024 Disability Screening 09/26/2025 09/26/2024 SDOH Screening 09/26/2025 09/26/2024 Diabetes: Urine Protein Screening 04/04/2026 04/04/2025, 09/12/2020, 09/12/2020 Lipid Panel 04/04/2026 04/04/2025, 07/31, 02/26/2021, Additional history exists Tobacco Screening 04/18/2026 04/18/2025 Cervical Cancer Screening 01/26/2027 HPV/Cotest 01/26/2027 01/26/2022 Pap Smear 01/26/2027 01/26/2022 Dental X-Ray: Full Mouth 02/14/2027 02/14/2024 Mammogram 02/19/2027 02/19/2025, 01/31, 11/21/2018, Additional history exists Eye Exam 04/18/2027 04/18/2025, 04/01, 04/18/2025, Additional history exists DTaP/Tdap/Td Vaccines (3 - Td or Tdap) 03/16/2033 03/16/2023, 01/19/2013, 04/12/2004, Additional history exists Pneumococcal Vaccine: 50+ Years Completed 08/20/2022, 03/02/2010 HIV Screening Completed 04/04/2025, 08/12/2023 HIB Vaccines Aged Out No longer [...] on patient's age to complete this topic Goals Goal Patient Goal Type Associated Problems [...] chronic kidney disease No Alyson Crockett CNM Procedures Procedure Name Priority Date/Time Associated Diagnosis Comments POCT WET MOUNT/NELLY Routine 04/18/2025 2: 37 PM EST Vanessa vaginitis POCT URINALYSIS DIPSTICK Routine 04/18/2025 1:49 PM EST Urinary symptom or sign XR LUMBAR SPINE 2-3 VIEWS Routine 04/04/2025 11:27 AM EST Chronic low back pain, unspecified back pain laterality, unspecified whether sciatica present HEPATITIS C VIRAL RNA, QUANTITATIVE, REAL-TIME PCR Routine 04/04/2025 11:13 AM EST HEPATITIS B CORE ANTIBODY (IGM) Routine 04/04/2025 11:13 AM EST VITAMIN D,25-OH,TOTAL,IA Routine 04/04/2025 11:13 AM EST Annual physical exam VITAMIN B12/FOLATE, SERUM PANEL Routine 04/04/2025 11:13 AM EST Annual physical exam TSH W/REFLEX TO FT4 Routine 04/04/2025 1 1:13 AM EST Annual physical exam SYPHILIS SCREEN Routine 04/04/2025 11:13 AM EST Annual physical exam LIPID PANEL, STANDARD Routine 04/04/2025 11:13 AM EST Annual physical exam HIV 1/2 ANTIGEN/ANTIBODY, FOURTH GENERATION W/RFL Routine 04/04/2025 11:13 AM EST Annual physical exam HEPATITIS C AB W/REFL TO HCV RNA, QN, PCR Routine 04/04/2025 11:13 AM EST Annual physical exam HEPATITIS B SURFACE ANTIGEN, EIA Routine 04/04/2025 11:13 AM EST Annual physical exam HEPATITIS B SURFACE ANTIBODY, QUALITATIVE Routine 04/04/2025 11:13 AM EST Annual physical exam HEPATITIS B CORE AB TOTAL Routine 04/04/2025 11:13 AM EST Annual physical exam HEMOGLOBIN A1C Routine 04/04/2025 11:13 AM EST Annual physical exam COMPREHENSIVE METABOLIC PANEL Routine 04/04/2025 11:13 AM EST Annual physical exam CBC Routine 04/04/2025 11:13 AM EST Annual physical exam ALBUMIN, RANDOM URINE W/CREATININE Routine 04/04/2025 11:06 AM EST Annual physical exam BI MAMMOGRAM DIAGNOSTIC TOMOSYNTHESIS BILATERAL Routine 02/19/2025 1:47 PM EDT INTRAORAL - COMPLETE SERIES OF RADIOGRAPHIC IMAGES Routine 02/14/2024 1:30 PM EDT Encounter for dental examination Dental caries Bruxism Teeth missing PERIODIC ORAL EVALUATION - ESTABLISHED PATIENT Routine 02/14/2024 1:30 PM EDT Encounter for dental examination Dental caries Bruxism Teeth missing THINPREP IMAGING PAP AND HPV MRNA E6/E7, WITH CT/NG, TRICHOMONAS Routine 01/26/2022 7:48 PM EDT PROPHYLAXIS - ADULT Routine 05/22/2019 1 2:00 AM EST from Last 3 Months or Most Recently Relevant to Health Maintenance Results * POCT fern test, vaginal fluid manually resulted (04/18/2025 2:37 PM EST) NELLY Prep Positive Comment:pH 4.5, neg whiff, n eg clue, neg trich, pos yeast, neg wbc Vaginal Fluid Vaginal structure / Unknown 04/18/2025 2:37 PM EST Alyson Crockett CNM POINT OF CARE TEST ENTER/ EDIT ORDERABLES Final Result * POCT urinalysis dipstick manually resulted (CPT 72705) (04/18/2025 1:49 PM EST) Color, UA Yellow [...] Media Lot # [id number] Lot# Expiration Date ,026 Urine (Urine, Random) 04/18/2025 1:49 PM EST Alyson Sebassilva CHRISTIANA POINT OF CARE TEST ENTER/ EDIT ORDERABLES Final Result * XR Lumbar Spine 2-3 Views (04/04/2025 11:27 AM EST) Anatomical Region Laterality Modality Spine, L-spine Radiographic Heydi ging 04/04/2025 11:2 7 AM EST Narrative 04/04/2025 11:46 AM EST [place] [address] XRay Report Signed Patient: Milvia Feliz MR#: [id number] 07 : 1965 Acct:[id number] Age/Sex: 59 / F ADM Date: 04/04/25 Loc: OPAL Attending Dr: Milvia Regalado MD Ordering Physician: Milvia Soto MD Date of Service: 04/04/25 Procedure(s): XR lumbar spine 2-3V Accession Number(s): [id number] cc: Milvia Soto MD Reason for Exam: pt with ongoing lower back pain acurte on chronic EXAMINATION: XR LUMBOSACRAL SPINE CLINICAL INFORMATION: pt with ongoing lower back pain acurte on chronic COMPARISON: January 21, 2023. TECHNIQUE: AP and lateral views. FINDINGS: Multilevel marginal osteophyte formation and endplate sclerosis throughout the axial skeleton pronounced at L5-S1. Decreased intervertebral disc height at L5-S1. Facet joint hypertrophy at L5-S1. No lytic or blastic lesions. Grade 1 anterolisthesis at L5-S1 secondary to spondylolysis pars interarticularis. XR/XR lumbar spine 2-3V IMPRESSION: Multilevel thoracolumbar spondylosis pronounced at L5-S1. 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 Electronically signed by: Dean Chin MD 04/04/2025 11:43 AM EST RP Dictated By: Dean Nolan MD Signed By: <Electronically signed by Dean Jung MD in OV> 04/04/25 1143 DD/ 1127 TD/TT: 04/04/25 1131 Nurse Practitioner Manager: Procedure Note Donotuseinterpreter, Image - 04/04/2025 [place] [address] XRay Report Signed Patient: Milvia Feliz CMR#: [id number] 07 : 1965Acct:[id number] Age/Sex: 59 / FADM Date: 04/04/25 Loc: HO.KATTY Attending Dr: Mlivia Regalado MD Ordering Physician: Milvia Soto MD Date of Service: 04/04/25 Procedure(s): XR lumbar spine 2-3V Accession Number(s): [id number] cc: Milvia Soto MD Reason for Exam: pt with ongoing lower back pain acurte on chronic EXAMINATION: XR LUMBOSACRAL SPINE CLINICAL INFORMATION: pt with ongoing lower back pain acurte on chronic COMPARISON: January 21, 2023. TECHNIQUE: AP and lateral views. FINDINGS: Multilevel marginal osteophyte formation and endplate sclerosis throughout the axial skeleton pronounced at L5-S1. Decreased intervertebral disc height at L5-S1. Facet joint hypertrophy at L5-S1. No lytic or blastic lesions. Grade 1 anterolisthesis at L5-S1 secondary to spondylolysis pars interarticularis. XR/XR lumbar spine 2-3V IMPRESSION: Multilevel thoracolumbar spondylosis pronounced at L5-S1. 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 Electronically signed by: Dean Chin MD 04/04/2025 11:43 AM EST RP Dictated By: Dean Nolan MD Signed By: <Electronically signed by Dean Jung MDin OV> 04/04/25 1143 DD/ 1127 TD/TT: 04/04/25 1131 Nurse Practitioner Manager: us Milvia Regalado MD IMG XR PROCEDURES Edited Result - Final * Syphilis Screen (04/04/2025 11:13 AM EST) Syphilis Screen Nonreactive Nonreactive [facility] Blood 04/04/2025 11:1 3 AM EST 04/04/2025 11:13 AM EST us Milvia Regalado MD LAB BLOOD ORDERAB LES Final Result [facility] [address] [place] [phone] * (ABNORMAL) Vitamin D, 25-Hydroxy, Total, Immunoassay (04/04/2025 11:13 AM EST) Vitamin D 25-OH Total 29.5(L) >30 ng/mL [facility] Comment: Health Based Reference Values*< 20 ng/mL Lsciffvwv48-99 ng/mL Insufficient> 30 ng/mL Sufficient*Gaston JACOB. N Engl J Med. 2007;357:266-280There is no well-established upper level of normal vitamin Dlevels. Some laboratories use 50 ng/mL as an upper limit ofnormal. However, toxicity is patient-dependent and may occurat any level. Careful correlation with the patient'spresentation is necessary and, if there is concern forvitamin D toxicity, treatment should be consideredirrespective of the serum level.Care must be taken in interpreting Vitamin D results fromdifferent laboratories and methodologies. Published datademonstrated that results from patients undergoinghemodialysis may show a negative bias when tested withvarious automated 25-OH vitamin D assays when compared toLC-MS/MS.When testing samples from patients whose predominant form ofVitamin D is Vitamin D2, such as patients receiving VitaminD2 supplementation, results that are subtherapeutic shouldbe confirmed with another method such as LC-MS/MS. Blood Venous blood specimen / Unknown 04/04/2025 11:13 AM EST 04/04/2025 11:13 AM EST us Milvia Regalado MD LAB BLOOD ORDERAB LES Final Result Performing Organization Address City/[facility]/ZIP Co de Phone Number [facility] [address] [place] [phone] * Vitamin B12 (Cobalamin) and Folate Panel, Serum (04/04/2025 11:13 AM EST) Vitamin B12 697 200 - 900 pg/mL [facility] Comment:NORMAL 200-900 PG/ML INDETERMINATE 160-199 PG/ML DEFICIENT < 160 PG/ML Folate 10.5 > or = 4.0 ng/mL [facility] Comment:Reference Values:> o r = 4.0 ng/mL< 4.0 ng/mL suggests folate deficiency Methotrexate, aminopterin and folinic acid(leucovorin) are chemotherapeutic agents whose molecularstructures are similar to folate; therefore, the Architectfolate assay cannot be used for patients using these drugs. Blood 04/04/2025 11:1 3 AM EST 04/04/2025 11:13 AM EST us Milvia Regalado MD LAB BLOOD ORDERAB LES Final Result Performing Organization Address City/[facility]/ZIP Co de Phone Number [facility] [address] [place] [phone] * TSH with Reflex to Free T4 (04/04/2025 11:13 AM EST) TSH reflex Free T4 1.79 0.32 - 4.0 uIU/mL [facility] Blood 04/04/2025 11:1 3 AM EST 04/04/2025 11:13 AM EST us Milvia Regalado MD LAB BLOOD ORDERAB LES Final Result Performing Organization Address [facility]/ZIP Co de Phone Number [facility] [address] [place] [phone] * Hepatitis C Viral RNA, Quantitative, Real-Time PCR (04/04/2025 11:13 AM EST) Pathologist [facility] Hepatitis C Viral Load <15 NOT DETECTED NOT DETECTED IU/mL [facility] HCV Log PCR <1.18 NOT DETECTED NOT DETECTED Log IU/mL [facility] Comment:For additional infor mation, please refer tohttp://education.[employer]/faq/RVU08a3(This link is being provided for informational/educational purposes only.)THIS TEST WAS PERFORMED AT:[facility] [place] [phone] RANDALL MD 04/04/2025 11:1 3 AM EST 04/05/2025 7:43 AM EST us Milvia Regalado MD LAB BLOOD ORDERAB LES Final Result Performing Organization Address [facility] Co de Phone Number [facility] [address] [place] [phone] * (ABNORMAL) Hepatitis C Antibody with Reflex to HCV, RNA, Quantitative, Real- Time PCR (04/04/2025 11:13 AM EST) [facility] Hepatitis C Antibody Reactive( A) Nonreactive [facility] Comment:Presumptive evidence of antibodies to HCV. Blood Venous blood specimen / Unknown 04/04/2025 11:13 AM EST 04/04/2025 11:13 AM EST us Milvia Regalado MD LAB BLOOD ORDERAB LES Final Result Performing Organization Address [facility] Co de Phone Number [facility] [address] [place] [phone] * Hepatitis B Core??Antibody (IgM) (04/04/2025 11:13 AM EST) Hepatitis B Core Antibody IgM NON-REACTI VE NON-REACTI VE [facility] Comment:For additional infor jamar, please refer tohttp://education.[employer]/faq/UDN065(This link is being provided for informational/educational purposes only.)THIS TEST WAS PERFORMED AT:[employer] [address] [phone] RANDALL MD 04/04/2025 11:1 3 AM EST 04/04/2025 11:13 AM EST Milvia Regalado MD LAB BLOOD ORDERAB LES Final Result Performing Organization Address [facility] Co de Phone Number [facility] [address] [place] [phone] * Hepatitis B surface antigen, EIA (04/04/2025 11:13 AM EST) Hepatitis B Surface Ag Negative Negative [facility] Blood Venous blood specimen / Unknown 04/04/2025 11:13 AM EST 04/04/2025 11:13 AM EST Milvia Regalado MD LAB BLOOD ORDERAB LES Final Result Performing Organization Address [facility] Co de Phone Number [facility] [address] [place] [phone] * Hepatitis B Core Antibody, Total (04/04/2025 11:13 AM EST) Hepatitis B Core Antibody Reactive Nonreactive [facility] Comment:Presumptive evidence of anti-HBc. Blood Venous blood specimen / Unknown 04/04/2025 11:13 AM EST 04/04/2025 11:13 AM EST Milvia Regalado MD LAB BLOOD ORDERAB LES Final Result Performing Organization Address City/[facility]/ZIP Co de Phone Number [facility] [address] [place] [phone] * HIV-1/2 Antigen and Antibodies, Fourth Generation, with Reflexes (04/04/2025 11:13 AM EST) HIV AB/AG Nonreactive Nonreactive [facility] Comment:HIV-1 p24 Ag and/or HIV-1/HIV-2 Ab not detected.A test result that is nonreactive does not exclude thepossibility of exposure to or infection with HIV-1 and/orHIV-2. Nonreactive results in this assay for individualswith prior exposure to HIV-1 and/or HIV-2 may be due toantigen and antibody levels that are below the limit ofdetection of this assay.The [employer] HIV Ag/Ab Combo assay result andsupplemental assay results should be interpreted inconjunction with the patient's clinical presentation,history and other laboratory results. If the results areinconsistent with clinical evidence, additional testing issuggested to confirm the result. Blood Venous blood specimen / Unknown 04/04/2025 11:13 AM EST 04/04/2025 11:13 AM EST us Milvia Regalado MD LAB BLOOD ORDERAB LES Final Result Performing Organization Address [facility]/ZIP Co de Phone Number [facility] [address] [place] [phone] * Hepatitis B Surface Antibody, Qualitative (04/04/2025 11:13 AM EST) ~Hepatitis B Surface Antibody NONREACTIVE Nonreactive [facility] Comment:Nonreactive: < 8.00 mIU/mL Blood Venous blood specimen / Unknown 04/04/2025 11:13 AM EST 04/04/2025 11:13 AM EST us Milvia Regalado MD LAB BLOOD ORDERAB LES Final Result Performing Organization Address [facility]/ZIP Co de Phone Number [facility] [address] [place] [address] [place] [phone] * CBC (04/04/2025 11:13 AM EST) White Blood Count 8.7 4.8 - 10.8 X10*3/uL [facility] Red Blood Count 4.91 4.20 - 5.50 X10*6/uL [facility] Hemoglobin 13.6 12.0 - 16.0 g/dl [facility] Hematocrit 41.0 37.0 - 47.0 % [facility] Mean Corpuscular Volume 83.5 80.0 - 98.0 fL [facility] Mean Corpuscular Hemoglobin 27.7 27.0 - 33.0 pg [facility] Mean Corpuscular HGB Conc 33.2 31.0 - 35.0 g/dl [facility] Red Cell Distribution Width 13.6 11.0 - 16.0 % [facility] Platelet Count 246 160 - 400 X10*3/uL [facility] Mean Platelet Volume 11.0 9.4 - 12.3 fL [facility] NRBC Pct Auto 0.0 0.0 - 0.2 /100WBC [facility] NRBC Abs Auto 0.000 0.0 - 0.012 X10*3/uL [facility] Blood Venous blood specimen / Unknown 04/04/2025 11:13 AM EST 04/04/2025 11:13 AM EST us Milvia Regalado MD LAB BLOOD ORDERAB LES Final Result [facility] [address] [place] [phone] * (ABNORMAL) Hemoglobin A1c (04/04/2025 11:13 AM EST) Hemoglobin A1c 8.1(H) <6.0 % [facility] Comment:Hemoglobin A1C Refer ence Range Adults: 4.8 - 6.0 % Non diabetic: < 6.0 % Goal: < 7.0 %Additional Action Suggested: > 8.0 %Note: Hemoglobin A1c results are invalid for patients with abnormal amounts of HbF. Blood transfusions may impact the HbA1c concentration in the patient sample. Estimated Average Glucose 186 mg/dL [facility] Comment:eAG = Estimated ave rage glucose which is %A1C expressed asaverage glucose, using the formula of the N7O-NqgagjoTadagxh Glucose study (ADAG), Diabetes Care, Vol.31,#8,2007 Blood Venous blood specimen / Unknown 04/04/2025 11:13 AM EST 04/04/2025 11:13 AM EST us Milvia Regalado MD LAB BLOOD ORDERAB LES Final Result [facility] [address] [place] [phone] * (ABNORMAL) Lipid Panel, Standard (04/04/2025 11:13 AM EST) Triglycerides 183(H) <150 mg/dL [facility] Comment:Desirable Triglyceri de: less than 150 mg/dLBorderline High Triglyceride 150-199 mg/dLHigh Triglyceride: 200-499 mg/dLVery High Triglyceride: greater than or equal to 5OO mg/dL Cholesterol 130 <200 mg/dL [facility] Comment:Desirable Cholestero l: less than 200 mg/dLBorderline High Cholesterol: 200-239 mg/dLHigh Cholesterol: greater than 239 mg/dL LDL Cholesterol Calculated 53 <100 mg/dL [facility] Comment:Desirable LDL: less than 100 mg/dLNear Optimal/Above Optimal LDL: 110- 129 mg/dLBorderline High LDL: 130-159 mg/dLHigh LDL: 160-189 mg/dLVery High LDL: greater than or equal to 190 mg/dL HDL Cholesterol 41 >40 mg/dL [facility] Comment:Desirable HDL: great er than 40 mg/dL Note: This HDL assay may give artificially low results in patients with liver disease. Blood Venous blood specimen / Unknown 04/04/2025 11:13 AM EST 04/04/2025 11:13 AM EST us Milvia Regalado MD LAB BLOOD ORDERAB LES Final Result [facility] [address] [place] [phone] * (ABNORMAL) Comprehensive Metabolic Panel (04/04/2025 11:13 AM EST) Sodium 141 135 - 145 mmol/L [facility] Potassium 3.3 3.3 - 5.1 mmol/L [facility] Chloride 104 96 - 108 mmol/L [facility] Carbon Dioxide 28 22 - 29 mmol/L [facility] Anion Gap 12 12 - 20 [facility] Urea Nitrogen (BUN) 11 9 - 16 mg/dL [facility] Creatinine, Serum 0.59 0.5 - 1.4 mg/dL [facility] Estimated Glomerular Filt Rate >60 [facility] Comment:Chronic Kidney Disea se: Estimated GFR < 60 mL/min/[id number] Kidney Disease: Estimated GFR < 15 mL/min/1.73m2 Glucose 146(H) 60 - 115 mg/dL [facility] Calcium 9.6 8.4 - 10.2 mg/dL [facility] [facility] Bilirubin, Total 0.4 0.0 - 1.0 mg/dL [facility] Aspartate Amino Transferase 23 5 - 31 U/L [facility] Alanine Aminotransferase 19 0 - 31 U/L [facility] Total Protein 7.3 6.5 - 8.0 g/dL [facility] Albumin Level 4.3 3.5 - 5.0 g/dL [facility] Alkaline Phosphatase 83 39 - 117 U/L [facility] Blood Venous blood specimen / Unknown 04/04/2025 11:13 AM EST 04/04/2025 11:13 AM EST us Milvia Regalado MD LAB BLOOD ORDERAB LES Final Result [facility] [address] [place] [phone] * (ABNORMAL) Albumin, Random Urine W/Creatinine (04/04/2025 11:06 AM EST) Creatinine, Urine 137.33 mg/dL [facility] Microalbumin Urine 88.0 mg/L [facility] Microalbum Creatinine Ratio Ur 64.0(H) <30 ug/mg cr [facility] Comment:Albumin/Creatinine R atio Reference Ranges: Normal: < 30 ug/mg creatinine Microalbuminuria: 30 - 300 ug/mg creatinineClinical Albuminuria: > 300 ug/mg creatinine Urine (Urine, Random) 04/04/2025 11:06 AM EST 04/04/2025 11:23 AM EST Milvia Regalado MD LAB URINE ORDERAB LES Final Result Performing Organization Address City/State/[facility] Co de Phone Number [facility] [address] [place] [phone] * BI Mammogram Diagnostic Tomosynthesis Bilateral (02/19/2025 1:47 PM EDT) Anatomical Region Laterality Modality Breast Bilateral Mammography 02/19/2025 1:47 PM EDT Narrative 02/19/2025 4:12 PM EDT [facility] [address] [place] [address] Mammography Report Signed Patient: Milvia Feliz MR#: [id number] 07 : 1965 Acct:[id number] Age/Sex: 59 / F ADM Date: 02/19/25 Loc: [facility] Attending Dr: Milvia Regalado MD Ordering Physician: Milvia Soto MD Re sults: 1Negative Date of Service: 02/19/25 Follow Up: 1 Year From Orig inal Mammogram Procedure(s): MM tomosynthesis diagnostic BI Accession Number(s): [id number] cc: Milvai Soto MD Reason For Exam: bilateral mastalgia [...] 02/19/25 1609 DD/ 1347 TD/TT: 02/19/25 1350 Nurse Practitioner Manager: Procedure Note Donotuseinterpreter, Image - 02/19/20[facility] [address] [place] [address] Mammography Report Signed Patient: Milvia Feliz [facility]#: [id number] 07 : 1965Acct:[id number] Age/Sex: 59 / FADM Date: 02/19/25 Loc: HO.MAMMO Attending Dr: Milvia Regalado MD Ordering Physician: Milvia Soto sults: 1Negative Date of Service: 02/19/25Follow Up: 1 Year From Orig ina Mammogram Procedure(s): MM tomosynthesis diagnostic BI Accession Number(s): [id number] cc: Milvia Soto MD Reason For Exam: [...] 02/19/25 1609 DD/ 1347 TD/TT: 02/19/25 1350 Nurse Practitioner Manager: Milvia Regalado MD IMG BI PROCEDURES Final Result * THINPREP TIS PAP AND HPV mRNA E6/E7, CT/NG, TRICH (01/26/2022 7:48 PM EDT) Chlamydia trachomatis RNA, TMA, Urogenital NOT DETECTED NOT DETECTED CONVERTED Estately Clinical Information: None given CONVERTED Estately COMMENT SEE COMMENT CONVERTE D Estately Comment: The analytical performance characteristics of this assay, when used to test SurePath(TM) specimens have been determined by [employer]. The modifications have not been cleared or approved by the FDA. This assay has been validated pursuant to the CLIA regulations and is used for clinical purposes. For additional information, please refer to https://[employer]/faq/ZJC755 (This link is being provided for information/ educational purposes only.) COMMENT SEE COMMENT CONVERTE D Estately Comment: EXPLANATORY NOTE: The Pap is a screening test for cervical cancer. It is not a diagnostic test and is subject to false negative and false positive results. It is most reliable when a satisfactory sample, regularly obtained, is submitted with relevant clinical findings and history, and when the Pap result is evaluated along with historic and current clinical information. Comment: This Pap test has been evaluated with computer assisted technology. CONVERTED Estately Manager Digital Ad Operations: SEE COMMENT CONVERTED Estately Comment: ED, CT(ASCP) CT screening location: [place] [address] HPV nRNA E6/E7 Not Detected Not Detected CONVERTED Estately Comment: Methodology: Cleaning Team Member-Mediated Amplification This assay detects E6/E7 viral messenger RNA (mRNA) from 14 high-risk HPV types (16,18,31,33,35,39,45,51,52,56,58,59,66,68). Cervical sources are required for HPV testing. If a vaginal source from a patient who has had a total hysterectomy with removal of cervix was submitted, please contact the testing laboratory for alternative testing options. For additional information, please refer to http://[employer]/faq/WTC297d0 (This link if provided for information/ educational [...] of this assay have been determined by [employer]. The modifications have not been cleared or approved by the FDA. This assay has been validated pursuant to the CLIA regulations and is used for clinical purposes. For additional information, please refer to http://education.[employer]/ faq/Trichomonastma (This link is being provided for information/ educational purposes only.) 01/26/2022 7:48 PM EDT Connie Murray MD LAB PATHOLOGY ORDERABLES F inal Result CONVERTED LEGACY LABS from Last 3 Months or Most Recently Relevant to Health Maintenance Additional Health Concerns Active Problems Noted Date [...] 04/18/2025 Patient has chronic kidney disease 04/18/2025 Insurance [facility] C3 DENTAL-[facility] MEDICAID STAND ADULT Care Teams Head Of It Relationship Specialty Start Date End Date Milvia Soto MD [address] [place] [phone] PCP - General Internal Medicine 03/17/23
--- OUTSIDE RECORDS SUMMARY | 2025-04-18 19:56 | XMS_ITS | Encounter Summary ---
Author Organization [employer] Address [address] [facility] 7t [place] [address] Care Team Providers Care Supervisor Pumping Station Name Role Phone Milvia Soto MD Primary Care Pro vider Ryan Romo RN Unavailable [phone] Fawn Ceron Unavailable Reason for Visit * Reason Onset Date Comments Appointment Request 01/11/2023 Needs new PC P Encounter Details Date Type Department Care Team (Late st Contact Info) Description 01/11/2023 Telephone [facility] MEDICINE [address] [place], [place] [phone] Heike Delarosa FNP Appointment Request (Needs new [...] Paez and has Dr. Delarosa assigned on [employer] but no one on [employer]. documented in this encounter Plan of Treatment Upcoming Encounters Date Type Department Care Team (Late st Contact Info) Description 04/22/2025 1:30 PM EST Clinical Support [facility] [address] [place] [address] 06/07/2025 1:30 PM EST Office Visit [facility] ADULT DENTAL [address] [place] [address] Preet Salazar DDS [address] [place] [address] 07/19/2025 9:45 AM EDT Office Visit [facility] [address] [place] [address] Milvia Soto MD [address] [place] [address] 07/31/2025 1:30 PM EDT Office Visit [facility] ADULT DENTAL [address] [place] [address] Roel, Tamara [address] [place] [address] documented as of this encounter Visit Diagnoses Not on filedocumented in this encounter Additional Health Concerns Assessment Noted Time PHQ-9 Depression Total Score: 8 08/21/19 23 11:05 AM EDT documented as of this encounter Care Teams Supervisor Pumping Station Relationship Specialty Start Date End Date Milvia Soto MD [address] [place] [address] PCP - General Internal Medicine 03/17/23 Ryan Romo, BG [address] [place] [address] [place] [address] Registered Nurse Family Medicine 10/02/24 04/08/25 Fawn Ceron 10/02/24 04/08/25 documented as of this encounter
--- OUTSIDE RECORDS SUMMARY | 2025-04-18 19:56 | XMS_ITS | Encounter Summary ---
Author Organization [employer] Address [address] [facility] 7t [place] [address] Care Team Providers Care Pediatric Assistant Name Role Phone Milvia Soto MD Primary Care Pro vider Ryan Romo RN Unavailable [phone] Fawn Ceron Unavailable Reason for Visit * Reason Onset Date Comments Results 04/04/2025 Medication Question 04/04/2025 Encounter Details Date Type Department Care Team (Latest Contact Info) Description 04/04/2025 Results Follow-Up [facility] MEDICINE [address] [place] [address] Milvia Soto MD [address] [place], [place] [phone] Albumin, Random Urine W/Creatinine, CBC, Comprehensive Metabolic Panel, Additional followed-up results: 6 Social History Tobacco Use Types Packs/Day Years [...] encounter Miscellaneous Notes * Telephone Encounter - Chen Maurice RN - 04/18/2025 11:24 AM EST Pt walked into green team asking about results. Explained RN team called 3x and mailed letter. Explained results as below for xray and labs. Pt states she just picked up vitamin D supplement today. She states she is not taking Trulicity because she does not know how to use it, it is sitting inher refrigerator. Scheduled RN visit to review this. Scheduled follow up PCP visit. She is also reporting UTI sxs, today states she has burning sensation with urination, pelvic pain, irritation, and odor. Spoke with CHRISTIANA in office, booked sick on site today. Pt verbalized understanding, in agreement with plan. Future Appointments Date Time Provider Department Center 04/18/2025 1:15 PM Alyson Crockett CNM MEDICINE [facility] 04/22/2025 1:30 PM [facility] GREEN TEAM NURSE MEDICINE [facility] 06/07/2025 1:30 PM Preet Salazar DDS [facility] DENT [facility] 07/19/2025 9:45 AM Milvia Regalado MD MEDICINE [facility] * Telephone Encounter - Chen Maurice RN - 04/08/2025 10:22 AM EST Telephone call x3 to pt, no answer, left voicemail. Letter mailed to address on file to contact clinic. * Telephone Encounter - Mervat Jung RN - 04/05/2025 9:32 AM EST Telephone call x2 placed to pt regarding below results and POC not answer, left v/m. Will retask. -A1C improved but still elevated. How is trulicity going? If tolerating well, will increase dose. -XR showed degenerative changes. Has she started PT? If not, number to call is [phone]. If shecompleted and still has pain, will refer to Pain management if she would like. * Telephone Encounter - Chen Maurice RN - 04/04/2025 2:56 PM EST Telephone call to pt via [employer] [phone]. Pt disconnected call after connecting with business center representative. Will task to call again. * Telephone Encounter - Chen Maurice RN - 04/04/2025 2:46 PM EST ----- Message from Milvia Regalado MD sent at 04/04/2025 2:32 PM EST ----- Please can you follow w pt if she is using tulicity prescribed at last apt for DM and obesity ? If she is compliant and tolerating well I will increase dose , her Hb1AC is still elevated but improved since before [place] will call pt to schedule f up apt Thanks -lumbar Xr report 04/2025 Multilevel thoracolumbar spondylosis pronounced at L5-S1. 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 Please inform pt of degenerative changes Milvia Feliz was referred for PT before , please can youcheck if she followed and completed therapy, if not please advise to do it and give # to call PT . If completed and ongoing pain please ask if would like pain management referral Thanks ----- Message ----- From: Interface, Lab Results In Sent: 04/04/2025 11:27 AM EST To: Milvia Regalado MD * Result Encounter Note - Milvia Regalado MD - 04/04/2025 2:45 PM EST -lumbar Xr report 04/2025 Multilevel thoracolumbar spondylosis pronounced at L5-S1. 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 Please inform pt of degenerative changes Milvia Feliz was referred for PT before , please can youcheck if she followed and completed therapy, if not please advise to do it and give # to call PT . If completed and ongoing pain please ask if would like pain management referral Thanks * Result Encounter Note - Milvia Regalado MD - 04/04/2025 2:32 PM EST Please can you follow w pt if she is using tulicity prescribed at last apt for DM and obesity ? If she is compliant and tolerating well I will increase dose , her Hb1AC is still elevated but improved since before [place] will call pt to schedule f up apt Thanks * Result Encounter Note - Milvia Regalado MD - 04/04/2025 2:30 PM EST Please can you help pt getting f up apt w me as rec at last apt to go over abnormal labs Thanks documented in this encounter Plan of Treatment Upcoming Encounters Date Type Department Care Team (Late st Contact Info) Description 04/22/2025 1:30 PM EST Clinical Support [facility] MEDICINE [address] [place] [phone] 06/07/2025 1:30 PM EST Office Visit [facility] ADULT DENTAL [address] [place] [address] Preet Salazar DDS [address] [place] [address] 07/19/2025 9:45 AM EDT Office Visit [facility] MEDICINE [address] [place] [address] Milvia Soto MD [address] [place] [address] 07/31/2025 1:30 PM EDT Office Visit [facility] ADULT DENTAL [address] [place] [phone] Tamara Sevilla [address] [place] [address] documented as of this encounter Goals Goal Patient Goal Type Associated Problems Recent Progress Patient-Stated? Author Help patients manage their type 2 diabetes Care Plan Help patients manage their type 2 diabetes Milvia Whitehead MD Weekly blood pressure task Care Plan Weekly blood pressure task Milvia Whitehead MD Help patients manage their type 2 diabetes Care Plan Help patients manage their type 2 diabetes Milvia Whitehead MD Patient has chronic kidney disease Care Plan Patient has chronic kidney disease Milvia Whitehead MD Weekly blood pressure task Care Plan Weekly blood pressure task Milvia Whitehead MD Patient has chronic kidney disease Care Plan Patient has chronic kidney disease Milvia Whitehead MD Weekly blood pressure task [...] documented as of this encounter Care Teams Pediatric Assistant Relationship Specialty Start Date End Date Milvia Soto MD [address] [place] [phone] PCP - General Internal Medicine 03/17/23 Ryan Romo RN [address] [place] [phone] Registered Nurse Family Medicine 10/02/24 04/08/25 Fawn Ceron 10/02/24 04/08/25 documented as of this encounter
--- OUTSIDE RECORDS SUMMARY | 2025-04-18 19:56 | XMS_ITS | Encounter Summary ---
Author Organization [employer] Address [address] [facility] 7t [place] [address] Care Team Providers Care Director Of Research Name Role Phone Heike Delarosa BODYWORK THERAPIST Primary Care Provider Dilia Milvia Davis MD Primary Care Pro vider Ryan Romo RN Unavailable Fawn Ceron Unavailable Encounter Details Date Type Department Care Team (Latest Contact Info) Description 2018 Abstract [facility] CONVERSIONS Dental, Provider, DDS Social History [...] Upcoming Encounters Date Type Department Care Team ( Contact Info) Description 04/22/2025 1:30 PM EST Clinical Support [facility] MEDIC[facility] [address] [place] [phone] 06/07/2025 1:30 PM EST Office Visit [facility] ADULT DENTAL [address] [place] [address] [phone] Preet Salazar DDS [address] [place], [place] [phone] 07/19/2025 9:45 AM EDT Office Visit [facility] [address] [place] [address] [phone] Milvai Soot MD [address] [place], [place] [phone] 07/31/2025 1:30 PM EDT Office Visit [facility] ADULT DENTAL [address] [place], [place] [phone] Tamara Sevilla [address] [place], [place] [phone] documented as of this encounter Visit Diagnoses Not on filedocumented in this encounter Care Teams Director Of Research Relationship Specialty Start Date End Date Heike Delarosa FNP PCP - General Family Medicine 12/28/21 10/21/22 Milvia Soto MD [address] [place], [place] [phone] PCP - General Internal Medicine 03/17/23 Ryan Romo RN [address] [place] [phone] Registered Nurse Family Medicine 10/02/24 04/08/25 Fawn Ceron 10/02/24 04/08/25 documented as of this encounter
--- OUTSIDE RECORDS SUMMARY | 2025-04-18 19:56 | XMS_ITS | Encounter Summary ---
Author Organization [employer] Address [address] [facility] [address]t [place] [address] Care Team Providers Care Vocal Music Instructor Name Role Phone Milvia Soto MD Primary Care Pro vider Ryan Romo RN Unavailable [phone] Fawn Ceron Unavailable Reason for Visit * Reason Onset Date Comments rs missed visit 06/08/2024 Encounter Details Date Type Department Care Team (Late st Contact Info) Description 06/08/2024 Telephone [facility] ADULT DENTAL [address] [place], [place] [phone] Preet Salazar DDS [address] [place], [place] [phone] rs missed visit Social History Tobacco Use [...] Description 04/22/2025 1:30 PM EST Clinical Support [facility] MED[facility]INE [address] [place] [phone] 06/07/2025 1:30 PM EST Office Visit [facility] ADULT DENTAL [address] [place] [address] Preet Salazar DDS [address] [place] [address] 07/19/2025 9:45 AM EDT Office Visit [facility] MEDICINE [address] [place] [address] [phone] Milvia Soto MD [address] [place], [place] [phone] 07/31/2025 1:30 PM EDT Office Visit [facility] ADULT DENTAL [address] [place], [place] [phone] Tamara Sevilla [address] [place], [place] [phone] documented as of this encounter Visit Diagnoses Not on filedocumented in this encounter Additional Health Concerns Assessment Noted Time PHQ-9 Depression Total Score: 5 03/16/20 23 2:41 PM EST documented as of this encounter Care Teams Vocal Music Instructor Relationship Specialty Start Date End Date Milvia Soto MD [address] [place], [place] [phone] PCP - General Internal Medicine 03/17/23 Ryan Romo RN [address] [place] [phone] Registered Nurse Family Medicine 10/02/24 04/08/25 Fawn Ceron 10/02/24 04/08/25 documented as of this encounter
[2025-04-18 21:41] LABS: Bacterial Vaginosis PCR NEGATIVE (Negative); Candida Group PCR NOT DETECTED (Not Detect); Candida glab krusei PCR DETECTED (Not Detect); Trichomonas vaginalis PCR NOT DETECTED (Not Detect)
== END 2025-04-18 18:17 | disposition home or self-care (01) ==
LOC: HO.HHCLNP 18:16
PROVIDERS: Visit Provider Advanced Practice Midwife
DX: B37.31 Acute candidiasis of vulva and vagina (principal); R39.9 Unspecified symptoms and signs involving the genitourinary system
CPT/HCPCS: 81515; 87086

== ENCOUNTER → 2025-04-19 15:04 | Outpatient (RCR) | payer MEDICAID, SELFPAY | END | disposition home or self-care (01) | LOC: HO.PT 04-02 10:00 | PROVIDERS: PCP Student in an Organized Health Care Education/Training Program; Visit Provider Student in an Organized Health Care Education/Training Program | DX: M54.2 Cervicalgia (principal) | CPT/HCPCS: 97110; 97161 ==